=== PATIENT | female | born 1965 | race Caucasian/White ===

== ENCOUNTER 2017-10-04 07:02 | Inpatient (IN) | payer OTHER ==
[~2017-10-04] VITALS: Ht 167.6 cm; Wt 93.9 kg
[2017-10-04] VITALS (63 sets, daily range): BP systolic 36–177; BP diastolic 25–108
[~2017-10-04 07:02] MED LIST: AMBIEN CR12.5 MG PO; ASPIRIN325 MG PO; BYSTOLIC10 MG PO; CLONAZEPAM0.5 MG PO; CLONIDINE HCL0.1 MG PO; LISINOPRIL10 MG PO; LYRICA75 MG PO; NORCO 10-325 T1 EACH PO; NORVASC10 MG PO; PLAVIX75 MG PO; SOMA350 MG PO
[2017-10-04] MEDS ORDERED: ALBUTEROL SULF 0.083% NEB SOLN 3 ML NEB NEB STA (07:11)
[2017-10-04] MEDS ORDERED: METHYLPREDNISOLONE SOD SUCC 125 MG/2ML VIAL IV ONE (07:15)
[2017-10-04] MEDS ORDERED: IPRATROPIUM BROMIDE 0.02% 2.5 ML NEB NEB ONE (07:15)
[2017-10-04] MEDS ORDERED: SODIUM BICARBONATE 8.4% INJ 50 ML SYR IV STA (07:28)
[2017-10-04 07:30] LABS: BASOPHILS # (AUTO) 0.1 (0.0-0.1); BASOPHILS % 0.6 % (0.0-1.0); EOSINOPHILS # (AUTO) 0.2 (0.0-0.4); EOSINOPHILS % 1.2 % (0.0-6.0); HEMATOCRIT 41.7 % (34.2-44.1); LYMPHOCYTES # (AUTO) 1.7 (1.0-3.2); LYMPHOCYTES % 13.6 % (18.0-39.1); MEAN CORPUSCULAR HGB CONC 33.6 g/dL (31-35); MEAN CORPUSCULAR VOLUME 107.2 fL (81-99); MONOCYTES # (AUTO) 0.8 (0.2-0.8); MONOCYTES % 6.4 % (4.4-11.3); NEUTROPHILS # (AUTO) 9.8 (2.1-6.9); NEUTROPHILS % 77.5 % (38.7-80.0); PLATELET COUNT 184 x10e3/uL (140-360); RED BLOOD COUNT 3.89 x10e6/uL (3.6-5.1); RED CELL DISTRIBUTION WIDTH 15.9 % (11.7-14.4)
[2017-10-04] MEDS ORDERED: SODIUM BICARBONATE 8.4% SYRING 50 ML ONE (07:30)
[2017-10-04] MEDS ORDERED: SODIUM CHLORIDE 0.9% 1000ML 1,000 ML ONE ×3 (07:33→13:10)
[2017-10-04] MEDS ORDERED: HYDROCORTISONE SOD SUCCINATE 100 MG VIAL ONE (07:34)
[2017-10-04 07:37] LABS: ABG HCO3 21 mmol/L (23-28); ABG PCO2 43 mmHg (41-51); ABG PO2 94 mmHg (80-105)
[2017-10-04 07:37] LABS: INR 0.89; PROTHROMBIN TIME 12.5 seconds (11.9-14.5)
[2017-10-04 07:46] LABS: ALBUMIN 3.6 g/dL (3.5-5.0); ANION GAP 17.7 mmol/L (8-16); CREATININE, SERUM 1.18 mg/dL (0.57-1.11); POTASSIUM 3.7 mmol/L (3.5-5.1)
[2017-10-04 07:52] LABS: CREATINE KINASE MB 11.8 ng/mL (0.00-5.00)
[2017-10-04 07:53] LABS: B-TYPE NATRIURETIC PEPTIDE2 588.1 pg/mL (0-100)
[2017-10-04 07:56] LABS: TROPONIN I 7.638 ng/mL (0-0.300)
[2017-10-04] MEDS ORDERED: HYDROMORPHONE 1MG/1ML INJ ONE (08:03)
[2017-10-04] MEDS ORDERED: ASPIRIN 81 MG ENTERIC COATED PO ONE (08:25)
[2017-10-04] MEDS ORDERED: METOPROLOL TARTRATE INJ 1 MG/ML VIAL ONE (08:30)
[2017-10-04] MEDS ORDERED: ASPIRIN 325 MG TAB ONE (08:31)
[2017-10-04] MEDS ORDERED: EPTIFIBATIDE 30 ML ONE (08:31)
--- NOTE | 2017-10-04 08:31 | Diagnostic Imaging Report ---
PROCEDURE:CHEST SINGLE (PORTABLE) TECHNIQUE:Portable AP chest INDICATION:Respiratory distress COMPARISON:Patients [facility], DX, CHEST SINGLE (PORTABLE), 04/29/2017, 21:53. FINDINGS: Bilateral alveolar opacity. Questionable pleural effusions. Enlarged cardiac silhouette with central vascular enlargement. Postoperative sequela sternotomy. Intact skeleton. CONCLUSION: Congestive heart failure, with cardiomegaly and pulmonary edema. Dictated by: Raf Kim M.D. on 10/04/2017 at 8:38 Electronically approved by: Raf Kim M.D. on 10/04/2017 at 8:38
[2017-10-04] MEDS ORDERED: NITROGLYCERIN/D5W 200 MCG/ML 250 ML ONE ×2 (08:32→08:37)
[2017-10-04] MEDS ORDERED: LIDOCAINE HCL 2% LOCAL 20 ML VIAL ONE (08:32)
[2017-10-04] MEDS ORDERED: HEPARIN SOD/SOD CHLORIDE 2,000 ML ONE (08:34)
[2017-10-04] MEDS ORDERED: IOPAMIDOL 370 MG/ML 200 ML INFUS..BTL INJ ONE (08:40)
[2017-10-04] MEDS ORDERED: SODIUM CHLORIDE 0.9% 1000ML 1,000 ML IV SCH ×2 (08:45→09:24)
[2017-10-04] MEDS ORDERED: HYDROMORPHONE 2MG/ML INJ IV ONE (08:45)
[2017-10-04] MEDS ORDERED: CLOPIDOGREL BISULFATE 75 MG TAB PO ONE (08:45)
[2017-10-04] MEDS ORDERED: ASPIRIN 81 MG CHEW TAB PO ONE ×2 (08:45→09:30)
[2017-10-04] MEDS ORDERED: HYDROCORTISONE SOD SUCCINATE 100 MG VIAL IV ONE (08:45)
[2017-10-04] MEDS ORDERED: MIDAZOLAM HCL 2 MG/2 ML VIAL ONE (08:57)
[2017-10-04] MEDS ORDERED: FENTANYL CITRATE/PF 100MCG/2 ML INJ ONE (08:57)
[2017-10-04] MEDS ORDERED: VANCOMYCIN 1GM/NS 250 ML 250 ML ONE (09:00)
[2017-10-04] MEDS ORDERED: SODIUM CHLORIDE 0.9% 50ML 50 ML ONE (09:13)
[2017-10-04] MEDS ORDERED: BIVALIRUDIN 250 MG/VIAL IV ONE (09:13)
[2017-10-04] MEDS ORDERED: EPTIFIBATIDE 10 ML ONE ×2 (09:27→09:48)
[2017-10-04] MEDS ORDERED: EPTIFIBATIDE 100 ML ONE ×2 (09:27→17:28)
[2017-10-04] MEDS ORDERED: MORPHINE SULFATE 4 MG/ML SYR IV PRN (09:30)
[2017-10-04] MEDS ORDERED: CLONIDINE HCL 0.1 MG TAB PO PRN (09:30)
[2017-10-04] MEDS ORDERED: HYDROCODONE/APAP 5MG-325MG TAB PO PRN (09:30)
[2017-10-04] MEDS ORDERED: ZOLPIDEM TARTRATE 5 MG TAB PO PRN (09:30)
[2017-10-04] MEDS ORDERED: EPTIFIBATIDE IV SCH (09:30)
[2017-10-04] MEDS ORDERED: SODIUM CHLORIDE 0.9% IV SCH (09:30)
[2017-10-04] MEDS ORDERED: CLONAZEPAM 0.5 MG TAB PO PRN (09:30)
[2017-10-04] MEDS ORDERED: EPTIFIBATIDE 100 ML IV SCH (09:45)
[2017-10-04] MEDS ORDERED: MORPHINE SULFATE 2 MG/ML SYR IV PRN (10:15)
[2017-10-04] MEDS ORDERED: DEXTROSE 50% SYRINGE 50 ML IV PRN (10:15)
[2017-10-04] MEDS ORDERED: SODIUM CHLORIDE FLUSH 10 ML SYR INJ PRN (10:15)
[2017-10-04] MEDS ORDERED: NITROGLYCERIN 0.4 MG SUBL SL PRN (10:15)
[2017-10-04] MEDS ORDERED: HYDROMORPHONE 2MG/ML INJ ONE (10:38)
[2017-10-04] MEDS: FAMOTIDINE 20 MG TAB PO SCH ×2 (11:00→21:00)
[2017-10-04] MEDS ORDERED: HYDROCODONE/APAP 10MG-325MG TAB PO SCH (12:00)
[2017-10-04] MEDS ORDERED: MEPERIDINE HCL INJ 50 MG/ML INJ ONE (12:11)
[2017-10-04] MEDS ORDERED: PROPOFOL IV EMULSION 10MG/ML 100 ML ONE ×2 (12:55→17:27)
[2017-10-04] MEDS ORDERED: FUROSEMIDE INJ 10 MG/ML 4 ML VIAL ONE (12:55)
[2017-10-04] MEDS ORDERED: FUROSEMIDE INJ 10 MG/ML 4 ML VIAL IV ONE ×2 (13:00→17:45)
--- NOTE | 2017-10-04 13:11 | Diagnostic Imaging Report ---
PROCEDURE:CHEST SINGLE (PORTABLE) TECHNIQUE:Portable AP chest INDICATION:Tube placement COMPARISON:Patients [facility], DX, CHEST SINGLE (PORTABLE), 10/04/2017, 8:04. FINDINGS: See conclusion. CONCLUSION: 1. Endotracheal tube tip about 4 cm from the kisha. 2. Progressive pulmonary edema relative to 8:00 AM. 3. Stable cardiomegaly and postoperative sequela of sternotomy. 4. Grossly intact skeleton. Dictated by: Raf Kim M.D. on 10/04/2017 at 13:19 Electronically approved by: Raf Kim M.D. on 10/04/2017 at 13:19
[2017-10-04] MEDS: PROPOFOL IV EMULSION 10MG/ML 100 ML IV PRN ×2 (13:20→18:00)
[2017-10-04] MEDS: MORPHINE SULFATE 5 MG/ML VIAL IV PRN ×2 (13:30→20:30)
[2017-10-04 14:45] LABS: ABG PCO2 43 mmHg (41-51)
[2017-10-04] MEDS ORDERED: INSULIN REGULAR, HUMAN 3ML VL 100 UNIT in SODIUM CHLORIDE 0.45% 100 ML 100 ML IV PRN ×2 (14:45)
[2017-10-04 14:46] LABS: ABG HCO3 21 mmol/L (23-28); ABG PO2 52 mmHg (80-105)
[2017-10-04] MEDS ORDERED: CARISOPRODOL 350 MG TAB PO SCH (15:00)
[2017-10-04] MEDS ORDERED: FUROSEMIDE INJ 10 MG/ML 4 ML VIAL IV SCH ×2 (15:00→22:00)
[2017-10-04] MEDS: FENTANYL CITRATE INJ 2,000 MCG in SODIUM CHLORIDE 0.9% 250ML 210 ML IV PRN (15:10)
[2017-10-04 15:13] LABS: MAGNESIUM 1.8 MG/DL (1.3-2.1); PHOSPHORUS 6.2 MG/DL (2.3-4.7)
[2017-10-04 16:04] LABS: BASOPHILS % 0.2 % (0.0-1.0); EOSINOPHILS % 0.1 % (0.0-6.0); HEMATOCRIT 38.2 % (34.2-44.1); HEMOGLOBIN 12.5 g/dL (12.0-16.0); LYMPHOCYTES # (AUTO) 0.6 (1.0-3.2); LYMPHOCYTES % 4.7 % (18.0-39.1); MEAN CORPUSCULAR HEMOGLOBIN 35.6 pg (28-32); MEAN CORPUSCULAR HGB CONC 32.7 g/dL (31-35); MEAN CORPUSCULAR VOLUME 108.8 fL (81-99); MONOCYTES # (AUTO) 0.7 (0.2-0.8); MONOCYTES % 5.5 % (4.4-11.3); NEUTROPHILS # (AUTO) 11.4 (2.1-6.9); PLATELET COUNT 165 x10e3/uL (140-360); RED BLOOD COUNT 3.51 x10e6/uL (3.6-5.1); RED CELL DISTRIBUTION WIDTH 16.3 % (11.7-14.4)
[2017-10-04 16:29] LABS: CREATINE KINASE MB 108.7 ng/mL (0.00-5.00)
[2017-10-04 16:33] LABS: ANION GAP 17.3 mmol/L (8-16); CALCIUM 7.9 mg/dL (8.4-10.2); CREATININE, SERUM 1.36 mg/dL (0.57-1.11); MAGNESIUM 1.6 MG/DL (1.3-2.1); PHOSPHORUS 5.2 MG/DL (2.3-4.7); POTASSIUM 5.3 mmol/L (3.5-5.1)
[2017-10-04 17:28] LABS: ABG PCO2 36 mmHg (41-51); ABG PH 7.33 (7.31-7.41)
[2017-10-04 17:29] LABS: ABG BASE EXCESS 18.5 mmol/L (-2 - 3); ABG HCO3 19 mmol/L (23-28); ABG PO2 117 mmHg (80-105)
--- NOTE | 2017-10-04 20:38 | Diagnostic Imaging Report ---
RADIOGRAPH(S) OF THE ABDOMEN AND PELVIS, 1 view(s) HISTORY: OG-tube placement COMPARISON: None available. FINDINGS: Partial view of the upper abdomen. No specific evidence of obstruction or ileus. Metallic clips in the right upper quadrant of the abdomen are compatible with prior cholecystectomy. IMPRESSION: An enteric tube extends below the level of the diaphragm, the side port projects near the expected level of the gastroesophageal junction. Signed by: Dr. Tanner Tovar D.O., M.M.M. on 10/04/2017 8:34 PM
[2017-10-04 22:47] LABS: BASOPHILS % 0.2 % (0.0-1.0); EOSINOPHILS % 0.1 % (0.0-6.0); HEMATOCRIT 34.6 % (34.2-44.1); HEMOGLOBIN 11.8 g/dL (12.0-16.0); LYMPHOCYTES # (AUTO) 1.7 (1.0-3.2); LYMPHOCYTES % 13.9 % (18.0-39.1); MEAN CORPUSCULAR HEMOGLOBIN 35.6 pg (28-32); MEAN CORPUSCULAR HGB CONC 34.1 g/dL (31-35); MEAN CORPUSCULAR VOLUME 104.5 fL (81-99); MONOCYTES % 7.8 % (4.4-11.3); NEUTROPHILS # (AUTO) 9.6 (2.1-6.9); NEUTROPHILS % 77.6 % (38.7-80.0); PLATELET COUNT 147 x10e3/uL (140-360); RED BLOOD COUNT 3.31 x10e6/uL (3.6-5.1); RED CELL DISTRIBUTION WIDTH 16.2 % (11.7-14.4)
[2017-10-04 23:01] LABS: ANION GAP 13.7 mmol/L (8-16); CREATININE, SERUM 1.12 mg/dL (0.57-1.11); POTASSIUM 3.7 mmol/L (3.5-5.1)
[2017-10-04] MEDS ORDERED: DOBUtamine HCL 500MG/D5W 250ML 250 ML IV SCH (23:15)
[2017-10-04] MEDS ORDERED: FUROSEMIDE INJ 100 MG in SODIUM CHLORIDE 0.9% 100 ML 90 ML IV SCH (23:15)
[2017-10-04] MEDS ORDERED: POTASSIUM CHLORIDE 20MEQ/100ML 200 ML IV ONE (23:15)
[2017-10-04 23:38] LABS: CREATINE KINASE MB 69.2 ng/mL (0.00-5.00)
[2017-10-04 23:40] LABS: TROPONIN I 199.306 ng/mL (0-0.300)
[2017-10-04] MEDS ORDERED: FUROSEMIDE INJ 10 MG/ML 10 ML VIAL ONE (23:43)
[2017-10-04 23:44] LABS: TROPONIN I 123.106 ng/mL (0-0.300)
[2017-10-05] VITALS (92 sets, daily range): BP systolic 59–150; BP diastolic 34–115
[2017-10-05] MEDS ORDERED: SODIUM CHLORIDE 0.45% 100 ML 100 ML IV ONE (00:02)
[2017-10-05] MEDS ORDERED: EPTIFIBATIDE 100 ML ONE (00:25)
[2017-10-05] MEDS ORDERED: EPTIFIBATIDE 100 ML IV ONE (00:30)
[2017-10-05] MEDS: PROPOFOL IV EMULSION 10MG/ML 100 ML IV PRN ×10 (00:30→22:10)
--- NOTE | 2017-10-05 02:57 | Consultation ---
DATE OF CONSULTATION: October 04, 2017 PULMONARY CRITICAL CARE MEDICINE CONSULTATION REFERRING PHYSICIAN: Dr. To and Dr. Wilder. REASON FOR REFERRAL: Acute respiratory failure. HISTORY: Ms. Mckeon is a pleasant 52-year-old female with acute respiratory failure. Patient with long known history of both cardiovascular and peripheral vascular disease. Patient came to the ER where it was seen that she was having shortness of breath. Patient had the feeling of instability when she came in. Her equipment monitor phototypesetting was notified after initial evaluation. Chest x-ray showed mild pulmonary edema. Her equipment monitor phototypesetting emergently came in and took the patient to the catheterization lab where cardiac catheterization was performed with right coronary vessel intervention. Patient subsequently continued to worsen and become more short of breath. Patient eventually went for intubation. Chest x-ray showed florid pulmonary edema with "whiteout". She was on 100% FIO2 and 5 of PEEP in the morning when I was called. I was asked to assess the patient. Oxygen saturation was 88% to 92% range. First troponin was 7.3. BNP 588. Lactic acid 48. PAST MEDICAL HISTORY: Coronary artery disease, status post CABG, CHF, thyroid abnormality, dyslipidemia, coronary artery bypass grafting in 2003. MEDICATIONS: Per the records. ALLERGIES: PER THE RECORDS. NOTE, ALLERGY TO PENTAZOCINE. SOCIAL HISTORY: Includes smoking by history. PHYSICAL EXAMINATION GENERAL: Patient is off pressors at this time. Unstable appearance with a lot of froth from the endotracheal tube. Patient on the ventilator and awake. Moving all 4 extremities after the procedure. LABS: BUN 20, creatinine 1.2, potassium 3.7, bicarbonate 19. White count 13, hematocrit 42. IMPRESSION AND PLAN 1. Acute respiratory failure, refractory hypoxemia. 2. Pulmonary edema. 3. Acute coronary syndrome, myocardial infarction. 4. Postoperative state: Status post percutaneous transluminal coronary angioplasty and intervention. 5. Atrial fibrillation. 6. Chronic pain. 7. History of coronary artery disease and coronary artery bypass graft. 8. Thyroid abnormality. 9. Dyslipidemia. 10. Lactic acidosis. Aggressive ventilator support. Multiple changes have been made due to ventilator management, lung protected mechanisms. Diuretics have already been started. Will hold the IV fluids after talking to cardiology. Will modify medicines as there is a lot of pain and psychiatric medications. Will follow up the kidneys to ensure there is no kidney injury. Will follow along very closely. Greater than 30 minutes in direct care on this date. Multiple interventions and review, and coordination of care. Job#: [id number] JOSEPH
[2017-10-05 05:11] LABS: BASOPHILS % 0.3 % (0.0-1.0); EOSINOPHILS % 0.3 % (0.0-6.0); HEMATOCRIT 38.7 % (34.2-44.1); HEMOGLOBIN 13.4 g/dL (12.0-16.0); LYMPHOCYTES # (AUTO) 1.8 (1.0-3.2); LYMPHOCYTES % 15.7 % (18.0-39.1); MEAN CORPUSCULAR HEMOGLOBIN 36.1 pg (28-32); MEAN CORPUSCULAR HGB CONC 34.6 g/dL (31-35); MEAN CORPUSCULAR VOLUME 104.3 fL (81-99); MONOCYTES # (AUTO) 1.2 (0.2-0.8); MONOCYTES % 10.2 % (4.4-11.3); NEUTROPHILS # (AUTO) 8.6 (2.1-6.9); PLATELET COUNT 169 x10e3/uL (140-360); RED BLOOD COUNT 3.71 x10e6/uL (3.6-5.1); RED CELL DISTRIBUTION WIDTH 15.9 % (11.7-14.4)
[2017-10-05 05:32] LABS: ALBUMIN 3.3 g/dL (3.5-5.0); ANION GAP 18.5 mmol/L (8-16); BILIRUBIN,DIRECT 0.3 mg/dL (0.0-5.0); CALCIUM 8.2 mg/dL (8.4-10.2); CHOL/HDL RATIO 8.6 (3.0-3.6); CREATININE, SERUM 1.07 mg/dL (0.57-1.11); POTASSIUM 3.5 mmol/L (3.5-5.1)
[2017-10-05 05:56] LABS: CREATINE KINASE MB 53.9 ng/mL (0.00-5.00)
[2017-10-05 06:00] LABS: TROPONIN I 185.484 ng/mL (0-0.300)
--- NOTE | 2017-10-05 06:55 | Diagnostic Imaging Report ---
EXAM: CHEST SINGLE (PORTABLE), AP 1 view DATE: 10/05/2017 5:00 AM Time stamp on exam: 0528 hours INDICATION: Intubated COMPARISON: AP view of the chest October 04, 2017 FINDINGS: LINES/TUBES: Stable position of endotracheal tube. The distal aspect of the nasal/orogastric tube is not visualized. LUNGS: Vascular congestion/pulmonary edema and bibasilar atelectasis. PLEURA: Indeterminate for layering pleural effusions bilaterally. HEART AND MEDIASTINUM: Stable appearance. BONES AND SOFT TISSUES: Median sternotomy wires. IMPRESSION: Increasing edema. Signed by: Dr. Cecelia Collins M.D. on 10/05/2017 6:51 AM
[2017-10-05] MEDS: FAMOTIDINE 20 MG TAB PO SCH ×2 (08:53→20:23)
[2017-10-05] MEDS: ASPIRIN 325 MG TAB PO SCH (08:53)
[2017-10-05] MEDS: PREGABALIN 75 MG CAP PO SCH (08:53)
[2017-10-05] MEDS: PRASUGREL 10 MG TAB PO SCH (08:53)
[2017-10-05] MEDS ORDERED: NEBIVOLOL 10 MG TAB PO SCH (09:00)
[2017-10-05] MEDS ORDERED: ASPIRIN 81 MG ENTERIC COATED PO SCH (09:00)
[2017-10-05] MEDS ORDERED: LISINOPRIL 10 MG TAB PO SCH (09:00)
[2017-10-05] MEDS ORDERED: CLOPIDOGREL BISULFATE 75 MG TAB PO SCH ×2 (09:00)
[2017-10-05] MEDS ORDERED: AMLODIPINE BESYLATE 10 MG TAB PO SCH (09:00)
--- NOTE | 2017-10-05 10:24 | Progress Note ---
DATE: October 05, 2017 Ms. Mckeon is a 52-year-old female with a history of coronary artery disease, status post CABG, CHF, hyperlipidemia, coronary bypass, positive smoker, came to the emergency room complaining of chest pain. She was ruled in for an AL. She was taken to the cardiac cath. She had a stent placed of the RCA. She went into respiratory distress. She first was on BiPAP, and then she required intubation. At the present time, she is on the ventilator. PHYSICAL EXAMINATION VITALS: Temperature is 98.7, blood pressure 120/70, heart rate 94 per minute. LUNGS: Poor inspiratory effort. HEART: Regular rate. ABDOMEN: Distended and soft. EXTREMITIES: Lower extremities with no edema or erythema. BLOOD WORK: Potassium 3.5, creatinine 1.07, glucose 278. White count is 11.7, hemoglobin 13.4, hematocrit 38.7. The chest x-ray done today shows increasing edema. Abdominal x-ray done yesterday shows below the level of the diaphragm. ASSESSMENT AND PLAN 1. Acute respiratory failure: On ventilator. 2. Acute myocardial infarction. 3. Coronary artery disease: Status post right coronary artery stent. 4. Diabetes, type 2: On insulin sliding scale. 5. Hypertension. 6. Hyperlipidemia. PLAN: At the present time, we have cardiology on the case and critical care, Dr. Hayden on the case. We are going to continue to monitor respiratory status. Wean off ventilator as tolerated. Continue Lasix drip. Continue sliding scale with insulin. Continue aspirin. The overall prognosis of the patient is guarded. All of this was discussed with heating mechanic. Job#: [id number] JOSEPH
[2017-10-05] MEDS: FUROSEMIDE INJ 100 MG in SODIUM CHLORIDE 0.9% 100 ML 90 ML IV SCH ×2 (10:41→20:22)
--- NOTE | 2017-10-05 12:04 | Consultation ---
DATE OF CONSULTATION: October 04, 2017 INTERNAL MEDICINE CONSULTATION HISTORY OF PRESENT ILLNESS: Ms. Mckeon is a 52-year-old female. I was called from the emergency room because she ruled in for an acute [place] and she was in the laboratory veterinarian. Dr. Wilder was doing the catheters. I do not have any information from him yet, but this lady has history of diabetes, hypertension, hyperlipidemia, coronary artery disease status post CABG and status post a stent. As per her son, she had 5 times a heart attack. It started this morning with chest pain and shortness of breath. She came to the emergency room and the EKG showed ST elevation on several leads. Cardiology consult was requested immediately and, like I say, patient went to laboratory veterinarian. PAST MEDICAL HISTORY: She has history of diabetes, hypertension, hyperlipidemia, history of coronary artery disease status post CABG and status post a stent. Patient was admitted previously here in April. SOCIAL HISTORY: Apparently she lives at home. She smokes, but as per her son she does not drink. SURGICAL HISTORY: She has a history of a CABG in the past. ALLERGIES: SHE IS ALLERGIC TO PENTAZOCINE. MEDICATIONS: At home she takes several medications. She takes amlodipine, aspirin, clonazepam, Plavix, lisinopril, Bystolic, Lyrica. PHYSICAL EXAMINATION GENERAL: Today, patient just came from the laboratory veterinarian. She is very distressed, anxious. She is on BiPAP. VITAL SIGNS: Blood pressure is 128/83. Temperature 96.3. HEART: Regular rate. LUNGS: Poor inspiratory effort. ABDOMEN: Distended and soft. BLOOD WORK: White count 12.69, hemoglobin is 14. Potassium 3.7, creatinine 1.18. Glucose was very elevated at 505 on admission. BNP 588. Chest x-ray shows congestive heart failure with cardiomegaly and pulmonary edema. ADMITTING DIAGNOSIS 1. Coronary artery disease status post coronary artery bypass graft, status post a stent. 2. Acute myocardial infarction. 3. Congestive heart failure. 4. Pulmonary edema. 5. Acute respiratory failure. 6. Diabetes type 2. 7. Hypertension. 8. Hyperlipidemia. 9. Anxiety. The plan at the present time is patient went to the laboratory veterinarian today. Apparently she had a stent placed. I do not have the information from the analytical tech yet. She is right now in recovery. We are planning to transfer her to ICU. She is on BiPAP. Continue to monitor vital signs. Patient is on beta blockers, CARRIE inhibitors. She is on also diuretics. The overall prognosis is guarded, and all this was discussed with her son at bedside. All questions were answered to satisfaction. Job#: [id number] EV
[2017-10-05] MEDS ORDERED: POTASSIUM CHLORIDE 20MEQ/100ML 200 ML IV ONE ×2 (12:45→14:30)
[2017-10-05] MEDS ORDERED: POTASSIUM CHL 40 MEQ in SODIUM CHLORIDE 0.9% 250ML 250 ML IV SCH (13:00)
[2017-10-05] MEDS ORDERED: ALBUMIN HUMAN 25 GM/ 100 ML IV ONE ×2 (13:15)
[2017-10-05 13:43] LABS: ANION GAP 21.5 mmol/L (8-16); CREATININE, SERUM 0.97 mg/dL (0.57-1.11); POTASSIUM 3.5 mmol/L (3.5-5.1)
--- NOTE | 2017-10-05 13:45 | Pre Op History & Physical ---
CHIEF COMPLAINT: Chest pain. HISTORY OF PRESENT ILLNESS: Ms. Mckeon is a 52-year-old female with a history of coronary artery disease, coronary artery bypass surgery, left fem-pop surgery, poorly controlled diabetes mellitus, morbid obesity, with prior interventions on her saphenous vein bypass graft. Comes in complaining of 2 weeks of shortness of breath and cough. She has been treated with 2 rounds of antibiotics by her primary care physician. However, this morning she had sudden continuous chest pain. EKG in the emergency room shows ST elevation in the inferior leads. She was taken emergently to the cardiac maintenance shop laborer. She was in volume overload from acute systolic heart failure. Additionally, she had complete occlusion of her right coronary artery stent. Percutaneous intervention emergently was performed with successful recanalization. Echocardiogram shows an ejection fraction of 35%. PAST MEDICAL HISTORY: Listed above. SOCIAL HISTORY: Patient does not smoke or drink. DRUG ALLERGIES: INCLUDE PENTAZOCINE. REVIEW OF SYSTEMS: Unobtainable as the patient is intubated. PHYSICAL EXAMINATION: VITAL SIGNS: Afebrile, heart rate 94, blood pressure 110/77, O2 sats 97% on mechanical ventilation. CARDIOVASCULAR: Regular rhythm, systolic murmur, S3 gallop. CHEST: Crackles and rhonchi bilaterally. ABDOMEN: Is mildly distended. Bowel sounds are hypoactive. EXTREMITIES: 1+ edema. Electrocardiogram shows sinus rhythm with inferior ST elevation. Chest x-ray shows pulmonary edema. Cardiac troponin is 7.6. CK-MB is 11.8. BNP 588. Remaining labs were reviewed. ASSESSMENT: 1. Acute systolic heart failure with cardiogenic shock. 2. ST elevation myocardial infarction. 3. Diabetic ketoacidosis. PLAN: Emergency coronary angiography and stent placement was performed. Her ejection fraction has reduced. She is in pulmonary edema. Diuresis. Mechanical ventilation and optimization of cardiac medication will be performed in the next 24 to 48 hours. Overall prognosis is guarded. Endocrinology consult for diabetic ketoacidosis along with pulmonary consultation for ventilator and critical care management. Job#: [id number] SHARIF
[2017-10-05] MEDS: DOPAMINE/DEXTROSE 250 ML IV SCH (13:58)
[2017-10-05] MEDS ORDERED: ALBUMIN HUMAN 25 GM/ 100 ML IV PRN (14:00)
--- NOTE | 2017-10-05 14:07 | Progress Note ---
DATE: October 05, 2017 PULMONARY MEDICINE PROGRESS NOTE SUBJECTIVE: Mrs. Mckeon was seen and examined at bedside. She continues to have critical illness. She is intubated, on ventilator for support, 16/450/80/8. Minute ventilation 7 liters a minute. Peak pressures are at 25. NG tube 150 noted[address] is in place. Insulin drip at 3 units per hour. Chest x-ray shows some improvement in the massive pulmonary edema. Patient remains on the Lasix drip at 10 mg per hour. Fentanyl 100, propofol 80, dopamine 10 mcg/kg per minute. REVIEW OF SYSTEMS: Cannot get as she is intubated. OBJECTIVE VITAL SIGNS: Afebrile. Vital signs noted per electronic record. GENERALLY: No acute distress, but she is well sedated on ventilator. HEENT: Normocephalic, atraumatic. NECK: Supple. Throat midline. LUNGS: Bilateral air entry, a few rhonchi. CARDIOVASCULAR: S1 and S2. No murmurs, rubs or gallops. ABDOMINAL: Soft, nontender. EXTREMITIES: No clubbing, no cyanosis. There is still 1+ edema to the legs. INTEGUMENT: No rash. No purpura. LABS: Include BUN 22, creatinine 1.1. Potassium 3.5. White count 12, hematocrit 39, platelets 169. IMPRESSION AND PLAN 1. Acute respiratory failure, intubated. 2. Refractory hypoxemia. 3. Massive pulmonary edema. 4. Acute coronary syndrome. 5. Postoperative state, status post percutaneous transluminal coronary angioplasty to the right coronary system. 6. Acute kidney injury likely but improving. Continue to diurese her. Maintain the pressors as needed but will consider decreasing the diuretic drip if needed. Patient slowly improving, and we will wean down the ventilator as tolerated. Continue medicines for comfort and safety. Greater than 30 minutes of direct care today. Multiple evaluations and coordination. Will follow along closely. Job#: [id number] EV
[2017-10-05] MEDS ORDERED: DEXTROSE 50% SYRINGE 50 ML IV PRN (14:15)
[2017-10-05] MEDS ORDERED: INSULIN REGULAR, HUMAN 3ML VL 100 UNIT in SODIUM CHLORIDE 0.45% 100 ML 100 ML IV SCH ×2 (15:00)
[2017-10-05 15:04] LABS: FREE T4 (FREE THYROXINE) 0.71 ng/dL (0.8-1.8); THYROID STIMULATING HORMONE 9.073 uIU/mL (0.350-4.940)
--- NOTE | 2017-10-05 15:47 | Progress Note ---
DATE: October 05, 2017 CARDIOLOGY PROGRESS NOTE SUBJECTIVE: The patient remains intubated and sedated. Dopamine was increased to 10 mcg/kg per minute overnight, and patient was placed on Lasix drip at 10 mg an hour. She remains on the insulin drip. OBJECTIVE VITAL SIGNS: Temperature 98.7 degrees, pulse 97, respiratory rate 16, blood pressure 132/82, oxygen saturation 100% on mechanical ventilation. Net negative 2 liters. GENERAL: Obese woman in no acute distress. Intubated and sedated. CARDIOVASCULAR: Normal rate, regular rhythm. Systolic murmur. S3 gallop. LUNGS: Clear to auscultation bilaterally. No wheezes or crackles. ABDOMEN: Soft, nontender. EXTREMITIES: 1+ pitting edema. CARDIAC MEDICATIONS 1. Dopamine 10 mcg/kg per minute. 2. Lasix 10 mg an hour. 3. Prasugrel 10 mg p.o. daily. 4. Nebivolol 10 mg p.o. daily. 5. Aspirin 325 mg p.o. daily. LABS: WBC 11.7, hemoglobin 13.4, hematocrit 38.7, platelets 169. Sodium 143, potassium 3.5, chloride 106, CO2 19, BUN 19, creatinine 0.97. TELEMETRY: Normal sinus rhythm. IMPRESSION 1. Acute systolic heart failure with cardiogenic shock requiring inotropic support. 2. Acute inferior ST-elevation myocardial infarction status post right coronary artery stent. 3. Diabetic ketoacidosis. 4. Acute respiratory failure requiring ventilatory support. 5. Hyperlipidemia. 6. Hypertension, currently hypotensive. 7. Anxiety. RECOMMENDATIONS: Continue dopamine for inotropic support. Continue Lasix drip. Patient has had good diuresis. We will continue to optimize her volume status and, therefore, her cardiac function. Planned for extubation once volume status improved and pulmonary edema resolves. Continue dual antiplatelet therapy. Renal function is improving. Insulin drip per Endocrinology. Job#: [id number] EV
--- NOTE | 2017-10-05 16:01 | Consultation ---
DATE OF CONSULTATION: October 05, 2017 ENDOCRINE CONSULTATION Thank you very much for referring this patient. This is a 52-year-old white female who is referred to me for evaluation of uncontrolled diabetes mellitus. Most of the history is available from the family. Patient is presently on the vent. Patient has a known case of coronary artery disease, status post CABG with multiple stents in the past. She was in the hospital only a few weeks back. She came back with a history of nausea, vomiting and chest pain. She had a cardiac cath and was found to have coronary artery disease, and she is status post RCA stent. Patient also is a chronic smoker. She has diabetes mellitus type 2, uncontrolled, with complications, for which she is on basal bolus insulin therapy at home. Patient is a chronic smoker and is on multiple other medications including medicines for hyperlipidemia and hypertension. PHYSICAL EXAMINATION GENERAL: Today, the patient is sedated at this time. She is on the vent. VITALS: Her heart rate is around 100. Blood pressure is 89/53 mmHg. HEENT: Essentially unremarkable. Thyroid is palpable. Clinically, she is near euthyroid. CHEST: Bilateral vesicular breathing. She has bilateral bronchospasm. CARDIAC: First and second heart sounds. There is no 3rd or 4th heart sound. Ejection systolic murmur, grade 2/6. LABS: Her blood sugars have been between 177 and 278. Her potassium is 3.5. Her enzymes and troponins are significantly elevated. Her LFTs are also high. CLINICAL IMPRESSION 1. Coronary artery disease, status post myocardial infarction, status post multiple stents in the past, status post coronary artery bypass graft. 2. Chronic smoker. 3. Chronic obstructive pulmonary disease. 4. Hypertension. 5. Hyperlipidemia. The plan at this time is to continue the insulin drip. Do a glycohemoglobin and thyroid function test. Monitor her blood sugars closely. I had a long discussion with the patient's family about the future diabetic control. Thanks for referring this patient. I will be following this patient with you. Job#: [id number] JORGE
[2017-10-05] MEDS: INSULIN LISPRO 100 UNIT/1 ML 3ML VIAL SQ SCH ×2 (16:45→20:23)
[2017-10-05 19:19] LABS: CREATINE KINASE MB 12.9 ng/mL (0.00-5.00)
[2017-10-05 19:56] LABS: TROPONIN I 88.01 ng/mL (0-0.300)
[2017-10-05] MEDS ORDERED: POTASSIUM CHLORIDE 20 MEQ TAB CR PO STA (22:43)
[2017-10-06] VITALS (79 sets, daily range): BP systolic 91–140; BP diastolic 50–92
[2017-10-06] MEDS: SODIUM CHLORIDE 0.45% 1,000 ML IV SCH
[2017-10-06] MEDS: PROPOFOL IV EMULSION 10MG/ML 100 ML IV PRN ×5 (00:15→23:20)
[2017-10-06] MEDS: FUROSEMIDE INJ 100 MG in SODIUM CHLORIDE 0.9% 100 ML 90 ML IV SCH ×3 (05:11→20:50)
[2017-10-06] MEDS: DOPAMINE/DEXTROSE 250 ML IV SCH (05:14)
[2017-10-06 05:59] LABS: BASOPHILS % 0.3 % (0.0-1.0); EOSINOPHILS # (AUTO) 0.2 (0.0-0.4); EOSINOPHILS % 1.7 % (0.0-6.0); HEMATOCRIT 37.6 % (34.2-44.1); HEMOGLOBIN 12.8 g/dL (12.0-16.0); LYMPHOCYTES # (AUTO) 1.9 (1.0-3.2); LYMPHOCYTES % 14.8 % (18.0-39.1); MEAN CORPUSCULAR HEMOGLOBIN 35.8 pg (28-32); MONOCYTES # (AUTO) 1.5 (0.2-0.8); MONOCYTES % 11.9 % (4.4-11.3); NEUTROPHILS # (AUTO) 8.9 (2.1-6.9); NEUTROPHILS % 70.7 % (38.7-80.0); PLATELET COUNT 186 x10e3/uL (140-360); RED BLOOD COUNT 3.58 x10e6/uL (3.6-5.1); RED CELL DISTRIBUTION WIDTH 16.1 % (11.7-14.4)
--- NOTE | 2017-10-06 06:10 | Diagnostic Imaging Report ---
EXAM: CHEST SINGLE (PORTABLE), AP 1 view DATE: 10/06/2017 5:00 AM Time stamp on exam: 0455 hours INDICATION: Altered mental status, fluid overload COMPARISON: AP view of the chest October 05, 2017 FINDINGS: LINES/TUBES: Endotracheal tube terminates 2 cm above the kisha. Nasal/orogastric tube terminates in the expected location of the proximal stomach. LUNGS: Pulmonary edema and bibasilar atelectasis. PLEURA: Suspected layering pleural effusions. HEART AND MEDIASTINUM: Stable enlargement of the cardiomediastinal silhouette. BONES AND SOFT TISSUES: Stable median sternotomy wires. IMPRESSION: No interval change. Signed by: Dr. Cecelia Collins M.D. on 10/06/2017 6:07 AM
[2017-10-06] MEDS ORDERED: HEPARIN 25,000U/0.45% NS 250ML 1,500 UNIT in SODIUM CHLORIDE 0.9% 250ML 0 ML IV SCH (06:15)
[2017-10-06] MEDS ORDERED: HEPARIN 25,000 UNIT/D5W 250ML 250 ML IV SCH (06:15)
[2017-10-06] MEDS ORDERED: HEPARIN SOD (PORCINE) 5,000 UNIT/ML VIAL IV SCH (06:30)
[2017-10-06 06:34] LABS: ALBUMIN 3.4 g/dL (3.5-5.0); ALBUMIN/GLOBULIN RATIO 0.9 (0.8-2.0); ANION GAP 20.2 mmol/L (8-16); CALCIUM 8.3 mg/dL (8.4-10.2); CREATININE, SERUM 0.97 mg/dL (0.57-1.11); MAGNESIUM 1.7 MG/DL (1.3-2.1); POTASSIUM 3.2 mmol/L (3.5-5.1)
[2017-10-06 06:37] LABS: MAGNESIUM 1.6 MG/DL (1.3-2.1)
[2017-10-06 06:50] LABS: CREATINE KINASE MB 6.3 ng/mL (0.00-5.00)
[2017-10-06 07:03] LABS: TROPONIN I 70.121 ng/mL (0-0.300)
[2017-10-06 07:28] LABS: PARTIAL THROMBOPLASTIN TIME 26.2 seconds (23.8-35.5); PROTHROMBIN TIME 13.7 seconds (11.9-14.5)
[2017-10-06] MEDS: INSULIN LISPRO 100 UNIT/1 ML 3ML VIAL SQ SCH ×4 (07:30→21:00)
[2017-10-06] MEDS ORDERED: HEPARIN 25,000U/0.45% NS 250ML 250 ML ONE (07:46)
[2017-10-06] MEDS: PREGABALIN 75 MG CAP PO SCH (07:52)
[2017-10-06] MEDS: ASPIRIN 325 MG TAB PO SCH (07:52)
[2017-10-06] MEDS: FAMOTIDINE 20 MG TAB PO SCH ×2 (07:52→21:00)
[2017-10-06] MEDS: PRASUGREL 10 MG TAB PO SCH (07:52)
[2017-10-06] MEDS: HEPARIN 25,000U/0.45% NS 250ML 250 ML IV SCH (07:54)
--- NOTE | 2017-10-06 09:29 | Progress Note ---
DATE: October 06, 2017 Ms. Mckeon is a 52-year-old female with a history of coronary artery disease, status post CABG, status post stent, history of CHF, hyperlipidemia, tobacco use came to the emergency room complaining of chest pain. She ruled in for an [place]. She was taken to the dental laboratory assistant and had a stent placed of the RCA. Developed respiratory failure and she was orally intubated. At the present time, the patient remains intubated. They could not find a pulse on the leg, so she is having an arterial Doppler done today. PHYSICAL EXAMINATION GENERAL: She remains intubated. VITALS: Temperature is 98, blood pressure 112/76, heart is regular rate at 99 per minute. LUNGS: Decreased breath sounds bilaterally. ABDOMEN: Distended and soft. On the blood work, potassium 3.2, creatinine 0.97, glucose 166. White count 12.6, hemoglobin 12.8, hematocrit 37.6. ASSESSMENT AND PLAN 1. Acute respiratory failure: On ventilator. 2. Acute myocardial infarction. 3. Coronary artery disease: Status post stent. 4. Uncontrolled diabetes: On insulin. 5. Hypertension. 6. Hyperlipidemia. 7. Decreased pulse on the lower extremity: Arterial Doppler is being done at the present time. PLAN: At the present time, wean the patient as tolerated. Continue IV Lasix. Continue other medications. Monitor respiratory status and ventilator status, even though now at the present time she is still sedated. She is on heparin for anticoagulation and famotidine for ulcer prophylaxis. The overall prognosis of the patient is still guarded. Job#: [id number] JOSEPH
[2017-10-06] MEDS ORDERED: POTASSIUM CHLORIDE 20MEQ/15ML UDC NG STA (09:31)
[2017-10-06] MEDS ORDERED: IOPAMIDOL 300MG/ML 100 ML INFUS..BTL IV ONE ×2 (10:49→12:57)
[2017-10-06] MEDS ORDERED: HEPARIN SOD/SOD CHLORIDE 2,000 ML ONE (10:49)
[2017-10-06] MEDS ORDERED: LIDOCAINE HCL 2% LOCAL 20 ML VIAL ONE (10:49)
[2017-10-06] MEDS ORDERED: HEPARIN SOD (PORCINE) 1000 UNIT/ML 30ML ONE (10:49)
[2017-10-06] MEDS ORDERED: SODIUM CHLORIDE 0.9% 1000ML 1,000 ML ONE (10:50)
[2017-10-06] MEDS ORDERED: ALTEPLASE 50 MG/VIAL (29 MILLION IU) IV ONE (12:43)
[2017-10-06] MEDS ORDERED: ALTEPLASE RECOMBINANT IV ONE (13:45)
[2017-10-06] MEDS ORDERED: SODIUM CHLORIDE 0.9% IV ONE (13:45)
[2017-10-06] MEDS ORDERED: HEPARIN SOD (PORCINE) 1000 UNIT/ML SDV ONE (13:48)
[2017-10-06] MEDS ORDERED: HEPARIN SOD (PORCINE) 1000 UNIT/ML SDV IV ONE (14:50)
--- NOTE | 2017-10-06 15:40 | Progress Note ---
DATE: October 06, 2017 CARDIOLOGY PROGRESS NOTE SUBJECTIVE: The patient remains intubated and sedated; however, she is able to follow simple commands. Overnight, she lost pulses in her left foot. Bilateral lower extremity arterial Doppler revealed occlusion of her left femoral-anterior tibial bypass graft with very diminished and monophasic flows in the anterior tibial artery and dorsalis pedis arteries. OBJECTIVE VITAL SIGNS: Temperature 98 degrees, pulse 98, respiratory rate 16, blood pressure 97/82, oxygen saturation 96% on mechanical ventilation. GENERAL: Obese woman in no acute distress. Intubated and sedated. CARDIOVASCULAR: Normal rate, regular rhythm. Systolic murmur. S3 gallop. LUNGS: Clear to auscultation bilaterally. No wheezes or crackles. ABDOMEN: Soft, nontender. EXTREMITIES: Trace edema. Left foot cool to palpation with discoloration. CARDIAC MEDICATIONS 1. Prasugrel 10 mg p.o. daily. 2. Aspirin 325 mg p.o. daily. 3. Furosemide 10 mg per hour. 4. Dopamine 7 mcg/kg per minute. 5. Heparin drip. LABS: WBC 12.6, hemoglobin 12.8, hematocrit 37.6, platelets 186. Sodium 145, potassium 3.2, chloride 104, CO2 24, BUN 17, creatinine 0.97. Troponin 70.121. TELEMETRY: Normal sinus rhythm, sinus tachycardia. IMPRESSION 1. Acute systolic heart failure with cardiogenic shock requiring inotropic support. 2. Acute inferior ST-elevation myocardial infarction status post right coronary artery stent. 3. Acute limb ischemia of the left lower extremity suggested by noninvasive Doppler evaluation. 4. Acute respiratory failure requiring ventilatory support. 5. Hyperlipidemia. 6. Hypertension, currently hypotensive. 7. Anxiety. RECOMMENDATIONS: Continue dopamine for inotropic support, wean as tolerated. Continue Lasix drip to optimize volume status. Keep intubated, given plan to take the patient back to the cardiac catheterization lab for a peripheral angiogram given her acute limb ischemia. Continue dual antiplatelet therapy and heparin drip. Insulin drip per endocrinology. The family has been updated as to the plan of care. Job#: [id number]
--- NOTE | 2017-10-06 16:38 | Operative Report ---
DATE OF PROCEDURE: October 06, 2017 INDICATION: Peripheral arterial disease with acute limb ischemia of the left lower extremity. PROCEDURE PERFORMED 1. Third-order catheter placement from the right femoral artery to the left superficial femoral artery with unilateral extremity angiogram. 2. Primary thrombectomy of the left femoral/tibial bypass graft in two adjacent anatomical locations. 3. Initiation of transcatheter lysis. COMPLICATIONS: None. BLOOD LOSS: 10 mL. RECOMMENDATIONS: Reassessment for clinical reperfusion followed by definitive therapy for acute fem-tibial bypass occlusion. Access obtained in the right femoral artery. A 6-Chinese sheath was placed, was advanced to the left iliac artery, and 50% left external iliac artery stenosis was noted. Femoral artery as well as the fem-tibial bypass were completely occluded. A wire was advanced down the fem-tibial bypass, and 10 mg of tPA was initiated for primary thrombectomy of the femoral and tibial vessels. Additionally, aspiration thrombectomy was performed. The perfusion catheter was secured in place with intra-arterial tPA infusion initiated along with intra-arterial heparin infusion. The patient was transferred to ICU, intubated, in critically ill condition. Job#: [id number] EV
[2017-10-06] MEDS ORDERED: IPRATROPIUM BROMIDE 0.02% 2.5 ML NEB ONE (17:41)
[2017-10-06] MEDS ORDERED: ALBUTEROL SULF 0.5% NEB SOLN 20 ML BTL ONE (17:41)
[2017-10-06 17:54] LABS: HEMATOCRIT 33.4 % (34.2-44.1); HEMOGLOBIN 11.2 g/dL (12.0-16.0)
[2017-10-06] MEDS ORDERED: SODIUM CHLORIDE 0.9% 1000ML 1,000 ML IV ONE (22:00)
[2017-10-06] MEDS ORDERED: PANTOPRAZOLE 40 MG 10ML VIAL IV ONE (22:30)
[2017-10-06 23:01] LABS: BILIRUBIN,URINE NEGATIVE (NEGATIVE); CLARITY,URINE CLEAR (CLEAR); COLOR,URINE YELLOW (YELLOW); KETONES,URINE NEGATIVE (NEGATIVE); LEUKOCYTE ESTERASE ,URINE NEGATIVE (NEGATIVE); NITRITE,URINE NEGATIVE (NEGATIVE); PROTEIN,URINE DIPSTICK NEGATIVE (NEGATIVE); URINE UROBILINOGEN 0.2 mg/dL (0.2 - 1)
[2017-10-06 23:16] LABS: BACTERIA,URINE FEW /HPF; EPITHELIAL CELLS,URINE FEW /LPF; MUCUS,URINE FEW (RARE); RBC,URINE 0-5 /HPF (0-5); WBC,URINE (MAN) 0-5 /HPF (0-5)
[2017-10-07] VITALS (95 sets, daily range): BP systolic 80–123; BP diastolic 40–85
[2017-10-07] MEDS: FENTANYL CITRATE INJ 2,000 MCG in SODIUM CHLORIDE 0.9% 250ML 210 ML IV PRN ×2 (00:40→23:55)
[2017-10-07 02:36] LABS: BLOOD UREA NITROGEN 19 mg/dL (7-26); CARBON DIOXIDE 24 mmol/L (22-29); GLUCOSE 153 mg/dL (74-118)
[2017-10-07 02:50] LABS: BUN/CREATININE RATIO 22 (6-25); CALCIUM 7.7 mg/dL (8.4-10.2); CHLORIDE 107 mmol/L (98-107); CREATININE, SERUM 0.86 mg/dL (0.57-1.11); EST GLOMERULAR FILTRATION RATE > 60 ML/MIN (60-); SODIUM 142 mmol/L (136-145)
[2017-10-07] MEDS: DOPAMINE/DEXTROSE 250 ML IV SCH ×2 (03:35→23:55)
[2017-10-07] MEDS: PROPOFOL IV EMULSION 10MG/ML 100 ML IV PRN ×3 (03:48→20:55)
--- NOTE | 2017-10-07 04:39 | Progress Note ---
DATE: October 06, 2017 PULMONARY MEDICINE PROGRESS NOTE SUBJECTIVE: Ms. Mckeon was seen and examined at bedside. She continues to have steady progress. Her diuresis was 3.8 L out yesterday, 2.1 L in. She still on ventilator. Fentanyl 100 per hour. Pulse of 45 per minute. Patient's left foot turned cold yesterday. Patient remains on dopamine, but now at 7 mcg. Heparin subcutaneous was ordered and being given without any evidence of bleeding and this was converted to heparin drip when her leg went cold. Lasix at 10 mg per hour. REVIEW OF SYSTEMS: Unable to get as patient is intubated. OBJECTIVE VITAL SIGNS: Afebrile. Vital signs noted per electronic record. GENERALLY: No acute distress. Alert and well sedated. HEENT: Normocephalic, atraumatic. NECK: Supple. Throat midline. LUNGS: Bilateral air entry, a few rhonchi. CARDIOVASCULAR: S1/S2. No murmurs, rubs or gallops. ABDOMINAL: Soft, nontender. EXTREMITIES: No clubbing, no cyanosis. There is 1+ edema in the legs. INTEGUMENT: No rash, no purpura. LABS: 3.6 potassium, 22 BUN, 0.9 creatinine, 15 white count, 38 hematocrit, 186,000 platelets. IMPRESSIONS AND PLAN 1. Acute respiratory failure, intubated. 2. Pulmonary edema, resolving. 3. Acute myocardial infarction. 4. Postoperative state, status post percutaneous transluminal coronary angioplasty, right side. 5. History of coronary artery bypass graft. 6. Hyperkalemia. 7. Shock, mild cardiogenic mostly. 8. [id number] peripheral vascular disease, suspect active thrombosis and active acute ischemic limb. Keep patient intubated for now. Diuretics per cardiology. Will follow up urine output and lytes. Replete potassium. Wean down dopamine as needed. Patient will go for emergency cardiovascular intervention to reassess the leg. Will follow along closely. Dopplers were done showing no definitive perfusion of the distal limb. Will follow along closely. Job#: [id number] CQ
[2017-10-07] MEDS: HEPARIN 25,000U/0.45% NS 250ML 250 ML IV SCH ×3 (04:50→23:55)
[2017-10-07] MEDS: SODIUM CHLORIDE 0.45% 1,000 ML IV SCH (06:00)
[2017-10-07 06:05] LABS: BASOPHILS # (AUTO) 0.1 (0.0-0.1); BASOPHILS % 0.5 % (0.0-1.0); EOSINOPHILS # (AUTO) 0.3 (0.0-0.4); EOSINOPHILS % 2.8 % (0.0-6.0); HEMATOCRIT 34.5 % (34.2-44.1); HEMOGLOBIN 11.3 g/dL (12.0-16.0); LYMPHOCYTES # (AUTO) 1.4 (1.0-3.2); LYMPHOCYTES % 14.9 % (18.0-39.1); MEAN CORPUSCULAR HEMOGLOBIN 34.9 pg (28-32); MEAN CORPUSCULAR HGB CONC 32.8 g/dL (31-35); MEAN CORPUSCULAR VOLUME 106.5 fL (81-99); MONOCYTES # (AUTO) 0.9 (0.2-0.8); MONOCYTES % 9.4 % (4.4-11.3); NEUTROPHILS # (AUTO) 6.9 (2.1-6.9); NEUTROPHILS % 71.8 % (38.7-80.0); PLATELET COUNT 161 x10e3/uL (140-360); RED BLOOD COUNT 3.24 x10e6/uL (3.6-5.1); RED CELL DISTRIBUTION WIDTH 16.2 % (11.7-14.4)
[2017-10-07 06:33] LABS: ALANINE AMINOTRANSFERASE 31 IU/L (0-55); ALBUMIN 2.9 g/dL (3.5-5.0); ALBUMIN/GLOBULIN RATIO 0.8 (0.8-2.0); ALKALINE PHOSPHATASE 71 IU/L (40-150); ANION GAP 17.4 mmol/L (8-16); BLOOD UREA NITROGEN 20 mg/dL (7-26); BUN/CREATININE RATIO 23 (6-25); CALCIUM 7.7 mg/dL (8.4-10.2); CARBON DIOXIDE 22 mmol/L (22-29); CHLORIDE 109 mmol/L (98-107); CREATININE, SERUM 0.88 mg/dL (0.57-1.11); EST GLOMERULAR FILTRATION RATE > 60 ML/MIN (60-); GLUCOSE 173 mg/dL (74-118); MAGNESIUM 1.3 MG/DL (1.3-2.1); PHOSPHORUS 3.5 MG/DL (2.3-4.7); POTASSIUM 3.4 mmol/L (3.5-5.1); SODIUM 145 mmol/L (136-145)
--- NOTE | 2017-10-07 06:46 | Diagnostic Imaging Report ---
EXAM: CHEST SINGLE (PORTABLE), AP 1 view DATE: 10/07/2017 5:00 AM Time stamp on exam: 0506 hours INDICATION: Respiratory failure COMPARISON: AP view of the chest October 06, 2017 FINDINGS: LINES/TUBES: Endotracheal tube and nasal/orogastric tube in stable position. LUNGS: Improved aeration of the lungs with persistent vascular congestion/interstitial edema and left retrocardiac atelectasis. PLEURA: Indeterminate for small layering pleural effusions. HEART AND MEDIASTINUM: Stable enlargement of the cardiomediastinal silhouette. BONES AND SOFT TISSUES: Median sternotomy wires. IMPRESSION: Continued improved aeration of the lungs. Signed by: Dr. Cecelia Collins M.D. on 10/07/2017 6:42 AM
[2017-10-07] MEDS: INSULIN LISPRO 100 UNIT/1 ML 3ML VIAL SQ SCH ×4 (07:30→21:00)
[2017-10-07] MEDS: PRASUGREL 10 MG TAB PO SCH (09:00)
[2017-10-07] MEDS: PREGABALIN 75 MG CAP PO SCH (09:00)
[2017-10-07] MEDS: ASPIRIN 325 MG TAB PO SCH (09:00)
[2017-10-07] MEDS: PANTOPRAZOLE 40 MG 10ML VIAL IV SCH ×2 (10:56→18:06)
[2017-10-07] MEDS: FAMOTIDINE 20 MG/2 ML VIAL IV SCH ×2 (10:56→18:06)
[2017-10-07 12:40] LABS: HEMATOCRIT 30.1 % (34.2-44.1); HEMOGLOBIN 10.1 g/dL (12.0-16.0)
[2017-10-07 12:55] LABS: ANION GAP 13.9 mmol/L (8-16); BLOOD UREA NITROGEN 19 mg/dL (7-26); BUN/CREATININE RATIO 23 (6-25); CALCIUM 7.7 mg/dL (8.4-10.2); CARBON DIOXIDE 26 mmol/L (22-29); CHLORIDE 108 mmol/L (98-107); CREATININE, SERUM 0.81 mg/dL (0.57-1.11); EST GLOMERULAR FILTRATION RATE > 60 ML/MIN (60-); GLUCOSE 123 mg/dL (74-118); SODIUM 145 mmol/L (136-145)
[2017-10-07 12:56] LABS: POTASSIUM 2.9 mmol/L (3.5-5.1)
[2017-10-07] MEDS ORDERED: POTASSIUM CHLORIDE 20MEQ/100ML 200 ML IV ONE ×3 (13:30→18:00)
--- NOTE | 2017-10-07 13:50 | Progress Note ---
DATE: October 07, 2017 PULMONARY/CRITICAL CARE PROGRESS NOTE I am covering for Dr. Hayden today. SUBJECTIVE: Patient remains on assist-control ventilation. She is sedated with propofol and fentanyl. She is on dopamine at 8 mcg. She also has a TPN infusion in the catheter going to the extremity. OBJECTIVE VITAL SIGNS: The blood pressure is 114/77 and the heart rate is 92. She is on dopamine at 8 mcg. HEENT: Examination shows no facial swelling or erythema. She has an oral endotracheal tube in place. CARDIAC: Exam reveals a regular rate and rhythm with a normal S1 and S2. There are no murmurs or rubs. LUNGS: Auscultation reveals decreased breath sounds at the bases. ABDOMEN: Soft and nontender. There is no rebound or guarding. EXTREMITIES: Examination shows a catheter in the leg on the left side. LABORATORY DATA: The CBC is normal. The VUE-dh-pwojsxzket ratio is normal. The other electrolytes are within normal limits. The chest x-ray shows improved aeration. IMPRESSION 1. Respiratory failure. 2. Acute myocardial infarction with pulmonary edema. 3. Status post percutaneous angioplasty peripherally. PLAN 1. Patient will remain intubated until the cardiovascular procedures are completed. 2. Repeat ABG. 3. Continue management of peripheral vascular disease as per cardiology 4. Repeat x-ray again in the morning. Job#: [id number] EV MTDD
[2017-10-07] MEDS ORDERED: POTASSIUM CHLORIDE 20MEQ/100ML 100 ML IV ONE (15:30)
[2017-10-07] MEDS ORDERED: ALBUMIN HUMAN 100 ML IV ONE (15:44)
[2017-10-07] MEDS: FUROSEMIDE INJ 10 MG/ML 4 ML VIAL IV SCH ×2 (16:21→22:43)
[2017-10-07] MEDS ORDERED: ALBUMIN HUMAN 12.5GM / 50ML IV ONE (16:30)
[2017-10-07] MEDS: LORAZEPAM INJ 2 MG/ML VIAL IV PRN (16:56)
[2017-10-07 18:51] LABS: BASOPHILS % 0.3 % (0.0-1.0); EOSINOPHILS # (AUTO) 0.5 (0.0-0.4); HEMATOCRIT 28.3 % (34.2-44.1); HEMOGLOBIN 9.3 g/dL (12.0-16.0); LYMPHOCYTES # (AUTO) 1.5 (1.0-3.2); LYMPHOCYTES % 16.3 % (18.0-39.1); MEAN CORPUSCULAR HEMOGLOBIN 35.2 pg (28-32); MEAN CORPUSCULAR HGB CONC 32.9 g/dL (31-35); MEAN CORPUSCULAR VOLUME 107.2 fL (81-99); MONOCYTES # (AUTO) 0.9 (0.2-0.8); MONOCYTES % 9.9 % (4.4-11.3); NEUTROPHILS # (AUTO) 6.1 (2.1-6.9); NEUTROPHILS % 68.1 % (38.7-80.0); PLATELET COUNT 167 x10e3/uL (140-360); RED BLOOD COUNT 2.64 x10e6/uL (3.6-5.1); RED CELL DISTRIBUTION WIDTH 16.3 % (11.7-14.4)
[2017-10-08] VITALS (81 sets, daily range): BP systolic 83–128; BP diastolic 54–92
[2017-10-08 01:16] LABS: BASOPHILS % 0.4 % (0.0-1.0); EOSINOPHILS # (AUTO) 0.4 (0.0-0.4); EOSINOPHILS % 3.7 % (0.0-6.0); HEMATOCRIT 29.1 % (34.2-44.1); HEMOGLOBIN 9.6 g/dL (12.0-16.0); LYMPHOCYTES # (AUTO) 0.9 (1.0-3.2); LYMPHOCYTES % 8.1 % (18.0-39.1); MEAN CORPUSCULAR HEMOGLOBIN 35.3 pg (28-32); MONOCYTES # (AUTO) 0.9 (0.2-0.8); MONOCYTES % 8.3 % (4.4-11.3); NEUTROPHILS # (AUTO) 8.7 (2.1-6.9); NEUTROPHILS % 78.9 % (38.7-80.0); PLATELET COUNT 158 x10e3/uL (140-360); RED BLOOD COUNT 2.72 x10e6/uL (3.6-5.1); RED CELL DISTRIBUTION WIDTH 16.2 % (11.7-14.4)
[2017-10-08] MEDS: PROPOFOL IV EMULSION 10MG/ML 100 ML IV PRN ×4 (05:55→22:25)
--- NOTE | 2017-10-08 06:32 | Diagnostic Imaging Report ---
EXAM: CHEST SINGLE (PORTABLE), AP 1 view DATE: 10/08/2017 6:30 AM Time stamp on exam: 0601 hours INDICATION: Respiratory failure COMPARISON: AP view of the chest October 07, 2017 FINDINGS: LINES/TUBES: Stable endotracheal tube and partially visualized nasal/orogastric tube LUNGS: Stable vascular congestion/interstitial edema and left retrocardiac atelectasis PLEURA: Indeterminate for small layering pleural effusion on the left. HEART AND MEDIASTINUM: Stable enlargement BONES AND SOFT TISSUES: Median sternotomy wires IMPRESSION: No interval change Signed by: Dr. Cecelia Collins M.D. on 10/08/2017 6:28 AM
[2017-10-08] MEDS: INSULIN LISPRO 100 UNIT/1 ML 3ML VIAL SQ SCH ×4 (07:30→21:00)
[2017-10-08 07:31] LABS: BASOPHILS % 0.4 % (0.0-1.0); EOSINOPHILS # (AUTO) 0.2 (0.0-0.4); EOSINOPHILS % 2.2 % (0.0-6.0); HEMATOCRIT 28.5 % (34.2-44.1); HEMOGLOBIN 9.1 g/dL (12.0-16.0); LYMPHOCYTES % 9.3 % (18.0-39.1); MEAN CORPUSCULAR HGB CONC 31.9 g/dL (31-35); MEAN CORPUSCULAR VOLUME 109.6 fL (81-99); MONOCYTES # (AUTO) 0.9 (0.2-0.8); MONOCYTES % 8.6 % (4.4-11.3); NEUTROPHILS # (AUTO) 8.4 (2.1-6.9); NEUTROPHILS % 78.8 % (38.7-80.0); PLATELET COUNT 165 x10e3/uL (140-360); RED CELL DISTRIBUTION WIDTH 16.1 % (11.7-14.4)
[2017-10-08 08:07] LABS: ALANINE AMINOTRANSFERASE 24 IU/L (0-55); ALBUMIN 2.8 g/dL (3.5-5.0); ALBUMIN/GLOBULIN RATIO 0.8 (0.8-2.0); ALKALINE PHOSPHATASE 59 IU/L (40-150); ANION GAP 17.8 mmol/L (8-16); BLOOD UREA NITROGEN 17 mg/dL (7-26); BUN/CREATININE RATIO 20 (6-25); CALCIUM 7.8 mg/dL (8.4-10.2); CARBON DIOXIDE 20 mmol/L (22-29); CHLORIDE 110 mmol/L (98-107); CREATININE, SERUM 0.84 mg/dL (0.57-1.11); EST GLOMERULAR FILTRATION RATE > 60 ML/MIN (60-); GLUCOSE 153 mg/dL (74-118); POTASSIUM 3.8 mmol/L (3.5-5.1); SODIUM 144 mmol/L (136-145)
[2017-10-08] MEDS: ACETAMINOPHEN 325 MG TAB PO PRN (08:40)
[2017-10-08] MEDS: ASPIRIN 325 MG TAB PO SCH (08:40)
[2017-10-08] MEDS: PRASUGREL 10 MG TAB PO SCH (08:40)
[2017-10-08] MEDS: PREGABALIN 75 MG CAP PO SCH (08:41)
[2017-10-08] MEDS ORDERED: PIPER-TAZ 3.375 GM 50 ML IV ONE (09:00)
[2017-10-08] MEDS ORDERED: HEPARIN SOD/SOD CHLORIDE 2,000 ML ONE (09:13)
[2017-10-08] MEDS ORDERED: LIDOCAINE HCL 2% LOCAL 20 ML VIAL ONE (09:13)
[2017-10-08] MEDS ORDERED: IOPAMIDOL 370 MG/ML 200 ML INFUS..BTL INJ ONE (09:13)
[2017-10-08] MEDS: FAMOTIDINE 20 MG/2 ML VIAL IV SCH ×2 (09:34→18:35)
[2017-10-08] MEDS: PANTOPRAZOLE 40 MG 10ML VIAL IV SCH ×2 (09:34→18:35)
[2017-10-08] MEDS ORDERED: VANCOMYCIN 1GM/NS 250 ML 250 ML IV ONE (10:00)
[2017-10-08] MEDS: FUROSEMIDE INJ 10 MG/ML 4 ML VIAL IV SCH ×3 (11:09→21:50)
[2017-10-08 12:41] LABS: BASOPHILS % 0.3 % (0.0-1.0); EOSINOPHILS # (AUTO) 0.3 (0.0-0.4); HEMATOCRIT 27.4 % (34.2-44.1); HEMOGLOBIN 8.8 g/dL (12.0-16.0); LYMPHOCYTES # (AUTO) 1.4 (1.0-3.2); LYMPHOCYTES % 12.9 % (18.0-39.1); MEAN CORPUSCULAR HEMOGLOBIN 34.5 pg (28-32); MEAN CORPUSCULAR HGB CONC 32.1 g/dL (31-35); MEAN CORPUSCULAR VOLUME 107.5 fL (81-99); MONOCYTES # (AUTO) 0.8 (0.2-0.8); MONOCYTES % 7.8 % (4.4-11.3); NEUTROPHILS # (AUTO) 7.9 (2.1-6.9); NEUTROPHILS % 75.4 % (38.7-80.0); PLATELET COUNT 159 x10e3/uL (140-360); RED BLOOD COUNT 2.55 x10e6/uL (3.6-5.1); RED CELL DISTRIBUTION WIDTH 16.3 % (11.7-14.4)
[2017-10-08 14:47] LABS: ABG HCO3 24 mmol/L (23-28); ABG PCO2 35 mmHg (41-51); ABG PH 7.44 (7.31-7.41); ABG PO2 108 mmHg (80-105)
[2017-10-08] MEDS: PIPER-TAZ 3.375 GM 50 ML IV SCH ×2 (15:00→21:50)
--- NOTE | 2017-10-08 16:07 | Progress Note ---
DATE: October 08, 2017 CARDIOLOGY PROGRESS NOTE: INDICATION: Critical limb ischemia. SUBJECTIVE: Ms. Mckeon remains intubated and sedated. OBJECTIVE VITAL SIGNS: Afebrile. Heart rate 102. Blood pressure is 108/75 on dopamine 5 mcg/kg per minute. O2 sat is 98%. CARDIOVASCULAR: Regular rhythm. S3 gallop. LUNGS: Crackles bilaterally. EXTREMITIES: Left foot is warm with Doppler pulse in the left dorsalis pedis. Angiography demonstrated widely patent left fem-tib bypass today. Fever was noted. ASSESSMENT: 1. Critical limb ischemia with occlusion of the left fem-tib bypass, status post thrombectomy and thrombolysis. 1. Acute inferior ST-elevation myocardial infarction, status post right coronary artery stent placement. 2. Acute systolic heart failure. PLAN: The patient's fem-tib bypass has been recanalized. No further intervention is indicated. Heparin and tPA will be discontinued. She did develop a fever. Blood and urine cultures have been drawn. Empiric antibiotics. Infectious disease consultation. Following a 6-hour wait after sheath discontinuation, the patient is stable for extubation from the cardiac standpoint. We will continue to follow her. She remains critically ill. This was discussed with the family. Job#: [id number] EV
--- NOTE | 2017-10-08 16:42 | Progress Note ---
DATE: October 08, 2017 CARDIOLOGY PROGRESS NOTE SUBJECTIVE: Patient remains intubated and sedated. She was taken back to the cardiac catheterization laboratory this morning for removal of her thrombolysis catheter. She was noted to spike a fever overnight to 101.3, this morning as well. OBJECTIVE VITAL SIGNS: Temperature 99, respiratory rate 16, blood pressure 100/67, oxygen saturation 100% on mechanical ventilation. GENERAL: Obese woman in no acute distress. Remains intubated and sedated. CARDIOVASCULAR: Tachycardic but regular. Systolic murmur, S3 gallop. LUNGS: Clear to auscultation bilaterally. No wheezes or crackles. ABDOMEN: Soft, nontender. EXTREMITIES: Trace edema. Bilateral lower extremities are now warm to palpation to the feet. CARDIAC MEDICATIONS 1. Furosemide 40 mg IV t.i.d. 2. Prasugrel 10 mg p.o. daily. 3. Aspirin 325 mg p.o. daily. LABS: WBC 10.6, hemoglobin 9.1, hematocrit 28.5, platelets 165. Sodium 144, potassium 3.8, chloride 110, CO2 20, BUN 17, creatinine 0.84. TELEMETRY: Sinus tachycardia. IMPRESSION 1. Acute systolic heart failure with cardiogenic shock requiring inotropic support. 2. Acute inferior ST-elevation myocardial infarction, status post right coronary artery stent. 3. Acute limb ischemia of the left lower extremity with occlusion of the left femoral-tibial bypass graft, status post transcatheter lysis with taoism of flow. 4. Acute respiratory failure requiring ventilatory support. 5. Hyperlipidemia. 6. Hypertension, currently hypotensive. 7. Anxiety. RECOMMENDATIONS: Continue dopamine for inotropic support. Her hemodynamics are improving. Continue Lasix, goal to keep patient net even. Given note of fever, broaden antibiotics, repeat blood cultures, consult infectious disease Dr. Cantrell. Keep patient intubated for today. Once her sheaths are removed, can be extubated if ready per Pulmonary tomorrow morning. Continue with dual antiplatelet therapy. Insulin drip per Endocrinology. Job#: [id number] EV
--- NOTE | 2017-10-08 18:06 | Diagnostic Imaging Report ---
EXAM: XR CHEST 1 VIEW DATE: 10/08/2017 2:49 PM INDICATION: COMPARISON: None FINDINGS: Lines and Tubes: ET tube tip above kisha, NG tube passing post inferior field of view. Right PICC with tip overlying SVC. Heart and Mediastinum: Cardiomegaly. Lungs and Pleura: Lungs poorly evaluated given underpenetration, body habitus, and low lung volumes. Scattered opacities. Bones and Soft Tissues: No acute findings. IMPRESSION: 1. Lines and tubes as above. 2. Probable edema. Signed by: Dr. Claus Kauffman MD on 10/08/2017 6:02 PM
[2017-10-08] MEDS: FENTANYL CITRATE INJ 2,000 MCG in SODIUM CHLORIDE 0.9% 250ML 210 ML IV PRN (22:38)
[2017-10-08] MEDS: VANCOMYCIN 1GM/NS 250 ML 250 ML IV SCH (22:45)
[2017-10-09] VITALS (93 sets, daily range): BP systolic 67–126; BP diastolic 47–93
[2017-10-09] MEDS: PROPOFOL IV EMULSION 10MG/ML 100 ML IV PRN ×2 (02:00→08:22)
[2017-10-09] MEDS: HEPARIN 25,000U/0.45% NS 250ML 250 ML IV SCH (02:25)
[2017-10-09] MEDS: PIPER-TAZ 3.375 GM 50 ML IV SCH ×4 (03:55→20:42)
[2017-10-09] MEDS: ACETAMINOPHEN 325 MG TAB PO PRN (04:30)
--- NOTE | 2017-10-09 06:23 | Diagnostic Imaging Report ---
EXAM: CHEST SINGLE (PORTABLE), AP 1 view DATE: 10/09/2017 6:30 AM Time stamp on exam: 0457 hours INDICATION: Respiratory failure COMPARISON: AP view of the chest October 08, 2017 FINDINGS: LINES/TUBES: Endotracheal tube terminates 4 cm above the kisha. Nasogastric tube courses below the diaphragm. Stable right approach PICC LUNGS: Pulmonary edema and bibasilar atelectasis PLEURA: Possible layering pleural effusions HEART AND MEDIASTINUM: Stable enlargement of the cardiac silhouette BONES AND SOFT TISSUES: No interval change IMPRESSION: No interval change Signed by: Dr. Cecelia Collins M.D. on 10/09/2017 6:20 AM
[2017-10-09 07:15] LABS: BASOPHILS # (AUTO) 0.1 (0.0-0.1); BASOPHILS % 0.5 % (0.0-1.0); EOSINOPHILS # (AUTO) 0.7 (0.0-0.4); EOSINOPHILS % 6.2 % (0.0-6.0); HEMATOCRIT 27.2 % (34.2-44.1); HEMOGLOBIN 8.9 g/dL (12.0-16.0); LYMPHOCYTES # (AUTO) 0.8 (1.0-3.2); LYMPHOCYTES % 7.6 % (18.0-39.1); MEAN CORPUSCULAR HGB CONC 32.7 g/dL (31-35); MEAN CORPUSCULAR VOLUME 107.1 fL (81-99); MONOCYTES # (AUTO) 0.8 (0.2-0.8); MONOCYTES % 7.4 % (4.4-11.3); NEUTROPHILS # (AUTO) 8.2 (2.1-6.9); NEUTROPHILS % 77.4 % (38.7-80.0); PLATELET COUNT 174 x10e3/uL (140-360); RED BLOOD COUNT 2.54 x10e6/uL (3.6-5.1); RED CELL DISTRIBUTION WIDTH 15.9 % (11.7-14.4)
[2017-10-09] MEDS: INSULIN LISPRO 100 UNIT/1 ML 3ML VIAL SQ SCH ×4 (07:30→20:22)
[2017-10-09] MEDS: SODIUM CHLORIDE 0.45% 1,000 ML IV SCH ×2 (07:36→23:30)
[2017-10-09] MEDS: FAMOTIDINE 20 MG/2 ML VIAL IV SCH ×2 (08:54→16:41)
[2017-10-09] MEDS: PRASUGREL 10 MG TAB PO SCH (08:54)
[2017-10-09] MEDS: FUROSEMIDE INJ 10 MG/ML 4 ML VIAL IV SCH ×3 (08:54→20:42)
[2017-10-09] MEDS: PANTOPRAZOLE 40 MG 10ML VIAL IV SCH ×2 (08:54→16:41)
[2017-10-09] MEDS: RIVAROXABAN 15 MG TABLET PO SCH (08:54)
[2017-10-09] MEDS: ASPIRIN 325 MG TAB PO SCH (08:54)
[2017-10-09] MEDS: PREGABALIN 75 MG CAP PO SCH (08:54)
[2017-10-09 09:07] LABS: ALANINE AMINOTRANSFERASE 21 IU/L (0-55); ALBUMIN 2.6 g/dL (3.5-5.0); ALBUMIN/GLOBULIN RATIO 0.8 (0.8-2.0); ALKALINE PHOSPHATASE 66 IU/L (40-150); ANION GAP 18.1 mmol/L (8-16); BLOOD UREA NITROGEN 16 mg/dL (7-26); BUN/CREATININE RATIO 20 (6-25); CALCIUM 8.4 mg/dL (8.4-10.2); CARBON DIOXIDE 21 mmol/L (22-29); CHLORIDE 109 mmol/L (98-107); EST GLOMERULAR FILTRATION RATE > 60 ML/MIN (60-); GLUCOSE 167 mg/dL (74-118); POTASSIUM 3.1 mmol/L (3.5-5.1); SODIUM 145 mmol/L (136-145)
[2017-10-09] MEDS: VANCOMYCIN 1GM/NS 250 ML 250 ML IV SCH ×2 (09:19→21:05)
[2017-10-09] MEDS ORDERED: POTASSIUM CHLORIDE 20MEQ/15ML UDC NG ONE (10:15)
[2017-10-09] MEDS ORDERED: POTASSIUM CHLORIDE 20 MEQ TAB CR PO ONE (13:00)
[2017-10-09] MEDS: DOPAMINE/DEXTROSE 250 ML IV SCH (13:00)
--- NOTE | 2017-10-09 13:10 | Progress Note ---
DATE: October 09, 2017 PULMONARY/CRITICAL CARE PROGRESS NOTE SUBJECTIVE: The patient underwent the peripheral angioplasty yesterday. Her TPN and heparin were subsequently stopped last night. She remained on sedation overnight along with assist control of ventilation. This morning her propofol was held and she was placed on spontaneous breathing trial. She tolerated this well with respiratory rate of 19 and spontaneous tidal volumes of 400. She was extubated to a nasal cannula and is doing well. She remains on low-dose dopamine at 5 mikes. OBJECTIVE VITAL SIGNS: The blood pressure is 107/71 on 5 mikes of dopamine. Heart rate is 99. The T max was 99.5. HEENT: Shows no facial swelling or erythema. The nasal mucosa is normal. The oropharynx is normal. LYMPHATIC EXAMINATION: Shows no submandibular, cervical or supraclavicular adenopathy. CARDIAC: Regular rate and rhythm with normal S1 and S2. LUNGS: Auscultation reveals decreased breath sounds at the bases. ABDOMEN: Soft and nontender. The sheath has been removed. EXTREMITIES: There is warm foot. LABORATORY DATA: The white blood cell count is 10.5, hemoglobin 9, platelet count 174,000. BUN to creatinine ratio is normal. The potassium is 3.1. Blood gas is 7.44, 35, 108 and 24. RADIOGRAPHIC DATA: Shows some changes consistent with pulmonary edema. IMPRESSION 1. Respiratory failure. 2. 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 3. Acute myocardial infarction. 4. Peripheral vascular disease requiring peripheral angioplasty. 5. Anemia, unspecified. PLAN: 1. We proceeded with extubation. The patient will continue on a nasal cannula. 2. The propofol and fentanyl are stopped. 3. Wean dopamine as tolerated. 4. Continue diuretics and cardiac management as per cardiology. 5. I discussed the case with the , respiratory and the nursing staff. 6. Greater than 35 minutes in direct critical care time. Job#: [id number]
[2017-10-09] MEDS ORDERED: POTASSIUM CHL 40 MEQ in WATER STERILE 10ML VIAL 80 ML IV ONE (13:30)
--- NOTE | 2017-10-09 15:18 | Diagnostic Imaging Report ---
Examination: Single AP view of the chest. COMPARISON: Portable chest 10/08/2017 INDICATION: TN, acute pulmonary edema IMPRESSION: 1. Lines and Tubes: Endotracheal, enteric tubes are unchanged. Endotracheal tube has distal tip approximately 4.3 cm above the kisha. Stable right-sided PICC line, with distal tip projecting in the cavoatrial junction 2. Bilateral perihilar interstitial opacities, likely reflecting mild edema/fluid overload. Increased attenuation of the retrocardiac space and attenuation of the left hemidiaphragm, likely reflecting small pleural effusion and associated atelectasis. 3. Enlarged cardiac silhouette. Central pulmonary venous congestion. 4. No acute bony abnormalities. Signed by: Dr. Jim Gannon M.D. on 10/09/2017 3:15 PM
[2017-10-09] MEDS: LEVALBUTEROL HCL SOLN NEBU 0.63 MG/3 ML NEB INH PRN ×2 (15:55→19:26)
[2017-10-09 17:29] LABS: ABG PCO2 35 mmHg (41-51); ABG PH 7.43 (7.31-7.41)
[2017-10-09 17:30] LABS: ABG HCO3 23 mmol/L (23-28); ABG PO2 121 mmHg (80-105)
[2017-10-09] MEDS: ONDANSETRON HCL INJ 2 MG/ML VIAL IV PRN (20:14)
--- NOTE | 2017-10-09 22:06 | Operative Report ---
DATE OF PROCEDURE: October 08, 2017 INDICATIONS: Peripheral arterial disease, critical limb ischemia. PROCEDURES PERFORMED: 1. Removal of transcatheter lysis catheter. 2. Bilateral lower extremity angiogram with third order catheter placement in the right femoral artery and left superficial femoral artery. 3. Primary thrombectomy of the left femoral artery bypass. COMPLICATIONS: None. RECOMMENDATIONS: Dual antiplatelet therapy with consideration of addition of anticoagulant. Right femoral sheath was aspirated. Primary thrombectomy of the left fem-tib bypass graft was performed. Lysis catheter was removed. Angiography demonstrated widely patent bypass graft without any recurrent re-stenosis. No further intervention was indicated. Right groin sheath secured in place. Right femoral artery diffuse 50% stenosis with no focal critical stenoses were noted. The sheath was secured in place. Patient transferred to the floor in stable condition. Job#: [id number]
[2017-10-10] VITALS (63 sets, daily range): BP systolic 72–114; BP diastolic 38–90
[2017-10-10] MEDS: LEVALBUTEROL HCL SOLN NEBU 0.63 MG/3 ML NEB INH PRN ×2 (00:15→08:10)
--- NOTE | 2017-10-10 01:04 | Consultation ---
DATE OF CONSULTATION: October 08, 2017 REASON FOR CONSULTATION: Fever, dysphagia, who is kept in intensive care unit. HISTORY OF PRESENT ILLNESS: She is a 52-year-old white female, history of atherosclerosis, peripheral vascular disease, coronary artery disease, status post bypass, history of left fem-pop surgery, poorly controlled diabetes mellitus, morbidly obese patient. She comes in with 2 weeks' shortness of breath and cough. The patient apparently has been on antibiotic. She also noted that there was coldness in her left leg and left foot. The patient comes in on October 04. Apparently, she had chest pain, EKG showed ST elevation. She was taken to [facility]. She was diagnosed with acute systolic heart failure, cardiogenic shock, ST elevation myocardial infarction, diabetic ketoacidosis. The patient has been seen by critical care, has been seen by cardiology, by renal. The patient is currently in the intensive care unit. She spiked fever today after she received t-PA. Her at the bedside, who seemed very knowledgeable about her condition. PAST MEDICAL HISTORY: As above. PAST SURGICAL HISTORY: As above. ALLERGIES: NKA. SOCIAL HISTORY: No smoking, drug abuse, alcohol abuse. FAMILY HISTORY: Hypertension, this patient had coronary artery disease, CABG, CHF, thyroid disease, dyslipidemia, coronary artery disease, bypass in 2003, peripheral vascular disease. LABORATORY DATA: Blood cultures negative for 3 days. Her white count is 10.4, hemoglobin 8.8, her platelet 159,000. Her sodium 144, potassium 3.8, creatinine 0.84. MEDICATIONS: Patient is currently on Lasix, Pepcid, Protonix, aspirin, Tylenol, lorazepam, dopamine, Lyrica, Xarelto, vancomycin, and Zosyn. PHYSICAL EXAMINATION GENERAL: She is intubated and sedated. VITALS: Stable. Heart rate is 99. Temperature 102.1. HEENT: Normocephalic. NECK: Supple. CHEST: Few crackles at the bases, coarseness. ABDOMEN: Soft. Bowel sounds present. No tenderness. EXTREMITIES: Seemed to be warm. IMPRESSIONS 1. Fever in a patient status post tissue plasminogen activator, probably secondary to thrombolysis. Infection is less likely, but possibility. Agree with blood cultures, urine cultures, vancomycin, and Zosyn. Will follow with you clinically. She seems stable. Will see how she does in next couple of days. 2. Acute systolic congestive heart failure, cardiogenic shock requiring inotropic support. 3. Acute inferior ST elevation myocardial infarction, status post right coronary stent. 4. Acute limb ischemia of the left lower extremity with occlusion of the left femoral-tibial bypass graft, status post transcatheter lysis with gnosticist of flow. 5. Acute respiratory failure. 6. Hyperlipidemia. 7. Obesity. 8. Hypertension. Agree with above plan for time being. Discussed with the . Will follow with you. If she continued to be hemodynamically stable, blood cultures negative in 48 hours, may discontinue antibiotic and reassess. Job#: [id number] CQ
[2017-10-10] MEDS: MORPHINE SULFATE 5 MG/ML VIAL IV PRN (03:09)
[2017-10-10] MEDS: PIPER-TAZ 3.375 GM 50 ML IV SCH ×3 (03:09→15:00)
[2017-10-10 06:17] LABS: BASOPHILS % 0.4 % (0.0-1.0); EOSINOPHILS # (AUTO) 0.2 (0.0-0.4); EOSINOPHILS % 1.6 % (0.0-6.0); HEMATOCRIT 24.3 % (34.2-44.1); LYMPHOCYTES # (AUTO) 1.1 (1.0-3.2); LYMPHOCYTES % 10.3 % (18.0-39.1); MEAN CORPUSCULAR HEMOGLOBIN 34.5 pg (28-32); MEAN CORPUSCULAR HGB CONC 32.5 g/dL (31-35); MEAN CORPUSCULAR VOLUME 106.1 fL (81-99); MONOCYTES # (AUTO) 0.8 (0.2-0.8); MONOCYTES % 7.6 % (4.4-11.3); NEUTROPHILS # (AUTO) 8.3 (2.1-6.9); NEUTROPHILS % 79.1 % (38.7-80.0); PLATELET COUNT 217 x10e3/uL (140-360); RED BLOOD COUNT 2.29 x10e6/uL (3.6-5.1); RED CELL DISTRIBUTION WIDTH 15.2 % (11.7-14.4)
[2017-10-10 06:26] LABS: HEMOGLOBIN 7.9 g/dL (12.0-16.0)
[2017-10-10 06:38] LABS: ALANINE AMINOTRANSFERASE 25 IU/L (0-55); ALBUMIN 2.7 g/dL (3.5-5.0); ALBUMIN/GLOBULIN RATIO 0.8 (0.8-2.0); ALKALINE PHOSPHATASE 69 IU/L (40-150); ANION GAP 16.9 mmol/L (8-16); BLOOD UREA NITROGEN 21 mg/dL (7-26); BUN/CREATININE RATIO 23 (6-25); CALCIUM 8.8 mg/dL (8.4-10.2); CARBON DIOXIDE 23 mmol/L (22-29); CHLORIDE 111 mmol/L (98-107); CREATININE, SERUM 0.91 mg/dL (0.57-1.11); EST GLOMERULAR FILTRATION RATE > 60 ML/MIN (60-); GLUCOSE 153 mg/dL (74-118); SODIUM 148 mmol/L (136-145)
[2017-10-10 06:59] LABS: POTASSIUM 2.9 mmol/L (3.5-5.1)
[2017-10-10] MEDS ORDERED: POTASSIUM CHLORIDE 20MEQ/100ML 200 ML IV ONE (07:30)
[2017-10-10] MEDS: INSULIN LISPRO 100 UNIT/1 ML 3ML VIAL SQ SCH ×4 (07:30→21:00)
--- NOTE | 2017-10-10 08:08 | Progress Note ---
DATE: October 09, 2017 CARDIOLOGY PROGRESS NOTE SUBJECTIVE: The patient was successfully extubated this morning. She denies chest pain or shortness of breath. OBJECTIVE VITALS: Temperature 100 degrees with max temperature of 101.6 degrees this morning, heart rate 103, respiratory rate 19, blood pressure 109/66, and oxygen saturation 100%. GENERAL: Obese woman in no acute distress. CARDIOVASCULAR: Tachycardic but regular. Systolic murmur and S3 gallop. LUNGS: Coarse breath sounds bilaterally. No wheezes or crackles. CARDIOVASCULAR: Soft and nontender. EXTREMITIES: Trace edema. There is discoloration of the digits of the right foot, which is not significantly changed. CARDIAC MEDICATIONS 1. 15 mg p.o. daily. 2. 10 mg p.o. daily. 3. Aspirin 325 mg p.o. daily. 4. Furosemide 40 mg IV t.i.d. 5. Dopamine 4 mcg per kg per minute. LABS: WBC 10.5, hemoglobin 8.9, hematocrit 27.2, and platelets 174,000. Sodium 145, potassium 3.1, chloride 109, CO2 21, BUN 16, creatinine 0.8. Telemetry is sinus tachycardia. IMPRESSION 1. Acute systolic heart failure with cardiogenic shock requiring inotropic support. 2. Acute inferior ST-elevation myocardial infarction, status post right coronary artery stent. 3. Acute limb ischemia of the left lower extremity with occlusion of the left femoral tibial bypass graft, status post transcatheter lysis with latter-day of flow. 4. Fever. 5. Acute respiratory failure requiring ventilatory support and now extubated. 6. Hyperlipidemia. 7. Hypertension, currently hypotensive. 8. Anxiety. RECOMMENDATIONS: Continue dopamine for inotropic support. Hemodynamics are improving. Increase Lasix for diuresis now that the patient is no longer on sedation and blood pressure has improved. Antibiotics had been broadened. Await infectious disease consultation. Blood cultures without growth thus far. Change aspirin to 81 mg daily. Otherwise, continue dual antiplatelet therapy, as well as Xarelto. Management of insulin regimen per endocrinology. Job#: [id number] [place]
[2017-10-10] MEDS: POTASSIUM CHLORIDE IV SCH ×2 (08:22→12:34)
[2017-10-10] MEDS: WATER STERILE IV SCH ×2 (08:22→12:34)
[2017-10-10] MEDS: ASPIRIN 81 MG ENTERIC COATED PO SCH ×2 (09:00→13:16)
[2017-10-10] MEDS: PRASUGREL 10 MG TAB PO SCH ×2 (09:00→13:19)
[2017-10-10] MEDS: RIVAROXABAN 15 MG TABLET PO SCH ×2 (09:00→13:20)
[2017-10-10] MEDS: PREGABALIN 75 MG CAP PO SCH ×2 (09:00→13:19)
[2017-10-10] MEDS: VANCOMYCIN 1GM/NS 250 ML 250 ML IV SCH ×2 (09:30→21:58)
[2017-10-10] MEDS: FUROSEMIDE INJ 10 MG/ML 4 ML VIAL IV SCH ×3 (09:30→21:58)
[2017-10-10] MEDS: PANTOPRAZOLE 40 MG 10ML VIAL IV SCH ×2 (09:30→16:46)
[2017-10-10] MEDS: FAMOTIDINE 20 MG/2 ML VIAL IV SCH ×2 (09:30→16:46)
[2017-10-10] MEDS: HYDROCODONE/APAP 10MG-325MG TAB PO SCH ×2 (13:15→17:37)
--- NOTE | 2017-10-10 13:20 | Progress Note ---
DATE: October 10, 2017 CARDIOLOGY PROGRESS NOTE SUBJECTIVE: Patient denies chest pain; however, she is complaining of shortness of breath and being hungry. OBJECTIVE: VITALS: Temperature 97.9 degrees, pulse 81, respiratory rate 18, blood pressure 92/43, oxygen saturation 92% on 4 liters nasal cannula. GENERAL: Obese woman, in no acute distress. CARDIOVASCULAR: Normal rate, regular rhythm. Systolic murmur and S3 gallop. LUNGS: Coarse breath sounds bilaterally. No wheezes or crackles. ABDOMEN: Soft, nontender. EXTREMITIES: Trace edema. Bilateral lower extremities are warm to palpation and the discoloration in the digits of the right foot is improved. CARDIAC MEDICATIONS 1. Furosemide 80 mg IV t.i.d. 2. Rivaroxaban 15 mg p.o. daily. 3. Prasugrel 10 mg p.o. daily. 4. Aspirin 81 mg p.o. daily. LABS: WBC 10.5, hemoglobin 7.9, hematocrit 24.3, platelets 217,000. Sodium 148, potassium 2.9, chloride 111, CO2 of 23, BUN 21, creatinine 0.91. Blood cultures, no growth to date. TELEMETRY: Sinus rhythm. IMPRESSION 1. Acute systolic heart failure with cardiogenic shock, now off inotropic support. 2. Acute inferior ST-elevation myocardial infarction, status post right coronary artery stent. 3. Acute limb ischemia of the left lower extremity with occlusion of the left femoral tibial bypass graft, status post transcatheter lysis with presybeterian of flow. 4. Fever. 5. Acute respiratory failure, requiring ventilatory support, now extubated. 6. Hyperlipidemia. 7. Hypertension, currently hypotensive. 8. Anemia. 9. Anxiety. RECOMMENDATIONS: Continue diuresis. Awaiting antibiotics per infectious disease. Continue dual-antiplatelet therapy as well as Xarelto. We will check a stool occult blood and consult GI given dropping H and H and gastric contents suggestive of blood via the OG tube while patient was intubated and on transcatheter lysis. Management of insulin per endocrinology. PT, OT, and speech therapy as tolerated. Job#: [id number] [facility]
--- NOTE | 2017-10-10 14:02 | Progress Note ---
DATE: October 09, 2017 Patient was seen on October 09, 2017. She continues to do well. She is having a little fever, but she has no complaints. PHYSICAL EXAMINATION GENERAL: She is currently alert and oriented. Does not seem to be in acute distress. VITAL SIGNS: Stable and afebrile. HEENT: She is not icteric. NECK: Supple. CHEST: Clear. ABDOMEN: Soft. IMPRESSION: Low fever. I think it is from tPA and thrombolytic therapy. I do not think it is infection. We are still waiting on the blood cultures. Will follow. Job#: [id number] [place]
[2017-10-10] MEDS: ONDANSETRON HCL INJ 2 MG/ML VIAL IV PRN ×2 (14:30→19:24)
--- NOTE | 2017-10-10 15:26 | Progress Note ---
DATE: October 10, 2017 Ms. Mckeon is doing well today on . She is hungry, but other than that she has no other complaints. PHYSICAL EXAMINATION GENERAL: She is currently alert, oriented. Does not seem to be in acute distress. VITAL SIGNS: Stable currently. HEENT: She is not icteric. Normocephalic. CHEST: Clear bilateral. COR: No murmurs. ABDOMEN: Soft. IMPRESSION: Fever secondary to tPA, reactive, secondary also to her myocardial infarction and acute limb ischemia, seems to be recovering. From infectious disease point of view, can discontinue her antibiotic. Will follow. Job#: [id number] VAS
[2017-10-10 15:50] LABS: INR 1.97; PROTHROMBIN TIME 23.5 seconds (11.9-14.5)
[2017-10-10 15:51] LABS: PARTIAL THROMBOPLASTIN TIME 37.8 seconds (23.8-35.5)
[2017-10-10] MEDS: PIPERACILLIN/TAZOBAC 3.375 GM in SODIUM CHLORIDE 0.9% 100 ML 100 ML IV SCH ×2 (16:00→22:45)
[2017-10-10] MEDS: INSULIN DETEMIR 100 UNIT/ML PEN SQ SCH (21:58)
[2017-10-10] MEDS ORDERED: PIPER-TAZ 3.375 GM 50 ML ONE (21:59)
[2017-10-10] MEDS ORDERED: PANTOPRAZOLE 40 MG 10ML VIAL IV STA (23:03)
--- NOTE | 2017-10-10 23:04 | Progress Note ---
DATE: October 10, 2017 PULMONARY MEDICINE PROGRESS NOTE SUBJECTIVE: Ms. Mckeon was seen and examined at bedside. She continues to have extubated state. She is spontaneously breathing with nasal cannula oxygen. Saturating well. Still with some coughing intermittently. She is tolerating liquids orally as far as diet and awaiting speech therapy evaluation. Patient sat up for 1-1/2 hours, but was very tired after. She claims that she has very low energy compared to her baseline. 1.9 L in, 3.0 L out. REVIEW OF SYSTEMS: No headaches, no diarrhea. OBJECTIVE: VITAL SIGNS: Afebrile, vital signs noted per electronic record. GENERAL: In no acute distress, calm and slightly sleepy. HEENT: Normocephalic, atraumatic. NECK: Supple. Throat midline. LUNGS: Bilateral air entry, few rhonchi. CARDIOVASCULAR: S1, S2. No murmurs, rubs, or gallops. ABDOMEN: Soft, nontender. EXTREMITIES: No clubbing, no cyanosis, there is 1+ edema. Extremities are warm. INTEGUMENT: No rash, no purpura. LABS: 2.9 potassium, 21 BUN, 0.9 creatinine. 11 white count, 24 hematocrit. IMPRESSION AND PLAN: 1. Acute respiratory failure, extubated. 2. Pulmonary edema, much better. 3. Acute kidney injury, resolving. 4. Dysphagia, probably mild. 5. Anemia, worsening. 6. Ischemic left foot. 7. Admitted with right-sided heart attack, status post percutaneous transluminal coronary angioplasty. Repeat a.m. chest x-ray to reassess the pulmonary edema and ensure further improvements. Replete potassium aggressively. Continue current blood thinners and other cardiac medications for protection. She remains on the Lasix 80 mg 3 times a day, so will follow closely as cardiology continues to titrate these medicines down. Hopefully, will go down on Lasix if she improves. Incentive spirometry will be continued. Gastroenterology consult for the anemia. Job#: [id number]
[2017-10-11] VITALS (38 sets, daily range): BP systolic 75–122; BP diastolic 43–102
[2017-10-11] MEDS: HYDROCODONE/APAP 10MG-325MG TAB PO SCH ×5 (00:01→23:03)
[2017-10-11] MEDS: SODIUM CHLORIDE 0.45% 1,000 ML IV SCH (00:15)
[2017-10-11] MEDS: PANTOPRAZOL 40MG/SOD CHL 0.9% 50 ML IV SCH ×2 (00:15→05:08)
[2017-10-11] MEDS: PIPERACILLIN/TAZOBAC 3.375 GM in SODIUM CHLORIDE 0.9% 100 ML 100 ML IV SCH ×2 (04:50→10:40)
[2017-10-11 06:01] LABS: BASOPHILS # (AUTO) 0.1 (0.0-0.1); BASOPHILS % 0.6 % (0.0-1.0); EOSINOPHILS # (AUTO) 0.6 (0.0-0.4); EOSINOPHILS % 6.7 % (0.0-6.0); LYMPHOCYTES # (AUTO) 1.7 (1.0-3.2); LYMPHOCYTES % 19.1 % (18.0-39.1); MEAN CORPUSCULAR HEMOGLOBIN 34.6 pg (28-32); MEAN CORPUSCULAR HGB CONC 32.3 g/dL (31-35); MONOCYTES # (AUTO) 0.9 (0.2-0.8); MONOCYTES % 9.8 % (4.4-11.3); NEUTROPHILS # (AUTO) 5.6 (2.1-6.9); NEUTROPHILS % 62.8 % (38.7-80.0); PLATELET COUNT 233 x10e3/uL (140-360); RED BLOOD COUNT 2.14 x10e6/uL (3.6-5.1); RED CELL DISTRIBUTION WIDTH 15.7 % (11.7-14.4); RETICULOCYTE % 1.2 % (0.8-2.2)
[2017-10-11 06:23] LABS: % IRON SATURATION 25 % (15-50); ANION GAP 17.1 mmol/L (8-16); BLOOD UREA NITROGEN 22 mg/dL (7-26); BUN/CREATININE RATIO 26 (6-25); CALCIUM 7.6 mg/dL (8.4-10.2); CARBON DIOXIDE 22 mmol/L (22-29); CHLORIDE 109 mmol/L (98-107); CREATININE, SERUM 0.86 mg/dL (0.57-1.11); EST GLOMERULAR FILTRATION RATE > 60 ML/MIN (60-); GLUCOSE 117 mg/dL (74-118); IRON 54 ug/dL (50-170); POTASSIUM 3.1 mmol/L (3.5-5.1); SODIUM 145 mmol/L (136-145); TOTAL IRON BINDING CAPACITY 218 ug/dL (261-478); TRANSFERRIN 156 mg/dL (180-382)
[2017-10-11 06:40] LABS: HEMATOCRIT 22.9 % (34.2-44.1); HEMOGLOBIN 7.4 g/dL (12.0-16.0)
[2017-10-11 07:06] LABS: INR 1.24; PROTHROMBIN TIME 16.2 seconds (11.9-14.5)
[2017-10-11] MEDS: INSULIN LISPRO 100 UNIT/1 ML 3ML VIAL SQ SCH ×5 (07:30→21:00)
[2017-10-11 07:39] LABS: FOLATE 11.5 ng/mL (7.0-15.4)
[2017-10-11] MEDS: SUCRALFATE 1 GM TAB PO SCH ×4 (08:13→21:23)
[2017-10-11] MEDS: RIVAROXABAN 15 MG TABLET PO SCH (09:00)
[2017-10-11] MEDS: VANCOMYCIN 1GM/NS 250 ML 250 ML IV SCH (09:00)
[2017-10-11] MEDS ORDERED: HEPARIN 25,000 UNIT/D5W 250ML 250 ML IV PRN (09:30)
[2017-10-11] MEDS: FUROSEMIDE INJ 10 MG/ML 4 ML VIAL IV SCH ×2 (10:39→21:23)
[2017-10-11] MEDS: ASPIRIN 81 MG ENTERIC COATED PO SCH (10:39)
[2017-10-11] MEDS: PRASUGREL 10 MG TAB PO SCH (10:39)
[2017-10-11] MEDS: PREGABALIN 75 MG CAP PO SCH (10:39)
[2017-10-11] MEDS: FAMOTIDINE 20 MG/2 ML VIAL IV SCH ×2 (10:39→17:37)
--- NOTE | 2017-10-11 11:26 | Progress Note ---
DATE: October 11, 2017 CARDIOLOGY PROGRESS NOTE SUBJECTIVE: Patient denies chest pain or shortness of breath. She is seen sitting up in a chair. OBJECTIVE VITALS: Temperature 98.8 degrees, pulse 76, respiratory rate 16, blood pressure 109/70, oxygen saturation 100% on 4 L nasal cannula. Net negative 1 L. GENERAL: Obese woman, in no acute distress. CARDIOVASCULAR: Normal rate, regular rhythm. Systolic murmur and S3 gallop. LUNGS: Coarse breath sounds bilaterally. No wheezes or crackles. ABDOMEN: Soft, nontender. EXTREMITIES: Trace edema. CARDIAC MEDICATIONS 1. Aspirin 81 mg p.o. daily. 2. Lasix 80 mg IV t.i.d. 3. Prasugrel 10 mg p.o. daily. 4. Xarelto 15 mg p.o. daily. LABS: WBC 8.8, hemoglobin 7.4, hematocrit 22.9, platelets 233,000. Sodium 145, potassium 3.1, chloride 109, CO2 of 22, BUN 22, creatinine 0.86. TELEMETRY: Normal sinus rhythm. IMPRESSION 1. Acute systolic heart failure with cardiogenic shock, now off inotropic support. 2. Acute inferior ST-elevation myocardial infarction, status post right coronary artery stent. 3. Acute limb ischemia of the left lower extremity with occlusion of the left femoral-tibial bypass graft, status post transcatheter lysis with [facility] of flow. 4. Acute respiratory failure requiring ventilatory support, now extubated. 5. Anemia. 6. Fever, resolved. 7. Hyperlipidemia. 8. Hypertension, currently normotensive. 9. Anxiety. RECOMMENDATIONS 1. Continue diuresis. 2. Continue dual antiplatelet therapy given recent myocardial infarction and stent placement to the RCA. 3. Given anemia, we will stop the Xarelto and place the patient on heparin drip in an attempt to maintain patency of the left femoral-tibial bypass graft. Awaiting stool occult blood, GI has been consulted regarding the anemia given gastric contents were suggestive of blood via the OG tube while the patient was receiving tPA. Further evaluation per GI noted iron studies as well as folate and B12 have been ordered. 4. Management of insulin per endocrinology. 5. Management of antibiotics per infectious disease. 6. PT, OT, and speech therapy as tolerated. Job#: [id number]
[2017-10-11] MEDS ORDERED: POTASSIUM CHLORIDE 20 MEQ TAB CR PO NR (13:00)
[2017-10-11] MEDS: INSULIN DETEMIR 100 UNIT/ML PEN SQ SCH (21:00)
[2017-10-12] VITALS: BP 91/54
[2017-10-12] MEDS ORDERED: SODIUM CHLORIDE 0.9% 250ML 250 ML ONE (01:10)
--- NOTE | 2017-10-12 01:29 | Progress Note ---
DATE: October 11, 2017 PULMONARY MEDICINE PROGRESS NOTE SUBJECTIVE: Mrs. Mckeon was seen and examined at bedside. She continues to have steady progress. Vancomycin level, however, was quite high in the toxic range. Patient with 1.5 L in and 2.7 L out, and 100% oxygen saturation on 4 L per minute oxygen. Leg continues to feel warm and satisfactory after intervention. Chest x-ray still shows some overload versus pneumonia. REVIEW OF SYSTEMS: No headaches. No bleeding. OBJECTIVE VITALS: Afebrile. Vital signs noted per electronic record. GENERAL: In no acute distress. Alert and calm. HEENT: Normocephalic and atraumatic. NECK: Supple. Throat midline. LUNGS: Bilateral air entry. Few rhonchi. Few crackles. CARDIOVASCULAR: S1 and S2. No murmurs, rubs or gallops. ABDOMEN: Soft and nontender. EXTREMITIES: No clubbing. No cyanosis. There is only trace to no edema. INTEGUMENT: No rash. No purpura. LABS: Potassium 3.1, bicarbonate 22, creatinine 1.24. White count 8. IMPRESSION AND PLAN 1. Acute respiratory failure, resolving. 2. Fluid overload. 3. Secondary lung injury, pneumonitis. 4. Admit with acute right-sided myocardial infarction, status post percutaneous intervention. 5. Worsening anemia. 6. Ischemic left leg, status post percutaneous reopening and intervention. Continue current treatment. Repeat potassium. Give transfusions. Repeat blood counts serially. Follow up for bleeding. Repeat chest x-ray intermittently to ensure further improvement. Antibiotics are still being given at this time, which will consider stopping soon. Will follow up closely. Patient is in guarded condition, but her risk is decreasing every day. She is still at risk of arteriovenous thrombotic disease still. Follow up closely. Job#: [id number] JOSEPH
[2017-10-12 04:00] VITALS: BP 116/74
[2017-10-12] MEDS: HYDROCODONE/APAP 10MG-325MG TAB PO SCH ×3 (06:25→17:10)
[2017-10-12 07:07] LABS: BASOPHILS # (AUTO) 0.1 (0.0-0.1); BASOPHILS % 0.7 % (0.0-1.0); EOSINOPHILS # (AUTO) 0.5 (0.0-0.4); EOSINOPHILS % 6.3 % (0.0-6.0); HEMATOCRIT 26.7 % (34.2-44.1); LYMPHOCYTES # (AUTO) 1.3 (1.0-3.2); LYMPHOCYTES % 18.1 % (18.0-39.1); MEAN CORPUSCULAR HEMOGLOBIN 32.8 pg (28-32); MEAN CORPUSCULAR HGB CONC 33.7 g/dL (31-35); MEAN CORPUSCULAR VOLUME 97.4 fL (81-99); MONOCYTES # (AUTO) 0.7 (0.2-0.8); MONOCYTES % 9.8 % (4.4-11.3); NEUTROPHILS # (AUTO) 4.7 (2.1-6.9); NEUTROPHILS % 63.2 % (38.7-80.0); PLATELET COUNT 241 x10e3/uL (140-360); RED BLOOD COUNT 2.74 x10e6/uL (3.6-5.1); RED CELL DISTRIBUTION WIDTH 18.9 % (11.7-14.4)
[2017-10-12] MEDS: INSULIN LISPRO 100 UNIT/1 ML 3ML VIAL SQ SCH ×7 (08:00→21:00)
--- NOTE | 2017-10-12 08:06 | Progress Note ---
DATE: October 07, 2017 CARDIOLOGY PROGRESS NOTE SUBJECTIVE: Patient was taken to the cardiac catheterization lab yesterday evening for peripheral angiogram, primary thrombectomy of the femoral tibial bypass graft, and initiation of transcatheter lysis. She remains intubated and sedated at this time but now has dopplerable dorsalis pedis and posterior tibial arteries bilaterally. OBJECTIVE VITAL SIGNS: Temperature 99 degrees, pulse 96, respiratory rate 16, blood pressure 101/69, oxygen saturation 99% on mechanical ventilation. GENERAL: Obese woman in no acute distress, intubated and sedated. CARDIOVASCULAR: Normal rate, regular rhythm. Systolic murmur. S3 gallop. LUNGS: Clear to auscultation bilaterally. No wheezes or crackles. ABDOMEN: Soft, nontender. EXTREMITIES: Trace edema. Dopplerable dorsalis and posterior tibial pulses bilaterally. Bilateral lower extremities are now warm to palpation to the feet although she continues to have some coolness to palpation on the right foot and discoloration of the right toes. CARDIAC MEDICATIONS 1. Heparin drip. 2. tPA. 3. Dopamine 7 mcg/kg per minute. 4. Prasugrel 10 mg p.o. daily. 5. Aspirin 325 mg p.o. daily. LABS: WBC 9.59, hemoglobin 10.1, hematocrit 30.1, platelets 161. Sodium 145, potassium 2.9, chloride 108, CO2 26, BUN 19, creatinine 0.81. Chest x-ray: Continued improved aeration of the lungs. IMPRESSION 1. Acute systolic heart failure with cardiogenic shock requiring vasopressor support. 2. Acute inferior ST-elevation myocardial infarction status post right coronary artery stent. 3. Acute limb ischemia of the left lower extremity due to thrombosis of the left femoral tibial bypass graft status post thrombectomy and transcatheter lysis. 4. Acute respiratory failure requiring ventilatory support. 5. Hyperlipidemia. 6. Hypertension, currently hypotensive. 7. Anxiety. RECOMMENDATIONS: Continue dopamine for inotropic support, wean as tolerated. Keep the patient intubated while she is undergoing transcatheter lysis. We will continue tPA and heparin. Plan to take the patient back to the cardiac catheterization laboratory for repeat peripheral angiogram and intervention likely tomorrow. In the meantime, continue current cardiac medications including dual antiplatelet therapy. As patient's volume status appears to have improved, stop Lasix, keep patient net even. Management of insulin per Endocrinology. The family has been updated as to the plan of care. Job#: [id number] EV
[2017-10-12 08:12] VITALS: BP 99/60
[2017-10-12 08:30] LABS: ALANINE AMINOTRANSFERASE 28 IU/L (0-55); ALBUMIN 2.7 g/dL (3.5-5.0); ALBUMIN/GLOBULIN RATIO 0.8 (0.8-2.0); ALKALINE PHOSPHATASE 83 IU/L (40-150); ANION GAP 16.4 mmol/L (8-16); BLOOD UREA NITROGEN 27 mg/dL (7-26); BUN/CREATININE RATIO 33 (6-25); CALCIUM 8.1 mg/dL (8.4-10.2); CARBON DIOXIDE 22 mmol/L (22-29); CHLORIDE 108 mmol/L (98-107); CREATININE, SERUM 0.81 mg/dL (0.57-1.11); EST GLOMERULAR FILTRATION RATE > 60 ML/MIN (60-); GLUCOSE 222 mg/dL (74-118); MAGNESIUM 1.9 MG/DL (1.3-2.1); POTASSIUM 3.4 mmol/L (3.5-5.1); SODIUM 143 mmol/L (136-145); VANCOMYCIN,RANDOM 9.1 ug/mL
[2017-10-12] MEDS: SUCRALFATE 1 GM TAB PO SCH ×4 (08:37→20:23)
[2017-10-12] MEDS: ASPIRIN 81 MG ENTERIC COATED PO SCH (08:37)
[2017-10-12] MEDS: FUROSEMIDE INJ 10 MG/ML 4 ML VIAL IV SCH ×2 (08:37→20:23)
[2017-10-12] MEDS: PRASUGREL 10 MG TAB PO SCH (08:37)
[2017-10-12] MEDS: FAMOTIDINE 20 MG/2 ML VIAL IV SCH ×2 (08:37→16:08)
--- NOTE | 2017-10-12 09:36 | Diagnostic Imaging Report ---
EXAM: CHEST SINGLE (PORTABLE), AP 1 view DATE: 10/11/2017 5:00 AM INDICATION: Congestive heart failure COMPARISON: 10/09/2017 FINDINGS: LINES/TUBES: Removal of ET tube, NG tube. Stable right PICC at the cavoatrial junction. LUNGS: Mild interval improvement in pulmonary edema and bibasilar atelectasis PLEURA: No significant effusion HEART AND MEDIASTINUM: Stable enlargement of the cardiac silhouette post sternotomy. BONES AND SOFT TISSUES: No interval change IMPRESSION: Mild interval improvement in edema. Signed by: Dr Chantelle Zuniga MD on 10/11/2017 6:11 AM
[2017-10-12] MEDS: PANTOPRAZOL 200MG/SOD CHL 0.9% 250 ML IV SCH (10:00)
[2017-10-12] MEDS: PREGABALIN 75 MG CAP PO SCH (12:00)
--- NOTE | 2017-10-12 12:02 | Progress Note ---
DATE: October 12, 2017 PULMONARY MEDICINE PROGRESS NOTE SUBJECTIVE: Ms. Mckeon was seen and examined at bedside. She continues to have slow progress. She is still considerably weak in her opinion. She denies having any outward clinical bleeding. The patient continues to urinate well. No respiratory distress episodes. She is on nasal cannula oxygen at this point. REVIEW OF SYSTEMS: No headaches. No rash. OBJECTIVE VITALS: Afebrile. Vital signs noted per electronic record. GENERAL: In no acute distress. Calm but slightly pale. HEENT: Normocephalic and atraumatic. NECK: Supple. Throat midline. LUNGS: Bilateral air entry. A few rhonchi. A few crackles at the base. CARDIOVASCULAR: S1 and S2. No murmurs, rubs or gallops. ABDOMEN: Soft and nontender. EXTREMITIES: No clubbing. No cyanosis. There is only trace to no edema. INTEGUMENT: No rash. No purpura. Legs are still warm. IMPRESSION AND PLAN 1. Acute respiratory failure, resolved. 2. Residual mild fluid overload. 3. Residual pneumonitis secondary to lung injury due to flash pulmonary edema. 4. Admit with acute right-sided myocardial infarction, status post percutaneous transluminal coronary angioplasty. 5. Complications of left arterial thrombosis, status post percutaneous transluminal coronary angioplasty. 6. Weakness. Aggressive PT and OT. Will follow the hematocrit, which is not back yet, but will decide if it is appropriate. Continue cardiac medications. Follow up on the diuretic dose, which was decreased yesterday. Will consider going up if we get an accurate plan of her ins and outs. Follow along closely. Job#: [id number]
[2017-10-12 12:39] VITALS: BP 113/79
--- NOTE | 2017-10-12 15:52 | Progress Note ---
DATE: October 12, 2017 SUBJECTIVE: The patient denies chest pain or shortness of breath. She is asking to go home. OBJECTIVE VITAL SIGNS: Temperature 97.8 degrees, pulse 70, respiratory rate 20, blood pressure 113/79, oxygen saturation is 96% on 4 liters nasal cannula. GENERAL: Awake, alert and in no acute distress. Obese. CARDIOVASCULAR: Normal rate, regular rhythm. Systolic murmur and S3 gallop. LUNGS: Coarse breath sounds bilaterally. No wheezes or crackles. ABDOMEN: Soft, nontender. EXTREMITIES: Trace edema. CARDIAC MEDICATIONS 1. Furosemide 40 mg IV q.12 h. 2. Aspirin 81 mg p.o. daily. 3. Prasugrel 10 mg p.o. daily. 4. Heparin drip. LABS: WBC 7.3, hemoglobin 9, hematocrit 26.7, platelets 241,000, sodium 143, potassium 3.4, chloride 108, CO2 of 22, BUN 27, creatinine 0.8. TELEMETRY: Normal sinus rhythm. IMPRESSION 1. Acute systolic heart failure with cardiogenic shock, now off inotropic support. 2. Acute inferior ST-elevation myocardial infarction, status post right coronary artery stent. 3. Acute limb ischemia of the left lower extremity with occlusion of the left femoral-tibial bypass graft, status post transcatheter lysis with [facility] of flow. 4. Acute respiratory failure requiring ventilatory support, now extubated. 5. Anemia. 6. Hyperlipidemia. 7. Hypertension, currently normotensive. 8. Fever, resolved. 9. Anxiety. RECOMMENDATIONS: Continue diuretics with goal of keeping the patient net even to net negative. Continue dual antiplatelet therapy given recent myocardial infarction and stent placement to the RCA. Continue with heparin drip while undergoing GI evaluation for anemia. Once GI evaluation is complete, will need to resume Xarelto in an attempt to maintain the patency of the left femoral tibial bypass graft. Diabetes management per endocrinology. Antibiotics per infectious disease. PT, OT and speech therapy. Job#: [id number]
[2017-10-12 17:11] VITALS: BP 111/65
[2017-10-12 20:00] VITALS: BP 130/77
[2017-10-12] MEDS: LORAZEPAM INJ 2 MG/ML VIAL IV PRN (20:23)
[2017-10-12] MEDS ORDERED: INSULIN DETEMIR 100 UNIT/ML PEN SQ SCH (21:00)
[2017-10-12] MEDS ORDERED: POTASSIUM CHLORIDE 20 MEQ TAB CR PO STA (23:59)
[2017-10-13] VITALS: BP 133/74
[2017-10-13] MEDS: HYDROCODONE/APAP 10MG-325MG TAB PO SCH ×3 (02:45→12:14)
[2017-10-13 04:00] VITALS: BP 99/64
--- NOTE | 2017-10-13 06:49 | Diagnostic Imaging Report ---
CHEST SINGLE (PORTABLE), 10/13/2017 5:00 AM Technique: CHEST SINGLE (PORTABLE) Comparison: 10/11/2017 Clinical history: Congestive heart failure Findings: See Impression Impression: 1. Lines/Tubes: Stable right PICC. 2. Stable enlarged cardiac silhouette post sternotomy; broken second sternotomy wire. 3. Mild interstitial edema. No significant effusion. Signed by: Dr Chantelle Zuniga MD on 10/13/2017 6:45 AM
[2017-10-13 06:53] LABS: BASOPHILS # (AUTO) 0.1 (0.0-0.1); BASOPHILS % 0.6 % (0.0-1.0); EOSINOPHILS # (AUTO) 0.4 (0.0-0.4); HEMATOCRIT 28.5 % (34.2-44.1); HEMOGLOBIN 9.5 g/dL (12.0-16.0); LYMPHOCYTES # (AUTO) 1.7 (1.0-3.2); MEAN CORPUSCULAR HEMOGLOBIN 32.2 pg (28-32); MEAN CORPUSCULAR HGB CONC 33.3 g/dL (31-35); MEAN CORPUSCULAR VOLUME 96.6 fL (81-99); MONOCYTES # (AUTO) 0.8 (0.2-0.8); MONOCYTES % 9.5 % (4.4-11.3); NEUTROPHILS # (AUTO) 5.7 (2.1-6.9); NEUTROPHILS % 64.1 % (38.7-80.0); PLATELET COUNT 281 x10e3/uL (140-360); RED BLOOD COUNT 2.95 x10e6/uL (3.6-5.1); RED CELL DISTRIBUTION WIDTH 19.1 % (11.7-14.4)
[2017-10-13 07:14] LABS: ANION GAP 11.4 mmol/L (8-16); BLOOD UREA NITROGEN 23 mg/dL (7-26); BUN/CREATININE RATIO 30 (6-25); CALCIUM 8.3 mg/dL (8.4-10.2); CARBON DIOXIDE 26 mmol/L (22-29); CHLORIDE 107 mmol/L (98-107); CREATININE, SERUM 0.77 mg/dL (0.57-1.11); EST GLOMERULAR FILTRATION RATE > 60 ML/MIN (60-); GLUCOSE 198 mg/dL (74-118); POTASSIUM 3.4 mmol/L (3.5-5.1); SODIUM 141 mmol/L (136-145)
[2017-10-13] MEDS: SUCRALFATE 1 GM TAB PO SCH ×3 (08:25→16:32)
[2017-10-13] MEDS: FUROSEMIDE INJ 10 MG/ML 4 ML VIAL IV SCH (08:25)
[2017-10-13] MEDS: ASPIRIN 81 MG ENTERIC COATED PO SCH (08:25)
[2017-10-13] MEDS: FAMOTIDINE 20 MG/2 ML VIAL IV SCH ×2 (08:25→16:35)
[2017-10-13] MEDS: PRASUGREL 10 MG TAB PO SCH (08:26)
[2017-10-13] MEDS: INSULIN LISPRO 100 UNIT/1 ML 3ML VIAL SQ SCH ×4 (08:26→12:15)
[2017-10-13] MEDS: PANTOPRAZOL 200MG/SOD CHL 0.9% 250 ML IV SCH (08:30)
[2017-10-13 08:39] VITALS: BP 131/81
[2017-10-13 08:59] VITALS: BP 130/86
[2017-10-13] MEDS: PREGABALIN 75 MG CAP PO SCH (09:09)
[2017-10-13 12:56] VITALS: BP 130/80
[2017-10-13] MEDS ORDERED: XARELTO20 MG PO (15:13)
--- NOTE | 2017-10-13 15:13 | Progress Note ---
DATE: October 13, 2017 CARDIOLOGY PROGRESS NOTE SUBJECTIVE: Patient denies chest pain or shortness of breath. She is extremely upset that she has not been discharged home. Earlier this morning, patient was noted to fall to the ground. Patient reports she simply slid down to the ground because she was weak. Denied any chest pain, palpitations or lightheadedness at that time. OBJECTIVE VITAL SIGNS: Temperature 95.9 degrees, pulse 85, respiratory rate 20, blood pressure 130/80, oxygen saturation 97% on 4 liters nasal cannula. GENERAL: Obese woman, no acute distress. CARDIOVASCULAR: Normal rate, regular rhythm. Systolic murmur. Normal S1 and S2. LUNGS: Clear to auscultation bilaterally. No wheezes or crackles. ABDOMEN: Soft, nontender. EXTREMITIES: Trace edema. CARDIAC MEDICATIONS 1. Prasugrel 10 mg p.o. daily. 2. Aspirin 81 mg p.o. daily. 3. Rivaroxaban 15 mg p.o. nightly. 4. Heparin drip. LABS: WBC 8.8, hemoglobin 9.5, hematocrit 28.5, platelets 281. Sodium 141, potassium 3.4, chloride 107, CO2 26, BUN 23, creatinine 0.77. TELEMETRY: Normal sinus rhythm. IMPRESSION 1. Acute systolic heart failure with cardiogenic shock, now off inotropic support. 2. Acute inferior ST-elevation myocardial infarction status post right coronary artery stent. 3. Acute limb ischemia to the left lower extremity with occlusion of the left femoral-tibial bypass graft status post transcatheter lysis with shinto of flow. 4. Acute respiratory failure requiring ventilatory support, now extubated. 5. Anemia. 6. Hyperlipidemia. 7. Hypertension, currently normotensive. 8. Fever, resolved. 9. Anxiety. RECOMMENDATIONS: Increased diuretics. Goal is to keep patient net negative. Continue dual antiplatelet therapy given recent myocardial infarction and stent placement to the RCA. Hemoglobin has improved. As patient wishes to discharge home, start Xarelto 15 mg this evening. Turn off heparin drip once Xarelto has been given. Will discuss with GI if she needs GI evaluation prior to discharge. Obtain diabetes management per Endocrinology. PT, OT and speech therapy disposition per their recommendations. Will obtain clearance for discharge from consultants. Job#: [id number] EV
[2017-10-13] MEDS ORDERED: INSULIN LISPRO 100 UNIT/1 ML 3ML VIAL SQ SCH (16:30)
[2017-10-13] MEDS ORDERED: TORSEMIDE10 MG PO (16:36)
[2017-10-13 16:37] VITALS: BP 137/79
[2017-10-13] MEDS ORDERED: RIVAROXABAN 15 MG TABLET PO SCH (17:00)
[2017-10-13] MEDS ORDERED: FUROSEMIDE INJ 10 MG/ML 4 ML VIAL IV SCH (21:00)
[2017-10-13] MEDS ORDERED: INSULIN DETEMIR 100 UNIT/ML PEN SQ SCH (21:00)
[2017-10-14] MEDS ORDERED: HUMULIN R100 UNIT/2 SC (00:14)
[2017-10-14] MEDS ORDERED: LEVEMIR100 UNIT/1 SC (00:15)
--- NOTE | 2017-10-15 20:07 | Progress Note ---
DATE: October 13, 2017 PULMONARY MEDICINE PROGRESS NOTE SUBJECTIVE: Mrs. Mckeon was seen and examined at the bedside. Chest x-ray still shows some mild persistent overload. She is 95% oxygen saturation on 4 L per minute oxygen. Patient was given an oxygen assessment and did qualify for home oxygen. Patient is eating well. She did have a fall without injury. REVIEW OF SYSTEMS: No headaches. No GI bleed. OBJECTIVE VITALS: Afebrile. Vital signs noted per electronic record. GENERAL: In no acute distress. Alert and calm. HEENT: Normocephalic and atraumatic. NECK: Supple. Throat midline. LUNGS: Bilateral air entry. Few rhonchi bilaterally. CARDIOVASCULAR: S1 and S2. No murmurs, rubs or gallops. ABDOMEN: Soft and nontender. EXTREMITIES: No clubbing. No cyanosis. There is no edema. INTEGUMENT: No rash. No purpura. LABS: Potassium 3.4, bicarbonate 29. IMPRESSION AND PLAN 1. Hypoxemia. 2. Acute lung injury/edema. 3. Residual fluid overload. 4. Admit with right-sided myocardial infarction. 5. Complication of left-sided leg ischemia due to thrombosis. Patient is steadily improving. Patient needs fall precautions. She wants to go home, and will order home oxygen. If she goes home and if she is stable based on her good, strong gait then she may progress as per others on blood thinners for cardiac indications. Patient needs outpatient PFTs and pulmonary rehab. Will follow along closely. Job#: [id number] JOSEPH
== END 2017-10-13 17:05 | disposition home or self-care (01) | DRG 246 ==
LOC: ER 07:02 → CATH LAB 08:35 → ICU 10:13 → MED/SURG 10-11 16:27
PROVIDERS: ADMIT Internal Medicine Interventional Cardiology; ATTEND Internal Medicine Interventional Cardiology
PROC: 027034Z Dilation of Coronary Artery, One Artery with Drug-eluting Intraluminal Device, Percutaneous Approach (ICD-10-PCS; principal; 2017-10-04)
PROC: 5A1955Z Respiratory Ventilation, Greater than 96 Consecutive Hours (ICD-10-PCS; 2017-10-04)
PROC: 3E043XZ Introduction of Vasopressor into Central Vein, Percutaneous Approach (ICD-10-PCS; 2017-10-04)
PROC: 0BH17EZ Insertion of Endotracheal Airway into Trachea, Via Natural or Artificial Opening (ICD-10-PCS; 2017-10-04)
PROC: 06HM33Z Insertion of Infusion Device into Right Femoral Vein, Percutaneous Approach (ICD-10-PCS; 2017-10-04)
PROC: 02C03ZZ Extirpation of Matter from Coronary Artery, One Artery, Percutaneous Approach (ICD-10-PCS; 2017-10-04)
PROC: 4A023N7 Measurement of Cardiac Sampling and Pressure, Left Heart, Percutaneous Approach (ICD-10-PCS; 2017-10-04)
PROC: B2121ZZ Fluoroscopy of Single Coronary Artery Bypass Graft using Low Osmolar Contrast (ICD-10-PCS; 2017-10-04)
PROC: B2181ZZ Fluoroscopy of Left Internal Mammary Bypass Graft using Low Osmolar Contrast (ICD-10-PCS; 2017-10-04)
PROC: B2111ZZ Fluoroscopy of Multiple Coronary Arteries using Low Osmolar Contrast (ICD-10-PCS; 2017-10-04)
PROC: 06CN3ZZ Extirpation of Matter from Left Femoral Vein, Percutaneous Approach (ICD-10-PCS; 2017-10-06)
PROC: B41G1ZZ Fluoroscopy of Left Lower Extremity Arteries using Low Osmolar Contrast (ICD-10-PCS; 2017-10-06)
PROC: 3E05317 Introduction of Other Thrombolytic into Peripheral Artery, Percutaneous Approach (ICD-10-PCS; 2017-10-06)
PROC: 04CL3ZZ Extirpation of Matter from Left Femoral Artery, Percutaneous Approach (ICD-10-PCS; 2017-10-08)
PROC: 02HV33Z Insertion of Infusion Device into Superior Vena Cava, Percutaneous Approach (ICD-10-PCS; 2017-10-08)
PROC: B41G1ZZ Fluoroscopy of Left Lower Extremity Arteries using Low Osmolar Contrast (ICD-10-PCS; 2017-10-08)
PROC: B41F1ZZ Fluoroscopy of Right Lower Extremity Arteries using Low Osmolar Contrast (ICD-10-PCS; 2017-10-08)
PROC: 30233N1 Transfusion of Nonautologous Red Blood Cells into Peripheral Vein, Percutaneous Approach (ICD-10-PCS; 2017-10-11)
DX: I21.19 ST elevation (STEMI) myocardial infarction involving other coronary artery of inferior wall (principal); J96.01 Acute respiratory failure with hypoxia; R57.0 Cardiogenic shock; I50.23 Acute on chronic systolic (congestive) heart failure; J18.9 Pneumonia, unspecified organism; E13.10 Other specified diabetes mellitus with ketoacidosis without coma; J44.0 Chronic obstructive pulmonary disease with (acute) lower respiratory infection; N17.9 Acute kidney failure, unspecified; I74.3 Embolism and thrombosis of arteries of the lower extremities; I11.0 Hypertensive heart disease with heart failure; E86.0 Dehydration; I48.91 Unspecified atrial fibrillation; I25.10 Atherosclerotic heart disease of native coronary artery without angina pectoris; Z95.1 Presence of aortocoronary bypass graft; Z95.5 Presence of coronary angioplasty implant and graft; Z79.4 Long term (current) use of insulin; E03.9 Hypothyroidism, unspecified; E78.5 Hyperlipidemia, unspecified; D64.9 Anemia, unspecified; F17.200 Nicotine dependence, unspecified, uncomplicated; F41.9 Anxiety disorder, unspecified; J44.9 Chronic obstructive pulmonary disease, unspecified; R53.81 Other malaise; I70.201 Unspecified atherosclerosis of native arteries of extremities, right leg; Z99.81 Dependence on supplemental oxygen; E66.01 Morbid (severe) obesity due to excess calories; Z68.33 Body mass index [BMI] 33.0-33.9, adult
CPT/HCPCS: 36140; 36415; 36430; 36555; 36556; 36569; 36600; 71010; 74000; 75625; 75630; 75710; 75716; 77002; 80048; 80053; 80061; 80076; 80202; 81001; 82550; 82553; 82607; 82746; 82805; 82947; 82948; 83036; 83540; 83605; 83721; 83735; 83880; 84100; 84439; 84443; 84466; 84484; 85002; 85014; 85018; 85025; 85045; 85379; 85610; 85730; 86850; 86900; 86920; 87040; 87086; 93005; 93306; 93925; 94002; 94003; 94660; 96361; 96366; 99285; C1769; J0583; J1170; J1250; J1265; J1327; J1644; J1720; J1940; J2001; J2060; J2175; J2250; J2270; J2405; J2543; J2930; J2997; J3370; J3480; J7030; J7050; P9016; P9047; Q9967

== ENCOUNTER 2017-10-13 23:26 | Inpatient (IN) | payer OTHER ==
[~2017-10-13] VITALS: Ht 167.6 cm; Wt 89.6 kg
[~2017-10-13 23:26] MED LIST changes: +TORSEMIDE10 MG PO; +XARELTO20 MG PO
[2017-10-13] MEDS ORDERED: NITROGLYCERIN/D5W 200 MCG/ML 250 ML IV STA (23:38)
[2017-10-13 23:45] LABS: BASOPHILS # (AUTO) 0.1 (0.0-0.1); BASOPHILS % 0.8 % (0.0-1.0); EOSINOPHILS # (AUTO) 0.6 (0.0-0.4); EOSINOPHILS % 3.4 % (0.0-6.0); HEMATOCRIT 34.6 % (34.2-44.1); HEMOGLOBIN 11.5 g/dL (12.0-16.0); LYMPHOCYTES % 16.9 % (18.0-39.1); MEAN CORPUSCULAR HEMOGLOBIN 32.9 pg (28-32); MEAN CORPUSCULAR HGB CONC 33.2 g/dL (31-35); MEAN CORPUSCULAR VOLUME 98.9 fL (81-99); MONOCYTES # (AUTO) 1.4 (0.2-0.8); NEUTROPHILS # (AUTO) 11.8 (2.1-6.9); NEUTROPHILS % 67.3 % (38.7-80.0); PLATELET COUNT 491 x10e3/uL (140-360); RED CELL DISTRIBUTION WIDTH 19.4 % (11.7-14.4)
[2017-10-13] MEDS ORDERED: FUROSEMIDE INJ 10 MG/ML 4 ML VIAL IV ONE ×2 (23:45)
[2017-10-13 23:47] LABS: BILIRUBIN,URINE 1+ (NEGATIVE); KETONES,URINE NEGATIVE (NEGATIVE); LEUKOCYTE ESTERASE ,URINE TRACE (NEGATIVE); NITRITE,URINE NEGATIVE (NEGATIVE); URINE UROBILINOGEN 0.2 mg/dL (0.2 - 1)
[2017-10-13 23:49] LABS: CLARITY,URINE SL CLOUDY (CLEAR); COLOR,URINE YELLOW (YELLOW); PROTEIN,URINE DIPSTICK 2+ (NEGATIVE)
[2017-10-13 23:50] LABS: INR 1.47; PROTHROMBIN TIME 18.6 seconds (11.9-14.5)
[2017-10-13 23:51] LABS: PARTIAL THROMBOPLASTIN TIME 36.7 seconds (23.8-35.5)
[2017-10-13 23:53] LABS: BACTERIA,URINE MODERATE /HPF; EPITHELIAL CELLS,URINE FEW /LPF; MUCUS,URINE FEW (RARE); RBC,URINE 0-5 /HPF (0-5)
[2017-10-14] VITALS (27 sets, daily range): BP systolic 90–125; BP diastolic 53–90
[2017-10-14] LABS: ALBUMIN/GLOBULIN RATIO 0.7 (0.8-2.0); ANION GAP 19.5 mmol/L (8-16); CALCIUM 8.4 mg/dL (8.4-10.2); CREATININE, SERUM 1.29 mg/dL (0.57-1.11); MAGNESIUM 1.6 MG/DL (1.3-2.1); POTASSIUM 3.5 mmol/L (3.5-5.1)
[2017-10-14 00:05] LABS: B-TYPE NATRIURETIC PEPTIDE2 1663.7 pg/mL (0-100)
[2017-10-14 00:06] LABS: CREATINE KINASE MB 4.9 ng/mL (0.00-5.00)
[2017-10-14 00:09] LABS: TROPONIN I 6.653 ng/mL (0-0.300)
[2017-10-14] MEDS ORDERED: INSULIN REGULAR, HUMAN 100 UNIT/1 ML 3ML VIAL IV STA (00:12)
[2017-10-14] MEDS ORDERED: HUMULIN R100 UNIT/2 SC (00:14)
[2017-10-14] MEDS ORDERED: VANCOMYCIN 1GM/NS 250 ML 250 ML IV STA (00:14)
[2017-10-14] MEDS ORDERED: LEVEMIR100 UNIT/1 SC (00:15)
--- NOTE | 2017-10-14 00:16 | Diagnostic Imaging Report ---
CHEST SINGLE (PORTABLE), 10/13/2017 11:38 PM Technique: CHEST SINGLE (PORTABLE) Comparison: 10/13/2017 Clinical history: Congestive heart failure Findings: See Impression Impression: 1. Lines/Tubes: Right PICC is no longer seen 2. Stable enlarged cardiac silhouette post sternotomy. 3. Increasing edema. No significant effusion appreciated. Signed by: Dr Chantelle Zuniga MD on 10/14/2017 12:12 AM
[2017-10-14 00:24] LABS: ABG PH 7.34 (7.31-7.41)
[2017-10-14] MEDS: CEFEPIME HCL 2 GM VIAL IV SCH ×3 (00:33→23:34)
[2017-10-14] MEDS ORDERED: DEXTROSE 50% SYRINGE 50 ML IV PRN (01:30)
[2017-10-14 06:51] LABS: BASOPHILS # (AUTO) 0.1 (0.0-0.1); BASOPHILS % 0.4 % (0.0-1.0); EOSINOPHILS # (AUTO) 0.1 (0.0-0.4); EOSINOPHILS % 0.8 % (0.0-6.0); HEMATOCRIT 28.4 % (34.2-44.1); HEMOGLOBIN 9.6 g/dL (12.0-16.0); LYMPHOCYTES # (AUTO) 1.2 (1.0-3.2); LYMPHOCYTES % 7.7 % (18.0-39.1); MEAN CORPUSCULAR HGB CONC 33.8 g/dL (31-35); MEAN CORPUSCULAR VOLUME 97.6 fL (81-99); MONOCYTES % 6.5 % (4.4-11.3); NEUTROPHILS # (AUTO) 12.9 (2.1-6.9); NEUTROPHILS % 82.9 % (38.7-80.0); PLATELET COUNT 309 x10e3/uL (140-360); RED BLOOD COUNT 2.91 x10e6/uL (3.6-5.1)
[2017-10-14 07:14] LABS: ALANINE AMINOTRANSFERASE 25 IU/L (0-55); ALBUMIN 2.6 g/dL (3.5-5.0); ALBUMIN/GLOBULIN RATIO 0.7 (0.8-2.0); ALKALINE PHOSPHATASE 89 IU/L (40-150); ANION GAP 13.6 mmol/L (8-16); BLOOD UREA NITROGEN 22 mg/dL (7-26); BUN/CREATININE RATIO 23 (6-25); CALCIUM 8.3 mg/dL (8.4-10.2); CARBON DIOXIDE 23 mmol/L (22-29); CHLORIDE 106 mmol/L (98-107); CREATININE, SERUM 0.95 mg/dL (0.57-1.11); EST GLOMERULAR FILTRATION RATE > 60 ML/MIN (60-); POTASSIUM 3.6 mmol/L (3.5-5.1); SODIUM 139 mmol/L (136-145)
[2017-10-14 07:29] LABS: GLUCOSE 435 mg/dL (74-118)
[2017-10-14] MEDS: INSULIN REGULAR, HUMAN 100 UNIT/1 ML 3ML VIAL SQ SCH ×4 (08:12→20:42)
[2017-10-14 09:16] LABS: CREATINE KINASE MB 5.8 ng/mL (0.00-5.00)
[2017-10-14 09:18] LABS: TROPONIN I 5.881 ng/mL (0-0.300)
[2017-10-14] MEDS ORDERED: FUROSEMIDE INJ 10 MG/ML 4 ML VIAL ONE (11:59)
[2017-10-14] MEDS ORDERED: SODIUM CHLORIDE 0.9% 50ML 50 ML ONE (12:01)
[2017-10-14] MEDS: HYDROCODONE/APAP 10MG-325MG TAB PO SCH ×3 (12:12→21:45)
[2017-10-14] MEDS: SPIRONOLACTONE 25 MG TAB PO SCH ×2 (12:14→16:43)
[2017-10-14] MEDS: CARISOPRODOL 350 MG TAB PO SCH ×2 (12:14→21:44)
[2017-10-14] MEDS: PREGABALIN 75 MG CAP PO SCH (12:16)
[2017-10-14] MEDS: CLONAZEPAM 0.5 MG TAB PO PRN (12:18)
[2017-10-14] MEDS ORDERED: FUROSEMIDE INJ 10 MG/ML 4 ML VIAL IV SCH (13:00)
[2017-10-14] MEDS ORDERED: ETOMIDATE 2 MG/ML 10 ML INJ IV ONE (15:00)
[2017-10-14] MEDS ORDERED: SUCCINYLCHOLINE 200 MG/10 ML SYR ONE (15:00)
[2017-10-14 15:42] LABS: TROPONIN I 6.182 ng/mL (0-0.300)
[2017-10-14] MEDS: RIVAROXABAN 15 MG TABLET PO SCH (16:43)
--- NOTE | 2017-10-14 17:35 | Diagnostic Imaging Report ---
EXAMINATION: CHEST XRAY LINE PLACEMENT 10/14/2017 5:06 PM COMPARISON: Chest x-ray 10/13/2017 INDICATION: Line placement DISCUSSION: LINES: Left PICC line terminates in the SVC. No pneumothorax LUNGS: Pulmonary edema is diminishing. Baseline pulmonary hyperinflation is similar. No confluent infiltrates. PLEURA: No pleural effusions. HEART AND MEDIASTINUM: Stable cardiomegaly. Median sternotomy wires are stable with fractures of the first, second, and third sternal wires counting down. BONES AND SOFT TISSUES: Multiple screws in the proximal left humerus are incompletely imaged but are intact. The soft tissues are normal. IMPRESSION: Left PICC line as described above. Improved pulmonary edema. Signed by: Dr. Ana Montejo MD on 10/14/2017 5:31 PM
[2017-10-14] MEDS: INSULIN LISPRO 100 UNIT/1 ML 3ML VIAL SQ SCH (21:00)
[2017-10-14] MEDS ORDERED: INSULIN DETEMIR 100 UNIT/ML PEN SQ SCH ×2 (21:00)
[2017-10-14] MEDS: FUROSEMIDE INJ 10 MG/ML 4 ML VIAL IV SCH (21:44)
[2017-10-15] VITALS (32 sets, daily range): BP systolic 78–130; BP diastolic 44–85
--- NOTE | 2017-10-15 05:28 | Consultation ---
DATE OF CONSULTATION: REASON FOR CONSULTATION: Patient has leukocytosis. Thank you so much for letting me see this patient. This patient is known to me from before. She is a very pleasant 52-year-old female who was here recently with a myocardial infarction. Had to have lytic therapy. She also had ischemic foot. The patient also ran fever. I felt her fever was probably reactive to the tPA and ischemic event. Patient was discharged home yesterday. She came back with shortness of breath. Apparently, she has been drinking. She also was here for 16 days as mentioned above for a myocardial infarction. The patient had a Oates all this time, and Oates was taken out yesterday. She is also complaining of burning and urgency. PAST MEDICAL HISTORY: Diabetes mellitus, hypertension, coronary artery disease, obesity, atherosclerotic disease, fem-pop surgery, CABG before. ALLERGIES: NKA. SOCIAL HISTORY: Currently, there is no smoking, drug abuse or alcohol abuse. FAMILY HISTORY: Hypertension and obesity. REVIEW OF SYSTEMS HEENT: There is no headache, visual changes or hearing changes. GI: There is no nausea. No vomiting. No diarrhea. CARDIAC: There is no arrhythmia at the present time. NEURO: No seizure activity. SKIN: There is no other rash. PHYSICAL EXAMINATION GENERAL: She is currently alert and oriented. Does not seem to be in acute distress. VITALS: Stable. Afebrile currently. HEENT She is not icteric. NECK: Neck supple. No JVD. No thyromegaly. CHEST: Clear bilateral and coarse. ABDOMEN: Soft and obese. She states she is feeling much better since she came here. Her breathing is much better. MEDICATION LIST: Reviewed. She is currently on albuterol. She is on no antibiotics at the present time. LABORATORY DATA: Reviewed. Chart reviewed. Her white count is 15.6, hemoglobin 9.6. Creatinine 9.95. IMPRESSION 1. Leukocytosis: Could be reactive. There is a possibility she may have a urinary tract infection. Will get urine cultures and blood cultures. Put her on cefepime 1 g q.12 h. 2. Anemia. 3. Shortness of breath: Pulmonary fluid overload. 4. Coronary artery disease. 5. Obesity. 6. Congestive heart failure. 7. Anemia of chronic disease. Will follow with you. Job#: [id number] JOSEPH
[2017-10-15] MEDS: FUROSEMIDE INJ 10 MG/ML 4 ML VIAL IV SCH ×3 (06:02→21:45)
[2017-10-15] MEDS: HYDROCODONE/APAP 10MG-325MG TAB PO SCH ×5 (06:02→21:55)
--- NOTE | 2017-10-15 06:31 | Diagnostic Imaging Report ---
CHEST SINGLE (PORTABLE), 10/15/2017 5:00 AM Technique: CHEST SINGLE (PORTABLE) Comparison: 10/14/2017 Clinical history: Congestive heart failure Findings: See Impression. Stable visualized left humeral ORIF. Impression: 1. Lines/Tubes: Stable left PICC terminating over the SVC. 2. Stable enlarged cardiac silhouette post sternotomy with several fractured sternotomy wires. 3. Persistent edema. No significant effusion appreciated. Signed by: Dr Chantelle Zuniga MD on 10/15/2017 6:28 AM
[2017-10-15 06:39] LABS: HEMATOCRIT 27.1 % (34.2-44.1); HEMOGLOBIN 9.1 g/dL (12.0-16.0); MEAN CORPUSCULAR HEMOGLOBIN 33.5 pg (28-32); MEAN CORPUSCULAR HGB CONC 33.6 g/dL (31-35); MEAN CORPUSCULAR VOLUME 99.6 fL (81-99); PLATELET COUNT 278 x10e3/uL (140-360); RED BLOOD COUNT 2.72 x10e6/uL (3.6-5.1)
[2017-10-15 07:07] LABS: ANION GAP 11.8 mmol/L (8-16); BLOOD UREA NITROGEN 20 mg/dL (7-26); BUN/CREATININE RATIO 26 (6-25); CALCIUM 8.5 mg/dL (8.4-10.2); CARBON DIOXIDE 27 mmol/L (22-29); CHLORIDE 105 mmol/L (98-107); CREATININE, SERUM 0.78 mg/dL (0.57-1.11); EST GLOMERULAR FILTRATION RATE > 60 ML/MIN (60-); GLUCOSE 151 mg/dL (74-118); MAGNESIUM 1.3 MG/DL (1.3-2.1); SODIUM 141 mmol/L (136-145)
[2017-10-15 07:11] LABS: POTASSIUM 2.8 mmol/L (3.5-5.1)
[2017-10-15] MEDS: INSULIN REGULAR, HUMAN 100 UNIT/1 ML 3ML VIAL SQ SCH ×3 (07:30→16:19)
--- NOTE | 2017-10-15 07:44 | Consultation ---
DATE OF CONSULTATION: CARDIOLOGY CONSULT CONSULTING PHYSICIAN: Dr. Lobato REASON FOR CONSULTATION: Shortness of breath and heart failure. HISTORY OF PRESENT ILLNESS: Ms. Mckeon is a patient of Dr. Wilder that is well known to us. She is 52-year-old with a pertinent past medical history of coronary artery disease status post bypass, acute systolic heart failure with cardiogenic shock, acute limb ischemia to the left lower extremity with occlusion of the left femorotibial bypass graft, status post transcatheter lysis with [facility] of flow, recent acute respiratory failure requiring ventilator support, recently extubated, and hypertension, who was recently admitted and actually discharged yesterday, however, she returned to the ER after being home for few hours stating that she had an overwhelming feeling of shortness of breath in her chest and was unable to take a deep breath, and also some rattling and wheezing was reported. At this moment, patient states that her shortness of breath has improved, however, still there, she required BiPAP, but is now on a nasal cannula. Denies chest pain, palpitation or lightheadedness, fever or chills, or dizziness. PAST MEDICAL HISTORY: As stated above, includes systolic heart failure, acute inferior ST elevation myocardial infarction, status post right coronary artery stent a few weeks ago, PAD, respiratory failure, anemia, hyperlipidemia, hypertension. REVIEW OF SYSTEMS: Negative except as mentioned above. SOCIAL HISTORY: with children. Smoker, no illicit drug use. FAMILY HISTORY: Significant for hypertension and cardiomyopathy. Mother, status post pacemaker. PHYSICAL EXAMINATION: VITAL SIGNS: Temperature 98.3, pulse 74, respiratory rate 22, blood pressure 101/65, oxygen saturation 98% on 4 liters nasal cannula. GENERAL: Alert and oriented x3, resting comfortably in bed, increased effort of breathing noted with exertion and talking. NECK: Supple. No JVD noted. LUNGS: Diminished breath sounds throughout, scattered crackles throughout. No wheezing or rhonchi noted. CARDIOVASCULAR: Regular rate and rhythm. Systolic murmur present, 2/6. Normal S1, S2. No S3 or S4. ABDOMEN: Soft, nontender, rounded. Hypoactive bowel sounds. LOWER EXTREMITIES: Trace edema bilaterally, decreased pedal pulses. 2+ posterior tibial pulse on the right lower extremity. CARDIOVASCULAR MEDICATIONS: 1. Plavix 75 mg p.o. daily. 2. Aspirin 325 p.o. daily. 3. Spironolactone 50 mg p.o. b.i.d. 4. Lasix 40 mg IV q.12. 5. Nitroglycerin IV drip. 6. Xarelto 15 mg p.o. daily. 7. Bystolic 10 mg p.o. daily. 8. Lisinopril 20 p.o. daily. LABS: WBC 15.61, hemoglobin 9.6, hematocrit 28.4, platelets 309,000. Sodium 139, potassium 3.6, glucose 435, BUN 22, creatinine 0.95, calcium 8.3. AST 21, ALT 25. Creatine kinase 110, CK-MB 5.80, troponin 5.881, BNP 1663.7. Chest x-ray with increasing edema. IMPRESSION: 1. Acute systolic heart failure exacerbation. 2. Recent acute inferior ST elevation myocardial infarction, now status post right coronary artery stent last week. 3. Acute limb ischemia to the left lower extremity with occlusion of the left femorotibial bypass graft, status post transcatheter lysis with [facility] of flow. 4. Acute respiratory failure. 5. Anemia. 6. Hyperlipidemia. 7. Smoker. RECOMMENDATIONS: Up titrate diuretics. Continue the above list of cardiac medications. Maintain patient on telemetry. Maintain in ICU status. Consider evaluation of anemia. Consult respiratory and infectious disease. Likely pneumonia secondary to recent ventilatory support. Monitor closely and replace electrolytes as needed. Maintain potassium greater than 4 and magnesium greater than 2. Will continue to follow closely. Thank you very much for this consultation and allowing us to participate in this patient's care. Dictated by Romana Chow NP Job#: [id number]
[2017-10-15] MEDS: INSULIN LISPRO 100 UNIT/1 ML 3ML VIAL SQ SCH ×7 (07:47→21:38)
--- NOTE | 2017-10-15 07:58 | Consultation ---
DATE OF CONSULTATION: October 14, 2017 PULMONARY MEDICINE CONSULTATION REASON FOR REFERRAL: Shortness of breath and respiratory failure. HISTORY: Mrs. Mckeon is a pleasant 52-year-old female with respiratory failure and shortness of breath. Patient with recently hospitalization with right-sided myocardial infarction, status post PTCA. She went into flash pulmonary edema with new refractory hypoxemia and high airway pressures. She had an excellent response when she had intervention by her flight surveyor. She did have complications of left leg ischemia due to arteriovascular thrombosis that occurred when she was ill. This was opened up once again by an intervention by her flight surveyor. As her pulmonary edema really improved, the patient really requested to go home. She went home and she drank amounts of fluid without restarting her diuretic yet as it was scheduled for the next day. Thereafter, she got more short of breath. She came back to the emergency room. Chest x-ray showed significant worsening of pulmonary edema over the course of the same day. She required BiPAP transiently for assistance. She has now been weaned off the BiPAP, but she is in the ICU. I am consulted to continue helping out. PAST MEDICAL HISTORY: Reviewed the past medical history, past surgical history, family history, medications, allergies from date of consultation on October 04, 2017. I agree with this. She remains a smoker. No alcohol. No drugs. FAMILY HISTORY: Remains noncontributory. MEDICAL HISTORY: Includes coronary artery disease, CABG, CHF, thyroid abnormality, dyslipidemia, CABG 2004. REVIEW OF SYSTEMS: Cannot get as she was on respiratory support devices. PHYSICAL EXAMINATION VITALS: Afebrile. Vital signs noted per electronic record. GENERAL: No distress when on support device, although reportedly she was near intubation state in the emergency room, and actually refused intubation. HEENT: Normocephalic and atraumatic. NECK: Supple. Throat midline. LUNGS: Bilateral air entry. Few rhonchi. CARDIOVASCULAR: S1 and S2. No murmurs, rubs or gallops. ABDOMEN: Soft and nontender. EXTREMITIES: No clubbing. No cyanosis. There is no edema. INTEGUMENT: No rash. No purpura. LABS: White count 18, hematocrit 34, platelets 491,000. ABG showed 7.34/35/203. Chest x-ray as above. IMPRESSION AND PLAN 1. Acute respiratory failure. 2. Pulmonary edema. 3. Recent lung injury, severe due to flash pulmonary edema. 4. Recent right-sided myocardial infarction, status post percutaneous transluminal coronary angioplasty. 5. Peripheral vascular disease. 6. History of coronary artery bypass graft in 2003. 7. Thyroid abnormality. 8. Dyslipidemia. 9. Obstructive sleep apnea by history. 10. Recent acute kidney failure, but now resolved. Will continue to follow up closely. The BiPAP is actually being weaned off. Continue oxygen. Resume diuretics. Patient was counseled on importance of diuretics. Patient really needs to get her sleep apnea addressed. This will also help in the future. Will request sleep study from a sleep lab. Follow along closely. Thank you very much, Dr. Wilder, for this consult. Feel free to contact me if I can help in any way. Job#: [id number] JOSEPH
[2017-10-15] MEDS: LISINOPRIL 20 MG TAB PO SCH (08:00)
[2017-10-15] MEDS: SPIRONOLACTONE 25 MG TAB PO SCH ×2 (08:00→16:01)
[2017-10-15] MEDS: CARISOPRODOL 350 MG TAB PO SCH ×3 (08:00→21:35)
--- NOTE | 2017-10-15 08:02 | Consultation ---
DATE OF CONSULTATION: October 14, 2017 ENDOCRINE CONSULTATION This is a patient of Dr. Dong Wilder. Thank you very much for referring this patient. HISTORY OF PRESENT ILLNESS: This is a 52-year-old white female who is known to me from her previous hospital admission. In fact, the patient was discharged from the hospital only about less than 24 hours back. She came to the hospital with history of shortness of breath. She was found to have acute pulmonary edema and was readmitted in the hospital. Patient has history of coronary artery disease, congestive cardiac failure. She is a known case of type 2 diabetes mellitus with multiple complications including severe diabetic sensorimotor neuropathy. In the last hospital admission, patient had also pneumonia. She was discharged home on the combination of the Levemir and the Humalog insulin. When she came back to the hospital, her blood sugar was significantly elevated at 697 and the anion gap was 19.5. Her troponins are also significantly elevated. Patient is a nonsmoker. She also had pneumonia in the last hospital admission. PHYSICAL EXAMINATION: GENERAL: Today the patient is alert, awake, a little bit apprehensive. VITAL SIGNS: Her O2 sats are on the lower side. Her heart rate is around 78. Blood pressure 140/80 mmHg. HEENT: Examination essentially unremarkable. Thyroid is palpable. Clinically she is near euthyroid. CHEST: Bilateral vesicular breathing. She has bilateral bronchospasm and basal rales. CARDIAC: Both 1st and 2nd heart sounds. There is no 3rd or 4th heart sound. Ejection sound grade 2/6. EXTREMITIES: Patient has evidence of diabetic sensory neuropathy in both lower extremities and mild pedal edema. CLINICAL IMPRESSION: 1. Diabetes mellitus type 2, uncontrolled with complications. 2. Mild diabetic ketoacidosis. 3. Acute respiratory failure. 4. Congestive cardiac failure. 5. Status post myocardial infarction. 6. Status post pneumonia. The plan at this time is, since the patient's blood sugars are doing better, will just continue the subcutaneous insulin and put her on the Levemir insulin combination along with the Humalog. Will also review the old records. Thanks for referring this patient. I will be following this patient with you. Job#: [id number] EV [id number]
[2017-10-15] MEDS: ASPIRIN 325 MG TAB PO SCH (08:10)
[2017-10-15] MEDS: CLOPIDOGREL BISULFATE 75 MG TAB PO SCH (08:11)
[2017-10-15] MEDS ORDERED: CLOPIDOGREL BISULFATE 75 MG TAB PO SCH (09:00)
[2017-10-15] MEDS ORDERED: NEBIVOLOL 10 MG TAB PO SCH (09:00)
[2017-10-15] MEDS ORDERED: POTASSIUM CHLORIDE 20 MEQ TAB CR PO ONE ×2 (09:00→14:30)
[2017-10-15] MEDS ORDERED: ASPIRIN 325 MG TAB PO SCH (09:00)
[2017-10-15] MEDS: CEFEPIME HCL 2 GM VIAL IV SCH (13:37)
--- NOTE | 2017-10-15 14:59 | Progress Note ---
DATE: CARDIOLOGY PROGRESS NOTE SUBJECTIVE: Patient reports significant improvement in her shortness of breath. She denies any chest pain. Reports being fatigued and lack of sleep during the hospital stay. OBJECTIVE VITAL SIGNS: Temperature 97.4, pulse 64, respiratory rate 18, blood pressure 108/71, oxygen saturation 100% on room air. CARDIOVASCULAR MEDICATIONS 1. Aspirin 325 p.o. daily. 2. Spironolactone 50 p.o. b.i.d. 3. Bystolic 10 p.o. daily. 4. Lisinopril 20 p.o. daily. 5. Lasix 40 q.8 h. IV. 6. Xarelto 15 p.o. daily. LABS: WBC 9.40, hemoglobin 9.1, hematocrit 27.1, platelets 278. Sodium 141, potassium 2.8, BUN 20, creatinine 0.78, glucose 151, calcium 8.5, magnesium 1.3. X-ray from today with stable enlarged cardiac silhouette, persistent edema and no significant effusion. PHYSICAL EXAMINATION GENERAL: Alert and oriented x3. Resting comfortably in bed. Does not appear to be in any acute distress. LUNGS: Diminished breath sounds posterior lower lobe. Otherwise clear to auscultation. No wheezing or rhonchi noted. Crackles posterior lower lobes. CARDIOVASCULAR: Regular rate and rhythm. Normal S1/S2. Systolic murmur present 2/6. No S3 or S4. ABDOMEN: Rounded, soft, nontender. Normoactive bowel sounds. LOWER EXTREMITIES: Trace edema bilaterally. Decreased pedal pulses, 2+ posterior tibial pulse on the right lower extremity. TELEMETRY: Normal sinus rhythm. IMPRESSION 1. Acute systolic heart failure exacerbation. 2. Recent acute inferior ST-elevation myocardial infarction, now status post right coronary artery stent. 3. Acute limb ischemia to the left lower extremity with occlusion of the left femoral-tibial graft bypass status post transcatheter lysis with cheondoism of flow. 4. Acute respiratory failure status post recent extubation. 5. Pneumonia. 6. Anemia. 7. Hyperlipidemia. 8. Former smoker. RECOMMENDATION: Continue with the above list of cardiac medication. Replace electrolytes, especially potassium. Potassium daily. Maintain in ICU status and monitor closely. Will continue to follow closely and maintain on telemetry at all times. Dictated by: Romana Chow NP Job#: [id number] EV
[2017-10-15] MEDS: RIVAROXABAN 15 MG TABLET PO SCH (16:01)
[2017-10-15] MEDS ORDERED: INSULIN DETEMIR 100 UNIT/ML PEN SQ SCH (21:00)
[2017-10-15] MEDS: CLONAZEPAM 0.5 MG TAB PO PRN (22:00)
[2017-10-16] VITALS (22 sets, daily range): BP systolic 85–130; BP diastolic 50–81
[2017-10-16] MEDS: CEFEPIME HCL 2 GM VIAL IV SCH ×2 (01:09→13:30)
[2017-10-16] MEDS: FUROSEMIDE INJ 10 MG/ML 4 ML VIAL IV SCH ×3 (05:51→21:29)
[2017-10-16] MEDS: HYDROCODONE/APAP 10MG-325MG TAB PO SCH ×4 (05:52→21:30)
--- NOTE | 2017-10-16 06:15 | Diagnostic Imaging Report ---
CHEST SINGLE (PORTABLE), 10/16/2017 6:30 AM Technique: CHEST SINGLE (PORTABLE) Comparison: 12.31.17 Clinical history: Pulmonary edema Findings: See Impression. Stable visualized left humeral ORIF. Impression: 1. Lines/Tubes: Stable left PICC terminating over the SVC. 2. Stable enlarged cardiac silhouette post sternotomy with several fractured wires. 3. Mildly improved edema. A small left effusion is noted. Signed by: Dr Chantelle Zuniga MD on 10/16/2017 6:12 AM
[2017-10-16 06:28] LABS: BASOPHILS # (AUTO) 0.1 (0.0-0.1); BASOPHILS % 0.7 % (0.0-1.0); EOSINOPHILS # (AUTO) 0.4 (0.0-0.4); EOSINOPHILS % 4.2 % (0.0-6.0); HEMATOCRIT 28.6 % (34.2-44.1); HEMOGLOBIN 9.3 g/dL (12.0-16.0); LYMPHOCYTES # (AUTO) 1.9 (1.0-3.2); LYMPHOCYTES % 19.3 % (18.0-39.1); MEAN CORPUSCULAR HEMOGLOBIN 32.7 pg (28-32); MEAN CORPUSCULAR HGB CONC 32.5 g/dL (31-35); MEAN CORPUSCULAR VOLUME 100.7 fL (81-99); MONOCYTES # (AUTO) 0.8 (0.2-0.8); MONOCYTES % 7.9 % (4.4-11.3); NEUTROPHILS # (AUTO) 6.4 (2.1-6.9); NEUTROPHILS % 64.5 % (38.7-80.0); PLATELET COUNT 302 x10e3/uL (140-360); RED BLOOD COUNT 2.84 x10e6/uL (3.6-5.1); RED CELL DISTRIBUTION WIDTH 18.7 % (11.7-14.4)
[2017-10-16] MEDS: INSULIN LISPRO 100 UNIT/1 ML 3ML VIAL SQ SCH ×7 (07:01→21:29)
[2017-10-16 07:07] LABS: ALANINE AMINOTRANSFERASE 23 IU/L (0-55); ALBUMIN 2.5 g/dL (3.5-5.0); ALBUMIN/GLOBULIN RATIO 0.7 (0.8-2.0); ALKALINE PHOSPHATASE 79 IU/L (40-150); ANION GAP 10.3 mmol/L (8-16); BLOOD UREA NITROGEN 22 mg/dL (7-26); BUN/CREATININE RATIO 28 (6-25); CALCIUM 8.7 mg/dL (8.4-10.2); CARBON DIOXIDE 26 mmol/L (22-29); CHLORIDE 105 mmol/L (98-107); CREATININE, SERUM 0.79 mg/dL (0.57-1.11); EST GLOMERULAR FILTRATION RATE > 60 ML/MIN (60-); GLUCOSE 234 mg/dL (74-118); POTASSIUM 3.3 mmol/L (3.5-5.1); SODIUM 138 mmol/L (136-145)
[2017-10-16] MEDS: CARISOPRODOL 350 MG TAB PO SCH ×3 (09:00→21:28)
[2017-10-16] MEDS: CLOPIDOGREL BISULFATE 75 MG TAB PO SCH (09:00)
[2017-10-16] MEDS: PREGABALIN 75 MG CAP PO SCH (09:00)
[2017-10-16] MEDS ORDERED: POTASSIUM CHLORIDE 20 MEQ TAB CR PO SCH (09:00)
[2017-10-16] MEDS: ASPIRIN 325 MG TAB PO SCH (09:00)
[2017-10-16] MEDS: LISINOPRIL 20 MG TAB PO SCH (09:00)
[2017-10-16] MEDS: SPIRONOLACTONE 25 MG TAB PO SCH ×2 (09:00→16:51)
[2017-10-16] MEDS: NEBIVOLOL 10 MG TAB PO SCH (09:00)
[2017-10-16] MEDS: CLONAZEPAM 0.5 MG TAB PO PRN ×2 (12:25→21:30)
[2017-10-16] MEDS ORDERED: MAGNESIUM SULFATE 2GM/50ML 50 ML IV ONE (13:15)
[2017-10-16] MEDS ORDERED: POTASSIUM CHLORIDE 20 MEQ TAB CR PO ONE (13:30)
--- NOTE | 2017-10-16 13:57 | Progress Note ---
DATE: October 16, 2017 CARDIOLOGY PROGRESS NOTE: SUBJECTIVE: Ms. Mckeon denies any chest pain or shortness of breath. She is able to ambulate in the room. OBJECTIVE VITAL SIGNS: Afebrile. Heart rate 54. Blood pressure 108/50. CARDIOVASCULAR: Regular rhythm. S3 gallop. Systolic murmur. LUNGS: Clear to auscultation bilaterally. Decreased breath sounds at the bases, however. ABDOMEN: Is mildly distended. EXTREMITIES: 1+ edema on the left leg. Hemoglobin 9.3. WBC count is normal. Creatinine 0.8. Potassium 3.3. CARDIOVASCULAR MEDICATIONS: Were reviewed. ASSESSMENT: 1. Acute on chronic systolic heart failure. 2. Coronary artery disease status post recent ST elevation myocardial infarction. 3. Peripheral arterial disease with recent acute limb ischemia of the left lower extremity. Potassium and magnesium will be repleted. Continue current anticoagulation. Diuretics for today. Consider discharge tomorrow morning. Job#: [id number] SHARIF
[2017-10-16] MEDS: RIVAROXABAN 15 MG TABLET PO SCH (16:52)
[2017-10-16] MEDS ORDERED: INSULIN DETEMIR 100 UNIT/ML PEN SQ SCH (21:00)
--- NOTE | 2017-10-16 22:30 | Progress Note ---
DATE: October 16, 2017 PULMONARY MEDICINE PROGRESS NOTE SUBJECTIVE: Ms. Mckeon was seen and examined at bedside. Patient continues with steady progress. Feeling of less dyspnea. She is on 2 L per minute of nasal cannula oxygen. Oxygen saturations holding in the high 90s range. In 0.7 L, out 1.4 L recorded. Three voids. Bowel movements 2 days ago. Mild electrolyte abnormalities that have been addressed. REVIEW OF SYSTEMS: No headaches, no rash. OBJECTIVE VITALS: Afebrile. Vital signs noted per the chart record. GENERAL: No acute distress. Alert, calm, talkative. HEENT: Normocephalic and atraumatic. NECK: Supple. Throat midline. LUNGS: Bilateral air entry. A few rhonchi. A few crackles bilaterally. CARDIOVASCULAR: S1 and S2. No murmurs, rubs, or gallops. ABDOMEN: Soft and nontender. EXTREMITIES: No clubbing. No cyanosis. There is only trace edema. INTEGUMENT: No rash. No purpura. LABS: White count 9, hematocrit 29, platelets 202,000. Potassium 3.3, magnesium 1.4, albumin 2.5. Blood cultures times 2 with gram-positive cocci in pairs and clusters, under evaluation, but so far coagulase negative on 2/2 blood cultures. Chest x-ray with mildly improved . IMPRESSIONS 1. Acute respiratory failure, resolving. 2. Flash pulmonary edema. 3. Less likely pneumonia but cannot be ruled out. 4. Hypokalemia, hypermagnesemia. 5. Recent myocardial infarction. 6. Recent complicating left leg thrombosis with ischemia. PLAN 1. Continue current treatment. 2. Continue diuresis. 3. Electrolyte repletion done. I will discuss the blood cultures with other physicians. Continue slow optimization of blood sugars. We will continue to follow along closely. Job#: [id number]
[2017-10-17] VITALS (10 sets, daily range): BP systolic 110–132; BP diastolic 60–89
[2017-10-17] MEDS: CEFEPIME HCL 2 GM VIAL IV SCH ×2 (00:20→12:30)
[2017-10-17] MEDS: HYDROCODONE/APAP 10MG-325MG TAB PO SCH ×2 (06:07→12:30)
[2017-10-17 06:12] LABS: HEMATOCRIT 29.6 % (34.2-44.1); HEMOGLOBIN 9.7 g/dL (12.0-16.0); MEAN CORPUSCULAR HEMOGLOBIN 32.9 pg (28-32); MEAN CORPUSCULAR HGB CONC 32.8 g/dL (31-35); MEAN CORPUSCULAR VOLUME 100.3 fL (81-99); PLATELET COUNT 289 x10e3/uL (140-360); RED BLOOD COUNT 2.95 x10e6/uL (3.6-5.1); RED CELL DISTRIBUTION WIDTH 18.6 % (11.7-14.4)
[2017-10-17] MEDS: FUROSEMIDE INJ 10 MG/ML 4 ML VIAL IV SCH ×2 (06:12→15:32)
--- NOTE | 2017-10-17 06:17 | Diagnostic Imaging Report ---
EXAMINATION: CHEST SINGLE (PORTABLE) INDICATION: Congestive heart failure COMPARISON: 10/16/2017 FINDINGS: TUBES and LINES: Left upper extremity PICC line in good position. LUNGS: Lungs are not well inflated. There are bibasilar atelectasis. There is perihilar interstitial opacities, consistent with interstitial edema. PLEURA: No pleural effusion or pneumothorax. HEART AND MEDIASTINUM: Cardiac size is moderately enlarged. There are atherosclerotic calcifications within the aorta. Midline sternotomy wires are intact. BONES AND SOFT TISSUES: No acute osseous lesion. Soft tissues are unremarkable. UPPER ABDOMEN: No free air under the diaphragm. IMPRESSION: Progression of cardiogenic pulmonary edema Signed by: Dr. Gonzalez Mills M.D. on 10/17/2017 6:13 AM
[2017-10-17] MEDS: INSULIN LISPRO 100 UNIT/1 ML 3ML VIAL SQ SCH ×4 (06:26→12:00)
[2017-10-17 07:11] LABS: BLOOD UREA NITROGEN 22 mg/dL (7-26); BUN/CREATININE RATIO 27 (6-25); CALCIUM 8.9 mg/dL (8.4-10.2); CARBON DIOXIDE 27 mmol/L (22-29); CHLORIDE 104 mmol/L (98-107); CREATININE, SERUM 0.82 mg/dL (0.57-1.11); EST GLOMERULAR FILTRATION RATE > 60 ML/MIN (60-); GLUCOSE 217 mg/dL (74-118); MAGNESIUM 1.9 MG/DL (1.3-2.1); SODIUM 139 mmol/L (136-145)
[2017-10-17 08:10] LABS: BAND NEUTROPHILS % (MANUAL) 2 %; EOSINOPHILS % (MANUAL) 7 % (0-7); LYMPHOCYTES % (MANUAL) 19 % (19-48); METAMYELOCYTES % (MANUAL) 1 % (0-0); MONOCYTES % (MANUAL) 3 % (3.4-9.0); NEUTROPHILS % (MANUAL) 67 % (40-74)
[2017-10-17 08:11] LABS: HYPOCHROMASIA SLIGHT; PLATELET ESTIMATE ADEQUATE; PLATELET MORPHOLOGY COMMENT NORMAL; RBC MORPHOLOGY COMMENT NORMAL
[2017-10-17] MEDS: ASPIRIN 325 MG TAB PO SCH (08:53)
[2017-10-17] MEDS: SPIRONOLACTONE 25 MG TAB PO SCH (08:54)
[2017-10-17] MEDS: PREGABALIN 75 MG CAP PO SCH (08:55)
[2017-10-17] MEDS: CARISOPRODOL 350 MG TAB PO SCH (08:56)
[2017-10-17] MEDS: CLOPIDOGREL BISULFATE 75 MG TAB PO SCH (08:59)
[2017-10-17] MEDS ORDERED: MAGNESIUM OXIDE 400 MG TAB PO SCH (09:00)
[2017-10-17] MEDS ORDERED: POTASSIUM CHLORIDE 20 MEQ TAB CR PO SCH (09:00)
[2017-10-17] MEDS: LISINOPRIL 20 MG TAB PO SCH (09:20)
[2017-10-17] MEDS: NEBIVOLOL 10 MG TAB PO SCH (09:20)
[2017-10-17] MEDS ORDERED: CARVEDILOL 3.125 MG TAB PO SCH (10:45)
[2017-10-17] MEDS ORDERED: ALDACTONE25 MG PO (11:44)
[2017-10-17] MEDS ORDERED: COREG3.125 MG PO (11:45)
[2017-10-17] MEDS ORDERED: LASIX40 MG PO (11:46)
[2017-10-17] MEDS ORDERED: KEFLEX500 MG (11:47)
[2017-10-17] MEDS ORDERED: ASPIRIN81 MG PO (11:52)
--- NOTE | 2017-10-17 12:59 | Progress Note ---
DATE: October 17, 2017 CARDIOLOGY PROGRESS NOTE SUBJECTIVE: The patient denies chest pain or shortness of breath. She reports that she wants to go home. OBJECTIVE VITAL SIGNS: Temperature 97.8 degrees, pulse 66, respiratory rate 18, blood pressure 130/86, oxygen saturation 96% on 2 liters nasal cannula. GENERAL: Obese woman, no acute distress. Awake and alert. LUNGS: Clear to auscultation bilaterally. No wheezes or crackles. CARDIOVASCULAR: Normal rate, regular rhythm. Systolic murmur. S3 gallop. ABDOMEN: Soft. EXTREMITIES: Trace edema. CARDIAC MEDICATIONS 1. Lisinopril 20 mg p.o. daily. 2. Plavix 75 mg p.o. daily. 3. Aspirin 325 mg p.o. daily. 4. Spironolactone 50 mg p.o. b.i.d. 5. Furosemide 40 mg IV q.8 h. 6. Xarelto 15 mg p.o. daily. 7. Carvedilol 3.125 mg p.o. daily. LABS: WBC 10.3, hemoglobin 9.7, hematocrit 29.6, platelets 289. Sodium 139, potassium 4, chloride 104, CO2 27, BUN 22, creatinine 0.82. TELEMETRY: Normal sinus rhythm. IMPRESSION 1. [id number] systolic heart failure. 2. Coronary artery disease status post recent ST-elevation myocardial infarction status post stent to the right coronary artery. 3. Peripheral arterial disease with acute limb ischemia of the left lower extremity with occlusion of the left femoral-tibial bypass graft status post transcatheter lysis with taoism of flow. 4. Diabetes mellitus, poorly controlled. 5. Hyperlipidemia. 6. Tobacco use. RECOMMENDATIONS: Cardiac medications have been adjusted. Nebivolol was stopped, and patient was started on carvedilol. Aspirin was decreased to 81 mg p.o. daily. Continue current cardiac medications otherwise. Patient is eager to go home. Will ambulate the patient. If she feels well, she may discharge later today, this afternoon. Job#: [id number] EV
--- NOTE | 2017-10-17 13:56 | Progress Note ---
DATE: October 17, 2017 PULMONARY MEDICINE PROGRESS NOTE SUBJECTIVE: Ms. Mckeon was seen and examined at bedside. She continues to have steady progress. However, chest x-ray shows mildly increased edema today. She is on Lasix 3 times a day and urinating. She is mobilizing with independence. She is also eating as well. REVIEW OF SYSTEMS: No chest pain. No headache. OBJECTIVE VITALS: Afebrile. Vital signs noted per electronic record. GENERAL: No acute distress. Alert, calm. HEENT: Normocephalic and atraumatic. NECK: Supple. Throat midline. LUNGS: Bilateral air entry. A few rare rhonchi at the base. CARDIOVASCULAR: S1 and S2. No murmurs, rubs, or gallops. ABDOMEN: Soft and nontender. EXTREMITIES: No clubbing. No cyanosis. There is only trace edema. INTEGUMENT: No rash. No purpura. LABS: 22 BUN, 0.8 creatinine, 4 potassium, 10 white count, 39 hematocrit. IMPRESSION 1. Acute respiratory failure, resolved. 2. Pulmonary edema. 3. Acute lung injury, resolving slowly. 4. Blood cultures positive noted, coagulase-negative staph. 5. Weakness. PLAN: Continue to mobilize the patient slowly. The patient if she stays will get another chest x-ray tomorrow. The patient is to have medicines up-titrated by cardiology today, and they are worried about blood pressure drops. Continue the diuretics at the current dosing at this time for that reason. Consideration for discharge is being made, although I did notify the patient that there is some risk of rehospitalization. Salt and water restrictions are recommended. The lungs will get better with time, but it takes time. Job#: [id number]
--- NOTE | 2017-10-17 15:01 | Diagnostic Imaging Report ---
PROCEDURE: Frontal and lateral views of the chest. COMPARISON: Chest radiograph 10/17/2017 at 5:29 AM INDICATIONS: CHF/HYPERGLYCEMIA FINDINGS: TUBES and LINES: Left upper extremity PICC tip overlies the cavoatrial junction, unchanged. LUNGS: Perihilar interstitial opacities consistent with interstitial edema, grossly stable allowing for differences in inspiration and technique. PLEURA: Trace right pleural effusion. No left pleural effusion. No pneumothorax. HEART AND MEDIASTINUM: Stable moderate enlargement of the cardiac silhouette. There are atherosclerotic calcifications within the aorta. Midline sternotomy wires. BONES AND SOFT TISSUES: No acute osseous lesion. Left humeral hardware. Soft tissues are unremarkable. UPPER ABDOMEN: No free air under the diaphragm. IMPRESSION: Stable cardiomegaly with interstitial edema and trace right pleural effusion. Dictated by: Hipolito Delgado M.D. on 10/17/2017 at 15:09 Electronically approved by: Hipolito Delgado M.D. on 10/17/2017 at 15:09
[2017-10-17] MEDS ORDERED: INSULIN LISPRO 100 UNIT/1 ML 3ML VIAL SQ SCH (16:30)
[2017-10-17] MEDS ORDERED: INSULIN DETEMIR 100 UNIT/ML PEN SQ SCH (21:00)
[2017-10-18] MEDS ORDERED: ASPIRIN 81 MG ENTERIC COATED PO SCH (09:00)
== END 2017-10-17 16:07 | disposition home or self-care (01) | DRG 280 ==
LOC: ER 23:26 → ICU 10-14 01:48 → IMCU 10-17 12:51
PROVIDERS: ADMIT Internal Medicine Interventional Cardiology; ATTEND Internal Medicine Interventional Cardiology
PROC: 5A09357 Assistance with Respiratory Ventilation, Less than 24 Consecutive Hours, Continuous Positive Airway Pressure (ICD-10-PCS; principal; 2017-10-14)
PROC: 02HV33Z Insertion of Infusion Device into Superior Vena Cava, Percutaneous Approach (ICD-10-PCS; 2017-10-14)
DX: I11.0 Hypertensive heart disease with heart failure (principal); J96.01 Acute respiratory failure with hypoxia; I21.4 Non-ST elevation (NSTEMI) myocardial infarction; J18.9 Pneumonia, unspecified organism; E13.10 Other specified diabetes mellitus with ketoacidosis without coma; E11.42 Type 2 diabetes mellitus with diabetic polyneuropathy; I48.91 Unspecified atrial fibrillation; N39.0 Urinary tract infection, site not specified; I50.23 Acute on chronic systolic (congestive) heart failure; G47.33 Obstructive sleep apnea (adult) (pediatric); Z79.4 Long term (current) use of insulin; E78.5 Hyperlipidemia, unspecified; Z23 Encounter for immunization; D63.8 Anemia in other chronic diseases classified elsewhere; Z95.5 Presence of coronary angioplasty implant and graft; F17.200 Nicotine dependence, unspecified, uncomplicated; E87.6 Hypokalemia; E83.42 Hypomagnesemia; E66.9 Obesity, unspecified; Z68.31 Body mass index [BMI] 31.0-31.9, adult; I25.10 Atherosclerotic heart disease of native coronary artery without angina pectoris; Z95.1 Presence of aortocoronary bypass graft; Z79.02 Long term (current) use of antithrombotics/antiplatelets
CPT/HCPCS: 36415; 36569; 36600; 71010; 71020; 80048; 80053; 81001; 82550; 82553; 82805; 82948; 83605; 83735; 83880; 84484; 85007; 85025; 85027; 85379; 85610; 85730; 87040; 87071; 87086; 87186; 87205; 93005; 94660; 96365; 96372; 96374; 99284; J0692; J1940; J3370

== ENCOUNTER 2017-10-27 23:36 | Inpatient (IN) | payer OTHER ==
[~2017-10-27] VITALS: Ht 167.6 cm; Wt 84.6 kg
[~2017-10-27 23:36] MED LIST changes: +ALDACTONE25 MG PO; +ASPIRIN81 MG PO; +COREG3.125 MG PO; +HUMULIN R100 UNIT/2 SC; +KEFLEX500 MG; +LASIX40 MG PO; +LEVEMIR100 UNIT/1 SC
[2017-10-28] VITALS (61 sets, daily range): BP systolic 91–129; BP diastolic 58–87
[2017-10-28] MEDS ORDERED: VECURONIUM BROMIDE FOR INJ 20 MG VIAL IV STA (00:01)
[2017-10-28] MEDS ORDERED: SUCCINYLCHOLINE 200 MG/10 ML SYR IV STA (00:01)
[2017-10-28] MEDS ORDERED: ETOMIDATE 2 MG/ML 10 ML INJ IV STA (00:01)
[2017-10-28 00:15] LABS: BASOPHILS # (AUTO) 0.2 (0.0-0.1); EOSINOPHILS # (AUTO) 1.8 (0.0-0.4); EOSINOPHILS % 10.9 % (0.0-6.0); HEMATOCRIT 31.1 % (34.2-44.1); HEMOGLOBIN 9.7 g/dL (12.0-16.0); LYMPHOCYTES # (AUTO) 3.9 (1.0-3.2); LYMPHOCYTES % 23.6 % (18.0-39.1); MEAN CORPUSCULAR HEMOGLOBIN 32.9 pg (28-32); MEAN CORPUSCULAR HGB CONC 31.2 g/dL (31-35); MEAN CORPUSCULAR VOLUME 105.4 fL (81-99); MONOCYTES # (AUTO) 1.1 (0.2-0.8); MONOCYTES % 6.3 % (4.4-11.3); NEUTROPHILS # (AUTO) 9.5 (2.1-6.9); NEUTROPHILS % 57.5 % (38.7-80.0); PLATELET COUNT 313 x10e3/uL (140-360); RED BLOOD COUNT 2.95 x10e6/uL (3.6-5.1); RED CELL DISTRIBUTION WIDTH 18.1 % (11.7-14.4)
[2017-10-28 00:18] LABS: INR 1.68; PROTHROMBIN TIME 20.7 seconds (11.9-14.5)
[2017-10-28 00:19] LABS: PARTIAL THROMBOPLASTIN TIME 35.8 seconds (23.8-35.5)
[2017-10-28 00:25] LABS: ALBUMIN 3.3 g/dL (3.5-5.0); ALBUMIN/GLOBULIN RATIO 0.7 (0.8-2.0); ANION GAP 20.8 mmol/L (8-16); CALCIUM 9.2 mg/dL (8.4-10.2); CREATININE, SERUM 1.45 mg/dL (0.57-1.11); POTASSIUM 4.8 mmol/L (3.5-5.1)
[2017-10-28 00:33] LABS: CREATINE KINASE MB 5.6 ng/mL (0.00-5.00)
[2017-10-28 01:10] LABS: BILIRUBIN,URINE NEGATIVE (NEGATIVE); KETONES,URINE NEGATIVE (NEGATIVE); LEUKOCYTE ESTERASE ,URINE NEGATIVE (NEGATIVE); NITRITE,URINE NEGATIVE (NEGATIVE); URINE UROBILINOGEN 0.2 mg/dL (0.2 - 1)
[2017-10-28] MEDS: PROPOFOL IV EMULSION 10MG/ML 100 ML IV SCH ×4 (01:11→19:35)
[2017-10-28] MEDS ORDERED: INSULIN REGULAR, HUMAN 3ML VL 100 UNIT in SODIUM CHLORIDE 0.9% 100 ML IV SCH ×4 (01:15)
[2017-10-28] MEDS ORDERED: MAGNESIUM SULF 1GRAM/DEXTROSE 100 ML IV PRN (01:15)
[2017-10-28] MEDS ORDERED: POTASSIUM CHLORIDE 20MEQ/100ML 200 ML IV PRN (01:15)
[2017-10-28] MEDS ORDERED: INSULIN REGULAR, HUMAN 3ML VL 1 UNIT in SODIUM CHLORIDE 0.9% 100 ML IV SCH ×2 (01:15)
[2017-10-28 01:20] LABS: CLARITY,URINE CLEAR (CLEAR); COLOR,URINE YELLOW (YELLOW); PROTEIN,URINE DIPSTICK 1+ (NEGATIVE)
--- NOTE | 2017-10-28 01:20 | Diagnostic Imaging Report ---
EXAM: CHEST SINGLE (PORTABLE), AP 1 view DATE: 10/28/2017 12:06 AM Time stamp on exam: 0052 hours INDICATION: Status post intubation COMPARISON: PA and lateral view of the chest and resected in 2018 FINDINGS: LINES/TUBES: Endotracheal tube terminates 3 cm above the kisha. Nasal/orogastric tube courses below the diaphragm. LUNGS: Interval development of pulmonary edema. PLEURA: Indeterminate for layering pleural effusions bilaterally. HEART AND MEDIASTINUM: Cardiomegaly. Median sternotomy wires. BONES AND SOFT TISSUES: No acute findings. IMPRESSION: Interval development of diffuse bilateral pulmonary edema. Signed by: Dr. Cecelia Collins M.D. on 10/28/2017 1:16 AM
[2017-10-28 01:23] LABS: BACTERIA,URINE FEW /HPF; RBC,URINE 0-5 /HPF (0-5)
[2017-10-28 01:24] LABS: EPITHELIAL CELLS,URINE RARE /LPF
[2017-10-28] MEDS ORDERED: INSULIN REGULAR, HUMAN 100 UNIT/1 ML 3ML VIAL ONE (01:42)
[2017-10-28] MEDS ORDERED: SODIUM CHLORIDE 0.9% 250ML 250 ML ONE (01:43)
[2017-10-28] MEDS ORDERED: SODIUM CHLORIDE 0.9% 100 ML 0 ML ONE (01:47)
[2017-10-28] MEDS ORDERED: SODIUM CHLORIDE 0.9% 50ML 50 ML ONE (01:59)
[2017-10-28] MEDS ORDERED: FUROSEMIDE INJ 10 MG/ML 4 ML VIAL IV ONE (02:00)
[2017-10-28] MEDS ORDERED: FENTANYL CITRATE/PF 100MCG/2 ML INJ IV PRN (04:00)
[2017-10-28 04:19] LABS: ANION GAP 14.7 mmol/L (8-16); CALCIUM 9.2 mg/dL (8.4-10.2); CREATININE, SERUM 1.39 mg/dL (0.57-1.11); MAGNESIUM 2.2 MG/DL (1.3-2.1); POTASSIUM 4.7 mmol/L (3.5-5.1)
[2017-10-28] MEDS: NOREPINEPHRINE BITARTRATE/ NS 250 ML IV SCH (04:55)
[2017-10-28 05:11] LABS: BASOPHILS # (AUTO) 0.1 (0.0-0.1); BASOPHILS % 0.3 % (0.0-1.0); EOSINOPHILS # (AUTO) 0.1 (0.0-0.4); EOSINOPHILS % 0.6 % (0.0-6.0); HEMATOCRIT 29.5 % (34.2-44.1); HEMOGLOBIN 9.5 g/dL (12.0-16.0); LYMPHOCYTES # (AUTO) 1.4 (1.0-3.2); LYMPHOCYTES % 8.8 % (18.0-39.1); MEAN CORPUSCULAR HGB CONC 32.2 g/dL (31-35); MEAN CORPUSCULAR VOLUME 102.4 fL (81-99); MONOCYTES % 6.2 % (4.4-11.3); NEUTROPHILS # (AUTO) 13.1 (2.1-6.9); NEUTROPHILS % 83.6 % (38.7-80.0); PLATELET COUNT 255 x10e3/uL (140-360); RED BLOOD COUNT 2.88 x10e6/uL (3.6-5.1); RED CELL DISTRIBUTION WIDTH 18.1 % (11.7-14.4)
--- NOTE | 2017-10-28 05:38 | Diagnostic Imaging Report ---
EXAM: CHEST SINGLE (PORTABLE), AP 1 view DATE: 10/28/2017 8:00 AM Time stamp on exam: 0511 hours INDICATION: Congestive heart failure COMPARISON: AP view of the chest October 28 2017 at 0052 hours FINDINGS: LINES/TUBES: Endotracheal tube terminates 5 cm above the kisha. Nasal/orogastric tube courses below the diaphragm. LUNGS: Pulmonary edema, slightly decreased from prior exam. PLEURA: Suspected small layering pleural effusions bilaterally. HEART AND MEDIASTINUM: Stable enlargement of the cardiomediastinal silhouette. BONES AND SOFT TISSUES: No acute findings. IMPRESSION: Pulmonary edema, slightly decreased from prior exam. Signed by: Dr. Cecelia Collins M.D. on 10/28/2017 5:35 AM
[2017-10-28 05:44] LABS: ABG HCO3 28 mmol/L (23-28); ABG PCO2 45 mmHg (41-51); ABG PH 7.41 (7.31-7.41); ABG PO2 391 mmHg (80-105)
[2017-10-28 05:45] LABS: ABG BASE EXCESS 28.3 mmol/L (-2 - 3)
--- NOTE | 2017-10-28 07:22 | Consultation ---
DATE OF CONSULTATION: October 28, 2017 PULMONARY CRITICAL CARE MEDICINE CONSULTATION HISTORY: Mrs. Mckeon is a pleasant 52-year-old female with acute respiratory failure. Patient had September 2017 hospitalization with a large right-sided myocardial infarction. Patient went for emergency PTCA. Patient, however, had complications of pulmonary edema and acute kidney failure. Patient also had complication of left leg ischemia due to thrombosis. That required intervention to open up. Patient then got better. However, she chose to go home in a rapid manner, and afterwards, she came back within 1 day to the hospital. Patient had pulmonary edema and had to be intubated again during that stay, although it was much quicker as she was not as severe. Patient subsequently went home for 13 days this time. She was able to maintain out of the hospital. Patient had increasing shortness of breath. As expected, her x-rays were getting worse when she left the hospital last time. She also insisted very strongly that she wishes to go home. Patient came in and had to be intubated. She was given 100% FIO2 and 15 of PEEP. I am consulted. PAST MEDICAL HISTORY: Coronary artery disease, history of CABG, CHF, thyroid abnormality, dyslipidemia, recent [place], atrial fibrillation as well. MEDICATIONS: Per the record. ALLERGIES: PENTAZOCINE. SOCIAL HISTORY: Smoking included. PHYSICAL EXAMINATION GENERAL: Patient on the ventilator. Looks pale and slightly chronic. She is on sedation. VITAL SIGNS: Noted per electronic record. She is not pressors at this time. LUNGS: Bilateral air entry. Limited evaluation. ABDOMEN: Soft and nontender. EXTREMITIES: One to 2+ edema. LABS: BUN 38, creatinine 1.5, glucose 601, potassium 4.8. White count 16, hematocrit 31, and platelets 213,000. Chest x-ray shows pulmonary edema pattern. IMPRESSION AND PLAN 1. Respiratory failure. 2. Pulmonary edema. 3. Likely component of diffuse alveolar hemorrhage with significant amount of red froth in the endotracheal tube system. 4. Chronic kidney disease. 5. Coronary artery disease. 6. Likely nonadherence of treatment. 7. Thyroid abnormality. 8. Congestive heart failure. 9. Atrial fibrillation. At this time, continue current treatment. She is in critical condition. Maintain intubated state and ventilator support. I discussed with the staff and her daughter at length. Patient will need investigations as to what happened this time when she is intubated. Glucose is high. Insulin drip was ordered. BNP was 1271. Continue lung protective ventilator settings. Will follow along closely. Greater than 30 minutes in direct care today. I would like to thank Dr. Wilder for allowing me the chance to participate in the care of Mrs. Mckeon. Please do not hesitate to contact me if I can help in any way. Job#: [id number] JOSEPH
[2017-10-28] MEDS: LEVOTHYROXINE SODIUM 125 MCG TAB PO SCH (07:30)
[2017-10-28] MEDS: FUROSEMIDE INJ 10 MG/ML 4 ML VIAL IV SCH ×2 (08:12→20:46)
[2017-10-28] MEDS: PANTOPRAZOLE 40 MG 10ML VIAL IV SCH ×2 (08:12→18:15)
[2017-10-28 08:13] LABS: FREE THYROXINE INDEX 2.7634 (1.4-3.8); THYROID STIMULATING HORMONE 9.313 uIU/mL (0.350-4.940)
[2017-10-28 08:59] LABS: ANION GAP 14.3 mmol/L (8-16); CALCIUM 9.2 mg/dL (8.4-10.2); CREATININE, SERUM 1.35 mg/dL (0.57-1.11); MAGNESIUM 2.2 MG/DL (1.3-2.1); POTASSIUM 5.3 mmol/L (3.5-5.1)
[2017-10-28] MEDS ORDERED: ASPIRIN 81 MG CHEW TAB PO SCH (09:00)
[2017-10-28] MEDS ORDERED: CLOPIDOGREL BISULFATE 75 MG TAB PO SCH (09:00)
[2017-10-28 09:19] LABS: CREATINE KINASE MB 3.5 ng/mL (0.00-5.00)
[2017-10-28] MEDS ORDERED: HEPARIN SOD (PORCINE) 5,000 UNIT/ML VIAL INJ ONE (10:30)
[2017-10-28] MEDS ORDERED: LEVOTHYROXINE SODIUM 100 MCG/VIAL IV ONE (10:30)
[2017-10-28 11:02] LABS: INR 1.31
--- NOTE | 2017-10-28 11:13 | History and Physical ---
Ms. Mckeon was readmitted to the emergency room with severe shortness of breath, diabetic ketoacidosis, hypotension similar to her prior admissions. Please see prior dictated notes for further details. At present, she is mildly hypotensive. Required intubation in the emergency room due to hypoxic respiratory failure. Chest x-ray has diffuse pulmonary edema with possible pulmonary hemorrhage as well as her underlying pleural effusion. She has a distended abdomen. Bowel sounds are absent, and she has a brown aspirate on her nasogastric tube. Past medical, family and social history unchanged from prior visit. REVIEW OF SYSTEMS: Unobtainable as the patient is intubated and sedated. PHYSICAL EXAMINATION VITALS: Afebrile. Heart rate is 98. Blood pressure is 104/70. O2 sat is 100%. CARDIOVASCULAR: Regular rhythm. S3 gallop. Systolic murmur. RESPIRATORY: Crackles bilaterally. Decreased breath sounds. ABDOMEN: Distended. Bowel sounds are absent. EXTREMITIES: 2+ edema bilaterally. Chest x-ray was reviewed. Electrocardiogram shows marked ST depression. WBC count 15,600. Hemoglobin 9.5. Serum creatinine 1.35. Troponin 0.8. TSH 9.3. ASSESSMENT 1. Ehlra-mm-alfzlty systolic heart failure with cardiogenic shock. 2. Severe coronary artery disease with ycu-RC-prtlfzm elevation myocardial infarction and recent ST-elevation myocardial infarction. 3. Peripheral arterial disease, status post femoral-tibial bypass with recent thrombosis. 4. Acute abdomen. PLAN: Ms. Mckeon is being managed by Dr. Hayden for her critical care needs as well as ventilator issues. At this point, CT scans of her chest, abdomen and pelvis will be obtained. I discussed her care with Dr. Antunez of general surgery, GI consultation, endocrinology consultation as well as initiation of anticoagulation with IV heparin. She has a recent coronary stent as well as recent intervention on her occluded left fem-tibial bypass graft, and anticoagulation is paramount as at this point she is n.p.o., and antiplatelets will be held. We will continue IV heparin and reinitiate beta blockers as tolerated by her blood pressure. Overall condition is critically ill. This was discussed with the who was present at bedside. Job#: [id number]
[2017-10-28] MEDS: HEPARIN 25,000U/0.45% NS 250ML 900 UNIT in SODIUM CHLORIDE 0.9% 250ML 0 ML IV SCH (11:46)
[2017-10-28] MEDS ORDERED: INSULIN REGULAR, HUMAN 3ML VL 300 UNIT in SODIUM CHLORIDE 0.45% 100 ML 300 ML IV SCH ×2 (12:05)
[2017-10-28] MEDS ORDERED: DEXTROSE 50% SYRINGE 50 ML IV PRN ×3 (12:15→14:45)
[2017-10-28] MEDS: DEXTROSE 5%/0.45% SOD CHL 1,000 ML IV SCH (13:17)
[2017-10-28] MEDS ORDERED: INSULIN REGULAR, HUMAN 3ML VL 100 UNIT in SODIUM CHLORIDE 0.45% 100 ML 100 ML IV SCH ×2 (14:30)
--- NOTE | 2017-10-28 15:29 | Diagnostic Imaging Report ---
EXAM: CT Chest WITHOUT contrast 10/28/2017 9:46 AM INDICATION: Non-STEMI, ARDS \S\ILEUS \[id number] \S\1435 COMPARISON: Ultrasound chest from 10/28/2017, chest radiograph from 10/28/2017 TECHNIQUE: Chest was scanned utilizing a multidetector helical scanner from the lung apex through the level of the adrenal glands without administration of IV contrast. Absence of intravenous contrast decreases sensitivity for detection of lymphadenopathy and vascular pathology. Coronal and sagittal reformations were obtained. Routine protocol was performed. IV CONTRAST: None COMPLICATIONS: None RADIATION DOSE: Total DLP: 1008 mGy*cm Estimated effective dose: (DLP x 0.015 x size factor) mSv CTDIvol has been reviewed. It is below the limits set by the Radiation Protocol Committee (RPC). FINDINGS: LINES/ TUBES: Stable endotracheal and NG/O G-tubes. LUNGS AND AIRWAYS: Diffuse bilateral pulmonary edema. Mild subpleural scarring/atelectasis in the posterior right upper and lower lobes. Few scattered pulmonary nodules throughout the right lung, measuring up to 3 mm, for example on series 4, image 31, likely inflammatory. No consolidations. Airways are normal. PLEURA: The pleural spaces are clear. HEART AND MEDIASTINUM: The thyroid gland is normal. No mediastinal, hilar or axillary lymphadenopathy. Cardiomegaly. There is no pericardial effusion. The main pulmonary artery is normal in caliber measuring 2.8 cm in diameter. The thoracic aorta is normal in caliber and associated with mild to moderate atherosclerotic calcifications. Extensive coronary artery calcifications, status post CABG. UPPER ABDOMEN: Cholecystectomy. BONES: Intact median sternotomy wires. SOFT TISSUES: Unremarkable. IMPRESSION: Bilateral pulmonary edema without pleural effusions. No pulmonary consolidations. Status post CABG. Signed by: Dr. Brooke Villa M.D. on 10/28/2017 3:25 PM
--- NOTE | 2017-10-28 15:38 | Diagnostic Imaging Report ---
EXAM: CT Abdomen and Pelvis WITHOUT contrast INDICATION: Ileus, respiratory distress, non-STEMI COMPARISON: CT chest and radiograph from 10/28/2017 TECHNIQUE: Abdomen and pelvis were scanned utilizing a multidetector helical scanner from the lung base to the pubic symphysis without administration of IV contrast. Absence of intravenous contrast decreases sensitivity for detection of focal lesions and vascular pathology. Coronal and sagittal reformations were obtained. Routine protocol was performed. IV CONTRAST: None. ORAL CONTRAST: None RADIATION DOSE: Total DLP: 1008 mGy*cm Estimated effective dose: (DLP x 0.015 x size factor) mSv COMPLICATIONS: None FINDINGS: LINES and TUBES: Right femoral approach central line with tip within the mid right external iliac vein. Stable NG/O G-tube. Oates catheter within the urinary bladder. LOWER THORAX: Refer to CT chest report obtained the same day. HEPATOBILIARY: No focal hepatic lesions. No biliary ductal dilation. GALLBLADDER: Cholecystectomy. SPLEEN: No splenomegaly. PANCREAS: No focal masses or ductal dilatation. ADRENALS: No adrenal nodules KIDNEYS/URETERS: Cortical scarring with 3 mm calcifications within the lateral aspect of the inferior pole of the right kidney may reflect prior infection. Nonobstructing 2 mm calcified stone in the upper pole of the right kidney on coronal image 86. Faint 2 mm calcification in the interpolar region of the left kidney may represent stone. No hydronephrosis or masses noted on limited evaluation. GI TRACT: Mild nonspecific wall thickening of the sigmoid colon may be overestimated by poor distention. No surrounding fat stranding. The remaining small and large bowel are unremarkable. Scattered diverticulosis throughout the colon without diverticulitis. Appendix is small and appears to be in the right lower quadrant on series 2, image 91. PELVIC ORGANS/BLADDER: Unremarkable. LYMPH NODES: No lymphadenopathy. VESSELS: Atherosclerotic calcifications of the abdominal aorta and pelvic arteries without aneurysm. PERITONEUM / RETROPERITONEUM: No free air or fluid. BONES: Unremarkable. SOFT TISSUES: Unremarkable. IMPRESSION: 1. No CT findings to suggest ileus or bowel obstruction. 2. Scattered diverticulosis throughout the colon without diverticulitis. Mild wall thickening of the sigmoid colon may be overestimated by poor distention. No surrounding inflammatory changes. Signed by: Dr. Brooke Villa M.D. on 10/28/2017 3:34 PM
--- NOTE | 2017-10-28 16:09 | Consultation ---
DATE OF CONSULTATION: October 28, 2017 ENDOCRINE CONSULTATION This is a patient of Dr. Wilder. Thank you very much for referring this patient. This is a 52-year-old white female who is very well known to me from her previous hospital admissions. In fact, the patient was discharged from the hospital only a few days back. Patient has a known case of diabetes mellitus, type 2, uncontrolled with complications on a combination of Levemir and Humalog at home. Patient was discharged from the hospital. She was seen by Dr. Wilder, and her creatinine was elevated. She had Lasix dose decreased. The next day, the patient started having shortness of breath. She was brought to the emergency room. She had hypoxemia and had to be put on the vent again. This is the 3rd admission in the last probably a month or so. Patient also has history of coronary artery disease and congestive cardiac failure. She has an ischemic right leg. Hypertension. Ex-smoker. PHYSICAL EXAMINATION GENERAL: The patient is alert, but patient is on the vent. Her heart rate is around 78. Blood pressure 140/80 mmHg. HEENT: Examination is essentially unremarkable. Thyroid is palpable. Clinically, she is near euthyroid. CHEST: Bilateral vesicular breathing. She has bilateral bronchospasm. CARDIAC: First and second heart sounds. There is no 3rd or 4th heart sound. Ejection systolic murmur, grade 2/6. EXTREMITIES: Patient has mild pedal edema. LABS: Blood sugars at the time of admission have been 254 to 229 range. She is on the vent at this time. Her anion gap was within the range. Her potassium was elevated at 5.3, and BUN and creatinine are 44 and 1.35. Hemoglobin is 9.5 with hematocrit of 29.5. CLINICAL IMPRESSION 1. Diabetes mellitus, type 2, uncontrolled with complications. 2. Coronary artery disease. 3. Congestive cardiac failure. 4. Acute respiratory failure on the vent at this time. The plan at this time is to continue the insulin drip for now. Monitor her blood sugars closely. Patient is being evaluated cardiology-burris as well. Thanks again for referring this physician. I will be following this patient with you. Job#: [id number]
[2017-10-28] MEDS ORDERED: ENOXAPARIN SOD INJ 40 MG/0.4 ML SYR SC SCH (17:00)
[2017-10-28] MEDS ORDERED: RIVAROXABAN 15 MG TABLET PO SCH (17:00)
[2017-10-28] MEDS: INSULIN REGULAR, HUMAN 3ML VL 100 UNIT in SODIUM CHLORIDE 0.45% 100 ML 100 ML IV SCH ×2 (18:00)
--- NOTE | 2017-10-28 19:21 | Diagnostic Imaging Report ---
EXAM: US CHEST (INCL MEDIASTINUM) DATE: 10/28/2017 12:00 AM Time stamp on exam: 1125 hours INDICATION: Evaluate for thoracentesis COMPARISON: CT of the chest October 28, 2017 FINDINGS: Ultrasound of the posterior chest bilaterally showed no evidence of an effusion. IMPRESSION: No pleural effusions. Signed by: Dr. Cecelia Collins M.D. on 10/28/2017 7:17 PM
[2017-10-28 23:17] LABS: ALBUMIN 2.9 g/dL (3.5-5.0); ALBUMIN/GLOBULIN RATIO 0.7 (0.8-2.0); ANION GAP 14.2 mmol/L (8-16); CALCIUM 8.8 mg/dL (8.4-10.2); CREATININE, SERUM 1.46 mg/dL (0.57-1.11); POTASSIUM 4.2 mmol/L (3.5-5.1)
[2017-10-28 23:20] LABS: AMYLASE 60 U/L (25-125); LIPASE 44 U/L (8-78)
[2017-10-29] VITALS (79 sets, daily range): BP systolic 88–136; BP diastolic 60–89
[2017-10-29] MEDS: PROPOFOL IV EMULSION 10MG/ML 100 ML IV SCH ×5 (00:05→22:26)
[2017-10-29 00:15] LABS: CREATINE KINASE MB 8.7 ng/mL (0.00-5.00)
[2017-10-29] MEDS ORDERED: VANCOMYCIN 1GM/NS 250 ML 250 ML IV ONE (00:30)
[2017-10-29] MEDS ORDERED: CEFEPIME HCL 1 GM VIAL IV SCH (00:30)
[2017-10-29] MEDS: ACETAMINOPHEN 325 MG/10 ML UDC NG PRN ×3 (00:52→19:39)
[2017-10-29] MEDS: DEXTROSE 5%/0.45% SOD CHL 1,000 ML IV SCH (00:54)
[2017-10-29] MEDS: NOREPINEPHRINE BITARTRATE/ NS 250 ML IV SCH (03:30)
[2017-10-29 05:32] LABS: BASOPHILS % 0.3 % (0.0-1.0); EOSINOPHILS # (AUTO) 0.1 (0.0-0.4); EOSINOPHILS % 0.8 % (0.0-6.0); HEMATOCRIT 23.1 % (34.2-44.1); LYMPHOCYTES # (AUTO) 1.6 (1.0-3.2); LYMPHOCYTES % 15.4 % (18.0-39.1); MEAN CORPUSCULAR HEMOGLOBIN 32.9 pg (28-32); MEAN CORPUSCULAR HGB CONC 31.6 g/dL (31-35); MEAN CORPUSCULAR VOLUME 104.1 fL (81-99); MONOCYTES # (AUTO) 0.8 (0.2-0.8); MONOCYTES % 8.2 % (4.4-11.3); NEUTROPHILS # (AUTO) 7.5 (2.1-6.9); NEUTROPHILS % 74.7 % (38.7-80.0); PLATELET COUNT 184 x10e3/uL (140-360); RED BLOOD COUNT 2.22 x10e6/uL (3.6-5.1); RED CELL DISTRIBUTION WIDTH 18.5 % (11.7-14.4)
[2017-10-29 05:41] LABS: HEMOGLOBIN 7.3 g/dL (12.0-16.0)
[2017-10-29] MEDS: LEVOTHYROXINE SODIUM 125 MCG TAB PO SCH (05:59)
[2017-10-29 06:05] LABS: ALBUMIN 2.9 g/dL (3.5-5.0); ALBUMIN/GLOBULIN RATIO 0.7 (0.8-2.0); ANION GAP 12.8 mmol/L (8-16); CALCIUM 8.6 mg/dL (8.4-10.2); CREATININE, SERUM 1.43 mg/dL (0.57-1.11); POTASSIUM 3.8 mmol/L (3.5-5.1)
--- NOTE | 2017-10-29 06:33 | Diagnostic Imaging Report ---
EXAM: CHEST SINGLE (PORTABLE), AP 1 view DATE: 10/29/2017 7:00 AM Time stamp on exam: 0528 hours INDICATION: Pulmonary edema COMPARISON: October 28, 2017 FINDINGS: LINES/TUBES: Endotracheal tube terminates 6 cm above the kisha. Nasal/orogastric tube courses below the diaphragm. LUNGS: Slight interval improvement in pulmonary edema PLEURA: Suspected small bilateral pleural effusions HEART AND MEDIASTINUM: Stable cardiac enlargement. BONES AND SOFT TISSUES: No acute findings. IMPRESSION: The endotracheal tube is 6 cm above the kisha. Slight interval improvement in pulmonary edema. Signed by: Dr. Cecelia Collins M.D. on 10/29/2017 6:29 AM
[2017-10-29] MEDS ORDERED: FUROSEMIDE INJ 10 MG/ML 2 ML VIAL IV PRN (07:00)
[2017-10-29] MEDS ORDERED: SODIUM CHLORIDE 0.9% 250ML 250 ML IV ONE (07:00)
[2017-10-29] MEDS: HEPARIN 25,000U/0.45% NS 250ML 900 UNIT in SODIUM CHLORIDE 0.9% 250ML 0 ML IV SCH (07:49)
[2017-10-29] MEDS: PANTOPRAZOLE 40 MG 10ML VIAL IV SCH ×2 (08:00→18:34)
[2017-10-29] MEDS ORDERED: LEVOTHYROXINE SODIUM 100 MCG/VIAL IV SCH (09:00)
[2017-10-29] MEDS: FUROSEMIDE INJ 10 MG/ML 4 ML VIAL IV SCH (09:05)
[2017-10-29] MEDS: FUROSEMIDE INJ 100 MG in SODIUM CHLORIDE 0.9% 100 ML 90 ML IV SCH ×2 (10:41→21:30)
[2017-10-29] MEDS ORDERED: ASPIRIN 81 MG CHEW TAB PO SCH (11:30)
--- NOTE | 2017-10-29 11:58 | Progress Note ---
DATE: October 29, 2017 CARDIOLOGY PROGRESS NOTE SUBJECTIVE: Ms. Mckeon remains intubated and sedated. OBJECTIVE VITAL SIGNS: Temperature 100.6. Heart rate 74. Blood pressure 106/65. CARDIOVASCULAR: Regular rhythm. Systolic murmur. S3 gallop. LUNGS: Crackles bilaterally. Decreased breath sounds. ABDOMEN: Distended, but improved from yesterday. EXTREMITIES: 1+ edema. Chest x-ray shows improved aeration of both lungs. CT scan was reviewed. Care discussed with the general surgery. Hemoglobin is 7.3. Creatinine 1.4. Transaminases are normal. ASSESSMENT: Wbrxb-ff-vrrcuan systolic heart failure. RECOMMENDATIONS: Cautious initiation of low-dose beta attila. Aggressive diuresis with continuous infusion of intravenous Lasix. Echocardiogram reveals an ejection fraction of 20% with severe mitral regurgitation. She does not have significant pleural effusion. She will require aggressive diuresis and continued anticoagulation with intravenous heparin for recent coronary stent as well as left fem-tibial bypass intervention. Transfuse blood for hemoglobin of 7. Overall prognosis remains poor. Job#: [id number]
[2017-10-29 13:01] LABS: CREATINE KINASE MB 8.1 ng/mL (0.00-5.00)
--- NOTE | 2017-10-29 15:28 | Consultation ---
DATE OF CONSULTATION: REASON FOR CONSULTATION: Fever. Thank you so much for letting me see this patient. HISTORY OF PRESENT ILLNESS: This patient, who is known to me from before, is a 52-year-old. She was in the hospital recently with myocardial infarction. The patient also came back with shortness of breath, and she was discharged. She came back again, now with shortness of breath. According to the family, she started to have shortness of breath suddenly. There was no fever, no chills, no cough, no sore throat. The patient came to the emergency room. She was intubated. After that, she started to have fever. The patient when she first came was hypotensive and mildly hypoxemic. Chest x-ray showed diffuse pulmonary edema with possible pulmonary hemorrhage as well as underlying pleural effusion. The patient is currently intubated. Family is at the bedside. Patient has jhdxu-vh-phgeunn congestive heart failure with cardiogenic shock and severe coronary artery disease with hqq-CA-btiflhn elevation. Infectious disease was consulted for fever. The patient is currently intubated and sedated. Review of systems could not be obtained. Laboratory data reviewed. Her medication list was reviewed. Notes were also reviewed. Her blood cultures are negative at 24 hours. White count on admission was 16.5, today is 10.8. Hemoglobin 7.3, hematocrit 23, platelets 184. Sodium 136, potassium 3.8, creatinine 1.43. Chest x-ray showed pulmonary edema. CT of the abdomen and pelvis was done, showed no diverticulitis, no ileus. The patient is on Lasix, propofol, Tylenol, cefepime, Coreg. PHYSICAL EXAMINATION GENERAL: She is intubated and sedated. VITALS: Stable currently. Temperature 100.6. HEENT: She is not icteric. Normocephalic. CHEST: Few crackles at the bases. COR: S1 and S2, no murmur. ABDOMEN: Soft. Bowel sounds present. EXTREMITIES: Edema. IMPRESSION 1. Acute respiratory failure. Pulmonary edema from her congestive heart failure. Ejection fraction 25%. Concern about cardiac event. Cardiology is following. The fever could be from her cardiac event. May be pneumonia. Would suggest to check for influenza since this is the season. Put her on ceftriaxone. Will wait for the blood cultures. 2. Anemia. It seems there was a sudden drop in her hemoglobin. Recheck CBC. Recheck chem panel. 3. Prognosis is guarded. Will follow with you. Job#: [id number] JONATHAN
[2017-10-29] MEDS ORDERED: VECURONIUM BROMIDE FOR INJ 20 MG VIAL ONE (18:01)
[2017-10-29] MEDS ORDERED: SUCCINYLCHOLINE 200 MG/10 ML SYR ONE (18:01)
[2017-10-29] MEDS ORDERED: WATER STERILE 10 ML VIAL ONE (18:01)
[2017-10-29] MEDS ORDERED: ETOMIDATE 2 MG/ML 10 ML INJ IV ONE (18:01)
[2017-10-29] MEDS: CEFTRIAXONE SOD 1 GM VIAL IV SCH (18:34)
[2017-10-29] MEDS: CARVEDILOL 3.125 MG TAB PO SCH (18:34)
[2017-10-30] VITALS (53 sets, daily range): BP systolic 73–136; BP diastolic 51–87
[2017-10-30 01:01] LABS: ANION GAP 14.6 mmol/L (8-16); CALCIUM 8.6 mg/dL (8.4-10.2); CREATININE, SERUM 1.09 mg/dL (0.57-1.11); POTASSIUM 3.6 mmol/L (3.5-5.1)
[2017-10-30] MEDS: PROPOFOL IV EMULSION 10MG/ML 100 ML IV SCH ×4 (01:05→11:19)
[2017-10-30] MEDS: INSULIN REGULAR, HUMAN 3ML VL 100 UNIT in SODIUM CHLORIDE 0.45% 100 ML 100 ML IV SCH ×2 (04:00)
[2017-10-30] MEDS: FUROSEMIDE INJ 100 MG in SODIUM CHLORIDE 0.9% 100 ML 90 ML IV SCH ×2 (05:35→15:43)
[2017-10-30] MEDS: HEPARIN 25,000U/0.45% NS 250ML 900 UNIT in SODIUM CHLORIDE 0.9% 250ML 0 ML IV SCH ×2 (05:51→22:05)
--- NOTE | 2017-10-30 06:24 | Diagnostic Imaging Report ---
EXAM: CHEST SINGLE (PORTABLE), AP 1 view DATE: 10/30/2017 5:00 AM Time stamp on exam: 0517 hours INDICATION: CHF COMPARISON: AP view of the chest October 29, 2017 FINDINGS: LINES/TUBES: Stable position endotracheal tube and nasal/orogastric tube LUNGS: Mild edema PLEURA: No effusions or pneumothorax. HEART AND MEDIASTINUM: Stable appearance BONES AND SOFT TISSUES: No acute findings. IMPRESSION: No significant interval change Signed by: Dr. Cecelia Collins M.D. on 10/30/2017 6:21 AM
[2017-10-30] MEDS: LEVOTHYROXINE SODIUM 125 MCG TAB PO SCH (06:25)
[2017-10-30] MEDS: ACETAMINOPHEN 325 MG/10 ML UDC NG PRN ×2 (06:25→15:59)
[2017-10-30 06:46] LABS: ANION GAP 16.6 mmol/L (8-16); CALCIUM 8.7 mg/dL (8.4-10.2); CREATININE, SERUM 0.98 mg/dL (0.57-1.11); MAGNESIUM 2.2 MG/DL (1.3-2.1); POTASSIUM 3.6 mmol/L (3.5-5.1)
[2017-10-30 06:47] LABS: BASOPHILS % 0.3 % (0.0-1.0); EOSINOPHILS # (AUTO) 0.3 (0.0-0.4); EOSINOPHILS % 3.1 % (0.0-6.0); HEMATOCRIT 29.4 % (34.2-44.1); HEMOGLOBIN 9.7 g/dL (12.0-16.0); MEAN CORPUSCULAR HEMOGLOBIN 32.1 pg (28-32); MEAN CORPUSCULAR VOLUME 97.4 fL (81-99); MONOCYTES # (AUTO) 0.7 (0.2-0.8); MONOCYTES % 7.7 % (4.4-11.3); NEUTROPHILS # (AUTO) 7.5 (2.1-6.9); NEUTROPHILS % 78.6 % (38.7-80.0); PLATELET COUNT 174 x10e3/uL (140-360); RED BLOOD COUNT 3.02 x10e6/uL (3.6-5.1)
[2017-10-30 07:50] LABS: FERRITIN 247.58 ng/mL (4.63-204.00)
[2017-10-30 07:59] LABS: FOLATE 7.5 ng/mL (7.0-15.4)
[2017-10-30] MEDS: CARVEDILOL 3.125 MG TAB PO SCH ×3 (08:00→17:50)
[2017-10-30 08:34] LABS: PLATELET ESTIMATE ADEQUATE; RBC MORPHOLOGY COMMENT NORMAL
[2017-10-30 08:35] LABS: ANISOCYTOSIS SLIGHT; HYPOCHROMASIA SLIGHT; PLATELET MORPHOLOGY COMMENT NORMAL
[2017-10-30] MEDS: PANTOPRAZOLE 40 MG 10ML VIAL IV SCH ×2 (09:43→17:50)
[2017-10-30] MEDS: CLOPIDOGREL BISULFATE 75 MG TAB PO SCH (10:54)
--- NOTE | 2017-10-30 14:09 | Progress Note ---
DATE: NO DICTATION, LENGTH 14 SECONDS. Job#: [id number] MH
[2017-10-30] MEDS: CEFTRIAXONE SOD 1 GM VIAL IV SCH (15:59)
[2017-10-30] MEDS ORDERED: ACETAMINOPHEN 325 MG TAB PO PRN ×2 (16:30→16:45)
[2017-10-30] MEDS ORDERED: ONDANSETRON HCL INJ 2 MG/ML VIAL IV PRN (17:00)
[2017-10-30] MEDS ORDERED: ACETAMINOPHEN 325 MG SUPP PR PRN (17:00)
[2017-10-30 17:18] LABS: ABG HCO3 25 mmol/L (23-28); ABG PCO2 32 mmHg (41-51); ABG PO2 91 mmHg (80-105)
[2017-10-30] MEDS: BALSAM PERU/CASTOR OIL 60 GM OINT...G. TP SCH (17:39)
--- NOTE | 2017-10-30 18:47 | Progress Note ---
DATE: October 30, 2017 CARDIOLOGY PROGRESS NOTE SUBJECTIVE: The patient remains intubated and sedated. She has had good diuresis on Lasix 10 mg an hour. OBJECTIVE VITAL SIGNS: Temperature 98.7 degrees, pulse 79, respiratory rate 18, blood pressure 121/76, oxygen saturation 100% on mechanical ventilation. GENERAL: Intubated and sedated and in no acute distress. LUNGS: Crackles bilaterally with decreased breath sounds. CARDIOVASCULAR: Normal rate, regular rhythm. A systolic murmur with S3 gallop. ABDOMEN: Soft. EXTREMITIES: There is 1+ pitting edema. CARDIAC MEDICATIONS: 1. Lasix 10 mg an hour. 2. Carvedilol 3.125 mg p.o. b.i.d. 3. Plavix 75 mg p.o. daily. 4. Levothyroxine 125 mg p.o. daily. 5. Aspirin 81 mg p.o. daily. LABORATORY DATA: WBC 9.56, hemoglobin 9.7, hematocrit 29.4, platelets 174, sodium 143, potassium 3.6, chloride 106, CO2 of 24, BUN 42, creatinine 0.98. BNP 509. IMAGING: Chest x-ray with no significant interval change. TELEMETRY: Normal sinus rhythm. IMPRESSION 1. Wzpwr-pr-amcghpb systolic heart failure with left ventricular ejection fraction of 20%. 2. Severe mitral regurgitation. 3. Coronary artery disease, status post recent ST elevation myocardial infarction with stent to the right coronary artery. 4. Peripheral arterial disease with acute lymphedema of the left lower extremity with occlusion of the left femoral tibial bypass graft status post transcatheter lysis with jehovah's witness of flow. 5. Diabetes mellitus, poorly controlled. 6. Hyperlipidemia. 7. Tobacco use. 8. Fever. RECOMMENDATIONS: 1. Continue aggressive diuresis with intravenous furosemide drip. 2. Anticoagulation with heparin drip given left femoral tibial bypass. 3. Continue dual antiplatelet therapy given recent RCA stent. 4. Appreciate infectious disease, endocrinology and pulmonary assistance. 5. Monitor hemoglobin and hematocrit closely with transfusion for hemoglobin less than 7. 6. Her prognosis is guarded. Job#: [id number]
[2017-10-30] MEDS: HYDROCODONE/APAP 5MG-325MG TAB PO PRN (22:02)
[2017-10-31] VITALS (43 sets, daily range): BP systolic 85–129; BP diastolic 47–86
[2017-10-31] MEDS ORDERED: IPRATROPIUM BROMIDE 0.02% 2.5 ML NEB NEB PRN (00:15)
[2017-10-31] MEDS: LORAZEPAM INJ 2 MG/ML VIAL IV PRN ×4 (01:30→18:21)
[2017-10-31] MEDS: LEVOTHYROXINE SODIUM 125 MCG TAB PO SCH (05:31)
[2017-10-31 06:00] LABS: BASOPHILS % 0.3 % (0.0-1.0); EOSINOPHILS # (AUTO) 0.2 (0.0-0.4); EOSINOPHILS % 2.4 % (0.0-6.0); HEMATOCRIT 25.1 % (34.2-44.1); HEMOGLOBIN 8.3 g/dL (12.0-16.0); LYMPHOCYTES # (AUTO) 1.8 (1.0-3.2); MEAN CORPUSCULAR HEMOGLOBIN 32.2 pg (28-32); MEAN CORPUSCULAR HGB CONC 33.1 g/dL (31-35); MEAN CORPUSCULAR VOLUME 97.3 fL (81-99); MONOCYTES # (AUTO) 0.5 (0.2-0.8); MONOCYTES % 5.9 % (4.4-11.3); NEUTROPHILS # (AUTO) 6.3 (2.1-6.9); NEUTROPHILS % 70.8 % (38.7-80.0); PLATELET COUNT 175 x10e3/uL (140-360); RED BLOOD COUNT 2.58 x10e6/uL (3.6-5.1); RED CELL DISTRIBUTION WIDTH 18.9 % (11.7-14.4)
[2017-10-31 06:23] LABS: ANION GAP 14.9 mmol/L (8-16); BLOOD UREA NITROGEN 37 mg/dL (7-26); BUN/CREATININE RATIO 40 (6-25); CALCIUM 8.9 mg/dL (8.4-10.2); CARBON DIOXIDE 27 mmol/L (22-29); CHLORIDE 107 mmol/L (98-107); CREATININE, SERUM 0.92 mg/dL (0.57-1.11); EST GLOMERULAR FILTRATION RATE > 60 ML/MIN (60-); GLUCOSE 103 mg/dL (74-118); MAGNESIUM 1.7 MG/DL (1.3-2.1); SODIUM 146 mmol/L (136-145)
[2017-10-31 07:00] LABS: POTASSIUM 2.9 mmol/L (3.5-5.1)
--- NOTE | 2017-10-31 07:09 | Diagnostic Imaging Report ---
EXAMINATION: CHEST SINGLE (PORTABLE) INDICATION: CHF/edema COMPARISON: 10/30/2017 FINDINGS: TUBES and LINES: Endotracheal tube and NG tube has been removed. LUNGS: Lungs are not well inflated. There are bibasilar atelectasis. There is perihilar interstitial opacities, consistent with interstitial edema. PLEURA: No pleural effusion or pneumothorax. HEART AND MEDIASTINUM: Cardiac size is moderately enlarged. There are atherosclerotic calcifications within the aorta. Midline sternotomy wires are present BONES AND SOFT TISSUES: No acute osseous lesion. Old ORIF of proximal left humeral fracture. Soft tissues are unremarkable. UPPER ABDOMEN: No free air under the diaphragm. IMPRESSION: Stable cardiomegaly with mild increased in interstitial edema Signed by: Dr. Gonzalez Mills M.D. on 10/31/2017 7:06 AM
[2017-10-31] MEDS ORDERED: POTASSIUM CHLORIDE 20 MEQ TAB CR PO ONE (07:45)
[2017-10-31] MEDS ORDERED: POTASSIUM CHLORIDE 20MEQ/100ML 200 ML IV ONE (08:00)
[2017-10-31] MEDS ORDERED: SODIUM CHLORIDE 0.9% 250ML 250 ML ONE (08:31)
[2017-10-31] MEDS: POTASSIUM CHLORIDE 20 MEQ TAB CR PO SCH ×2 (09:00→13:34)
[2017-10-31] MEDS: BALSAM PERU/CASTOR OIL 60 GM OINT...G. TP SCH (09:25)
[2017-10-31] MEDS: PANTOPRAZOLE 40 MG 10ML VIAL IV SCH ×2 (09:25→18:42)
[2017-10-31] MEDS: CLOPIDOGREL BISULFATE 75 MG TAB PO SCH (09:25)
[2017-10-31] MEDS: CARVEDILOL 3.125 MG TAB PO SCH ×2 (09:25→18:44)
[2017-10-31] MEDS: HEPARIN 25,000U/0.45% NS 250ML 900 UNIT in SODIUM CHLORIDE 0.9% 250ML 0 ML IV SCH (10:00)
[2017-10-31] MEDS ORDERED: POTASSIUM CHLORIDE 20MEQ/15ML UDC ONE (13:05)
--- NOTE | 2017-10-31 14:03 | Progress Note ---
DATE: SUBJECTIVE: Ms. Mckeon seems to be better today. She is more alert, comfortable, off ventilator, lying in bed. Feels better in general, but there are no specific complaints. PHYSICAL EXAMINATION GENERAL: She is alert, does not seem to be in acute distress. VITAL SIGNS: Stable. Afebrile, T-max had been 100, although earlier she has 101.9. HEENT: She is not icteric. Normocephalic. NECK: Supple. CHEST: A few crackles bilaterally. COR: S1, S2. No murmurs. ABDOMEN: Soft. Bowel sounds are present. EXTREMITIES: No edema. Her blood cultures remain negative. Her chest x-ray showed cardiomegaly with interstitial edema. IMPRESSION AND PLAN 1. Fever probably due to her myocardial infarction. Clinically seems to be stable. 2. Acute over chronic congestive heart failure with pulmonary edema with ejection fraction of 25%. Seems clinically little better. Her prognosis remains guarded. 3. Severe mitral regurgitation. 4. Coronary artery disease, status post recent ST elevation myocardial infarction. 5. Diabetes mellitus. 6. Hypertension. 7. Tobacco abuse. 8. Fever secondary to a cardiac event. 9. I believe anemia which is also now chronic disease. Would suggest to recheck her liver enzymes. 10. Hypokalemia, being corrected. We will follow with you. She is currently on Rocephin, which we can discontinue soon. Job#: [id number] SAK
[2017-10-31] MEDS: CEFTRIAXONE SOD 1 GM VIAL IV SCH (15:00)
[2017-10-31 16:38] LABS: ANION GAP 14.5 mmol/L (8-16); BLOOD UREA NITROGEN 35 mg/dL (7-26); BUN/CREATININE RATIO 43 (6-25); CALCIUM 8.9 mg/dL (8.4-10.2); CARBON DIOXIDE 26 mmol/L (22-29); CHLORIDE 107 mmol/L (98-107); CREATININE, SERUM 0.82 mg/dL (0.57-1.11); EST GLOMERULAR FILTRATION RATE > 60 ML/MIN (60-); GLUCOSE 97 mg/dL (74-118); POTASSIUM 3.5 mmol/L (3.5-5.1); SODIUM 144 mmol/L (136-145)
[2017-10-31] MEDS ORDERED: POTASSIUM CHLORIDE 10 MEQ TABCR PO ONE (17:00)
--- NOTE | 2017-10-31 17:12 | Progress Note ---
DATE: October 31, 2017 CARDIOLOGY PROGRESS NOTE SUBJECTIVE: The patient was extubated yesterday. She denies chest pain. However, she does endorse episodes of shortness of breath. In addition, she was anxious overnight, requiring Ativan. OBJECTIVE VITAL SIGNS: Temperature 100 degrees, pulse 80, respiratory rate 20, blood pressure 121/72, oxygen saturation 100% on 3 liters nasal cannula. GENERAL: Awake, in no acute distress. LUNGS: Clear to auscultation bilaterally. No wheezes or crackles. CARDIOVASCULAR: Normal rate, regular rhythm. Systolic murmur. S3 gallop. ABDOMEN: Soft. EXTREMITIES: 1+ pitting edema. CARDIAC MEDICATIONS 1. Plavix 75 mg p.o. daily. 2. Carvedilol 3.125 mg p.o. b.i.d. 3. Levothyroxine 125 mcg p.o. daily. 4. Heparin drip. 5. Lasix 10 mg an hour. 6. Aspirin 81 mg p.o. daily. LABS: WBC 8.93, hemoglobin 8.3, hematocrit 25.1, platelets 175. Sodium 144, potassium 3.5, chloride 107, CO2 26, BUN 35, creatinine 0.82. TELEMETRY: Normal sinus rhythm. CHEST X-RAY: Stable cardiomegaly with mild increase in interstitial edema. IMPRESSION 1. Aplqa-xp-yfvapjc systolic heart failure with left ventricular ejection fraction of 20%. 2. Severe mitral regurgitation. 3. Coronary artery disease status post recent ST-elevation myocardial infarction with stent in the right coronary artery. 4. Peripheral arterial disease with acute limb ischemia of the left lower extremity with occlusion of the left femoral-tibial bypass graft status post transcatheter lysis with druze of flow. 5. Diabetes mellitus, poorly controlled. 6. Hyperlipidemia. 7. Tobacco use. 8. Fever. RECOMMENDATIONS: Continue diuresis with intravenous furosemide drip. Replete electrolytes. Anticoagulation with heparin drip given recent thrombosis of the left femoral-tibial bypass. Continue dual antiplatelet therapy due to her recent RCA stent. Appreciate infectious disease, endocrinology and pulmonary assistance. Monitor hemoglobin and hematocrit closely with goal transfusion if hemoglobin is less than 7. Her prognosis is guarded. Job#: [id number] EV
[2017-10-31] MEDS: ASPIRIN 81 MG ENTERIC COATED PO SCH (18:42)
[2017-10-31] MEDS: HYDROCODONE/APAP 5MG-325MG TAB PO PRN (19:03)
[2017-11-01] VITALS (34 sets, daily range): BP systolic 34–135; BP diastolic 28–96
[2017-11-01] MEDS: LORAZEPAM INJ 2 MG/ML VIAL IV PRN ×4 (00:25→22:35)
[2017-11-01] MEDS: HYDROCODONE/APAP 5MG-325MG TAB PO PRN ×3 (04:37→20:50)
[2017-11-01] MEDS: LEVOTHYROXINE SODIUM 125 MCG TAB PO SCH (05:50)
[2017-11-01 06:23] LABS: BASOPHILS # (AUTO) 0.1 (0.0-0.1); BASOPHILS % 0.7 % (0.0-1.0); EOSINOPHILS # (AUTO) 0.7 (0.0-0.4); EOSINOPHILS % 9.3 % (0.0-6.0); HEMOGLOBIN 8.6 g/dL (12.0-16.0); LYMPHOCYTES # (AUTO) 1.4 (1.0-3.2); LYMPHOCYTES % 18.8 % (18.0-39.1); MEAN CORPUSCULAR HEMOGLOBIN 31.6 pg (28-32); MEAN CORPUSCULAR HGB CONC 31.9 g/dL (31-35); MEAN CORPUSCULAR VOLUME 99.3 fL (81-99); MONOCYTES # (AUTO) 0.5 (0.2-0.8); MONOCYTES % 6.9 % (4.4-11.3); NEUTROPHILS # (AUTO) 4.8 (2.1-6.9); PLATELET COUNT 189 x10e3/uL (140-360); RED BLOOD COUNT 2.72 x10e6/uL (3.6-5.1); RED CELL DISTRIBUTION WIDTH 18.5 % (11.7-14.4)
[2017-11-01 06:48] LABS: ANION GAP 15.3 mmol/L (8-16); BLOOD UREA NITROGEN 37 mg/dL (7-26); BUN/CREATININE RATIO 40 (6-25); CALCIUM 9.3 mg/dL (8.4-10.2); CARBON DIOXIDE 26 mmol/L (22-29); CHLORIDE 99 mmol/L (98-107); CREATININE, SERUM 0.93 mg/dL (0.57-1.11); EST GLOMERULAR FILTRATION RATE > 60 ML/MIN (60-); GLUCOSE 137 mg/dL (74-118); MAGNESIUM 1.4 MG/DL (1.3-2.1); POTASSIUM 3.3 mmol/L (3.5-5.1); SODIUM 137 mmol/L (136-145)
--- NOTE | 2017-11-01 07:16 | Diagnostic Imaging Report ---
EXAMINATION: CHEST SINGLE (PORTABLE) INDICATION: CHF COMPARISON: 10/31/2017 FINDINGS: TUBES and LINES: Endotracheal tube and NG tube has been removed. LUNGS: Lungs are not well inflated. There is improvement in perihilar interstitial opacities, consistent with interstitial edema. PLEURA: No pleural effusion or pneumothorax. HEART AND MEDIASTINUM: Cardiac size is moderately enlarged. There are atherosclerotic calcifications within the aorta. Midline sternotomy wires are present BONES AND SOFT TISSUES: No acute osseous lesion. Old ORIF of proximal left humeral fracture. Soft tissues are unremarkable. UPPER ABDOMEN: No free air under the diaphragm. IMPRESSION: Stable cardiomegaly with near resolution of pulmonary edema Signed by: Dr. Gonzalez Mills M.D. on 11/01/2017 7:13 AM
[2017-11-01 08:32] LABS: ANISOCYTOSIS SLIG; HYPOCHROMASIA SLIGHT; PLATELET ESTIMATE ADEQUATE; PLATELET MORPHOLOGY COMMENT NORMAL; POIKILOCYTOSIS SLIGHT; RBC MORPHOLOGY COMMENT NORMAL
[2017-11-01] MEDS: PANTOPRAZOLE 40 MG 10ML VIAL IV SCH ×2 (09:00→17:20)
[2017-11-01] MEDS: CARVEDILOL 3.125 MG TAB PO SCH ×2 (09:00→17:00)
[2017-11-01] MEDS: ASPIRIN 81 MG ENTERIC COATED PO SCH (09:00)
[2017-11-01] MEDS: CLOPIDOGREL BISULFATE 75 MG TAB PO SCH (09:00)
[2017-11-01] MEDS: POTASSIUM CHLORIDE 20 MEQ TAB CR PO SCH (09:00)
[2017-11-01] MEDS: HEPARIN 25,000U/0.45% NS 250ML 900 UNIT in SODIUM CHLORIDE 0.9% 250ML 0 ML IV SCH (10:24)
[2017-11-01] MEDS: BALSAM PERU/CASTOR OIL 60 GM OINT...G. TP SCH (10:59)
[2017-11-01] MEDS: FUROSEMIDE INJ 100 MG in SODIUM CHLORIDE 0.9% 100 ML 90 ML IV SCH ×2 (11:08→21:00)
[2017-11-01] MEDS ORDERED: POTASSIUM CHLORIDE 10 MEQ TABCR PO ONE (12:00)
[2017-11-01] MEDS: INSULIN REGULAR, HUMAN 3ML VL 100 UNIT in SODIUM CHLORIDE 0.45% 100 ML 100 ML IV SCH ×2 (12:14)
[2017-11-01] MEDS: ACYCLOVIR 200 MG CAP PO SCH ×3 (13:00→20:48)
--- NOTE | 2017-11-01 14:43 | Diagnostic Imaging Report ---
EXAMINATION: CHEST XRAY LINE PLACEMENT INDICATION: \S\RIGHT PICC PLACEMENT VERIFICATION \S\[id number] \S\1410 COMPARISON: Chest radiograph 11/01/2017 at 6:42 AM FINDINGS: AP view TUBES and LINES: Interval placement of right PICC with tip overlying the lower SVC. LUNGS: Lungs are well inflated. Decreased in the previously noted perihilar interstitial markings. PLEURA: No pleural effusion or pneumothorax. HEART AND MEDIASTINUM: Moderate enlargement of the cardiac silhouette. Median sternotomy wires. The three superior most wires remain broken. BONES AND SOFT TISSUES: No acute osseous lesion. ORIF hardware of the proximal left humerus is again noted. Soft tissues are unremarkable. UPPER ABDOMEN: No free air under the diaphragm. IMPRESSION: Right PICC tip overlies the lower SVC. Signed by: DR. Hipolito Delgado MD on 11/01/2017 2:39 PM
--- NOTE | 2017-11-01 14:50 | Progress Note ---
DATE: November 01, 2017 CARDIOLOGY PROGRESS NOTE SUBJECTIVE: The patient did not complain of chest pain or shortness of breath. Her main complaint was of poorly controlled pain and muscle cramps. OBJECTIVE VITAL SIGNS: Temperature 99.7 degrees, pulse 81, respiratory rate 20, blood pressure 85/64, oxygen saturation 100% on 2 liters nasal cannula. GENERAL: Obese woman in no acute distress, awake, alert. LUNGS: Clear to auscultation bilaterally. No wheezes or crackles. CARDIOVASCULAR: Normal rate, regular rhythm. Systolic murmur. S3 gallop. ABDOMEN: Soft. EXTREMITIES: 1+ pitting edema. CARDIAC MEDICATIONS 1. Lasix 10 mg an hour. 2. Aspirin 81 mg p.o. daily. 3. Plavix 75 mg p.o. daily. 4. Carvedilol 3.125 mg p.o. b.i.d. 5. Levothyroxine 125 mcg p.o. daily. LABS: WBC 7.4, hemoglobin 8.6, hematocrit 27, platelets 189. Sodium 137, potassium 3.3, chloride 99, CO2 26, BUN 37, creatinine 0.93. TELEMETRY: Normal sinus rhythm. IMPRESSION 1. Oobzt-em-snhfkdw systolic heart failure with left ventricular ejection fraction of 20%. 2. Severe mitral regurgitation. 3. Coronary artery disease status post recent ST-elevation myocardial infarction with stent in the right coronary artery. 4. Peripheral arterial disease with acute limb ischemia of the left lower extremity with occlusion of the left femoral-tibial bypass graft, status post transcatheter lysis with yazdanism of flow. 5. Diabetes mellitus, poorly controlled. 6. Hyperlipidemia. 7. Tobacco use. 8. Fever. RECOMMENDATIONS: Continue diuresis with intravenous furosemide. Replete electrolytes. Monitor creatinine closely. Anticoagulation with heparin drip given recent thrombosis of the left femoral-tibial bypass. Continue dual antiplatelet therapy due to a recent RCA stent. Monitor hemoglobin and hematocrit closely with transfusion if hemoglobin is less than 7. Appreciate infectious disease, endocrinology and pulmonary assistance. Prognosis is guarded. We will place PICC and discontinue her femoral line today. Have requested PT for evaluation. If she is able to safely use a bedside commode, we will discontinue the Oates. Job#: [id number] EV
--- NOTE | 2017-11-01 15:29 | Progress Note ---
DATE: SUBJECTIVE: Today, the patient is complaining of pain in the buttock area, which she had for 1 day. She remains to have low fever. She remains in the ICU not feeling well in general. REVIEW OF SYSTEMS: Otherwise unremarkable. PHYSICAL EXAMINATION GENERAL: She is alert and oriented times 3, in no acute distress. VITAL SIGNS: Stable. Currently afebrile now. She had a temperature of 100. The heart rate is 80. Respirations are 20. Blood pressure 130/72. The O2 sat is 100%. HEENT: Normocephalic. Not icteric. CHEST: Clear. A few crackles at the bases. COR: S1 and S2. No S3, S4 or murmur. ABDOMEN: Soft. Obese. No tenderness. No hepatosplenomegaly. EXTREMITIES: There is +1 edema. SKIN: On the sacral area, there is a stage-II ulcer about 2 cm. There are also small vesicular lesions noted. LABORATORY DATA: Reviewed. Her white count is 7.4, hemoglobin 8.6, hematocrit 27. Her sodium is 137, potassium 3.3, creatinine 0.93. IMPRESSION 1. Fever, could be related to her cardiac event. 2. Now she has a decubitus stage-II ulcer. I am concerned about herpes zoster. Will start her on acyclovir. Maybe that is also why she is having fever. 3. Ppwqf-rg-nxgbkkv congestive heart failure with left ventricular ejection fraction of 20%. 4. Severe mitral regurgitation. 5. Coronary artery disease, status post recent ST-elevation myocardial infarction with right coronary artery disease with stent placement. 6. Peripheral vascular disease with ischemic left foot, which is better now. 7. Occlusion of the left femoral-tibial bypass graft, status post transcatheter lysis with temple of flow. 8. Diabetes mellitus. 9. Obesity. 10. Hyperlipidemia. 11. Tobacco use. The plan is to put her on acyclovir orally 800 mg p.o. 5 times a day for 7 days and reassess. Will discontinue ceftriaxone at the present time. Will follow with you. Job#: [id number]
[2017-11-01] MEDS: CARISOPRODOL 350 MG TAB PO SCH ×2 (15:36→20:48)
[2017-11-01] MEDS ORDERED: INSULIN DETEMIR 100 UNIT/ML PEN SQ SCH (21:00)
[2017-11-02] VITALS (7 sets, daily range): BP systolic 106–120; BP diastolic 60–76
[2017-11-02] MEDS: HEPARIN 25,000U/0.45% NS 250ML 900 UNIT in SODIUM CHLORIDE 0.9% 250ML 0 ML IV SCH ×2 (02:40→20:03)
[2017-11-02] MEDS: HYDROCODONE/APAP 5MG-325MG TAB PO PRN ×4 (02:50→22:20)
[2017-11-02] MEDS: LEVOTHYROXINE SODIUM 125 MCG TAB PO SCH (05:39)
[2017-11-02] MEDS: ACYCLOVIR 200 MG CAP PO SCH ×5 (05:39→20:40)
[2017-11-02] MEDS: LORAZEPAM INJ 2 MG/ML VIAL IV PRN ×4 (05:40→23:59)
[2017-11-02 07:17] LABS: BASOPHILS # (AUTO) 0.1 (0.0-0.1); BASOPHILS % 0.8 % (0.0-1.0); EOSINOPHILS % 14.9 % (0.0-6.0); HEMATOCRIT 28.9 % (34.2-44.1); HEMOGLOBIN 9.2 g/dL (12.0-16.0); LYMPHOCYTES # (AUTO) 1.5 (1.0-3.2); LYMPHOCYTES % 22.9 % (18.0-39.1); MEAN CORPUSCULAR HEMOGLOBIN 31.5 pg (28-32); MEAN CORPUSCULAR HGB CONC 31.8 g/dL (31-35); MONOCYTES # (AUTO) 0.5 (0.2-0.8); MONOCYTES % 7.4 % (4.4-11.3); NEUTROPHILS # (AUTO) 3.5 (2.1-6.9); NEUTROPHILS % 53.4 % (38.7-80.0); PLATELET COUNT 195 x10e3/uL (140-360); RED BLOOD COUNT 2.92 x10e6/uL (3.6-5.1); RED CELL DISTRIBUTION WIDTH 17.2 % (11.7-14.4)
[2017-11-02 07:32] LABS: ANION GAP 15.6 mmol/L (8-16); BLOOD UREA NITROGEN 36 mg/dL (7-26); BUN/CREATININE RATIO 44 (6-25); CALCIUM 9.8 mg/dL (8.4-10.2); CARBON DIOXIDE 29 mmol/L (22-29); CHLORIDE 101 mmol/L (98-107); CREATININE, SERUM 0.82 mg/dL (0.57-1.11); EST GLOMERULAR FILTRATION RATE > 60 ML/MIN (60-); GLUCOSE 148 mg/dL (74-118); MAGNESIUM 1.7 MG/DL (1.3-2.1); POTASSIUM 3.6 mmol/L (3.5-5.1); SODIUM 142 mmol/L (136-145)
[2017-11-02] MEDS: CARVEDILOL 3.125 MG TAB PO SCH ×2 (08:00→17:22)
[2017-11-02] MEDS: FUROSEMIDE INJ 100 MG in SODIUM CHLORIDE 0.9% 100 ML 90 ML IV SCH ×2 (08:30→17:42)
[2017-11-02] MEDS: POTASSIUM CHLORIDE 20 MEQ TAB CR PO SCH (09:00)
[2017-11-02] MEDS: ASPIRIN 81 MG ENTERIC COATED PO SCH (09:00)
[2017-11-02] MEDS: PANTOPRAZOLE 40 MG 10ML VIAL IV SCH ×2 (09:00→17:22)
[2017-11-02] MEDS: CLOPIDOGREL BISULFATE 75 MG TAB PO SCH (09:00)
[2017-11-02] MEDS: CARISOPRODOL 350 MG TAB PO SCH ×4 (09:00→21:00)
[2017-11-02] MEDS: BALSAM PERU/CASTOR OIL 60 GM OINT...G. TP SCH (09:00)
--- NOTE | 2017-11-02 13:02 | Progress Note ---
DATE: November 02, 2017 PULMONARY MEDICINE PROGRESS NOTE SUBJECTIVE: Mrs. Mckeon was seen and examined at bedside. Oxygen saturation 95%, 1 liter per minute via nasal cannula. In 0.8 liters and 2.1 liters out. Spontaneously breathing without any distress at this time. REVIEW OF SYSTEMS: No diarrhea. No GI bleeding. OBJECTIVE VITAL SIGNS: Afebrile. Vital signs noted per electronic record. GENERAL: No acute distress, alert and calm. HEENT: Normocephalic, atraumatic. NECK: Supple. Throat midline. LUNGS: Bilateral air entry, few rhonchi. CARDIOVASCULAR: S1 and S2. No murmurs, rubs, or gallops. ABDOMEN: Soft and nontender. EXTREMITIES: No clubbing. No cyanosis. There is basically no persistent edema. It is resolved. INTEGUMENT: No rash. No purpura. LABS: White count 7, hematocrit 29, and platelets 195. Potassium 3.6, creatinine 0.8, and magnesium 1.7. IMPRESSION AND PLAN 1. Pulmonary edema, resolved. 2. Acute respiratory failure, resolving. 3. Hypoxemia, improving. 4. Chronic obstructive pulmonary disease, likely underlying. 5. Worsening cardiomyopathy, recent myocardial infarction right side. Continue current treatment. We will discuss need for continued Lasix. We will consider stopping it soon. Continue electrolytes repletion including potassium today. Continue Oates in place, but as the Lasix is stopped, we will get the Oates out and try to mobilize the patient more. Continue oral diet. Job#: [id number] JAZMIN
[2017-11-02] MEDS ORDERED: DEXTROSE 50% SYRINGE 50 ML IV PRN ×2 (14:15→19:00)
[2017-11-02 15:18] LABS: INR 0.96; PROTHROMBIN TIME 13.3 seconds (11.9-14.5)
[2017-11-02] MEDS ORDERED: POTASSIUM CHLORIDE 20 MEQ TAB CR PO ONE (16:15)
[2017-11-02] MEDS: INSULIN LISPRO 100 UNIT/1 ML 3ML VIAL SQ SCH ×2 (16:30→20:38)
--- NOTE | 2017-11-02 16:36 | Progress Note ---
DATE: November 02, 2017 CARDIOLOGY PROGRESS NOTE SUBJECTIVE: Patient denied chest pain or shortness of breath. However, she reports she continues to have episodes of anxiety and what she describes as breaking into a sweat in the middle of the night. In addition, she reports despite resuming her Soma she continues to have cramps in her legs because she takes the Soma with hydrocodone every time at home. OBJECTIVE VITAL SIGNS: Temperature 98.9 degrees, pulse 76, respiratory rate 18, blood pressure 121/78, oxygen saturation 95% on 1 liter nasal cannula. GENERAL: Obese woman in no acute distress. Awake. LUNGS: Clear to auscultation bilaterally. No wheezes or crackles. CARDIOVASCULAR: Normal rate, regular rhythm. Systolic murmur. S3 gallops. ABDOMEN: Soft. EXTREMITIES: 1+ pitting edema. CARDIAC MEDICATIONS 1. Aspirin 81 mg p.o. daily. 2. Plavix 75 mg p.o. daily. 3. Carvedilol 3.125 mg p.o. b.i.d. 4. Lasix 10 mg an hour. 5. Levothyroxine 125 mcg p.o. daily. 6. Heparin drip. LABS: WBC 6.5, hemoglobin 9.2, hematocrit 28.9, platelets 195. Sodium 142, potassium 3.6, chloride 101, CO2 29, BUN 36, creatinine 0.82. TELEMETRY: Normal sinus rhythm. IMPRESSION 1. Jyesj-es-spdvvil systolic heart failure with left ventricular ejection fraction of 20%. 2. Severe mitral regurgitation. 3. Coronary artery disease status post recent mbx-AN-ubtrdwyhy myocardial infarction with stent in the right coronary artery. 4. Peripheral arterial disease with acute limb ischemia of the left lower extremity with occlusion of the left femoral-tibial bypass graft, status post transcatheter lysis with shinto of flow. 5. Diabetes mellitus, poorly controlled. 6. Hyperlipidemia. 7. Tobacco use. 8. Fever. RECOMMENDATIONS: Continue diuresis with intravenous furosemide. Replete electrolytes and monitor creatinine closely. Anticoagulation with heparin drip given recent thrombosis of the left femoral-tibial bypass. Continue dual antiplatelet therapy due to recent RCA stent. Monitor hemoglobin and hematocrit closely with transfusion if hemoglobin drops below 7. Appreciate infectious disease, endocrinology and pulmonary assistance. Prognosis is guarded. Continue physical therapy. Depending on her needs, she may need LTAC prior to discharge home. Job#: [id number] EV
[2017-11-02 16:52] LABS: ANION GAP 15.5 mmol/L (8-16); BLOOD UREA NITROGEN 39 mg/dL (7-26); BUN/CREATININE RATIO 44 (6-25); CALCIUM 9.3 mg/dL (8.4-10.2); CARBON DIOXIDE 27 mmol/L (22-29); CHLORIDE 98 mmol/L (98-107); CREATININE, SERUM 0.89 mg/dL (0.57-1.11); EST GLOMERULAR FILTRATION RATE > 60 ML/MIN (60-); GLUCOSE 162 mg/dL (74-118); POTASSIUM 3.5 mmol/L (3.5-5.1); SODIUM 137 mmol/L (136-145)
[2017-11-02] MEDS ORDERED: INSULIN DETEMIR 100 UNIT/ML PEN SQ SCH (21:00)
[2017-11-03] MEDS: CARISOPRODOL 350 MG TAB PO SCH ×5 (02:36→21:41)
[2017-11-03] MEDS: FUROSEMIDE INJ 100 MG in SODIUM CHLORIDE 0.9% 100 ML 90 ML IV SCH (03:00)
[2017-11-03] MEDS: HYDROCODONE/APAP 5MG-325MG TAB PO PRN ×4 (04:25→21:58)
[2017-11-03] MEDS: ACYCLOVIR 200 MG CAP PO SCH ×5 (04:30→21:41)
[2017-11-03 04:34] VITALS: BP 123/66
[2017-11-03] MEDS: LEVOTHYROXINE SODIUM 125 MCG TAB PO SCH (05:48)
[2017-11-03 06:44] LABS: BASOPHILS # (AUTO) 0.1 (0.0-0.1); BASOPHILS % 0.7 % (0.0-1.0); EOSINOPHILS # (AUTO) 0.9 (0.0-0.4); EOSINOPHILS % 12.9 % (0.0-6.0); HEMATOCRIT 29.2 % (34.2-44.1); HEMOGLOBIN 9.7 g/dL (12.0-16.0); LYMPHOCYTES # (AUTO) 1.8 (1.0-3.2); LYMPHOCYTES % 25.8 % (18.0-39.1); MEAN CORPUSCULAR HEMOGLOBIN 32.6 pg (28-32); MEAN CORPUSCULAR HGB CONC 33.2 g/dL (31-35); MONOCYTES # (AUTO) 0.7 (0.2-0.8); MONOCYTES % 9.6 % (4.4-11.3); NEUTROPHILS # (AUTO) 3.5 (2.1-6.9); PLATELET COUNT 238 x10e3/uL (140-360); RED BLOOD COUNT 2.98 x10e6/uL (3.6-5.1); RED CELL DISTRIBUTION WIDTH 17.2 % (11.7-14.4)
[2017-11-03] MEDS: INSULIN LISPRO 100 UNIT/1 ML 3ML VIAL SQ SCH ×7 (07:30→20:04)
[2017-11-03] MEDS: CARVEDILOL 3.125 MG TAB PO SCH ×2 (08:00→17:43)
[2017-11-03] MEDS: BALSAM PERU/CASTOR OIL 60 GM OINT...G. TP SCH (08:11)
[2017-11-03] MEDS: CLOPIDOGREL BISULFATE 75 MG TAB PO SCH (08:11)
[2017-11-03] MEDS: ASPIRIN 81 MG ENTERIC COATED PO SCH (08:11)
[2017-11-03] MEDS: PANTOPRAZOLE 40 MG 10ML VIAL IV SCH ×2 (08:11→17:43)
[2017-11-03 09:15] VITALS: BP 97/61
[2017-11-03] MEDS: LORAZEPAM INJ 2 MG/ML VIAL IV PRN (09:20)
[2017-11-03] MEDS: POTASSIUM CHLORIDE 20 MEQ TAB CR PO SCH (09:20)
[2017-11-03 09:56] VITALS: BP 97/61
[2017-11-03] MEDS: HEPARIN 25,000U/0.45% NS 250ML 900 UNIT in SODIUM CHLORIDE 0.9% 250ML 0 ML IV SCH (10:00)
--- NOTE | 2017-11-03 12:22 | Progress Note ---
DATE: November 03, 2017 PULMONARY MEDICINE PROGRESS NOTE SUBJECTIVE: Mrs. Mckeon was seen and examined at bedside. She continues to have a lot of weakness. Her blood sugars are starting to increase. The patient denies any respiratory distress episodes. The Lasix drip just stopped. REVIEW OF SYSTEMS: No headache. No nosebleed. OBJECTIVE VITAL SIGNS: Afebrile. Vital signs noted per electronic record. GENERAL: No acute distress, alert, weak and calm in bed. HEENT: Normocephalic, atraumatic. NECK: Supple. Throat midline. LUNGS: Bilateral air entry, a few rare rhonchi, mostly clear. Mildly decreased air entry. CARDIOVASCULAR: S1 and S2. No murmurs, rubs, or gallops. ABDOMEN: Soft and nontender. EXTREMITIES: No clubbing. No cyanosis. There is trace leg edema. INTEGUMENT: No rash. No purpura. LABS: 29 hematocrit, 7 white count. IMPRESSION AND PLAN 1. Acute respiratory failure, resolving. 2. Hypoxemia, improving. 3. Pulmonary edema. 4. Valvulopathy, systolic cardiomyopathy. 5. Probable chronic obstructive pulmonary disease. 6. Presumptive obstructive sleep apnea. Continue current treatment. Lasix drip was stopped. Will check a chest x-ray now. Will check another one in the morning to make sure she can hold her current fluid status. Continue electrolyte repletion. Check labs in the morning. Job#: [id number]
[2017-11-03 13:19] VITALS: BP 107/67
--- NOTE | 2017-11-03 14:14 | Progress Note ---
DATE: November 03, 2017 CARDIOLOGY PROGRESS NOTE SUBJECTIVE: Patient denies chest pain or shortness of breath. She wants to go home to go to her granddaughter's cheerleading event tomorrow. OBJECTIVE VITAL SIGNS: Temperature 98 degrees, pulse 78, respiratory rate 20, blood pressure 97/61. Oxygen saturation 99% on room air. GENERAL: Obese woman in no acute distress. LUNGS: Clear to auscultation bilaterally. No wheezes or crackles. CARDIOVASCULAR: Normal rate, regular rhythm. Systolic murmur. S3 gallop. ABDOMEN: Soft. EXTREMITIES: Trace edema. CARDIAC MEDICATIONS 1. Aspirin 81 mg p.o. daily. 2. Plavix 75 mg p.o. daily. 3. Heparin drip. 4. Levothyroxine 125 mcg p.o. daily. 5. Carvedilol 3.125 mg p.o. b.i.d. LABS: WBC 7.06, hemoglobin 9.7, hematocrit 29.2, platelets 238. Sodium 137, potassium 3.5, chloride 98, CO2 27, BUN 39, creatinine 0.89. TELEMETRY: Normal sinus rhythm. IMPRESSION 1. Qkbgz-vz-foginrj systolic heart failure with left ventricular ejection fraction of 20%. 2. Severe mitral regurgitation. 3. Coronary artery disease status post recent vex-RU-ntwvrzxnq myocardial infarction with stent in the right coronary artery. 4. Peripheral arterial disease with acute limb ischemia of the left lower extremity with occlusion of the left femoral-tibial bypass graft, status post transcatheter lysis with cheondoism of flow. 5. Diabetes mellitus, poorly controlled. 6. Hyperlipidemia. 7. Tobacco use. 8. Fever. RECOMMENDATIONS: Change Lasix to t.i.d. dosing. Stop Lasix drip. Start Xarelto this evening. Stop heparin drip once the 1st dose of Xarelto is given. Monitor creatinine closely and replete electrolytes. Continue dual antiplatelet therapy. Monitor hemoglobin and hematocrit closely with transfusion if hemoglobin drops below 7. Clarify with physical therapy her needs, if she may be rubio to go home with home health instead of to a facility. Start Entresto if blood pressure permits. Appreciate infectious disease, endocrinology and pulmonary assistance. Prognosis is guarded. Thank you for this consult. We will continue to follow. Job#: [id number]
[2017-11-03] MEDS: FUROSEMIDE INJ 10 MG/ML 4 ML VIAL IV SCH ×2 (15:52→20:35)
--- NOTE | 2017-11-03 15:53 | Diagnostic Imaging Report ---
PROCEDURE: A single AP view of the chest. COMPARISON: Patients [facility], DX, CHEST XRAY LINE PLACEMENT, 11/01/2017, 14:17. INDICATIONS: CONGESTIVE HEART FAILURE FINDINGS: See impression. IMPRESSION: 1. stable right-sided PICC line. 2. No consolidation or effusion. 3. Stable enlargement of the cardiac silhouette. Central pulmonary vasculature is normal. 4. No acute bony abnormalities. Jim Gannon M.D. Dictated by: Jim Gannon M.D. on 11/03/2017 at 16:02 Electronically approved by: Jim Gannon M.D. on 11/03/2017 at 16:02
[2017-11-03] MEDS: RIVAROXABAN 15 MG TABLET PO SCH (17:43)
[2017-11-03 18:15] VITALS: BP 102/68
--- NOTE | 2017-11-03 19:17 | Operative Report ---
DATE OF PROCEDURE: NO DICTATION. 10 seconds. Job#: [id number] GH
[2017-11-03] MEDS: CLONAZEPAM 0.5 MG TAB PO PRN (19:43)
[2017-11-03 19:53] VITALS: BP 110/77
[2017-11-03] MEDS ORDERED: INSULIN DETEMIR 100 UNIT/ML PEN SQ SCH (21:00)
[2017-11-04] MEDS: HYDROCODONE/APAP 5MG-325MG TAB PO PRN ×4 (03:23→21:08)
[2017-11-04] MEDS: CARISOPRODOL 350 MG TAB PO SCH ×4 (03:23→21:08)
[2017-11-04 03:28] VITALS: BP 111/80
[2017-11-04 03:29] VITALS: BP 111/80
[2017-11-04] MEDS: LEVOTHYROXINE SODIUM 125 MCG TAB PO SCH (05:48)
[2017-11-04] MEDS: ACYCLOVIR 200 MG CAP PO SCH ×3 (05:48→13:07)
[2017-11-04 05:59] LABS: BASOPHILS # (AUTO) 0.1 (0.0-0.1); BASOPHILS % 0.8 % (0.0-1.0); EOSINOPHILS # (AUTO) 0.8 (0.0-0.4); EOSINOPHILS % 10.7 % (0.0-6.0); HEMATOCRIT 30.4 % (34.2-44.1); HEMOGLOBIN 9.7 g/dL (12.0-16.0); LYMPHOCYTES # (AUTO) 1.3 (1.0-3.2); LYMPHOCYTES % 17.8 % (18.0-39.1); MEAN CORPUSCULAR HEMOGLOBIN 31.9 pg (28-32); MEAN CORPUSCULAR HGB CONC 31.9 g/dL (31-35); MONOCYTES # (AUTO) 0.8 (0.2-0.8); MONOCYTES % 10.8 % (4.4-11.3); NEUTROPHILS # (AUTO) 4.3 (2.1-6.9); NEUTROPHILS % 58.7 % (38.7-80.0); PLATELET COUNT 262 x10e3/uL (140-360); RED BLOOD COUNT 3.04 x10e6/uL (3.6-5.1); RED CELL DISTRIBUTION WIDTH 17.5 % (11.7-14.4)
[2017-11-04 06:16] LABS: ALBUMIN 3.1 g/dL (3.5-5.0); ALBUMIN/GLOBULIN RATIO 0.7 (0.8-2.0); ANION GAP 14.7 mmol/L (8-16); CALCIUM 9.6 mg/dL (8.4-10.2); CREATININE, SERUM 1.06 mg/dL (0.57-1.11); MAGNESIUM 1.8 MG/DL (1.3-2.1); POTASSIUM 3.7 mmol/L (3.5-5.1)
--- NOTE | 2017-11-04 06:52 | Diagnostic Imaging Report ---
EXAMINATION: CHEST SINGLE (PORTABLE) INDICATION: CHF COMPARISON: 11/01/2017 FINDINGS: TUBES and LINES: Endotracheal tube and NG tube has been removed. LUNGS: Lungs are not well inflated. Lungs are clear. There is improvement in perihilar interstitial opacities, consistent with interstitial edema. PLEURA: No pleural effusion or pneumothorax. HEART AND MEDIASTINUM: Cardiac size is moderately enlarged. There are atherosclerotic calcifications within the aorta. Midline sternotomy wires are present BONES AND SOFT TISSUES: No acute osseous lesion. Old ORIF of proximal left humeral fracture. Soft tissues are unremarkable. UPPER ABDOMEN: No free air under the diaphragm. IMPRESSION: Stable cardiomegaly with near resolution of pulmonary edema Signed by: Dr. Gonzalez Mills M.D. on 11/04/2017 6:49 AM
[2017-11-04] MEDS: INSULIN LISPRO 100 UNIT/1 ML 3ML VIAL SQ SCH ×8 (07:30→20:23)
[2017-11-04 07:40] VITALS: BP 148/92
[2017-11-04] MEDS ORDERED: FUROSEMIDE INJ 10 MG/ML 4 ML VIAL IV SCH (08:00)
[2017-11-04] MEDS: CARVEDILOL 3.125 MG TAB PO SCH (08:30)
[2017-11-04] MEDS: ASPIRIN 81 MG ENTERIC COATED PO SCH (09:34)
[2017-11-04] MEDS: BALSAM PERU/CASTOR OIL 60 GM OINT...G. TP SCH (09:34)
[2017-11-04] MEDS: PANTOPRAZOLE 40 MG 10ML VIAL IV SCH (09:34)
[2017-11-04] MEDS: POTASSIUM CHLORIDE 20 MEQ TAB CR PO SCH (09:34)
[2017-11-04] MEDS: CLOPIDOGREL BISULFATE 75 MG TAB PO SCH (09:34)
[2017-11-04 09:53] VITALS: BP 148/92
[2017-11-04] MEDS ORDERED: SPIRONOLACTONE 25 MG TAB PO ONE (10:15)
[2017-11-04] MEDS: ENTRESTO PO SCH ×2 (12:00→17:07)
[2017-11-04] MEDS: CLONAZEPAM 0.5 MG TAB PO PRN ×2 (12:41→19:45)
[2017-11-04 16:23] VITALS: BP 123/66
--- NOTE | 2017-11-04 16:43 | Progress Note ---
DATE: November 04, 2017 CARDIOLOGY PROGRESS NOTE: SUBJECTIVE: Ms. Mckeon is tearful because her mother has been readmitted to the hospital. She denies any chest pain. She is ambulating in the hallway without oxygen. OBJECTIVE VITAL SIGNS: Afebrile. Heart rate 97. Blood pressure is 148/92. O2 sat is 98% on room air. CARDIOVASCULAR: Regular rhythm. Systolic murmur. S3 gallop. JVP is 15. LUNGS: Fine crackles bilaterally both lung bases. ABDOMEN: Is distended. EXTREMITIES: No edema. Pedal pulses are trace positive. Hemoglobin is 9.7. Creatinine 1.06. Transaminases have normalized. Chest x-ray shows minimal pulmonary edema with cardiomegaly. Telemetry shows sinus rhythm/sinus tachycardia. ASSESSMENT: 1. Acute on chronic systolic heart failure. 2. Recent myocardial infarction. 3. Peripheral arterial disease with left femoral-tibial bypass. PLAN: Continue diuresis with intravenous Lasix. I will add Entresto to her medical regimen to help with diuresis as well as for her congestive heart failure. She will require a LifeVest prior to discharge. Beta attila will be titrated to 6.5 mg twice daily. Spironolactone 50 mg a day will also be added to her medical regimen. She is on aspirin, clopidogrel, as well as Xarelto for her severe coronary and vascular disease. Job#: [id number] EV
[2017-11-04] MEDS: RIVAROXABAN 15 MG TABLET PO SCH (17:07)
[2017-11-04] MEDS: CARVEDILOL 12.5 MG TAB PO SCH (17:07)
[2017-11-04 19:40] VITALS: BP 100/60
[2017-11-04] MEDS: ATORVASTATIN 40 MG TAB PO SCH (20:31)
[2017-11-04] MEDS: FENOFIBRATE 145 MG TAB PO SCH (20:31)
[2017-11-04] MEDS ORDERED: INSULIN DETEMIR 100 UNIT/ML PEN SQ SCH (21:00)
[2017-11-05 00:19] VITALS: BP 104/69
[2017-11-05] MEDS: CARISOPRODOL 350 MG TAB PO SCH ×4 (04:00→22:00)
[2017-11-05] MEDS: HYDROCODONE/APAP 5MG-325MG TAB PO PRN ×4 (04:12→21:40)
[2017-11-05 04:49] VITALS: BP 180/69
[2017-11-05 06:16] LABS: ANION GAP 14.4 mmol/L (8-16); BLOOD UREA NITROGEN 31 mg/dL (7-26); BUN/CREATININE RATIO 34 (6-25); CALCIUM 9.8 mg/dL (8.4-10.2); CARBON DIOXIDE 27 mmol/L (22-29); CHLORIDE 101 mmol/L (98-107); CREATININE, SERUM 0.91 mg/dL (0.57-1.11); EST GLOMERULAR FILTRATION RATE > 60 ML/MIN (60-); GLUCOSE 192 mg/dL (74-118); POTASSIUM 3.4 mmol/L (3.5-5.1); SODIUM 139 mmol/L (136-145)
[2017-11-05] MEDS: LEVOTHYROXINE SODIUM 125 MCG TAB PO SCH (06:59)
[2017-11-05] MEDS: INSULIN LISPRO 100 UNIT/1 ML 3ML VIAL SQ SCH ×7 (07:30→21:00)
--- NOTE | 2017-11-05 07:37 | Diagnostic Imaging Report ---
EXAMINATION: CHEST SINGLE (PORTABLE) INDICATION: \S\chf \[id number] \S\0600 COMPARISON: 11/04/2017 FINDINGS: AP view TUBES and LINES: Stable right PICC line. LUNGS: Lungs are well inflated. Mild central vascular congestion. PLEURA: No pleural effusion or pneumothorax. HEART AND MEDIASTINUM: Enlarged cardiac silhouette. Median sternotomy wires are again seen. BONES AND SOFT TISSUES: No acute osseous lesion. Soft tissues are unremarkable. UPPER ABDOMEN: No free air under the diaphragm. IMPRESSION: No significant interval change from prior exam. Enlarged cardiac silhouette and mild central vascular congestion. Signed by: Dr. Yahir Montilla MD on 11/05/2017 7:34 AM
[2017-11-05] MEDS: CARVEDILOL 12.5 MG TAB PO SCH ×2 (08:00→17:00)
[2017-11-05 08:28] VITALS: BP 122/75
[2017-11-05] MEDS: ASPIRIN 81 MG ENTERIC COATED PO SCH (09:17)
[2017-11-05] MEDS: ENTRESTO PO SCH ×2 (09:17→17:00)
[2017-11-05] MEDS: SPIRONOLACTONE 25 MG TAB PO SCH (09:17)
[2017-11-05] MEDS: BALSAM PERU/CASTOR OIL 60 GM OINT...G. TP SCH ×2 (09:18→16:06)
[2017-11-05] MEDS: POTASSIUM CHLORIDE 20 MEQ TAB CR PO SCH (09:18)
[2017-11-05] MEDS: CLOPIDOGREL BISULFATE 75 MG TAB PO SCH (09:18)
[2017-11-05 09:22] VITALS: BP 122/75
[2017-11-05] MEDS ORDERED: FUROSEMIDE 40 MG TAB PO ONE (12:00)
[2017-11-05] MEDS ORDERED: POTASSIUM CHLORIDE 20 MEQ TAB CR PO ONE (12:30)
--- NOTE | 2017-11-05 12:48 | Progress Note ---
DATE: November 05, 2017 CARDIOLOGY PROGRESS NOTE: SUBJECTIVE: Ms. Mckeon is feeling much better. Denies any chest pain or shortness of breath. She is ambulating in the room. OBJECTIVE VITAL SIGNS: Afebrile. Heart rate 81. Blood pressure 122/75. O2 sat is 99% on room air. CARDIOVASCULAR: Regular rhythm. Systolic murmur at the left ventricular apex. S3 gallop. LUNGS: Clear to auscultation bilaterally. ABDOMEN: Is distended. EXTREMITIES: No edema. Serum creatinine is 0.9. Potassium 3.4, which is being replaced. Telemetry shows sinus rhythm. CARDIOVASCULAR MEDICATIONS: Reviewed. The patient is on optimal medical therapy. ASSESSMENT: 1. Acute on chronic systolic heart failure with cardiogenic shock. 2. Coronary artery disease with recent myocardial infarction. PLAN: Intravenous furosemide will be held, and patient will be transitioned to oral furosemide. LifeVest consultation has been placed. Patient is stable for discharge in the morning. Job#: [id number] EV
--- NOTE | 2017-11-05 14:15 | Progress Note ---
DATE: November 05, 2017 PULMONARY MEDICINE PROGRESS NOTE SUBJECTIVE: Mrs. Mckeon was seen and examined at bedside. She was restarted on some Lasix today. Still overall breathing well. We decided that she is at a high risk of cardiac ; so, therapy and recommendations are being modified by social science instructor. Patient eating. Oxygen saturation 99% room air FIO2. REVIEW OF SYSTEMS: No headaches, no GI bleeding. OBJECTIVE VITAL SIGNS: Afebrile. Vital signs noted per electronic record. GENERALLY: No acute distress, alert and calm. HEENT: Normocephalic, atraumatic. NECK: Supple. Throat midline. LUNGS: Bilateral air entry, mostly clear. Rare rhonchi. CARDIOVASCULAR: S1 and S2. No murmurs, rubs or gallops. ABDOMINAL: Soft, nontender. EXTREMITIES: No clubbing, no cyanosis. There is no edema. INTEGUMENT: No rash. No purpura. LABS: Potassium 3.4, white count 7, hematocrit 30. IMPRESSION AND PLAN 1. Acute respiratory failure, resolved. 2. Pulmonary edema, resolving. 3. Advanced cardiomyopathy, systolic. 4. Weakness, recovering. Continue current treatment at this time. Diuretics are continuing including Aldactone and Lasix. Will recheck electrolytes in the morning. Recheck an x-ray in the morning given her fragile status. Cardiology is trying to arrange for LifeVest therapy, and patient may be possible for discharge as early as tomorrow. Will follow along closely. Job#: [id number] SHARIF
[2017-11-05 15:11] VITALS: BP 123/66
[2017-11-05] MEDS: RIVAROXABAN 15 MG TABLET PO SCH (17:00)
[2017-11-05] MEDS ORDERED: FLUCONAZOLE 100 MG TAB PO ONE (17:30)
[2017-11-05] MEDS: ATORVASTATIN 40 MG TAB PO SCH (21:00)
[2017-11-05] MEDS: FENOFIBRATE 145 MG TAB PO SCH (21:00)
[2017-11-05] MEDS ORDERED: INSULIN DETEMIR 100 UNIT/ML PEN SQ SCH (21:00)
[2017-11-06] MEDS: HYDROCODONE/APAP 5MG-325MG TAB PO PRN ×3 (00:20→11:00)
[2017-11-06] MEDS: CARISOPRODOL 350 MG TAB PO SCH ×2 (04:00→09:54)
[2017-11-06 05:17] VITALS: BP 133/89
[2017-11-06] MEDS: LEVOTHYROXINE SODIUM 125 MCG TAB PO SCH (06:00)
[2017-11-06] MEDS: CLONAZEPAM 0.5 MG TAB PO PRN (06:49)
--- NOTE | 2017-11-06 07:03 | Diagnostic Imaging Report ---
EXAMINATION: CHEST SINGLE (PORTABLE) INDICATION: Congestive heart failure COMPARISON: 11/05/2017 FINDINGS: TUBES and LINES: Endotracheal tube and NG tube has been removed. LUNGS: Lungs are not well inflated. Lungs are clear. There is no evidence of pneumonia or pulmonary edema. PLEURA: No pleural effusion or pneumothorax. HEART AND MEDIASTINUM: Cardiac size is moderately enlarged. There are atherosclerotic calcifications within the aorta. Midline sternotomy wires are present BONES AND SOFT TISSUES: No acute osseous lesion. Old ORIF of proximal left humeral fracture. Soft tissues are unremarkable. UPPER ABDOMEN: No free air under the diaphragm. IMPRESSION: Resolution of pulmonary edema. Stable cardiomegaly. Signed by: Dr. Gonzalez Mills M.D. on 11/06/2017 6:58 AM
[2017-11-06 07:10] LABS: ANION GAP 14.4 mmol/L (8-16); BLOOD UREA NITROGEN 33 mg/dL (7-26); BUN/CREATININE RATIO 36 (6-25); CALCIUM 9.2 mg/dL (8.4-10.2); CARBON DIOXIDE 25 mmol/L (22-29); CHLORIDE 105 mmol/L (98-107); CREATININE, SERUM 0.91 mg/dL (0.57-1.11); EST GLOMERULAR FILTRATION RATE > 60 ML/MIN (60-); GLUCOSE 157 mg/dL (74-118); MAGNESIUM 1.9 MG/DL (1.3-2.1); POTASSIUM 4.4 mmol/L (3.5-5.1); SODIUM 140 mmol/L (136-145)
[2017-11-06] MEDS ORDERED: FUROSEMIDE 40 MG TAB PO SCH (09:00)
[2017-11-06] MEDS: ASPIRIN 81 MG ENTERIC COATED PO SCH (09:14)
[2017-11-06] MEDS: POTASSIUM CHLORIDE 20 MEQ TAB CR PO SCH (09:14)
[2017-11-06] MEDS: CLOPIDOGREL BISULFATE 75 MG TAB PO SCH (09:14)
[2017-11-06] MEDS: CARVEDILOL 12.5 MG TAB PO SCH (09:14)
[2017-11-06] MEDS: BALSAM PERU/CASTOR OIL 60 GM OINT...G. TP SCH (09:14)
[2017-11-06] MEDS: SPIRONOLACTONE 25 MG TAB PO SCH (09:14)
[2017-11-06] MEDS: ENTRESTO PO SCH (09:14)
[2017-11-06 09:15] VITALS: BP 111/72
[2017-11-06] MEDS: INSULIN LISPRO 100 UNIT/1 ML 3ML VIAL SQ SCH ×4 (09:15→13:11)
[2017-11-06 09:16] VITALS: BP 111/72
--- NOTE | 2017-11-06 09:25 | Discharge Summary ---
DISCHARGE DIAGNOSES 1. Ngwfn-ky-zgdurwm systolic heart failure. 2. Recent ST-segment elevation myocardial infarction. 3. Uncontrolled diabetes with diabetic ketoacidosis. 4. Peripheral arterial disease with recent intervention of left femoral tibial bypass graft. DISCHARGE CONDITION: Stable. DISCHARGE INSTRUCTIONS: Follow up in the office with me in 2 days. DISCHARGE MEDICATIONS: Please see MAR. HOSPITAL COURSE: Ms. Mckeon was admitted with hypoxic respiratory failure requiring intubation. She was diuresed aggressively. Blood sugars were markedly elevated. Dr. Tolbert configuration management consultant for treatment of her diabetic ketoacidosis. Her chest x-ray cleared. She was placed on Entresto, as well as optimal medical therapy. She was maintained on anticoagulation of aspirin, clopidogrel and Xarelto. Instructions to follow up as listed above. ANGELA BARR MD Job#: [id number] [place]
[2017-11-06] MEDS ORDERED: FENOFIBRATE145 MG PO (12:07)
[2017-11-06] MEDS ORDERED: ATORVASTATIN CA20 MG PO (12:08)
[2017-11-06] MEDS ORDERED: IPRATROPIU0.2 MG/1 M NEB (12:36)
[2017-11-06] MEDS ORDERED: Anoro Ellipta IH (12:36)
[2017-11-06] MEDS ORDERED: XOPENEX HFA15 GM IH (12:36)
[2017-11-06] MEDS ORDERED: ALBUTEROL1.25 MG/3 IH (12:36)
[2017-11-06] MEDS ORDERED: REUSABLE NEBUL1 EACH IH (12:36)
[2017-11-06 12:43] VITALS: BP 93/63
--- NOTE | 2017-11-06 14:20 | Progress Note ---
DATE: November 06, 2017 PULMONARY MEDICINE PROGRESS NOTE SUBJECTIVE: Mrs. Mckeon was seen and examined at bedside. Currently on room air FiO2 once again. Had 0.2 L in, 0.9 L out recorded. The patient is moving around. LifeVest suppliers are present to fit her. REVIEW OF SYSTEMS: No nosebleeds. OBJECTIVE VITAL SIGNS: Afebrile. Vital signs noted per electronic record. GENERALLY: No acute distress. HEENT: Normocephalic. NECK: Supple. LUNGS: Bilateral air entry. CARDIOVASCULAR: S1 and S2. ABDOMINAL: Soft. EXTREMITIES: No edema today. INTEGUMENT: No rash. LABS: Creatinine 0.9, potassium 4.4. Chest x-ray: Totally clear lungs. IMPRESSION AND PLAN 1. Acute respiratory failure, resolved. 2. Pulmonary edema flash. 3. Chronic nonadherence to treatment. 4. Very mild chronic kidney disease. 5. Cardiomyopathy. 6. Presumptive chronic obstructive pulmonary disease. Continue current treatment at this time. I will give her additional inhalers for the presumption of COPD being there to help any stress that her heart may endure. Will follow along closely. Continue diuretics and cardiac medications. Job#: [id number]
[2017-11-06 14:26] VITALS: BP 97/68
== END 2017-11-06 14:30 | disposition home or self-care (01) | DRG 208 ==
LOC: ER 23:36 → ERHOLD 10-28 01:56 → ICU 10-28 14:33 → IMCU 11-01 17:57
PROVIDERS: ADMIT Internal Medicine Interventional Cardiology; ATTEND Internal Medicine Interventional Cardiology
PROC: 5A1945Z Respiratory Ventilation, 24-96 Consecutive Hours (ICD-10-PCS; principal; 2017-10-28)
PROC: 0BH17EZ Insertion of Endotracheal Airway into Trachea, Via Natural or Artificial Opening (ICD-10-PCS; 2017-10-28)
PROC: 02HV33Z Insertion of Infusion Device into Superior Vena Cava, Percutaneous Approach (ICD-10-PCS; 2017-10-28)
PROC: 30233N1 Transfusion of Nonautologous Red Blood Cells into Peripheral Vein, Percutaneous Approach (ICD-10-PCS; 2017-10-29)
PROC: 02HV33Z Insertion of Infusion Device into Superior Vena Cava, Percutaneous Approach (ICD-10-PCS; 2017-11-01)
DX: J96.01 Acute respiratory failure with hypoxia (principal); R57.0 Cardiogenic shock; I21.4 Non-ST elevation (NSTEMI) myocardial infarction; I50.23 Acute on chronic systolic (congestive) heart failure; L89.152 Pressure ulcer of sacral region, stage 2; I42.9 Cardiomyopathy, unspecified; I13.0 Hypertensive heart and chronic kidney disease with heart failure and stage 1 through stage 4 chronic kidney disease, or unspecified chronic kidney disease; K56.7 Ileus, unspecified; I50.1 Left ventricular failure, unspecified; R04.89 Hemorrhage from other sites in respiratory passages; I48.91 Unspecified atrial fibrillation; E11.22 Type 2 diabetes mellitus with diabetic chronic kidney disease; J80 Acute respiratory distress syndrome; E11.10 Type 2 diabetes mellitus with ketoacidosis without coma; B02.9 Zoster without complications; I73.9 Peripheral vascular disease, unspecified; I25.10 Atherosclerotic heart disease of native coronary artery without angina pectoris; N18.9 Chronic kidney disease, unspecified; I34.0 Nonrheumatic mitral (valve) insufficiency; E78.5 Hyperlipidemia, unspecified; E87.6 Hypokalemia; Z95.820 Peripheral vascular angioplasty status with implants and grafts; J44.9 Chronic obstructive pulmonary disease, unspecified; D50.0 Iron deficiency anemia secondary to blood loss (chronic); G47.33 Obstructive sleep apnea (adult) (pediatric); Z95.5 Presence of coronary angioplasty implant and graft; I25.2 Old myocardial infarction; Z87.891 Personal history of nicotine dependence; Z79.4 Long term (current) use of insulin; Z91.19 Patient's noncompliance with other medical treatment and regimen
CPT/HCPCS: 31500; 36415; 36430; 36569; 36600; 71045; 71250; 74176; 76604; 80048; 80053; 81001; 82150; 82550; 82553; 82607; 82728; 82746; 82805; 82948; 83540; 83605; 83690; 83735; 83880; 84436; 84443; 84466; 84478; 84479; 84484; 85025; 85045; 85610; 85730; 86850; 86900; 86920; 87040; 87071; 87086; 87205; 87400; 93005; 93306; 94002; 94003; 94640; 96365; 96366; 96372; J0692; J0696; J1644; J1940; J2060; J2405; J3370; J3480; J7050; P9016

== ENCOUNTER → 2019-08-08 | Outpatient (CLI) | payer OTHER ==
[~2019-08-08] MED LIST changes: +ALBUTEROL1.25 MG/3 IH; +ATORVASTATIN CA20 MG PO; +Anoro Ellipta IH; +FENOFIBRATE145 MG PO; +IPRATROPIU0.2 MG/1 M NEB; +REUSABLE NEBUL1 EACH IH; +XOPENEX HFA15 GM IH
--- NOTE | 2019-08-08 11:19 | Diagnostic Imaging Report ---
EXAM: CT Chest WITHOUT intravenous contrast 08/08/2019 10:27 AM INDICATION: Lung cancer screening, smoking history COMPARISON: Chest radiograph of 11/06/2017 TECHNIQUE: Chest was scanned utilizing a multidetector helical scanner from the lung apex through the level of the adrenal glands without administration of IV contrast. Coronal and sagittal reformations were obtained. Routine protocol was performed. IV CONTRAST: None RADIATION DOSE: Total DLP: 480.1 mGy*cm. Dose modulation, iterative reconstruction, and/or weight based adjustment of the mA/kV was utilized to reduce the radiation dose to as low as reasonably achievable. COMPLICATIONS: None FINDINGS: LINES/ TUBES: New left chest pacer device. LUNGS AND AIRWAYS: The central airways are patent. No focal consolidation. No pulmonary edema. 5.2 mm right lower lobe pulmonary nodule (series 601 image 74). PLEURA: The pleural spaces are clear. HEART AND MEDIASTINUM: Thyroid gland not visualized. No supraclavicular, mediastinal, or hilar lymphadenopathy. No axillary or internal mammary lymphadenopathy. The heart is mildly enlarged. No pericardial effusion. Diffuse atherosclerotic coronary artery calcifications and scattered aortic atherosclerotic calcifications. UPPER ABDOMEN: Limited noncontrast images of the upper abdomen demonstrate no focal abnormality of the partially visualized liver, spleen, adrenals. The pancreas and kidneys are only minimally visualized. BONES: No acute osseous injury. No suspicious lytic or blastic lesions. SOFT TISSUES: Unremarkable. IMPRESSION: 5.2 mm right lower lobe pulmonary nodule. In this high risk patient, follow-up chest CT is optional at 12 months per Fleischner Society 2017 recommendations. Diffuse atherosclerotic coronary artery calcifications. Signed by: Shubham Arguello MD on 08/08/2019 11:15 AM
== END ==
LOC: CT 10:15
PROVIDERS: ATTEND Internal Medicine Critical Care Medicine
DX: Z12.2 Encounter for screening for malignant neoplasm of respiratory organs (principal); Z72.0 Tobacco use
CPT/HCPCS: 71250

== ENCOUNTER → 2019-10-02 | Outpatient (CLI) | payer OTHER ==
--- NOTE | 2019-10-18 04:09 | Polysomnography ---
DATE OF STUDY: 10/02/2019 REFERRING PHYSICIAN: Gonzalez Hayden MD DIAGNOSTIC POLYSOMNOGRAM HISTORY: This is a 54-year-old female with excessive sleepiness. The patient has past medical history of coronary artery disease, CABG, CHF, hypertension, diabetes, obstructive sleep apnea, possible autoimmune condition, thyroid disorder, hyperlipidemia. CURRENT MEDICATIONS: Include: 1. ProAir. 2. Carvedilol. 3. Clonazepam. 4. Clopidogrel. 5. Entresto. 6. Fenofibrate. 7. Lasix. 8. Insulin. 9. Levothyroxine. 10. Lyrica. 11. Methotrexate. 12. Oxycodone/acetaminophen. 13. Soma. 14. Spironolactone. 15. Xarelto. The patient with [place] Sleepiness Scale score of 13. BMI is 40.5. The patient presents for a diagnostic polysomnogram. FINDINGS: Polysomnogram reveal total sleep time of 42.5 minutes with sleep efficiency of 39%. Sleep onset latency was achieved in 18.5 minutes. The patient with 45.9% stage N1, 54.1% N2, 0% N3, 0% stage R. The patient underwent diagnostic monitoring. The patient had a total of 31 obstructive apneas, one mixed apnea, 12 central apneas, 21 hypopneas for an apnea-hypopnea index of 91.8 events per hour. The patient slept nearLY entirety of this study in the right side position. Lowest oxygen saturation was 80%. The patient with multiple obstructive sleep apnea events, but there were also multiple transitional sleep central apnea that were noted. Due to difficulties consolidating sleep, she eventually decided to quit the study. A total of eight periodic limb movements of sleep were noted for periodic limb movement index of 11.3 events per hour. Single lead EKG analysis demonstrated few premature ventricular contractions, but otherwise in sinus rhythm and unremarkable. The EEG analysis was also unremarkable. INTERPRETATION: This is an abnormal polysomnogram due to presence of: 1. Severe obstructive sleep apnea. This is supported by oxygen desaturation, snoring, and increased apnea-hypopnea index. Multiple factors can be contributory such as obesity, thyroid disease, structural/obstructive abnormalities in the upper airway. Evaluation and management of these factors associated with sleep apnea would be beneficial. The patient should be considered for a 2nd night polysomnogram for CPAP titration. Consideration could be for BiPAP with or without S/T mode if complex sleep apnea emerges on treatment. MD MICHEAL Squires Certified in Sleep Medicine BRITTANYN/MODL /[id number] MTDKm
== END ==
LOC: SLEEP 19:51
PROVIDERS: ATTEND Internal Medicine Critical Care Medicine
DX: G47.33 Obstructive sleep apnea (adult) (pediatric) (principal)

== ENCOUNTER → 2020-03-27 | Outpatient (CLI) | payer OTHER ==
[~2020-03-27] MED LIST changes: +Albuterol/Ipratropium Nebulize NEB; +COLACE100 MG PO; +ENTRESTO 97 MG1 EACH PO; +EVOXAC30 MG PO; +FUROSEMIDE40 MG PO; +INSULIN; +K DUR10 MEQ PO; +LISPRO SQ; +METOLAZONE5 MG PO; +MOVANTIK25 MG PO; +MUCINEX DM ER1 EACH PO; +OZEMPIC0.25 MG/0. SC; +PERCOCET 10-321 EACH PO; +PHENERGAN PO; +PROTONIX20 MG PO; +SYNTHROID75 MCG PO; +TRESIBA100 UNIT/1 SQ; +XARELTO10 MG PO; +ZETIA10 MG PO
[2020-03-27 13:17] LABS: BASOPHILS # (AUTO) 0.1 (0.0-0.1); BASOPHILS % 0.7 % (0.0-1.0); EOSINOPHILS # (AUTO) 0.8 (0.0-0.4); EOSINOPHILS % 9.3 % (0.0-6.0); HEMATOCRIT 34.6 % (34.2-44.1); HEMOGLOBIN 10.7 g/dL (12.0-16.0); LYMPHOCYTES # (AUTO) 1.7 (1.0-3.2); MEAN CORPUSCULAR HGB CONC 30.9 g/dL (31-35); MEAN CORPUSCULAR VOLUME 90.6 fL (81-99); MONOCYTES # (AUTO) 0.4 (0.2-0.8); MONOCYTES % 5.4 % (4.4-11.3); NEUTROPHILS # (AUTO) 5.2 (2.1-6.9); PLATELET COUNT 232 x10e3/uL (140-360); RED BLOOD COUNT 3.82 x10e6/uL (3.6-5.1); RED CELL DISTRIBUTION WIDTH 17.7 % (11.7-14.4)
== END | disposition home or self-care (01) ==
LOC: DX 10:18 → EDSTATUS 04-24 14:30
PROVIDERS: ATTEND Internal Medicine Gastroenterology
DX: R10.10 Upper abdominal pain, unspecified (principal); K21.9 Gastro-esophageal reflux disease without esophagitis; K27.9 Peptic ulcer, site unspecified, unspecified as acute or chronic, without hemorrhage or perforation; Z01.810 Encounter for preprocedural cardiovascular examination; Z01.812 Encounter for preprocedural laboratory examination; Z11.59 Encounter for screening for other viral diseases; Z53.9 Procedure and treatment not carried out, unspecified reason
CPT/HCPCS: 36415; 85025; 93005; U0002

== ENCOUNTER 2020-04-23 03:47 | Inpatient (IN) | payer OTHER ==
[~2020-04-23] VITALS: Ht 167.6 cm; Wt 84.4 kg
[~2020-04-23 03:47] MED LIST changes: -Albuterol/Ipratropium Nebulize NEB; -K DUR10 MEQ PO; -METOLAZONE5 MG PO; -MUCINEX DM ER1 EACH PO; -SYNTHROID75 MCG PO
[2020-04-23] MEDS ORDERED: PROPOFOL IV EMULSION 10MG/ML 100 ML ONE (04:33)
[2020-04-23 04:36] LABS: BASOPHILS # (AUTO) 0.1 (0.0-0.1); BASOPHILS % 0.7 % (0.0-1.0); EOSINOPHILS # (AUTO) 0.7 (0.0-0.4); EOSINOPHILS % 4.5 % (0.0-6.0); HEMATOCRIT 39.3 % (34.2-44.1); HEMOGLOBIN 11.3 g/dL (12.0-16.0); LYMPHOCYTES # (AUTO) 4.3 (1.0-3.2); LYMPHOCYTES % 28.2 % (18.0-39.1); MEAN CORPUSCULAR HEMOGLOBIN 26.7 pg (28-32); MEAN CORPUSCULAR HGB CONC 28.8 g/dL (31-35); MEAN CORPUSCULAR VOLUME 92.7 fL (81-99); MONOCYTES # (AUTO) 0.6 (0.2-0.8); MONOCYTES % 3.9 % (4.4-11.3); NEUTROPHILS # (AUTO) 9.4 (2.1-6.9); PLATELET COUNT 328 x10e3/uL (140-360); RED BLOOD COUNT 4.24 x10e6/uL (3.6-5.1); RED CELL DISTRIBUTION WIDTH 17.9 % (11.7-14.4)
[2020-04-23 04:45] LABS: INR 0.92; PROTHROMBIN TIME 12.9 seconds (11.9-14.5)
[2020-04-23 04:46] LABS: PARTIAL THROMBOPLASTIN TIME 26.5 seconds (23.8-35.5)
[2020-04-23 04:55] LABS: ALBUMIN 3.6 g/dL (3.5-5.0); ALBUMIN/GLOBULIN RATIO 0.8 (0.8-2.0); ANION GAP 15.2 mmol/L (8-16); CALCIUM 8.5 mg/dL (8.4-10.2); CREATININE, SERUM 1.35 mg/dL (0.57-1.11); POTASSIUM 3.2 mmol/L (3.5-5.1)
--- NOTE | 2020-04-23 04:58 | Diagnostic Imaging Report ---
EXAMINATION: CHEST SINGLE (PORTABLE) INDICATION: Respiratory failure, history of CHF COMPARISON: Chest CT 08/08/2019, chest x-ray 11/06/2018 FINDINGS: TUBES and LINES: Left chest wall cardiac device with leads in the right atrium and right ventricle. ET tube tip terminates in the lower intrathoracic trachea. LUNGS: Normal lung volumes. Bilateral upper lung haziness. PLEURA: No pleural effusion or pneumothorax. HEART AND MEDIASTINUM: Moderate cardiomegaly. BONES AND SOFT TISSUES: Partially visualized fixation hardware in the proximal left humerus. Sternotomy wires. No acute osseous lesion. Soft tissues are unremarkable. UPPER ABDOMEN: No free air under the diaphragm. IMPRESSION: Lung evaluation is limited due to suboptimal AP portable technique, motion, and patient body habitus. Bilateral upper lung haziness suggestive of airspace disease, could be pneumonia and/or edema. Moderate cardiomegaly. Signed by: Fernandez Peralta DO on 04/23/2020 4:55 AM
[2020-04-23 04:59] LABS: ABG PCO2 71 mmHg (35-45); ABG PH 7.23 (7.35-7.45)
[2020-04-23 05:00] LABS: ABG HCO3 30 mmol/L (22-26); ABG PO2 104 mmHg (80-105)
[2020-04-23] MEDS ORDERED: CEFTRIAXONE SOD 1 GM/NS 50 ML 50 ML IV ONE (05:00)
[2020-04-23 05:14] LABS: CREATINE KINASE MB 2.6 ng/mL (0-5.0)
[2020-04-23] MEDS ORDERED: MIDAZOLAM HCL 2 MG/2 ML VIAL IV STA ×2 (05:52)
[2020-04-23] MEDS ORDERED: ETOMIDATE 2 MG/ML 10 ML INJ IV STA (05:52)
[2020-04-23] MEDS ORDERED: SUCCINYLCHOLINE CHLORIDE 20 MG/ML 10ML VIAL IV STA (05:52)
[2020-04-23 05:55] LABS: CLARITY,URINE SL CLOUDY (CLEAR); COLOR,URINE YELLOW (YELLOW); KETONES,URINE TRACE (NEGATIVE); LEUKOCYTE ESTERASE ,URINE NEGATIVE (NEGATIVE); NITRITE,URINE NEGATIVE (NEGATIVE); PROTEIN,URINE DIPSTICK >=300 (NEGATIVE); URINE UROBILINOGEN 0.2 mg/dL (0.2 - 1)
[2020-04-23 05:56] LABS: BILIRUBIN,URINE NEGATIVE (NEGATIVE)
--- NOTE | 2020-04-23 05:58 | Emergency Department Note ---
History of Present Illnes History of Present Illness Chief Complaint: Respiratory History of Present Illness This is a 55 year old female RESENTS TO THE ER VIA EMS FROM HOME C/O SOB X30 MINUTES REHAB TRAINER; PER EMS PT'S SPO2 78% RA AND PLACED ON CPAP; PT LETHARGIC AND RESPONDS TO PAINFUL STIMULI ; PT PLACED IN ER RM 9 ON ARRIVAL. PT REQUIRES INTUBATION . 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 Any updates have been documented here. (SNEHA FRAGOSO MD) Past Medical History Unable to obtain PMH: other (FROM OLD RECORDS) Recent Fever: No Clinical Suspicion of Infectio: Yes New/Unexplained Change in Ment: Yes Past Medical History: Diabetes, CHF Other Medical History: RHEUMATOID ARTHRITIS SJOREN'S SYNDROME GI BLEED Past Surgical History: Pacer/AICD (SNEHA FRAGOSO MD) Social History Unable to obtain PSH: Unable to obtain due to, critical patient (SNEHA FRAGOSO MD) Review of Systems ROS Narrative Unable to obtain ROS: Unable to obtain due to, critical patient (SNEHA FRAGOSO MD) Physical Exam Related Data Allergies: Coded Allergies: morphine (Verified Allergy, Unknown, 03/25/20) pentazocine (Verified Allergy, Unknown, 01/01/08) Triage Vital Signs Vital Signs Date Time Temp Pulse Resp B/P (MAP) Pulse Ox O2 Delivery O2 Flow Rate FiO2 04/23/20 03:47 98.9 101 24 166/90 99 Mechanical Ventilator 04/23/20 04:20 20.0 Vital signs reviewed: Yes (SNEHA FRAGOSO MD) Physical Exam CONSTITUTIONAL Constitutional: Present ill appearing, Present other (CYANOTIC) HENT HENT: Present normocephalic, Present atraumatic, Present oropharynx clear/moist, Present nose normal HENT L/R: Present left ext ear normal, Present right ext ear normal EYES Eyes: Reports PERRL, Reports conjunctivae normal NECK Neck: Present ROM normal PULMONARY Pulmonary: Present other (AGONAL RESPIRATIONS ON ARRIVAL) CARDIOVASCULAR Cardiovascular: Present regular rhythm, Present heart sounds normal, Present capillary refill normal, Present normal rate GASTROINTESTINAL Abdominal: Present soft, Present nontender, Present bowel sounds normal GENITOURINARY Genitourinary: Present exam deferred SKIN Skin: Present other (CYANOTIC) MUSCULOSKELETAL Musculoskeletal: Present ROM normal NEUROLOGICAL Neurological: Present other (LETHARGIC ONLY RESPONDS TO PAINFUL STIMULI) PSYCHOLOGICAL Psychological: Present other (PT LETHARGIC ONLY RESPONDS TO PAINFUL STIMULI) (SNEHA FRAGOSO MD) Results Laboratory Result Diagram: 04/23/20 0400 04/23/20 0400 Laboratory Laboratory Tests Test 04/23/20 05:30 04/23/20 04:57 04/23/20 04:32 04/23/20 04:00 Urine Color Yellow (YELLOW) Urine Clarity Sl cloudy (CLEAR) Urine pH 6 (5 - 7) Urine Specific [place] 1.025 (1.010-1.025) Urine Protein >=300 (NEGATIVE) Urine Glucose (UA) 2+ (NEGATIVE) Urine Ketones Trace (NEGATIVE) Urine Blood Negative (NEGATIVE) Urine Nitrite Negative (NEGATIVE) Urine Bilirubin Negative (NEGATIVE) Urine Urobilinogen 0.2 mg/dL (0.2 - 1) Urine Leukocyte Esterase Negative (NEGATIVE) Urine RBC 11-20 /HPF (0-5) Urine WBC 11-20 /HPF (0-5) Urine Epithelial Cells Few /LPF (NONE) Urine Transitional Epithelial Cells Moderate (NONE) Urine Bacteria Many /HPF (NONE) Urine Hyaline Casts 6-10 (0-1) Urine Mucus Few (RARE) Lactic Acid Level 4.3 mmol/L (0.5-2.0) Arterial Blood pH 7.23 (7.35-7.45) Arterial Blood Partial Pressure CO2 71 mmHg (35-45) Arterial Blood Partial Pressure O2 104 mmHg (80-105) Arterial Blood HCO3 30 mmol/L (22-26) Arterial Blood Oxygen Saturation 96.0 % (95-98) Arterial Blood Base Excess 2.0 mmol/L (-2 - 3) FiO2 60 % White Blood Count 15.16 x10e3/uL (4.8-10.8) Red Blood Count 4.24 x10e6/uL (3.6-5.1) Hemoglobin 11.3 g/dL (12.0-16.0) Hematocrit 39.3 % (34.2-44.1) Mean Corpuscular Volume 92.7 fL (81-99) Mean Corpuscular Hemoglobin 26.7 pg (28-32) Mean Corpuscular Hemoglobin Concent 28.8 g/dL (31-35) Red Cell Distribution Width 17.9 % (11.7-14.4) Platelet Count 328 x10e3/uL (140-360) Neutrophils (%) (Auto) 62.0 % (38.7-80.0) Lymphocytes (%) (Auto) 28.2 % (18.0-39.1) Monocytes (%) (Auto) 3.9 % (4.4-11.3) Eosinophils (%) (Auto) 4.5 % (0.0-6.0) Basophils (%) (Auto) 0.7 % (0.0-1.0) Neutrophils # (Auto) 9.4 (2.1-6.9) Lymphocytes # (Auto) 4.3 (1.0-3.2) Monocytes # (Auto) 0.6 (0.2-0.8) Eosinophils # (Auto) 0.7 (0.0-0.4) Basophils # (Auto) 0.1 (0.0-0.1) Absolute Immature Granulocyte (auto 0.11 x10e3/uL (0-0.1) Prothrombin Time 12.9 seconds (11.9-14.5) Prothromb Time International Ratio 0.92 Activated Partial Thromboplast Time 26.5 seconds (23.8-35.5) Sodium Level 137 mmol/L (136-145) Potassium Level 3.2 mmol/L (3.5-5.1) Chloride Level 99 mmol/L (98-107) Carbon Dioxide Level 26 mmol/L (22-29) Anion Gap 15.2 mmol/L (8-16) Blood Urea Nitrogen 15 mg/dL (7-26) Creatinine 1.35 mg/dL (0.57-1.11) Estimat Glomerular Filtration Rate 41 ML/MIN (60-) BUN/Creatinine Ratio 11 (6-25) Glucose Level 464 mg/dL (74-118) Calcium Level 8.5 mg/dL (8.4-10.2) Total Bilirubin 0.4 mg/dL (0.2-1.2) Aspartate Amino Transf (AST/SGOT) 59 IU/L (5-34) Alanine Aminotransferase (ALT/SGPT) 38 IU/L (0-55) Alkaline Phosphatase 172 IU/L (40-150) Creatine Kinase 81 IU/L (29-168) Creatine Kinase MB 2.60 ng/mL (0-5.0) Troponin I 0.011 ng/mL (0-0.300) B-Type Natriuretic Peptide 540.6 pg/mL (0-100) Total Protein 8.2 g/dL (6.5-8.1) Albumin 3.6 g/dL (3.5-5.0) Globulin 4.6 g/dL (2.3-3.5) Albumin/Globulin Ratio 0.8 (0.8-2.0) Laboratory Tests Test 04/23/20 05:30 04/23/20 04:57 04/23/20 04:32 04/23/20 04:00 Arterial Blood pH 7.23 (7.35-7.45) Arterial Blood Partial Pressure CO2 71 mmHg (35-45) Arterial Blood Partial Pressure O2 104 mmHg (80-105) Arterial Blood HCO3 30 mmol/L (22-26) Arterial Blood Oxygen Saturation 96.0 % (95-98) Arterial Blood Base Excess 2.0 mmol/L (-2 - 3) FiO2 60 % White Blood Count 15.16 x10e3/uL (4.8-10.8) Red Blood Count 4.24 x10e6/uL (3.6-5.1) Hemoglobin 11.3 g/dL (12.0-16.0) Hematocrit 39.3 % (34.2-44.1) Mean Corpuscular Volume 92.7 fL (81-99) Mean Corpuscular Hemoglobin 26.7 pg (28-32) Mean Corpuscular Hemoglobin Concent 28.8 g/dL (31-35) Red Cell Distribution Width 17.9 % (11.7-14.4) Platelet Count 328 x10e3/uL (140-360) Neutrophils (%) (Auto) 62.0 % (38.7-80.0) Lymphocytes (%) (Auto) 28.2 % (18.0-39.1) Monocytes (%) (Auto) 3.9 % (4.4-11.3) Eosinophils (%) (Auto) 4.5 % (0.0-6.0) Basophils (%) (Auto) 0.7 % (0.0-1.0) Neutrophils # (Auto) 9.4 (2.1-6.9) Lymphocytes # (Auto) 4.3 (1.0-3.2) Monocytes # (Auto) 0.6 (0.2-0.8) Eosinophils # (Auto) 0.7 (0.0-0.4) Basophils # (Auto) 0.1 (0.0-0.1) Absolute Immature Granulocyte (auto 0.11 x10e3/uL (0-0.1) Prothrombin Time 12.9 seconds (11.9-14.5) Prothromb Time International Ratio 0.92 Activated Partial Thromboplast Time 26.5 seconds (23.8-35.5) Sodium Level 137 mmol/L (136-145) Potassium Level 3.2 mmol/L (3.5-5.1) Chloride Level 99 mmol/L (98-107) Carbon Dioxide Level 26 mmol/L (22-29) Anion Gap 15.2 mmol/L (8-16) Blood Urea Nitrogen 15 mg/dL (7-26) Creatinine 1.35 mg/dL (0.57-1.11) Estimat Glomerular Filtration Rate 41 ML/MIN (60-) BUN/Creatinine Ratio 11 (6-25) Glucose Level 464 mg/dL (74-118) Calcium Level 8.5 mg/dL (8.4-10.2) Total Bilirubin 0.4 mg/dL (0.2-1.2) Aspartate Amino Transf (AST/SGOT) 59 IU/L (5-34) Alanine Aminotransferase (ALT/SGPT) 38 IU/L (0-55) Alkaline Phosphatase 172 IU/L (40-150) Creatine Kinase 81 IU/L (29-168) Creatine Kinase MB 2.60 ng/mL (0-5.0) Troponin I 0.011 ng/mL (0-0.300) B-Type Natriuretic Peptide 540.6 pg/mL (0-100) Total Protein 8.2 g/dL (6.5-8.1) Albumin 3.6 g/dL (3.5-5.0) Globulin 4.6 g/dL (2.3-3.5) Albumin/Globulin Ratio 0.8 (0.8-2.0) Lab results reviewed: Yes (SNEHA FRAGOSO MD) Imaging Imaging results reviewed: Yes Impressions Procedure: [id number] DX/CHEST SINGLE (PORTABLE) Exam Date: Exam Time: REPORT STATUS: Signed EXAMINATION: CHEST SINGLE (PORTABLE) INDICATION: Respiratory failure, history of CHF COMPARISON: Chest CT 08/08/2019, chest x-ray 11/06/2018 FINDINGS: TUBES and LINES: Left chest wall cardiac device with leads in the right atrium and right ventricle. ET tube tip terminates in the lower intrathoracic trachea. LUNGS: Normal lung volumes. Bilateral upper lung haziness. PLEURA: No pleural effusion or pneumothorax. HEART AND MEDIASTINUM: Moderate cardiomegaly. BONES AND SOFT TISSUES: Partially visualized fixation hardware in the proximal left humerus. Sternotomy wires. No acute osseous lesion. Soft tissues are unremarkable. UPPER ABDOMEN: No free air under the diaphragm. IMPRESSION: Lung evaluation is limited due to suboptimal AP portable technique, motion, and patient body habitus. Bilateral upper lung haziness suggestive of airspace disease, could be pneumonia and/or edema. Moderate cardiomegaly. 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: Interpreted by ED physician Date: Apr 23, 2020 Time: 04:06 Rhythm: paced Rate: normal BPM: 92 Clinical Impression: abnormal ECG Additional Comments ELECTRONIC VENTRICULAR PACED RHYTHM (SNEHA FRAGOSO MD) Central Line Placement Central Line Location: right femoral Time out performed: No Patient Placed on Monitor/Puls: Yes Prep: mask, gown, gloves Central Line Prep: Chlorhexidine scrub Local Anesthetic: lidocaine 1% Amount of anesthesia used (mL): 1 Ultrasound Used for Placement: No Central Line Lumen Inserted: triple Post Procedure: sutured in place, good blood return, all ports aspirated/flushed/capped, sterile dressing applied Patient tolerated procedure: no complications Complications: none (SNEHA FRAGOSO MD) Intubation Time out performed: No Sedative: Etomidate Mg given: 20 Paralytic: Succinylcholine Mg given: 100 Laryngoscope: fiber optic video scope Endotracheal tube size: 7.5 ET tube uncuffed: Yes Tube secured location: teeth Tube placement confirmation: visualize tube passing cords, equal breath sounds bilaterally Patient tolerated procedure: no complications Complications: none (SNEHA FRAGOSO MD) Assessment & Plan Medical Decision Making MDM PT WITH H/O CHF WITH SUDDEN ONSET OF SOB 30 MINUTES REHAB TRAINER PER EMS, PT ARRIVED ON CPAP AND WAS LETHARGIC AND ONLY RESPONSIVE TO PAINFUL STIMULI SEE PROCEDURE NOTES CBC, CMP, CARDIA ENZYMES, UA, EKG, CXR, BLOOD CULTURE, BNP, LACTIC ACID ORDERED TO EVAL FOR PNEUMONIA, CHF, MYOCARDIAL INFARCTION, UTI, ROCPEHIN 1 GRAM IV ORDERED INITIAL LACTIC ACID 4.3, 30CC/KG IV BOLUS ORDERED BASED ON PT'S IDEAL BIDY WEIGHT OF 59KG, A TOTAL OF 2 LITERS NS IV BOLUS ORDERED 0730 I DID A BEDSIDE FLUID RESUSCITATION EXAM [address] BUNCH PENDING TRANSFER TO ANOTHER FACILITY FOR ICU CARE, REPEAT LACTIC ACID PENDING, CT CHEST PENDING (SNEHA FRAGOSO MD) MDM Sign out obtained from Dr. Fragoso, repeat lactic acid noted to be 1.6. Patient CT chest more concerning for pulmonary edema/cardiomegaly. I do not have a suspicion for infectious etiology of patient's initial lactic acidosis. Patient's initial lactic acid maybe likely to have acute respiratory distress secondary to CHF versus COPD exacerbation and not true infection. Indication for antibiotics was initially written as pneumonia given patient's initial clinical presentation without complete clinical picture. After detailed review of chest x-ray and CT chest initial indication for antibiotics was impact treatment for suspected infection that was later ruled out. Patient has a urinary tract infection, however, that is not the cause of her sepsis. Regardless patient was empirically covered by Dr. Fragoso appropriately according to sep-1 criteria. Patient is pending transfer, signout given to Dr. Fragoso (YAMILET BUNCH, DO) Reassessment Reassessment time: 06:44 Reassessment PT NOW AWAKE, ALERT AND ORIENTED ON VENT. PT IS COMFORTABLE, NODS APPROPRIATELY YES AND NO TO SIMPLE QUESTIONS. (SNEHA FRAGOSO MD) Assessment & Plan Final Impression: (1) Respiratory failure (2) UTI (urinary tract infection) (3) Septic shock (SNEHA FRAGOSO MD) Last Vital Signs Date Time Temp Pulse Resp B/P (MAP) Pulse Ox O2 Delivery O2 Flow Rate FiO2 04/23/20 04:45 94 20 92 20.0 04/23/20 03:47 98.9 166/90 Mechanical Ventilator (SNEHA FRAGOSO MD) Home Meds Active Scripts Albuterol Sulfate (ALBUTEROL SULFATE) 1.25 Mg/3 Ml Vial.neb, 1.25 MG IH Q4HR PRN for SHORTNESS OF BREATH, #70 VIAL 1 Refill Prov:ABELINO JANG MD, ABIM 11/06/17 Ipratropium [place] (IPRATROPIUM BROMIDE) 0.2 Mg/1 Ml Solution, 2.5 ML NEB Q4HR PRN for SHORTNESS OF BREATH, #70 VIAL 1 Refill Prov:ABELINO JANG MD, ABIM 11/06/17 Clonazepam (CLONAZEPAM) 0.5 Mg Tablet, 0.5 MG PO DAILY PRN for ANXIETY, #14 TAB Prov:DANNY BACA MD 05/02/17 Reported Medications Rivaroxaban (XARELTO) 10 Mg Tablet, PO DAILY 04/20/20 Semaglutide (Ozempic) 0.25 Mg/0.2 Ml Pen.injctr, 0.5 MG SC WEEKLY, UNIT 03/25/20 Insulin Degludec (Tresiba) 100 Unit/1 Ml Vial, SQ DAILY 03/25/20 [Lispro] No Conflict Check, 10 UNITS SQ TID 03/25/20 [Insulin] No Conflict Check 03/25/20 Oxycodone Hcl/Acetaminophen (PERCOCET 10-325 MG TABLET) 1 Each Tablet, 1 TAB PO Q6H PRN for MODERATE PAIN (4-6), TAB 03/25/20 [Phenergan] No Conflict Check, PO PRN 03/25/20 Docusate Sodium (COLACE) 100 Mg Cap, 100 MG PO DAILY, #30 CAP 03/25/20 Naloxegol Oxalate (Movantik) 25 Mg Tablet, 25 MG PO DAILY 03/25/20 Pantoprazole Sodium (PROTONIX) 20 Mg Tablet.dr, 40 MG PO DAILY, #30 TAB 03/25/20 Cevimeline Hcl (EVOXAC) 30 Mg Capsule, 30 MG PO TID 03/25/20 Ezetimibe (ZETIA) 10 Mg Tablet, 10 MG PO DAILY, #30 TAB 03/25/20 Sacubitril/Valsartan (Entresto 97 mg-103 mg Tablet) 1 Each Tablet, 1 TAB PO DAILY 03/25/20 Furosemide (FUROSEMIDE) 40 Mg Tablet, 40 MG PO AFTERNOON, #30 TAB 03/25/20 Atorvastatin Calcium (ATORVASTATIN CALCIUM) 20 Mg Tablet, 40 MG PO DAILY, #30 TAB 11/06/17 Fenofibrate Nanocrystallized (FENOFIBRATE) 145 Mg Tablet, 145 MG PO HS 11/06/17 Aspirin (ASPIRIN) 81 Mg Tab.chew, 81 MG PO DAILY 10/17/17 Furosemide (LASIX) 40 Mg Tablet, 80 MG PO DAILY, #30 TAB 10/17/17 Carvedilol (COREG) 3.125 Mg Tab, 3.125 PO BID 10/17/17 Pregabalin (LYRICA) 75 Mg Cap, 150 MG PO DAILY, #30 CAP 04/29/17 Carisoprodol (SOMA) 350 Mg Tablet, 350 MG PO TID, TAB 04/29/17 Zolpidem Tartrate (AMBIEN CR) 12.5 Mg Tabcr, 12.5 MG PO HS 04/29/17 Clopidogrel Bisulfate* (PLAVIX) 75 Mg Tablet, 75 MG PO DAILY, #30 TAB 04/29/17 Medications in the ED Propofol 100 ml @ ud STK-MED ONCE .ROUTE ; Start 04/23/20 at 04:33; Stop 04/23/20 at 04:28; Status DC Ceftriaxone Sodium 50 ml @ 100 mls/hr ONCE ONCE IV ; Start 04/23/20 at 05:00; Stop 04/23/20 at 05:29; Status DC (SNEHA FRAGOSO MD) SNEHA FRAGOSO MD Apr 23, 2020 05:58 YAMILET BUNCH DO Apr 23, 2020 18:57
[2020-04-23 05:59] LABS: BACTERIA,URINE MANY /HPF
[2020-04-23 06:00] LABS: EPITHELIAL CELLS,URINE FEW /LPF; MUCUS,URINE FEW (RARE); TRANSITIONAL EPI CELLS,URINE MODERATE
[2020-04-23] MEDS ORDERED: PROPOFOL IV EMULSION 10MG/ML 100 ML IV PRN (06:15)
[2020-04-23] MEDS ORDERED: INSULIN REGULAR, HUMAN 100 UNIT/1 ML 3ML VIAL SQ ONE (06:45)
--- NOTE | 2020-04-23 07:00 | NUR ---
Report received from AGATHA Bruce. Pt lying in stretcher comfortably. RR even and unlabored. Pt remains on NIBP, pulse ox, cardiac monitoring. Pt denies any pain at the present time. Pt currently on vent 7.5ETT 23@ Lip, current settings: TV400, PEEP 5, Rate 20 FIO2 80%. Pt currently receiving Propofol titrated up to 35mcg/kg/min. Pt tolerating well. Vitals stable at this time. Call light in reach. Will continue to monitor.
[2020-04-23] MEDS ORDERED: SODIUM CHLORIDE 0.9% 1000ML 1,000 ML IV ONE ×2 (07:15)
[2020-04-23] MEDS ORDERED: SODIUM CHLORIDE 0.9% 1000ML 1,000 ML ONE (07:37)
--- NOTE | 2020-04-23 08:11 | Diagnostic Imaging Report ---
EXAM: CT Chest WITHOUT contrast INDICATION: Respiratory failure COMPARISON: Same-day chest x-ray TECHNIQUE: Chest was scanned utilizing a multidetector helical scanner from the lung apex through the level of the adrenal glands without administration of IV contrast. Absence of intravenous contrast decreases sensitivity for detection of lymphadenopathy and vascular pathology. Coronal and sagittal reformations were obtained. Routine protocol was performed. IV CONTRAST: None COMPLICATIONS: None RADIATION DOSE: Total DLP: 476 mGy*cm Estimated effective dose: (DLP x 0.014 x size factor) mSv CTDIvol has been reviewed. It is below the limits set by the Radiation Protocol Committee (RPC). Dose modulation, iterative reconstruction, and/or weight based adjustment of the mA/kV was utilized to reduce the radiation dose to as low as reasonably achievable. FINDINGS: LINES/ TUBES: Left chest wall cardiac device with leads in the right atrium and right ventricle and coronary sinus. ET tube in the lower intrathoracic trachea. LUNGS AND AIRWAYS: Interlobular septal thickening in the lower lungs. Partially collapsed left lower lobe. Consolidations in the lower lobes. Groundglass hazy opacities in the upper lobes with areas of interlobular septal thickening.. Airways are normal. PLEURA: Small bilateral pleural effusions. No pneumothorax. HEART AND MEDIASTINUM: The thyroid gland is normal. No mediastinal, hilar or axillary lymphadenopathy. Moderate cardiomegaly. There is no pericardial effusion. Prominent main pulmonary artery, 3.6 cm in diameter. Coronary artery calcifications. Surgical changes of coronary artery bypass grafts. Calcifications of the aorta UPPER ABDOMEN: Unremarkable. BONES: Sternotomy wires. Degenerative changes. Subtle right rib 2 fracture. Fixation screws in the left proximal humerus. SOFT TISSUES: Unremarkable. IMPRESSION: Moderate cardiomegaly. Consolidations in the lower lungs and airspace fluid/inflammation in the upper lungs can be due to pulmonary edema and/or pneumonia. Small bilateral pleural effusions favor pulmonary edema. Signed by: Fernandez Peralta DO on 04/23/2020 8:08 AM
--- NOTE | 2020-04-23 09:15 | NUR ---
CHG bath performed on pt. Oates care provided.
[2020-04-23] MEDS: PROPOFOL IV EMULSION 10 MG/ML 20 ML VIAL IV PRN ×5 (11:05→20:33)
--- NOTE | 2020-04-23 12:00 | NUR ---
Patients daughter Kerry came to product picker patients belongings. Pt currently vented but able to follow commands and answer yes/no questions by shaking head up and down or side to side. Pt daughter stated that patient had banuelos that she withdrew yesterday and she believes she had jewelry on arrival. Walked with daughter in room (fully dressed in PPE for safety) asked patient if she had any jewelry on when she arrived, pt nodded No. Asked pt if she brought her banuelos with her in her purse pt nodded no, asked pt if she left it at home pt nodded yes. Daughter present at the time to witness interaction. Pt opened eyes to see daughter and pt belongings were given to daughter signed valuables/belongings sheet, daughter left right after and sheet was scanned into pts chart by registration.
--- NOTE | 2020-04-23 13:22 | NUR ---
Pt resting comfortably. RR even and unlabored. NAD Noted. Will continue to monitor.
--- NOTE | 2020-04-23 14:33 | Diagnostic Imaging Report ---
Limited x-ray portable Indication: NG tube placement A limited view of the abdomen is submitted. The tip of the tube is situated over an air shadow that seems to be the proximal gastric body. The side hole is most likely in the distal esophagus. Impression: Of. Signed by: Rene Mazariegos MD on 04/23/2020 2:30 PM
--- NOTE | 2020-04-23 15:30 | NUR ---
Pt resting comfortably. RR even and unlabored. Vitals stable. Will continue to monitor.
--- NOTE | 2020-04-23 17:37 | NUR ---
RT contacted to start weaning patient.
--- NOTE | 2020-04-23 18:00 | NUR ---
Pt spouse Owen Mike called several times throughout ED stay, updated him on pts condition and POC.
--- NOTE | 2020-04-23 18:15 | NUR ---
2nd call for RT to start weaning pt.
[2020-04-23] MEDS ORDERED: FUROSEMIDE INJ 10 MG/ML 4 ML VIAL IV ONE (18:45)
[2020-04-23] MEDS ORDERED: FUROSEMIDE INJ 10 MG/ML 4 ML VIAL ONE (18:52)
[2020-04-23 18:59] LABS: ABG HCO3 28 mmol/L (22-26); ABG PCO2 46 mmHg (35-45); ABG PO2 81 mmHg (80-105)
--- NOTE | 2020-04-23 19:00 | NUR ---
Bedside shift report and care hand off given to AGATHA Bruce. Pt lying comfortably. RR even and unlabored. NAD noted at the present time.
--- NOTE | 2020-04-23 20:04 | NUR ---
1700CC AT [facility] BAG OF URINE OUTPUT AT THIS TIME.
[2020-04-23] MEDS: FENTANYL 2000MCG/NS 250 250 ML IV PRN ×2 (20:06→21:12)
[2020-04-23] MEDS ORDERED: FENTANYL CITRATE INJ 2,000 MCG in SODIUM CHLORIDE 0.9% 250ML 210 ML IV PRN (20:15)
--- NOTE | 2020-04-23 20:24 | NUR ---
PATIENT TURNED TO HER RIGHT SIDE, VSS, RESPIRATION REGULAR & UNLABORED THRU VENT. PHARMACY WAS CONTACTED TO MIX FENTANYL DRIP PROFOPOL WAS NOT AVAILABLE AT THIS TIME.
--- NOTE | 2020-04-23 21:10 | NUR ---
DR SCOTT AT BEDSIDE LOWER VENT 02 TO 70%, STATES HE WILL NOT D/C VENT TONIGHT PER PT CURRENT STATUS. PT VSS, EASILY AWAKEN ON STIMULUS BUT ABLE TO TOLERATE ETT. CURRENT TEMP. 100.8 PROVIDER MADE AWARE WITH ORDER OF TYLENOL SUPP GIVEN.
[2020-04-23] MEDS ORDERED: VANCOMYCIN 1GM/NS 250 ML 250 ML IV SCH (21:30)
--- NOTE | 2020-04-23 21:57 | Consultation ---
DATE OF CONSULTATION: Pulmonary Critical Care Consultation REASON FOR CONSULT: ICU management. HISTORY OF PRESENT ILLNESS: Ms. Mckeon is a 55-year-old female. She was intubated in the emergency room. She came in and was hypoxic with O2 saturation of 78%. She was placed on CPAP and she became lethargic. She is unable to give me any history. The patient is currently on FiO2 of 80% on mechanical ventilator, arousable, follows commands. She is on propofol and fentanyl. Her pCO2 was 71 on admission. Now, second blood gas was done at 1414 hours. Her pCO2 is 46 and PO2 is 81. She is still on 80% FiO2. She is known to me from previous admission. She has a history of coronary artery disease, CABG, CHF, and atrial fibrillation. FAMILY AND SOCIAL HISTORY: She smokes per the chart. I am unable to ask the patient. PHYSICAL EXAMINATION: VITAL SIGNS: Temperature 99.0, pulse of 61, and blood pressure 136/88. CHEST: Clear to auscultation bilaterally. She is obese, intubated. ABDOMEN: Soft and nontender. EXTREMITIES: No pedal edema. NEUROLOGICAL: She is sedated and intubated. LABORATORY DATA: White count of 15,000, hemoglobin is 11.3, and platelets 328. Chemistry; creatinine is 1.35, was 0.91 in 2018, glucose is 464, and sodium 137. BNP is 540. CT of the chest is showing evidence of bilateral diffuse infiltrate in this context, most likely fluid overload along with pneumonia. The patient's COVID-19 test is negative. She had a COVID-19 on 04/20 and 04/23. ASSESSMENT/PLAN: Ms. Mckeon is a 55-year-old female. She is in respiratory failure, likely a combination of pulmonary edema and pneumonia. PLAN: I will start the patient on IV Zosyn. The patient's blood pressure is stable so far and has received 40 mg of IV Lasix. We will repeat the Lasix in a.m. Currently, the patient is on FiO2 of 80% and cannot be weaned or extubated. FiO2 has to be down between 40% to 50% for weaning. We will consider weaning in the a.m. after re-evaluation. I will start the patient on DVT prophylaxis and Pepcid for GI prophylaxis. Vent setting reviewed and adjusted. Discussed with RT. Critical care time spent 50 minutes. Thank you for this consult MD JONATAN Rodriguez/SNEHAL /[id number]
[2020-04-23] MEDS: ACETAMINOPHEN 650 MG SUPP PR PRN (22:00)
[2020-04-23] MEDS: PIPER-TAZ 3.375 GM 50 ML IV SCH (22:00)
--- NOTE | 2020-04-23 22:00 | NUR ---
FENTANYL DRIP RATE CHANGE TO 200MCG/HR PT STILL AWAKE & ANXIOUS AT THIS TIME.
[2020-04-23] MEDS ORDERED: MIDAZOLAM HCL 50 MG in SODIUM CHLORIDE 0.9% 100 ML 90 ML IV PRN (22:15)
[2020-04-23] MEDS ORDERED: MIDAZOLAM HCL 5MG/ML 10ML VIAL 100 ML IV ONE (22:46)
--- NOTE | 2020-04-23 23:03 | NUR ---
VERSED DOSE INCREASE TO 10MLS/HR, PT TOLERATED IT WELL & START GOING BACK TO SLEEP THIS TIME.
--- NOTE | 2020-04-23 23:05 | NUR ---
FENTANYL DRIP INCREASE TO 250MCGS/HR. VSS
--- NOTE | 2020-04-23 23:34 | NUR ---
VERSED DECRESE TO 5MG, FENTANYL DECREASE TO 100MCGS/HR D/T BP WAS DROPPING
[2020-04-24] MEDS: ALBUTEROL/IPRATROPIUM 3 ML NEB NEB SCH ×4 (01:00→19:27)
--- NOTE | 2020-04-24 04:23 | NUR ---
PT CALLED TO FOLLOW UP WITH PT CURRENT STATUS & WAS GIVEN UPDATES AFTER A# WAS PROVIDED TO RN. PT ASLEEP, VSS.
--- NOTE | 2020-04-24 05:46 | NUR ---
FENTANYL DRIP INCREASE DOSE TO 200MCG/HR. WILL CONTINUE TO MONITOR, VSS.
[2020-04-24] MEDS: PIPER-TAZ 3.375 GM 50 ML IV SCH ×3 (07:00→21:03)
--- NOTE | 2020-04-24 07:00 | NUR ---
report received from Teo SNIDER.
--- NOTE | 2020-04-24 07:07 | NUR ---
HANDOFF REPORT GIVEN TO JAMEY SNIDER.
--- NOTE | 2020-04-24 07:14 | NUR ---
new bag of versed received from pharmacy, spiked and hung.
[2020-04-24] MEDS: ACETAMINOPHEN 650 MG SUPP PR PRN (07:34)
--- NOTE | 2020-04-24 08:30 | NUR ---
urinary output 300 mL.
--- NOTE | 2020-04-24 08:40 | NUR ---
Per MD initiate attempt to titrate patient down on sedative medications in attempt to extubate the patient. Patient's versed titrated down to 3 mg/hr and fentanyl titrated to 175 mcg/hr.
[2020-04-24] MEDS ORDERED: FUROSEMIDE INJ 10 MG/ML 4 ML VIAL IV SCH (09:00)
[2020-04-24] MEDS ORDERED: HEPARIN SOD (PORCINE) 5,000 UNIT/ML VIAL SC SCH (09:00)
[2020-04-24] MEDS ORDERED: FAMOTIDINE 20 MG/2 ML VIAL IV SCH (09:00)
--- NOTE | 2020-04-24 09:05 | NUR ---
Fentanly titrated down to 150 mcg/hr.
--- NOTE | 2020-04-24 09:16 | NUR ---
versed titrated to 2 mcg/hr.
--- NOTE | 2020-04-24 09:23 | NUR ---
fentanly titrated down to 125 mcg/hr and versed titrated down to 1 mg/hr.
--- NOTE | 2020-04-24 09:28 | NUR ---
Dr. Sheriff at bedside.
[2020-04-24] MEDS ORDERED: PANTOPRAZOLE 40 MG 10ML VIAL IV STA (09:34)
--- NOTE | 2020-04-24 09:38 | NUR ---
versed titrated down to 1 mg/hr and fentanly titrated down to 100 mcg/hr.
--- NOTE | 2020-04-24 09:41 | NUR ---
per Dr. Sheriff d/c all sedation, fentanly and versed now discontinued.
[2020-04-24] MEDS ORDERED: DEXTROSE 50% SYRINGE 50 ML IV PRN (09:45)
--- NOTE | 2020-04-24 09:47 | NUR ---
respiratory notified that patient is now off of her sedatives and can be placed on cipap per Dr. Sheriff.
--- NOTE | 2020-04-24 10:32 | NUR ---
urinary output 1100 mL.
--- NOTE | 2020-04-24 10:34 | NUR ---
Spoke with traction power engineer MD for Dr. Sheriff to notify him that patient has been removed from all sedatives per his request. Was told by traction power engineer MD that Dr. Sheriff was currently in a procedure.
--- NOTE | 2020-04-24 10:34 | Diagnostic Imaging Report ---
X-ray chest AP portable Comparison: 04/23/2020 History: Respiratory failure. Isolation. Findings: Life support lines and tubes including an endotracheal tube in the [place] nasogastric tube are unchanged. Considering different technique and buffered through prior x-ray, there is no significant change in the pulmonary or cardiac findings. No change in cardiac hardware, surgical metallic suture wire in left shoulder orthopedic hardware. No other acute changes. Impression: Overall no significant change. Signed by: Rene Mazariegos MD on 04/24/2020 10:31 AM
[2020-04-24] MEDS: INSULIN LISPRO 100 UNIT/1 ML 3ML VIAL SQ SCH ×3 (11:10→21:00)
--- NOTE | 2020-04-24 11:23 | NUR ---
Patient extubated with Dr. Sheriff and respiratory at bedside.
[2020-04-24] MEDS ORDERED: ACETAMINOPHEN 325 MG TAB PO PRN (11:30)
[2020-04-24] MEDS ORDERED: KETOROLAC TROMETHAMINE 30 MG/ML VIAL IV STA (11:44)
--- NOTE | 2020-04-24 12:07 | NUR ---
Spoke with Dr. Hayden to let him know that patient has a consult for him.
--- NOTE | 2020-04-24 12:11 | NUR ---
Spoke with answering service for Dr. Christie in order to make them aware of consult.
[2020-04-24 12:15] LABS: ABG PCO2 37 mmHg (35-45); ABG PH 7.52 (7.35-7.45)
[2020-04-24 12:16] LABS: ABG BASE EXCESS 30.2 mmol/L (-2 - 3); ABG HCO3 7 mmol/L (22-26); ABG PO2 34 mmHg (80-105)
--- NOTE | 2020-04-24 12:17 | NUR ---
Spoke with Dr. Maria he is aware of patient.
[2020-04-24 14:29] VITALS: BP 148/73
[2020-04-24] MEDS: (Cevimeline Hcl (Evoxac) 30 MG) PO SCH ×2 (15:00→21:00)
[2020-04-24] MEDS ORDERED: SODIUM CHLORIDE 0.9% 500ML 500 ML ONE (15:25)
[2020-04-24 15:52] VITALS: BP 148/73
[2020-04-24] MEDS ORDERED: SUCCINYLCHOLINE CHLORIDE 20 MG/ML 10ML VIAL ONE (16:14)
[2020-04-24] MEDS ORDERED: ETOMIDATE 40 MG/ 20ML VIAL IV ONE (16:14)
[2020-04-24] MEDS ORDERED: MIDAZOLAM HCL 2 MG/2 ML VIAL ONE (16:14)
[2020-04-24] MEDS ORDERED: FUROSEMIDE 40 MG TAB PO SCH (17:00)
[2020-04-24] MEDS: CARVEDILOL 3.125 MG TAB PO SCH (18:13)
[2020-04-24] MEDS: METOLAZONE 5 MG TAB PO SCH (18:56)
--- NOTE | 2020-04-24 19:11 | Consultation ---
DATE OF CONSULTATION: Cardiology Consultation HISTORY OF PRESENT ILLNESS: This is a 55-year-old woman, who has a history of chronic systolic congestive heart failure status post ICD implantation, coronary artery disease status post bypass surgery and percutaneous coronary intervention, paroxysmal atrial fibrillation, hypertension, medical noncompliance, and chronic pain with a history of GI bleed and gastric ulcers, who presented to the emergency department with severe shortness of breath. She was placed on CPAP therapy, which then became severely lethargic, requiring mechanical ventilation after intubation. The patient reports being compliant with her diuretics. She denies any chest pain that is typical for anginal pain. She reports left upper abdominal pain. REVIEW OF SYSTEMS: A 12-point review of systems was conducted, is negative except as stated above in the HPI. PAST MEDICAL HISTORY: As stated above in the HPI. PAST SURGICAL HISTORY: As stated above in the HPI. PAST FAMILY HISTORY: Noncontributory to the current illness. ALLERGIES: MORPHINE AND PENTAZOCINE. MEDICATIONS: See medication reconciliation form. SOCIAL HISTORY: No illicit drug, alcohol, or tobacco use. PHYSICAL EXAMINATION: VITAL SIGNS: Temperature 98.7, heart rate 75, respiration 19, blood pressure is 148/73, and oxygen saturation is 100% on 4 L nasal cannula. GENERAL: Well-appearing, well built, no apparent distress. Alert and oriented x3. HEAD: Normocephalic and atraumatic. EYES: Extraocular muscles are intact. Conjunctivae clear. NECK: No JVD. No bruits. CARDIOVASCULAR: Regular rate and rhythm. LUNGS: Clear to auscultation. ABDOMEN: Soft, nontender, and nondistended. EXTREMITIES: No clubbing, cyanosis, or edema. VASCULAR: 2+ pulses. SKIN: Warm, dry, and intact. NEUROLOGIC: No focal deficits noted. Cranial nerves grossly intact. PSYCHIATRIC: Normal mood and affect. LABORATORY DATA: Reviewed. Troponin is negative. BNP is 540. Creatinine is 1.35 and potassium is 3.2. Coronavirus is not detected. IMPRESSION: 1. Acute respiratory failure with hypoxemia. 2. History of medical noncompliance. 3. Coronary artery disease, status post bypass surgery. 4. Congestive heart failure, status post implantable cardioverter-defibrillator. 5. Chronic pain syndrome. RECOMMENDATIONS: Unclear etiology for her decompensation. The patient appears preoccupied in receiving her opioid pain medications. This may have played a role in her respiratory depression. Continue Lasix. We will add metolazone. No need for echocardiogram. We will continue to follow along with you. DO YUMIKO Arias/SNEHAL /[id number]
--- NOTE | 2020-04-24 19:30 | NUR ---
received report from day nurse. patient is resting comfortably in the bed. bed is in lowest position and call light is within reach. will continue to monitor patient.
[2020-04-24 20:00] VITALS: BP 103/57
--- NOTE | 2020-04-24 20:00 | NUR ---
spoke with pain management doctor regarding pain medications. received new orders for pain medication.
[2020-04-24] MEDS: FENOFIBRATE 145 MG TAB PO SCH (21:03)
[2020-04-24] MEDS: OXYCODONE/ACETAMINOPHEN 5-325 1 EACH TABLET PO PRN (21:05)
[2020-04-24 21:11] VITALS: BP 103/57
[2020-04-25] VITALS (7 sets, daily range): BP systolic 92–122; BP diastolic 50–62
[2020-04-25] MEDS: ALBUTEROL/IPRATROPIUM 3 ML NEB NEB SCH ×4 (01:10→20:10)
[2020-04-25] MEDS: OXYCODONE/ACETAMINOPHEN 5-325 1 EACH TABLET PO PRN ×5 (04:42→22:15)
[2020-04-25 05:25] LABS: BASOPHILS # (AUTO) 0.1 (0.0-0.1); EOSINOPHILS # (AUTO) 0.3 (0.0-0.4); EOSINOPHILS % 4.9 % (0.0-6.0); HEMATOCRIT 28.6 % (34.2-44.1); HEMOGLOBIN 8.5 g/dL (12.0-16.0); LYMPHOCYTES # (AUTO) 1.5 (1.0-3.2); LYMPHOCYTES % 25.2 % (18.0-39.1); MEAN CORPUSCULAR HEMOGLOBIN 27.4 pg (28-32); MEAN CORPUSCULAR HGB CONC 29.7 g/dL (31-35); MEAN CORPUSCULAR VOLUME 92.3 fL (81-99); MONOCYTES # (AUTO) 0.4 (0.2-0.8); MONOCYTES % 6.6 % (4.4-11.3); NEUTROPHILS # (AUTO) 3.6 (2.1-6.9); PLATELET COUNT 145 x10e3/uL (140-360)
[2020-04-25] MEDS: PIPER-TAZ 3.375 GM 50 ML IV SCH ×3 (05:31→21:30)
[2020-04-25 05:48] LABS: ALBUMIN/GLOBULIN RATIO 0.8 (0.8-2.0); ANION GAP 12.1 mmol/L (8-16); CALCIUM 8.7 mg/dL (8.4-10.2); CREATININE, SERUM 1.1 mg/dL (0.57-1.11); POTASSIUM 3.1 mmol/L (3.5-5.1)
[2020-04-25 06:21] LABS: CHOL/HDL RATIO 4.4 (3.0-3.6)
--- NOTE | 2020-04-25 06:52 | NUR ---
report given t to day nurse. patient is resting comfortably in bed, bed is low position and call light is within reach.
[2020-04-25 07:19] LABS: THYROID STIMULATING HORMONE 136.549 uIU/mL (0.350-4.940)
[2020-04-25] MEDS: INSULIN LISPRO 100 UNIT/1 ML 3ML VIAL SQ SCH ×4 (07:30→21:34)
[2020-04-25] MEDS: PANTOPRAZOLE 40 MG 10ML VIAL IV SCH (08:20)
[2020-04-25] MEDS: DOCUSATE SODIUM 100 MG CAP PO SCH (08:21)
[2020-04-25] MEDS: ASPIRIN 81 MG CHEW TAB PO SCH (08:21)
[2020-04-25] MEDS: CARVEDILOL 3.125 MG TAB PO SCH ×2 (08:21→16:39)
[2020-04-25] MEDS: (Cevimeline Hcl (Evoxac) 30 MG) PO SCH ×3 (08:23→19:55)
[2020-04-25] MEDS: FUROSEMIDE 40 MG TAB PO SCH ×2 (08:23→16:39)
[2020-04-25] MEDS: ATORVASTATIN 40 MG TAB PO SCH (08:23)
[2020-04-25] MEDS: METOLAZONE 5 MG TAB PO SCH (08:24)
[2020-04-25] MEDS: RIVAROXABAN 20 MG TABLET PO SCH (08:24)
[2020-04-25] MEDS: CLOPIDOGREL BISULFATE 75 MG TAB PO SCH (08:24)
--- NOTE | 2020-04-25 08:45 | NUR ---
Received patient lying in bed with eyes open. Patient is Room air, denies SOB, agitated and wants to go home. States " I am very uncomfortable and I'm in pain" Respiration even and unlabored without SOB. right femoral line in placed, intact, urinary catheter in placed, intact secured to leg. Call light in reach.
[2020-04-25] MEDS ORDERED: SACUBITRIL/VALSARTAN 1 EACH TABLET PO SCH (09:00)
[2020-04-25] MEDS ORDERED: FUROSEMIDE 40 MG TAB PO SCH (09:00)
[2020-04-25] MEDS ORDERED: PREGABALIN 75 MG CAP PO SCH (09:00)
[2020-04-25] MEDS ORDERED: RIVAROXABAN 10 MG TABLET PO SCH (09:00)
[2020-04-25] MEDS ORDERED: ATORVASTATIN 20 MG TAB PO SCH (09:00)
--- NOTE | 2020-04-25 09:01 | Diagnostic Imaging Report ---
EXAMINATION: CHEST SINGLE (PORTABLE) INDICATION: Shortness of breath COMPARISON: Chest CT 08/08/2019, chest x-ray 04/24/2020 FINDINGS: TUBES and LINES: Left chest wall cardiac device with leads in the right atrium and right ventricle. ET tube tip has been removed. LUNGS/PLEURA: Normal lung volumes. Persistent bilateral hazy opacities which could be due to edema or multifocal pneumonia. Persistent bibasilar opacities are likely due to combination of atelectasis and effusion. HEART AND MEDIASTINUM: Moderate cardiomegaly. BONES AND SOFT TISSUES: Partially visualized fixation hardware in the proximal left humerus. Sternotomy wires. No acute osseous lesion. Soft tissues are unremarkable. UPPER ABDOMEN: No free air under the diaphragm. IMPRESSION: Persistent bilateral hazy opacities which could be due to edema or multifocal pneumonia. Persistent bibasilar opacities are likely due to combination of atelectasis and effusion. Signed by: Miguel Hutchins MD on 04/25/2020 8:58 AM
[2020-04-25] MEDS: POTASSIUM CHLORIDE 20 MEQ TAB CR PO SCH ×2 (11:00→13:20)
[2020-04-25 11:11] LABS: MAGNESIUM 1.9 MG/DL (1.3-2.1); PHOSPHORUS 3.7 MG/DL (2.3-4.7)
[2020-04-25] MEDS ORDERED: LEVOTHYROXINE SODIUM 100 MCG/VIAL IV NR (11:15)
[2020-04-25] MEDS ORDERED: LEVOTHYROXINE SODIUM 100 MCG/VIAL IV ONE (14:30)
--- NOTE | 2020-04-25 15:11 | NUR ---
DATE OF CONSULTATION: 04/25/2020 Pain Management Consultation HISTORY OF PRESENT ILLNESS: Ms. Mckeon is a pleasant 55-year-old female with past medical history of chronic systolic congestive heart failure status post ICD implantation, coronary artery disease status post bypass surgery and percutaneous coronary intervention, paroxysmal atrial fibrillation, hypertension, medical noncompliance, history of GI bleed with gastric ulcers, and chronic pain secondary to rheumatoid arthritis and diabetic neuropathy who was initially admitted from the emergency department for dyspnea placed on CPAP and eventually requiring mechanical ventilation after intubation secdonary to fluid overload. Of note, patient was discharged from [facility] last week for similar issues. She follows regularly with her Document Preparer Microfilming (Dr. Larsen) who is currently in the process of adjusting her diuretic therapy. Patient was eventually extubated and doing well on room air. Regarding patient's pain, she states she receives Lyrica 150mg TID, Percocet 10/325mg q6h, and Soma 250 2-3 times a day as needed for pain. Her Rhumatologist prescribes her Lyrica and Soma and her Interlocking Pavement Installer prescribes her Percocet. Due to acute on chronic pain, Pain Medicine has been consulted to assist with management. Presently, patient is resting comfortably sitting up in the bedside chair. She states she is scheduled for EGD next week with Dr. Lobato for abdominal pain as she has hx of gastric ulcers. Patient states her pain is now better controlled on Percocet that was recently started. ALLERGIES: Morphine, Pentazocine PAST MEDICAL HISTORY: As stated in the HPI. PAST SURGICAL HISTORY: As stated above in the HPI. PAST FAMILY HISTORY: Noncontributory. SOCIAL HISTORY: Denies history of tobacco use, alcohol use, or illicit drug use. PHYSICAL EXAMINATION: VITAL SIGNS: Temperature 98.4, heart rate 76, respiration 18, blood pressure is 92/50, O2 sats 99% on RA GENERAL: No acute distress Skin: Warm, dry, intact HEENT: NC, AT; EOMI NECK: Supple CARDIOVASCULAR: RRR LUNGS: Decreased breath sounds bilaterally ABDOMEN: Soft, NTND, normal bowel sounds EXTREMITIES: Moves all NEUROLOGIC: Awake, alert PSYCHIATRIC: Cooperative LABORATORY DATA: WBC: 5.88 Hgb: 8.5 Hct: 28.6 Plt: 145 Creatinine: 1.10 BUN: 13 ASSESSMENT/PLAN: Ms. Mckeon is a pleasant 55-year-old female with past medical history of chronic systolic congestive heart failure status post ICD implantation, coronary artery disease status post bypass surgery and percutaneous coronary intervention, paroxysmal atrial fibrillation, hypertension, medical noncompliance, history of GI bleed with gastric ulcers, and chronic pain secondary to rheumatoid arthritis and diabetic neuropathy who was initially admitted from the emergency department for dyspnea placed on CPAP and eventually requiring mechanical ventilation after intubation secdonary to fluid overload. Of note, patient was discharged from [facility] last week for similar issues. She follows regularly with her Document Preparer Microfilming (Dr. Larsen) who is currently in the process of adjusting her diuretic therapy. Patient was eventually extubated and doing well on room air. Regarding patient's pain, she states she receives Lyrica 150mg TID, Percocet 10/325mg q6h, and Soma 250 2-3 times a day as needed for pain. Her Rhumatologist (Dr. Reynoso) prescribes her Lyrica and Soma and her Interlocking Pavement Installer (Dr. Ariza) prescribes her Percocet. Due to acute on chronic pain, Pain Medicine has been consulted to assist with management. 1. Respiratory failure: Uncertain etiology however may have been secondary to pulmonary edema. COVID19 negative. S/p intubation on vent now extubated and stab le on RA, O2 sats 99%. CXR reviewed with edema and possible PNA. S/p IV Lasix now on PO lasix. On DuoNebs and IV antibiotics as well. Pulmonary and Cardiology on board. 2. Chronic pain syndrome: Secondary to rheumatoid arthritis. Continue patient on Percocet 5/325 q4h as needed for moderate pain, patient states her pain is controlled on this regimen and she does not need to switch to home dose of Perco cet 10/325mg q6h. Will also start patient on home dose of Soma 350mg although reduce frequency to q8h as needed for now. Will monitor and adjust medication slowly given recent respiratory failure. Hold opioid medication for sedation or systolic BP < 90. 3. Diabetic neuropathy: Continue patient on home dose of Lyrica 150mg however will increase from daily to TID as she takes it at home. This medication can contribute to fluid retention however patient states she has been on this dose for many years so less likely contributed to acute illness. Will monitor closely for now. 4. Hypotension: Medication adjustment per Cardiology on board. Again, hold opioid medication for sedation or systolic BP < 90. 5. Anemia: Normocytic, hypochromic counts. H/H trending down. Will obtain baseline workup as patient will likely benefit from IV Iron infusions. Monitor for now. 6. DVT proph: On Xarelto 20mg daily, history of atrial fibrillation. [facility] AWARE: /Carisoprodol 350 Mg Tablet 120.0020Di [id number] e [phone] [employer] /Oxycodone-Acetaminophen 10-325 120.0030Jo [id number] [phone] [employer] 03/30/20200720/Carisoprodol 350 Mg Tablet 120.0020Di [id number] e [phone] [employer] 03/28/20200720/Zolpidem Tart Er 12.5 Mg Tab 30.0030Di [id number] e [phone] [employer] /Pregabalin 150 Mg Capsule 90.0030Di [id number] e [phone])23.01 [employer]
[2020-04-25 15:44] LABS: FREE T4 (FREE THYROXINE) < 0.40 ng/dL (0.8-1.8)
[2020-04-25 15:49] LABS: THYROID STIMULATING HORMONE > 100.000 uIU/mL (0.350-4.940)
[2020-04-25] MEDS: PREGABALIN 75 MG CAP PO SCH ×2 (16:09→21:30)
[2020-04-25] MEDS: CARISOPRODOL 350 MG TAB PO PRN ×2 (16:10→23:01)
--- NOTE | 2020-04-25 16:11 | NUR ---
Discussed and removed femoral central line and the hubbard catheter from patient with no issues.
[2020-04-25 16:53] LABS: BASOPHILS # (AUTO) 0.1 (0.0-0.1); BASOPHILS % 0.7 % (0.0-1.0); EOSINOPHILS # (AUTO) 0.2 (0.0-0.4); EOSINOPHILS % 2.8 % (0.0-6.0); HEMATOCRIT 31.2 % (34.2-44.1); HEMOGLOBIN 9.3 g/dL (12.0-16.0); LYMPHOCYTES # (AUTO) 0.9 (1.0-3.2); LYMPHOCYTES % 13.1 % (18.0-39.1); MEAN CORPUSCULAR HEMOGLOBIN 26.7 pg (28-32); MEAN CORPUSCULAR HGB CONC 29.8 g/dL (31-35); MEAN CORPUSCULAR VOLUME 89.7 fL (81-99); MONOCYTES # (AUTO) 0.4 (0.2-0.8); MONOCYTES % 5.5 % (4.4-11.3); NEUTROPHILS # (AUTO) 5.3 (2.1-6.9); NEUTROPHILS % 77.5 % (38.7-80.0); PLATELET COUNT 149 x10e3/uL (140-360); RED BLOOD COUNT 3.48 x10e6/uL (3.6-5.1); RED CELL DISTRIBUTION WIDTH 17.6 % (11.7-14.4)
--- NOTE | 2020-04-25 17:03 | NUR ---
Assisted patient to bedside commode with nonskid socks on.
[2020-04-25 17:11] LABS: ALBUMIN 3.2 g/dL (3.5-5.0); ALBUMIN/GLOBULIN RATIO 0.7 (0.8-2.0); ANION GAP 15.2 mmol/L (8-16); CALCIUM 9.7 mg/dL (8.4-10.2); CREATININE, SERUM 1.06 mg/dL (0.57-1.11); POTASSIUM 3.2 mmol/L (3.5-5.1)
[2020-04-25 17:41] LABS: FERRITIN 99.85 ng/mL (4.63-204.00)
[2020-04-25 17:55] LABS: LYMPHOCYTES % (MANUAL) 13 % (19-48); MONOCYTES % (MANUAL) 5 % (3.4-9.0)
--- NOTE | 2020-04-25 17:55 | Consultation ---
DATE OF CONSULTATION: 04/25/2020 Endocrine Consultation This is a patient of Dr. Nelson. Thank you very much for referring this patient. HISTORY OF PRESENT ILLNESS: This is a 55-year-old white female, who was referred to me for evaluation of hypothyroidism. The patient is status post thyroidectomy and has been on Synthroid 0.15 mg once daily. The patient had several hospital admissions with acute respiratory failure, hypoxemia, and was intubated. The patient is now on the medical floor. She has multiple medical problems including history of diabetes mellitus type 2, uncontrolled with complications, coronary artery disease, congestive cardiac failure, COPD, hypertension, and on several medications at home. During the hospital stay, the TSH was found to be 136.549. Her hemoglobin A1c is 7.9. She also has history of hyperlipidemia. PHYSICAL EXAMINATION: GENERAL: Today, the patient is alert, awake. She is moderately overweight. VITAL SIGNS: Her pulse rate is 59, her blood pressure is 90/60 mmHg. HEENT: Essentially unremarkable. NECK: She has neck scar. No lymphadenopathy in the neck. CHEST: Bilateral vesicular breathing. She has bilateral bronchospasm and basilar rales. CARDIOVASCULAR: First and second heart sounds. There is no third or fourth heart sound. Ejection systolic murmur sound grade 2/6. Clinically, patient looks hypothyroid. CLINICAL IMPRESSION: Hypothyroidism, status post total thyroidectomy, coronary artery disease, congestive cardiac failure, status post CABG, COPD, diabetes mellitus type 2, uncontrolled with complications. PLAN: At this time is to do a free T4, TSH. The patient received some IV Synthroid already. We will start her back on the p.o. synthroid 0.15 mg once daily. We will also do a hemoglobin A1c and also put her on the Lantus insulin once a day. Thanks again for referring this patient. I will be follow this patient with you. MD TIMBO Song/PALLAVIL /[id number]
[2020-04-25 17:56] LABS: EOSINOPHILS % (MANUAL) 1 % (0-7); NEUTROPHILS % (MANUAL) 80 % (40-74); PLATELET ESTIMATE ADEQUATE
[2020-04-25 17:57] LABS: PLATELET MORPHOLOGY COMMENT NORMAL; RBC MORPHOLOGY COMMENT NORMAL
--- NOTE | 2020-04-25 19:00 | NUR ---
PULMONARY INFORMED MY CLINIC PATIENT WAS ADMITTED DR LOMAS CAN SEE FOR ME TODAY ABELINO JANG
--- NOTE | 2020-04-25 19:21 | Progress Note ---
DATE: Pulmonary Progress Note. CHIEF COMPLAINT: Hypercapnic respiratory failure that required brief intubation. HISTORY OF PRESENT ILLNESS: The patient is a 55-year-old woman. She has a history of chronic systolic heart failure with an AICD placement. She also has a history of thyroid disease and chronic pain, requiring narcotics. She came in and had some hypercapnic respiratory failure. She was intubated briefly and received some diuresis and is now sedated. She also has an elevated TSH level. PHYSICAL EXAMINATION: VITAL SIGNS: Blood pressure is 122/62, saturation is 95% on 2 L and the pulse is 65, respiratory rate is 18. HEENT: Shows no facial swelling or erythema. CARDIAC: Reveals regular rate and rhythm with normal S1, S2. LUNGS: Auscultation of lungs shows decreased breath sounds at the bases. There is no wheezing. ABDOMEN: Soft and nontender. There is no rebound or guarding. EXTREMITIES: Shows no leg edema or calf tenderness. There is no cyanosis or clubbing. LABORATORY DATA: CBC is significant for hemoglobin 9.3 and platelet count of 149. TSH is greater than 100. Potassium is 3.1. The BUN to creatinine ratio is 13 to 1.0. IMPRESSION: 1. Acute on chronic hypercapnic respiratory failure. 2. Acute on chronic systolic congestive heart failure. 3. Hypothyroidism. PLAN: 1. The patient is feeling much better and very eager to go home tomorrow. 2. Continue current cardiac regimen and diuretics. 3. The patient should restart her Synthroid. 4. Consider decreasing chronic narcotic, which could be contributing to hypercapnic respiratory failure. Rc Garay MD [facility] /[id number]
[2020-04-25] MEDS ORDERED: INSULIN GLARGINE 100 UNITS/ML VIAL SQ SCH (21:00)
[2020-04-25] MEDS: FENOFIBRATE 145 MG TAB PO SCH (21:30)
[2020-04-26] VITALS: BP 90/50
[2020-04-26] MEDS: ALBUTEROL/IPRATROPIUM 3 ML NEB NEB SCH ×2 (02:10→07:00)
[2020-04-26] MEDS: OXYCODONE/ACETAMINOPHEN 5-325 1 EACH TABLET PO PRN (02:44)
[2020-04-26 04:00] VITALS: BP 92/43
[2020-04-26] MEDS: PIPER-TAZ 3.375 GM 50 ML IV SCH (05:59)
[2020-04-26] MEDS ORDERED: LEVOTHYROXINE SODIUM 112 MCG TAB PO SCH (06:00)
[2020-04-26] MEDS ORDERED: LEVOTHYROXINE SODIUM 75 MCG TAB PO SCH (06:00)
[2020-04-26] MEDS: CARISOPRODOL 350 MG TAB PO PRN (06:00)
[2020-04-26 07:47] VITALS: BP 105/94
[2020-04-26 08:09] VITALS: BP 105/94
[2020-04-26] MEDS: (Cevimeline Hcl (Evoxac) 30 MG) PO SCH (09:00)
[2020-04-26] MEDS ORDERED: ENTRESTO PO SCH (09:00)
[2020-04-26] MEDS: PANTOPRAZOLE 40 MG 10ML VIAL IV SCH (09:18)
[2020-04-26] MEDS: DOCUSATE SODIUM 100 MG CAP PO SCH (09:18)
[2020-04-26] MEDS: RIVAROXABAN 20 MG TABLET PO SCH (09:18)
[2020-04-26] MEDS: ASPIRIN 81 MG CHEW TAB PO SCH (09:18)
[2020-04-26] MEDS: FUROSEMIDE 40 MG TAB PO SCH (09:18)
[2020-04-26] MEDS: METOLAZONE 5 MG TAB PO SCH (09:18)
[2020-04-26] MEDS: PREGABALIN 75 MG CAP PO SCH (09:18)
[2020-04-26] MEDS: ATORVASTATIN 40 MG TAB PO SCH (09:18)
[2020-04-26] MEDS: CLOPIDOGREL BISULFATE 75 MG TAB PO SCH (09:18)
[2020-04-26] MEDS: CARVEDILOL 3.125 MG TAB PO SCH (09:19)
[2020-04-26] MEDS: INSULIN LISPRO 100 UNIT/1 ML 3ML VIAL SQ SCH ×2 (09:21→12:11)
[2020-04-26] MEDS ORDERED: POTASSIUM CHLORIDE 10MEQ EA PO SCH (10:00)
[2020-04-26 11:37] VITALS: BP 112/54
[2020-04-26] MEDS ORDERED: METOLAZONE5 MG PO (13:27)
[2020-04-26] MEDS ORDERED: FUROSEMIDE40 MG PO (13:27)
[2020-04-26] MEDS ORDERED: SYNTHROID75 MCG PO (13:27)
[2020-04-26] MEDS ORDERED: Albuterol/Ipratropium Nebulize NEB (13:27)
[2020-04-26] MEDS ORDERED: K DUR10 MEQ PO (13:27)
[2020-04-26] MEDS ORDERED: MUCINEX DM ER1 EACH PO (13:54)
--- NOTE | 2020-04-26 13:59 | History and Physical ---
CONSULTING PHYSICIANS: Dr. Gonzalez Hayden; Dr. Jose Amor; Dr. Garcia Bar; Dr. Dong Wilder; and Dr. Tolbert. CHIEF COMPLAINT: Shortness of breath. HISTORY OF PRESENT ILLNESS: The patient is a 55-year-old female, who was admitted to [facility] for acute respiratory failure last week. She was put on BiPAP at that time and states that she had 3 L of fluid removed and then sent home the next day. She has been attempting to get an EGD done by Dr. Lobato, which keeps getting canceled as she has respiratory difficulties from fluid overload. She had a COVID test on Monday in anticipation of having the EGD test completed. She saw Dr. Wilder in his office on Monday and her Lasix was increased at that time. She has a long-standing history of being on Lasix 160 mg p.o. b.i.d., the most recent dose prior to arrival was 160 mg every morning and 80 mg in the afternoon. She has a rather complex medical history, takes Entresto at home for congestive heart failure. Here she was admitted via the emergency department for dyspnea and initially placed on CPAP, eventually required intubation and mechanical ventilation secondary to the fluid overload. She was intubated in the emergency department. Her pCO2 was 71 on admission. She was placed on IV Zosyn by Pulmonology for probable pneumonia. Since then, she has been extubated and Dr. Wilder's group is adjusting her diuretic therapy. At home she states she has been on Lyrica 150 mg t.i.d., Percocet 10/325 mg every 6 hours and Soma 250 mg 2 to 3 times a day as needed for pain. Her title lawyer (Dr. Reynoso) prescribes her Lyrica and Soma and her stage setting painter apprentice, Dr. Ariza prescribes her Percocet. Dr. Amor with Oncology/Hematology is adept at caring for pain management issues and has been consulted for her pain management. The patient was asked earlier today if she had any gastrointestinal symptoms such as nausea, vomiting, diarrhea, constipation, or abdominal pain and she said she did not, thus Dr. Lobato was not consulted for EGD as this can be done on an outpatient basis. The patient is very adamant that she wants to go home tomorrow. She is currently relaxed in her breathing, breathing room air. PAST MEDICAL HISTORY: Hospital admissions recently with acute respiratory failure, likely due to fluid volume overload and previous intubations, diabetes mellitus, coronary artery disease, systolic congestive heart failure, COPD, hypertension, hypothyroidism, gastrointestinal bleed with gastric ulcers, chronic pain from rheumatoid arthritis, diabetic neuropathy, gastric ulcers, paroxysmal atrial fibrillation with long-term use of anticoagulant Xarelto, medical noncompliance. The patient states on 10/04/2017, she had a "massive MT" and then developed pneumonia. PAST SURGICAL HISTORY: Thyroidectomy, AICD implantation, PCI, coronary artery bypass graft, 2 C sections, hysterectomy, partial right nephrectomy, left femoral-popliteal bypass. The patient states she had 100% blockage at the femora and knee areas. In 2019 she had a right foot surgery. She has had a left knee replacement. SOCIAL HISTORY: The patient smoked a pack a day for about 35 years and has since quit. She denies any use of alcohol or illicit drugs. ALLERGIES: MORPHINE AND PENTAZOCINE. REVIEW OF SYSTEMS: A 14-point review of systems was completed. The patient does complain of cough with beige phlegm after neb treatments. She is a known diabetic. Her last bowel movement was 04/23/2020. She does bruise easily, otherwise review of systems negative. OBJECTIVE: VITAL SIGNS: Temperature 98.4, heart rate 59, blood pressure 92/50, respirations 18, and oxygen saturation 100%. Height 5 feet 6 inches, weight 186 pounds. BMI 30.01. GENERAL: The patient is lying supine on her right side in bed. LUNGS: Generally clear to auscultation. Respiratory pattern even and nonlabored. Breathing room air. No supplemental oxygen. HEENT: EOMI. NECK: Supple. No JVD. CARDIOVASCULAR: Regular rate and rhythm. No murmur. ABDOMEN: Bowel sounds positive. Soft, nontender, obese. EXTREMITIES: Without pitting edema. No clubbing, cyanosis, or marked swelling or signs of DVT. NEUROLOGIC: GCS 15. Nonfocal. LABORATORY DATA: On admission on 04/23, WBCs 15.16, this has improved to 6.87 today, hemoglobin 11.3 and today 9.3, platelets within normal limits today 149,000, pCO2 on 04/23 was 71. Glucose on admission 464 with anion gap 15.2. B-type natriuretic peptide 540. Lactic acid was 4.3 followed by result of 1.6. Hemoglobin A1c 7.9%. Triglycerides, cholesterol and LDL within normal limits. TSH 136.549 today. Free T4 less than 0.4. Lactic acid today 1.1. Today her potassium was low at 3.2, BUN 15, creatinine 1.06, estimated GFR 54. Fingerstick blood glucose level 205. Iron 24, percent saturation 6. Urinalysis negative for nitrites and leukocyte esterase. Coronavirus collected 04/23 was not detected. Apparently, she also had a dixon virus test on 04/20, which was also negative. Blood cultures x2 and urine culture have all been negative. Initial chest x-ray on 04/23 showed bilateral upper lung haziness suggestive of airspace disease, could be pneumonia and/or edema, moderate cardiomegaly. CT of the chest on 04/23 showed moderate cardiomegaly, consolidations in the lower lungs and airspace fluid/inflammation in the upper lungs can be due to a pulmonary edema and/or pneumonia, small bilateral pleural effusions favor pulmonary edema. She had a modified barium swallow yesterday, which she passed. Chest x-ray today showed persistent bilateral hazy opacities, which could be due to edema or multifocal pneumonia. Persistent bibasilar opacities likely due to a combination of atelectasis and effusion. A 12-lead ECG done on 04/23 showed electronic ventricular pacemaker, ventricular rate 92. ASSESSMENT AND PLAN: 1. Acute on chronic hypercapnic respiratory failure, status post extubation, with recidivism, diuresis management per Cardiology team. Appreciate recommendations. Currently, the patient has good oxygen saturation on room air. 2. Acute on chronic systolic congestive heart failure, status post fluid volume overload. The patient has been put on Lasix and metolazone per Cardiology. Echocardiogram was deemed unnecessary at this visit. Continue Coreg. 3. Chronic pain syndrome due to rheumatoid arthritis, diabetic neuropathy, and gastric ulcers, currently on pregabalin, Percocet every 4 hours p.r.n., appreciate recommendations from Oncology for pain management. The patient will likely have EGD done on an outpatient basis after discharge. 4. Chronic obstructive pulmonary disease without acute exacerbation. Continue DuoNebs. 5. Uncontrolled type 2 diabetes mellitus with complications. Endocrinology is following. Fingerstick blood glucose level 162, 193 and 205 today. Hemoglobin A1c 7.9%. Monitor fingerstick blood glucose levels and continue sliding scale insulin. 6. Uncontrolled hypothyroidism with TSH 136.549 and history of thyroidectomy. Endocrinology following, levothyroxine 100 mcg IV once today. The patient admits to not taking her Synthroid at home. 7. Hypotension with history of hypertension. Monitor blood pressure closely. 8. Medical noncompliance. 9. Coronary artery disease, history of coronary artery bypass graft, currently denies chest pain. Continue as well as antihyperlipidemic such as atorvastatin and fenofibrate. 10. Chronic paroxysmal atrial fibrillation. Continue Xarelto 20 mg daily. 11. Gastric ulcers with normocytic anemia and history of gastrointestinal bleed. Pain control EGD on an outpatient basis. 12. AICD in situ. The patient follows up with Cardiology for checkups regarding her defibrillator and pacemaker. 13. Prophylaxis. Protonix and Xarelto. Time spent 80 minutes. Dictated by Chepe Ellis NP Alan Nelson MD [facility]/MODL /[id number]
--- NOTE | 2020-04-26 14:04 | Progress Note ---
DATE: Cardiology Progress Note SUBJECTIVE: The patient complains of scattered pain especially in her bilateral lower extremities and some shortness of breath. She reports that she is quite frustrated with the care she has received and reports that she continues to have a lot of pain. Denies any chest pain. Does endorse some shortness of breath. OBJECTIVE: VITAL SIGNS: Temperature 98.4, pulse 59, respiratory rate 18, blood pressure 92/50, and oxygen saturation 100% on room air. GENERAL: Alert and oriented x3. Resting comfortably in bed, does not appear to be in any acute distress. NECK: Supple. No JVD noted. CARDIOVASCULAR: Regular rate and rhythm. LUNGS: Diminished breath sounds posterior lower lobes, otherwise clear to auscultation. ABDOMEN: Soft and nontender. EXTREMITIES: Lower extremity trace edema bilaterally. Absent pedal pulses. CARDIOVASCULAR MEDICATIONS: Xarelto 20 mg p.o. daily, Lyrica 150 mg p.o. daily, Plavix 75 p.o. daily, Lasix 80 p.o. b.i.d., aspirin 81 p.o. daily, and carvedilol 3.125 p.o. b.i.d. LABORATORY DATA: WBC 5.8, hemoglobin 8.5, hematocrit 28.6, and platelets 145. Sodium 144, potassium 3.1, BUN 13, creatinine 1.10. TSH 136.5. IMAGING: Chest x-ray with persistent bilateral hazy opacity which could be edema or multifocal pneumonia, persistent bibasilar opacity likely due to atelectasis. TELEMETRY: Sinus rhythm. IMPRESSION: 1. Coronary artery disease, status post bypass. 2. Congestive heart failure, status post ICD. 3. Chronic pain syndrome. 4. PAD. 5. Pulmonary edema and pneumonia. RECOMMENDATION: Pain management per pain team. Continue to address pain issues. Continue the above-listed cardiac medications. Monitor blood pressure closely. We will continue to follow this patient very closely. Dictated by Romana Chow NP MD [facility]HAL /[id number]
--- NOTE | 2020-04-26 18:55 | Discharge Summary ---
CONSULTING PHYSICIANS: 1. Dr. Gonzalez Hayden with Pulmonology. 2. Garcia Bar with Pulmonology. 3. Dr. Dar Tolbert MD with Endocrinology. 4. Dr. Maki Amor with Hematology/Oncology. 5. Pain Management. CHIEF COMPLAINT: Shortness of breath. HISTORY OF PRESENT ILLNESS: The patient was seen last week at [facility] [place] for acute respiratory failure, was put on BiPAP and states she had 3 L of fluid that was diuresed and she was sent home the next day. She had a COVID test on Monday, which was negative. She saw Dr. Wilder Lanny in his office, whom she is a long-term patient of and her Lasix was increased. She has a history of being on Lasix for a long time at 160 mg b.i.d. Her most recent dose prior to arrival was 160 mg in the morning and 80 mg in the afternoon. She also takes her Entresto at home for congestive heart failure. PAST MEDICAL HISTORY: Includes several hospital admissions with acute respiratory failure and intubation, diabetes mellitus, coronary artery disease, systolic congestive heart failure, COPD, hypertension, hypothyroidism, GI bleed with gastric ulcers, chronic pain from rheumatoid arthritis and diabetic neuropathy, paroxysmal atrial fibrillation with long-term use of anticoagulant, Xarelto, medical noncompliance per patient on 10/04/2017. She had massive CO and had pneumonia. PAST SURGICAL HISTORY: Thyroidectomy, AICD implantation, PCI, coronary artery bypass graft. Two C sections, hysterectomy, partial right nephrectomy, left femoral-popliteal bypass, 100% blockage of the femoral and knee arteries per the patient. In 2019, she had a right foot surgery. She has also had a left knee replacement. FAMILY HISTORY: Noncontributory. SOCIAL HISTORY: Smoked one pack per day for 35 years. No history of alcohol or illicit drug use. ALLERGIES: ALLERGIC TO MORPHINE AND PENTAZOCINE. ADMITTING DIAGNOSES: 1. Acute on chronic hypercapnic respiratory failure, status post extubation, with recidivism. 2. Recidivism. 3. Acute on chronic systolic congestive heart failure, status post fluid volume overload. 4. Chronic pain syndrome due to rheumatoid arthritis and diabetic neuropathy as well as gastric ulcers. 5. Chronic obstructive pulmonary disease without acute exacerbation. 6. Uncontrolled type 2 diabetes mellitus with complications. 7. Uncontrolled hypothyroidism with TSH 136.549 and history of thyroidectomy. 8. Hypotension with history of hypertension. 9. Medical noncompliance. 10. Coronary artery disease, history of CABG. 11. Chronic paroxysmal atrial fibrillation. 12. Gastric ulcers with normocytic anemia and history of gastrointestinal bleed. 13. AICD in C2. DISCHARGE DIAGNOSES: 1. Acute on chronic hypercapnic respiratory failure, status post extubation, with recidivism. 2. Recidivism. 3. Acute on chronic systolic congestive heart failure, status post fluid volume overload. 4. Chronic pain syndrome due to rheumatoid arthritis and diabetic neuropathy as well as gastric ulcers. 5. Chronic obstructive pulmonary disease without acute exacerbation. 6. Uncontrolled type 2 diabetes mellitus with complications. 7. Uncontrolled hypothyroidism with TSH 136.549 and history of thyroidectomy. 8. Hypotension with history of hypertension. 9. Medical noncompliance. 10. Coronary artery disease, history of CABG. 11. Chronic paroxysmal atrial fibrillation. 12. Gastric ulcers with normocytic anemia and history of gastrointestinal bleed. 13. AICD in C2. LABORATORY DATA: WBCs 15.16 and on 04/25, 6.87; hemoglobin 11.3, then 9.3 on 04/25; platelet count went down from 328 to 149. Initial ABG on admission pH 7.23, pCO2 71, PO2 104, HC03 30, oxygen saturation 96%, base excess of 2, and FiO2 of 60%. On admission, potassium 3.2, BUN 15, creatinine 1.35, estimated GFR 41, glucose 464, AST 59, alkaline phosphatase 172. B-type natriuretic peptide 540.6. Lactic acid 4.3, improved to 1.6. Hemoglobin A1c 7.9%, triglycerides 125, cholesterol 149, LDL 90, HDL 34, TSH 136.549, free T4 less than 0.4. Lactic acid on 04/25 was 1.1. Today on day of discharge, glucose 157 and 195, 04/25. Sodium 142, potassium 3.2, chloride 97, CO2 33, anion gap 15.2, BUN 15, creatinine 1.06, estimated GFR 54. Iron 24, TIBC 433, percent saturation 6, transferrin 309, ferritin 99.85, vitamin B12 330. Thyroid peroxidase antibody collected this morning remains pending, 04/23 and 04/20. Coronavirus PCR not detected. Blood cultures x2 showed no growth after 72 hours. Final urine culture negative. CT of the chest on 04/23, showed moderate cardiomegaly, consolidations in the lower lungs and airspace fluid/inflammation in the upper lungs can be due to pulmonary edema and/or pneumonia. Small bilateral pleural effusions favor pulmonary edema. The patient passed a modified barium swallow on 04/24. Final chest x-ray on 04/25, showed persistent bilateral hazy opacities, which could be due to edema or multifocal pneumonia. Persistent bibasilar opacities likely due to combination of atelectasis and effusion. Case was discussed with Dr. Nelson and Dr. Garay as well as Dr. Tolbert. The patient can be discharged home today. She still has a productive cough and is wanting to have home oxygen. The patient states she did not want to wait for home oxygen evaluation that she would go and pay for the oxygen herself. Prescription written for oxygen at 2 L/minute via nasal cannula with diagnosis of COPD. Additional prescriptions provided include DuoNeb every 6 hours with a quantity of 120, furosemide 80 mg p.o. b.i.d., Synthroid 150 mcg p.o. daily, which is her current dose. Metolazone 5 mg p.o. daily. K-Dur 40 mEq p.o. daily. Mucinex DM 1 tab p.o. b.i.d. for 14 days. DIET: Continue ADA diet. ACTIVITY LEVEL: As tolerated. FOLLOWUP: The patient to follow up with consulting MDs as directed such as Dr. Wilder in his office. Dr. Vivek Hayden and/or Dr. Bar pulmonology and Dr. Dar Tolbert with Endocrinology. The patient had stopped her Synthroid at home and is informed to restart her Synthroid. She received levothyroxine 100 mcg IV yesterday. Dictated by Chepe Ellis NP Alan Nelson MD [facility]/MODL /[id number]
--- NOTE | 2020-04-28 16:36 | Diagnostic Imaging Report ---
PROCEDURE: X-RAY MODIFIED BARIUM SWALLOW COMPARISON: None. INDICATION: Aspiration Radiation Details: Fluoroscopy time: 1.2 minutes Cumulative dose: 10.1 mGy DISCUSSION: Fluoroscopic examination was performed in conjunction with speech pathology during swallowing a variety of thin and thick liquid consistencies. Provided images demonstrate laryngeal penetration and no aspiration. CONCLUSION: Modified barium swallow demonstrating laryngeal penetration and no aspiration. Please refer to the speech pathology report for further details. Signed by: Shubham Arguello MD on 04/28/2020 4:33 PM
== END 2020-04-26 14:00 | disposition home or self-care (01) | DRG 208 ==
LOC: ER 04:00 → ERHOLD 04-24 11:27 → MED/SURG2 04-24 13:41 → OBSVTOIN 04-25 11:35
PROVIDERS: ADMIT Internal Medicine; ATTEND Internal Medicine
PROC: 0BH17EZ Insertion of Endotracheal Airway into Trachea, Via Natural or Artificial Opening (ICD-10-PCS; principal; 2020-04-23)
PROC: 5A1945Z Respiratory Ventilation, 24-96 Consecutive Hours (ICD-10-PCS; 2020-04-23)
PROC: 02HV33Z Insertion of Infusion Device into Superior Vena Cava, Percutaneous Approach (ICD-10-PCS; 2020-04-23)
DX: J96.22 Acute and chronic respiratory failure with hypercapnia (principal); I50.23 Acute on chronic systolic (congestive) heart failure; I11.0 Hypertensive heart disease with heart failure; G89.4 Chronic pain syndrome; M06.9 Rheumatoid arthritis, unspecified; E03.9 Hypothyroidism, unspecified; Z91.19 Patient's noncompliance with other medical treatment and regimen; I48.0 Paroxysmal atrial fibrillation; Z79.01 Long term (current) use of anticoagulants; Z95.810 Presence of automatic (implantable) cardiac defibrillator; I25.10 Atherosclerotic heart disease of native coronary artery without angina pectoris; Z95.1 Presence of aortocoronary bypass graft; I95.9 Hypotension, unspecified; E11.69 Type 2 diabetes mellitus with other specified complication; J44.9 Chronic obstructive pulmonary disease, unspecified; R63.4 Abnormal weight loss; D64.9 Anemia, unspecified; E11.51 Type 2 diabetes mellitus with diabetic peripheral angiopathy without gangrene; Z11.59 Encounter for screening for other viral diseases
CPT/HCPCS: 36415; 36600; 51700; 71045; 71250; 74230; 80053; 80061; 81001; 82550; 82553; 82607; 82728; 82746; 82805; 82948; 83036; 83540; 83605; 83735; 83880; 84100; 84439; 84443; 84466; 84484; 85025; 85045; 85610; 85730; 86376; 87040; 87086; 93005; 94002; 94760; 99285; G0378; J0330; J0696; J1644; J1817; J1940; J2250; J2543; J7030; J7040; U0002

== ENCOUNTER → 2020-06-01 | Day surgery (SDC) | payer OTHER ==
[2020-05-27 14:48] LABS: BASOPHILS % 0.5 % (0.0-1.0); EOSINOPHILS # (AUTO) 0.9 (0.0-0.4); EOSINOPHILS % 13.7 % (0.0-6.0); HEMATOCRIT 28.8 % (34.2-44.1); HEMOGLOBIN 8.8 g/dL (12.0-16.0); LYMPHOCYTES # (AUTO) 1.4 (1.0-3.2); LYMPHOCYTES % 22.7 % (18.0-39.1); MEAN CORPUSCULAR HEMOGLOBIN 28.2 pg (28-32); MEAN CORPUSCULAR HGB CONC 30.6 g/dL (31-35); MEAN CORPUSCULAR VOLUME 92.3 fL (81-99); MONOCYTES # (AUTO) 0.4 (0.2-0.8); MONOCYTES % 6.3 % (4.4-11.3); NEUTROPHILS # (AUTO) 3.5 (2.1-6.9); NEUTROPHILS % 56.5 % (38.7-80.0); PLATELET COUNT 166 x10e3/uL (140-360); RED BLOOD COUNT 3.12 x10e6/uL (3.6-5.1); RED CELL DISTRIBUTION WIDTH 19.9 % (11.7-14.4)
[~2020-06-01] MED LIST changes: +Albuterol/Ipratropium Nebulize NEB; +EPHEDRINE SULFATE INJ 50 MG/ML VIAL ONE; +K DUR10 MEQ PO; +LIDOCAINE HCL 2% LOCAL INJ 5 ML SDV VIAL INJ ONE; +METOCLOPRAMIDE HCL 10 MG/2ML VIAL ONE; +METOLAZONE5 MG PO; +MIDAZOLAM HCL 2 MG/2 ML VIAL ONE; +MUCINEX DM ER1 EACH PO; +PANTOPRAZOLE 40 MG 10ML VIAL ONE; +PROPOFOL IV EMULSION 10 MG/ML 20 ML VIAL ONE; +SYNTHROID75 MCG PO
[2020-06-01 08:40] VITALS: BP 115/70
--- NOTE | 2020-06-01 09:07 | Operative Report ---
DATE OF PROCEDURE: 06/01/2020 SURGEON: Luis Daniel Lobato MD PROCEDURE: EGD with biopsies and esophageal dilatation. INDICATION FOR PROCEDURE: Dysphagia, upper abdominal pain, and acid reflux. MEDICATIONS: The patient was done under MAC, please see anesthesiologist's note. PROCEDURE IN DETAIL: With the patient in left lateral decubitus position, a flexible fiberoptic Olympus gastroscope was introduced into the esophagus under direct visualization without any difficulty. There was some patchy erythema noted in distal esophagus. A mild stricture was noted at the GE junction that was dilated to size 52-Turkish Flores. The scope was then advanced with ease into the stomach. Mucosa overlying the antrum and the body revealed some patchy erythema and [id number] edema. Biopsies were obtained and sent to stain for H pylori. Moderate amount of retained undigested food stuff was noted in the stomach, precluding partial visualization of the fundus and the upper body, reflective of gastroparesis. The pylorus was somewhat stenotic but it opened up nicely with the repetitive intubation by the scope, which was advanced to the second portion of the duodenum. There was some nodularity noted in the duodenal bulb and biopsies were obtained from the second portion as well as the duodenal bulb to rule out sprue. The scope was then withdrawn back into the stomach and retroflexed and there retained food stuff precluded, total visualization of the fundus, the cardia appeared to be within normal limits. The scope was then straightened out and it was subsequently withdrawn and patient tolerated the procedure well. IMPRESSION: 1. Distal esophagitis, mild. 2. Esophageal stricture at GE junction, dilated to size 52-Turkish Flores. 3. Gastritis, biopsied, biopsies sent to stain for H pylori. 4. Moderate amount of retained undigested food stuff in stomach, reflective of gastroparesis. 5. Pyloric channel somewhat stenotic, but it opened up nicely with repetitive intubation by the scope. 6. Rule out sprue. PLAN: Follow up histology. Increase Protonix to 40 mg one p.o. a.c. b.i.d. Luis Daniel Lobato [place] [facility] [place] [facility] [place][id number]
== END | disposition home or self-care (01) ==
LOC: ENDO 06:13
PROVIDERS: ATTEND Internal Medicine Gastroenterology
DX: K21.0 Gastro-esophageal reflux disease with esophagitis (principal); K20.9 Esophagitis, unspecified; K22.2 Esophageal obstruction; K31.84 Gastroparesis; I10 Essential (primary) hypertension; R14.2 Eructation; Z68.27 Body mass index [BMI] 27.0-27.9, adult; E66.9 Obesity, unspecified; Z88.5 Allergy status to narcotic agent; Z88.8 Allergy status to other drugs, medicaments and biological substances; Z01.812 Encounter for preprocedural laboratory examination; Z95.810 Presence of automatic (implantable) cardiac defibrillator; Z95.1 Presence of aortocoronary bypass graft; E11.9 Type 2 diabetes mellitus without complications; E03.9 Hypothyroidism, unspecified; G47.33 Obstructive sleep apnea (adult) (pediatric); J44.9 Chronic obstructive pulmonary disease, unspecified; I25.10 Atherosclerotic heart disease of native coronary artery without angina pectoris; Z87.442 Personal history of urinary calculi; E78.00 Pure hypercholesterolemia, unspecified; Z87.11 Personal history of peptic ulcer disease; Z79.82 Long term (current) use of aspirin; Z79.4 Long term (current) use of insulin; Z11.59 Encounter for screening for other viral diseases
CPT/HCPCS: 36415 ×2; 43239; 43450; 82948; 85025; C9113; J2001; J2704; J2765; U0002 ×2; J2250

== ENCOUNTER 2020-08-07 20:10 | Inpatient (IN) | payer OTHER ==
[~2020-08-07] VITALS: Ht 167.6 cm; Wt 110.9 kg
[~2020-08-07 20:10] MED LIST changes: -EPHEDRINE SULFATE INJ 50 MG/ML VIAL ONE; +ETOMIDATE 2 MG/ML 10 ML INJ IV ONE; -LIDOCAINE HCL 2% LOCAL INJ 5 ML SDV VIAL INJ ONE; -METOCLOPRAMIDE HCL 10 MG/2ML VIAL ONE; -MIDAZOLAM HCL 2 MG/2 ML VIAL ONE; -PANTOPRAZOLE 40 MG 10ML VIAL ONE; -PROPOFOL IV EMULSION 10 MG/ML 20 ML VIAL ONE; +SUCCINYLCHOLINE CHLORIDE 20 MG/ML 10ML VIAL ONE
[2020-08-07] MEDS ORDERED: FUROSEMIDE INJ 10 MG/ML 4 ML VIAL IV STA (20:37)
[2020-08-07] MEDS ORDERED: CEFEPIME 1GM/NS 0.9% 50 ML 50 ML IV STA (20:54)
[2020-08-07] MEDS: PROPOFOL IV EMULSION 10MG/ML 100 ML IV SCH (21:00)
[2020-08-07] MEDS ORDERED: NITROGLYCERIN 2% OINT 1 GM PKT TOP ONE (21:00)
[2020-08-07] MEDS ORDERED: PROPOFOL IV EMULSION 10 MG/ML 20 ML VIAL IV ONE (21:00)
[2020-08-07] MEDS ORDERED: PROPOFOL IV EMULSION 10MG/ML 100 ML ONE (21:06)
[2020-08-07 21:10] LABS: BASOPHILS # (AUTO) 0.1 (0.0-0.1); BASOPHILS % 0.8 % (0.0-1.0); EOSINOPHILS # (AUTO) 0.3 (0.0-0.4); EOSINOPHILS % 2.7 % (0.0-6.0); HEMATOCRIT 36.9 % (34.2-44.1); HEMOGLOBIN 10.4 g/dL (12.0-16.0); LYMPHOCYTES % 30.3 % (18.0-39.1); MEAN CORPUSCULAR HGB CONC 28.2 g/dL (31-35); MEAN CORPUSCULAR VOLUME 99.2 fL (81-99); MONOCYTES # (AUTO) 0.7 (0.2-0.8); MONOCYTES % 7.4 % (4.4-11.3); NEUTROPHILS # (AUTO) 5.7 (2.1-6.9); NEUTROPHILS % 57.4 % (38.7-80.0); PLATELET COUNT 250 x10e3/uL (140-360); RED BLOOD COUNT 3.72 x10e6/uL (3.6-5.1); RED CELL DISTRIBUTION WIDTH 21.3 % (11.7-14.4)
--- NOTE | 2020-08-07 21:19 | Emergency Department Note ---
History of Present Illnes History of Present Illness Chief Complaint: COVID PUI History of Present Illness This is a 55 year old female Chief Complaint Comment [facility] for [facility] distress. Patient lethargic and apneic upon arrival and unable to arouse. Patient on nonrebreather by EMS with o2 saturation in high 80%. Hx of CHF per EMS. 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 Arrival Mode: [facility] Blow Down Operator Required: No Onset (how long ago): unknown Location: None Quality: SoB Radiation: Reports non-radiation Severity: unable to specify Onset quality: unable to specify Duration (how long): day(s) Timing of current episode: unable to specify Progression: worsening Chronicity: chronic Context: Reports recent illness; Denies recent surgery Relieving factors: none Exacerbating factors: none Associated symptoms: Reports denies other symptoms Treatments prior to arrival: none Past Medical/Family History Physician Review I have reviewed the patient's past medical and family history. Any updates have been documented here. Past Medical History Recent Fever: No Clinical Suspicion of Infectio: No New/Unexplained Change in Ment: No Past Medical History: Hypertension, Diabetes, GERD, Hyperlipedemia Other Medical History: hiatal hernia Past Surgical History: Cholecysctectomy, Hysterectomy, Pacer/AICD Other Surgery: thyroidectomy Review of Systems ROS Narrative Unable to obtain ROS: Unable to obtain due to, altered mental status, critical patient Physical Exam Related Data Allergies: Coded Allergies: morphine (Verified Allergy, Unknown, 03/25/20) pentazocine (Verified Allergy, Unknown, 01/01/08) Triage Vital Signs Vital Signs Date Time Temp Pulse Resp B/P (MAP) Pulse Ox O2 Delivery O2 Flow Rate FiO2 08/07/20 20:10 111 2 172/122 97 Room Air Vital signs reviewed: Yes Physical Exam CONSTITUTIONAL Constitutional: Present morbidly obese, Present ill appearing HENT HENT: Present normocephalic, Present atraumatic, Present oropharynx clear/moist, Present nose normal HENT L/R: Present left ext ear normal, Present right ext ear normal EYES Eyes: Reports PERRL, Reports conjunctivae normal NECK Neck: Present ROM normal PULMONARY Pulmonary: Present respiratory distress, Present rales CARDIOVASCULAR Cardiovascular: Present regular rhythm, Present heart sounds normal, Present ca pillary refill normal, Present tachycardia GASTROINTESTINAL Abdominal: Present soft, Present nontender, Present bowel sounds normal GENITOURINARY Genitourinary: Present exam deferred SKIN Skin: Present warm, Present dry MUSCULOSKELETAL Musculoskeletal: Present edema; Absent deformity NEUROLOGICAL Neurological: Present other (Unresponsive) PSYCHOLOGICAL Psychological: Present other (Unresponsive) Results Laboratory Laboratory Laboratory Tests Test 08/07/20 20:15 Procedures 12 Lead ECG Interpretation ECG Interpretation : Blow Down Operator: Interpreted by ED physician Date: Aug 07, 2020 Rhythm: paced Rate: tachycardia BPM: 106 QRS axis: left Conduction: left bundle branch block ST segments normal: Yes T waves normal: Yes Clinical Impression: abnormal ECG Intubation Time out performed: No Sedative: Etomidate Paralytic: Succinylcholine Laryngoscope: Lida (5- Video) Endotracheal tube size: 7.5 ET tube uncuffed: Yes Tube secured location: lips (25) Tube placement confirmation: visualize tube passing cords Complications: difficult intubation, hypoxia Additional comments Very difficult intubation Critical Care Time Critical care time exclusive o: separately billable procedures Critcal care necessary due to: respiratory failure Critcal care time spent by me: blood dram for specimens, develop tx plan w patient/surrogate, discussion w consultants, interpret cardiac output measures, evaluation patient response to tx, examination of patient, obtaining hx from patient/surrogate, order/perform tx or interventions, order/review laboratory studies, order/review radiographic studies, pulse oximetry, re-evaluation of patient condition, review of old charts, ventilator management Assessment & Plan Medical Decision Making MDM 55 y.o F presents obtunded in resp failure. Intubated and sedated. Dx favors CHF exacerbation. 40mg IV lasix given, Nitro paste placed. Dicussed with Catracho Gray and admit to ICU. Simi Garay consulted for CHF per Dr. Lo request. Do not suspect sepsis at this time. Patient refused fluids. Any lab abnormalities secondary to CHF exacerbation and respiratory failure. Reassessment Reassessment time: 21:42 Reassessment Intubated and VSS Assessment & Plan Final Impression: (1) CHF (congestive heart failure) (2) Respiratory failure Depart Disposition: ADMITTED Last Vital Signs Date Time Temp Pulse Resp B/P (MAP) Pulse Ox O2 Delivery O2 Flow Rate FiO2 08/07/20 20:10 111 2 172/122 97 Room Air Home Meds Active Scripts Guaifenesin/Dextromethorphan (MUCINEX DM ER 600-30 MG TABLET) 1 Each Tab.er.12h, 1 EACH PO Q12H for 14 Days, #28 TAB 0 Refills Prov:ERIC VALDES BICYCLE SERVICE TECHNICIAN 04/26/20 Potassium Chloride* (K DUR*) 10 Meq Tabcr, 40 MEQ PO DAILY for 30 Days, #30 TAB 0 Refills Prov:ERIC VALDES BICYCLE SERVICE TECHNICIAN 04/26/20 Metolazone (METOLAZONE) 5 Mg Tablet, 5 MG PO DAILY for 30 Days, #30 TAB 0 Refills Prov:ERIC VALDES BICYCLE SERVICE TECHNICIAN 04/26/20 Levothyroxine Sodium (SYNTHROID) 75 Mcg Tab, 150 MCG PO DAILY@06 for 30 Days, #30 TAB 0 Refills Prov:ERIC VALDES BICYCLE SERVICE TECHNICIAN 04/26/20 Furosemide (FUROSEMIDE) 40 Mg Tablet, 80 MG PO BID for 30 Days, #60 TAB 0 Refills Prov:ERIC VALDES LIBRA 04/26/20 [Albuterol/Ipratropium Nebulize] 3 ML INHA No Conflict Check, 3 ML NEB RQ6H for 30 Days, #120 DOSE 0 Refills Prov:ERIC VALDES LIBRA 04/26/20 Albuterol Sulfate (ALBUTEROL SULFATE) 1.25 Mg/3 Ml Vial.neb, 1.25 MG IH Q4HR PRN for SHORTNESS OF BREATH, #70 VIAL 1 Refill Prov:ABELINO JANG MD, ABI 11/06/17 Ipratropium [place] (IPRATROPIUM BROMIDE) 0.2 Mg/1 Ml Solution, 2.5 ML NEB Q4HR PRN for SHORTNESS OF BREATH, #70 VIAL 1 Refill Prov:ABELINO JANG MD, ABI 11/06/17 Clonazepam (CLONAZEPAM) 0.5 Mg Tablet, 0.5 MG PO DAILY PRN for ANXIETY, #14 TAB Prov:DANNY BACA MD 05/02/17 Reported Medications Rivaroxaban (XARELTO) 10 Mg Tablet, PO DAILY 04/20/20 Semaglutide (Ozempic) 0.25 Mg/0.2 Ml Pen.injctr, 0.5 MG SC WEEKLY, UNIT 03/25/20 Insulin Degludec (Tresiba) 100 Unit/1 Ml Vial, SQ DAILY 03/25/20 [Lispro] No Conflict Check, 10 UNITS SQ TID 03/25/20 [Insulin] No Conflict Check 03/25/20 Oxycodone Hcl/Acetaminophen (PERCOCET 10-325 MG TABLET) 1 Each Tablet, 1 TAB PO Q6H PRN for MODERATE PAIN (4-6), TAB 03/25/20 [Phenergan] No Conflict Check, PO PRN 03/25/20 Docusate Sodium (COLACE) 100 Mg Cap, 100 MG PO DAILY, #30 CAP 03/25/20 Naloxegol Oxalate (Movantik) 25 Mg Tablet, 25 MG PO DAILY 03/25/20 Pantoprazole Sodium (PROTONIX) 20 Mg Tablet.dr, 40 MG PO DAILY, #30 TAB 03/25/20 Cevimeline Hcl (EVOXAC) 30 Mg Capsule, 30 MG PO TID 03/25/20 Ezetimibe (ZETIA) 10 Mg Tablet, 10 MG PO DAILY, #30 TAB 03/25/20 Sacubitril/Valsartan (Entresto 97 mg-103 mg Tablet) 1 Each Tablet, 1 TAB PO DAILY 03/25/20 Atorvastatin Calcium (ATORVASTATIN CALCIUM) 20 Mg Tablet, 40 MG PO DAILY, #30 TAB 11/06/17 Fenofibrate Nanocrystallized (FENOFIBRATE) 145 Mg Tablet, 145 MG PO HS 11/06/17 Aspirin (ASPIRIN) 81 Mg Tab.chew, 81 MG PO DAILY 10/17/17 Furosemide (LASIX) 40 Mg Tablet, 80 MG PO DAILY, #30 TAB 10/17/17 Carvedilol (COREG) 3.125 Mg Tab, 3.125 PO BID 10/17/17 Pregabalin (LYRICA) 75 Mg Cap, 150 MG PO DAILY, #30 CAP 04/29/17 Carisoprodol (SOMA) 350 Mg Tablet, 350 MG PO TID, TAB 04/29/17 Zolpidem Tartrate (AMBIEN CR) 12.5 Mg Tabcr, 12.5 MG PO HS 04/29/17 Clopidogrel Bisulfate* (PLAVIX) 75 Mg Tablet, 75 MG PO DAILY, #30 TAB 04/29/17 Medications in the ED Furosemide 40 mg ONCE STAT IV ; Start 08/07/20 at 20:37; Stop 08/07/20 at 20:43; Status DC Nitroglycerin 1 gm ONCE ONCE TOP ; Start 08/07/20 at 21:00; Stop 08/07/20 at 21:01; Status DC Cefepime HCl 50 ml @ 100 mls/hr Q24H STAT IV ; Start 08/07/20 at 20:54; Stop 08/07/20 at 21:23 Propofol 100 ml @ 0 mls/hr TITRATE IV ; Start 08/07/20 at 21:00; Stop 09/06/20 at 20:59 Propofol 50 mg ONCE ONCE IV ; Start 08/07/20 at 21:00; Stop 08/07/20 at 21:01; Status DC Propofol 100 ml @ STK-MED ONCE .ROUTE ; Start 08/07/20 at 21:06; Stop 08/07/20 at 21:01; Status DC MARYELLEN PHILPIPE MD Aug 07, 2020 21:19
[2020-08-07 21:22] LABS: CLARITY,URINE SL CLOUDY (CLEAR); COLOR,URINE YELLOW (YELLOW); LEUKOCYTE ESTERASE ,URINE NEGATIVE (NEGATIVE); NITRITE,URINE POSITIVE (NEGATIVE); PROTEIN,URINE DIPSTICK >=300 (NEGATIVE)
[2020-08-07 21:23] LABS: BILIRUBIN,URINE NEGATIVE (NEGATIVE); KETONES,URINE NEGATIVE (NEGATIVE); URINE UROBILINOGEN 0.2 mg/dL (0.2 - 1)
[2020-08-07 21:35] LABS: ALBUMIN 3.9 g/dL (3.5-5.0); ALBUMIN/GLOBULIN RATIO 0.9 (0.8-2.0); ANION GAP 19.6 mmol/L (8-16); CALCIUM 8.9 mg/dL (8.4-10.2); CREATININE, SERUM 1.12 mg/dL (0.57-1.11); POTASSIUM 3.6 mmol/L (3.5-5.1)
[2020-08-07 21:37] LABS: BACTERIA,URINE MANY /HPF; EPITHELIAL CELLS,URINE FEW /LPF; TRANSITIONAL EPI CELLS,URINE FEW
--- NOTE | 2020-08-07 22:28 | Diagnostic Imaging Report ---
EXAMINATION: CHEST SINGLE (PORTABLE) INDICATION: Y ^SEPSIS ^[id number] ^2100 ^Y COMPARISON: Chest x-ray 04/25/2020 FINDINGS: TUBES and LINES: Left chest wall cardiac device with leads in the right atrium right ventricle and coronary sinus. ET tube 3.3 cm above kisha. Enteric tube courses below abdomen, tip out of field of view. LUNGS/PLEURA: Normal lung volumes. Prominent interstitial lung markings and bilateral central hazy opacities.. Blunted costophrenic sulci. Perceptible minor fissure. HEART AND MEDIASTINUM: Moderate cardiomegaly. BONES AND SOFT TISSUES: Partially visualized fixation hardware in the proximal left humerus. Sternotomy wires, some are fractured. No acute osseous lesion. Soft tissues are unremarkable. UPPER ABDOMEN: No free air under the diaphragm. IMPRESSION: Moderate cardiomegaly, and findings of pulmonary edema, possibly with superimposed pneumonia. Small bilateral pleural effusions. Signed by: Fernandez Peralta DO on 08/07/2020 10:25 PM
[2020-08-07] MEDS ORDERED: VANCOMYCIN 1GM/NS 250 ML 250 ML IV ONE (22:30)
[2020-08-07] MEDS ORDERED: THIAMINE HCL INJ 100 MG/ML 2ML VIAL IV ONE (22:30)
[2020-08-07] MEDS ORDERED: FENTANYL CITRATE/PF 100MCG/2 ML INJ IV PRN (22:30)
--- NOTE | 2020-08-07 22:35 | NUR ---
pulmonary critical care [id number] 55 yo female with acute respiratory failure. Fluid overload (systolic CHF) vs pneumonia COPD exacerbation r/o other Thank you Dr Lo
[2020-08-07 22:41] VITALS: BP 104/68
[2020-08-07] MEDS ORDERED: DEXTROSE 50% SYRINGE 50 ML IV PRN (22:45)
[2020-08-07] MEDS ORDERED: HYDRALAZINE HCL 20 MG/ML VIAL IV PRN (22:45)
[2020-08-07] MEDS ORDERED: ACETAMINOPHEN 325 MG TAB PO PRN (22:45)
[2020-08-07] MEDS ORDERED: ACETAMINOPHEN 650 MG SUPP PR PRN (22:45)
[2020-08-07 23:00] VITALS: BP 104/68
[2020-08-08] VITALS (24 sets, daily range): BP systolic 94–132; BP diastolic 56–89
[2020-08-08] MEDS: DOXYCYCLINE 100MG/NS 100ML 100 ML IV SCH ×3 (00:36→21:12)
[2020-08-08 00:43] LABS: ABG HCO3 29 mmol/L (22-26); ABG PCO2 44 mmHg (35-45); ABG PH 7.43 (7.35-7.45); ABG PO2 113 mmHg (80-105); ABG TCO2 30
[2020-08-08] MEDS ORDERED: NITROGLYCERIN 2% OINT 1 GM PKT ONE (00:43)
[2020-08-08] MEDS: INSULIN REGULAR, HUMAN 100 UNIT/1 ML 3ML VIAL SQ SCH ×4 (01:45→17:42)
[2020-08-08 05:10] LABS: BASOPHILS % 0.4 % (0.0-1.0); EOSINOPHILS # (AUTO) 0.1 (0.0-0.4); EOSINOPHILS % 1.4 % (0.0-6.0); HEMATOCRIT 26.9 % (34.2-44.1); LYMPHOCYTES # (AUTO) 1.2 (1.0-3.2); LYMPHOCYTES % 15.5 % (18.0-39.1); MEAN CORPUSCULAR HEMOGLOBIN 28.2 pg (28-32); MEAN CORPUSCULAR HGB CONC 29.7 g/dL (31-35); MEAN CORPUSCULAR VOLUME 94.7 fL (81-99); MONOCYTES # (AUTO) 0.7 (0.2-0.8); MONOCYTES % 8.8 % (4.4-11.3); NEUTROPHILS # (AUTO) 5.8 (2.1-6.9); NEUTROPHILS % 73.3 % (38.7-80.0); PLATELET COUNT 143 x10e3/uL (140-360); RED BLOOD COUNT 2.84 x10e6/uL (3.6-5.1)
[2020-08-08 05:18] LABS: INR 1.1; PROTHROMBIN TIME 14.8 seconds (11.9-14.5)
[2020-08-08 05:19] LABS: PARTIAL THROMBOPLASTIN TIME 28.9 seconds (23.8-35.5)
[2020-08-08 05:26] LABS: ALANINE AMINOTRANSFERASE 65 IU/L (0-55); ALBUMIN 2.9 g/dL (3.5-5.0); ALBUMIN/GLOBULIN RATIO 0.9 (0.8-2.0); ALKALINE PHOSPHATASE 181 IU/L (40-150); ANION GAP 12.2 mmol/L (8-16); BLOOD UREA NITROGEN 16 mg/dL (7-26); BUN/CREATININE RATIO 20 (6-25); CALCIUM 8.3 mg/dL (8.4-10.2); CARBON DIOXIDE 29 mmol/L (22-29); CHLORIDE 102 mmol/L (98-107); CREATININE, SERUM 0.79 mg/dL (0.57-1.11); EST GLOMERULAR FILTRATION RATE > 60 ML/MIN (60-); GLUCOSE 213 mg/dL (74-118); LIPASE 14 U/L (8-78); PHOSPHORUS 2.6 MG/DL (2.3-4.7); POTASSIUM 3.2 mmol/L (3.5-5.1); SODIUM 140 mmol/L (136-145)
[2020-08-08 05:48] LABS: FREE THYROXINE INDEX 1.3737 (1.4-3.8); THYROID STIMULATING HORMONE 11.663 uIU/mL (0.350-4.940)
[2020-08-08] MEDS ORDERED: LEVOTHYROXINE SODIUM 75 MCG TAB PO SCH (06:00)
[2020-08-08] MEDS: METHYLPREDNISOLONE SOD SUCC 125 MG/2ML VIAL IV SCH ×3 (06:03→21:12)
[2020-08-08] MEDS: CEFEPIME 1GM/NS 0.9% 50 ML 50 ML IV SCH ×4 (06:03→21:12)
[2020-08-08] MEDS: PROPOFOL IV EMULSION 10MG/ML 100 ML IV SCH ×2 (06:19→15:47)
[2020-08-08] MEDS ORDERED: PANTOPRAZOLE SOD 40 MG TABEC PO SCH (07:30)
[2020-08-08] MEDS ORDERED: LORAZEPAM INJ 2 MG/ML VIAL IV STA (07:35)
[2020-08-08] MEDS ORDERED: LORAZEPAM INJ 2 MG/ML VIAL ONE (07:46)
--- NOTE | 2020-08-08 08:00 | Progress Note ---
DATE: Pulmonary Progress Note SUBJECTIVE: The patient came in last night with difficulty breathing and a known history of COPD and systolic cardiomyopathy. Apparently, she was not responding well in the ER and had labored breathing. She was subsequently intubated and transferred to the intensive care unit. The patient is now on assist-control mode of ventilation. PHYSICAL EXAMINATION: VITAL SIGNS: Blood pressure is 98/61, saturation is 100%. T-max is 100.3. She is on a PRVC at a rate of 18 with a tidal volume of 450, PEEP of 5, and a FiO2 of 80%. HEENT: Shows no facial swelling or erythema. There is an oral endotracheal tube. LYMPHATIC: Shows no submandibular, cervical or supraclavicular adenopathy. CARDIAC: Reveals regular rate and rhythm with normal S1 and S2. LUNGS: Auscultation of lungs shows decreased breath sounds at the bases. There is no wheezing. ABDOMEN: Soft, nontender. There is no rebound or guarding. EXTREMITIES: Shows no leg edema or calf tenderness. There is no cyanosis or clubbing. SKIN: Shows no rashes. NEUROLOGICAL: Shows no focal abnormalities. LABORATORY DATA: BUN to creatinine ratio is 16 to 0.79. Potassium is 3.2. Sodium is 140 and the carbon dioxide is 29. The AST is 64 and ALT is 65. Alkaline phosphatase is 181. Her troponin I is 0.551 and the albumin is 2.9. The TSH is 11.663 and the T4 is 4.42. Free T4 is 1.3737. RADIOGRAPHIC DATA: Chest x-ray shows cardiomegaly with some findings of pulmonary edema. IMPRESSION: 1. Acute on chronic respiratory failure. 2. Acute on chronic systolic congestive heart failure. 3. Chronic obstructive pulmonary disease with acute exacerbation. 4. Chronic pain syndrome. 5. Peripheral arterial disease. 6. Hypokalemia. 7. Hypothyroidism. PLAN: 1. Continue diuretics and current cardiac regimen. 2. Continue Solu-Medrol. 3. Continue Xarelto. 4. Wean ventilator as tolerated. 5. Antibiotics. 6. Review code status with the patient and family. 7. Greater than 35 minutes in direct critical care time apart from any procedures performed. Rc Garay MD [facility]/MODWanda /[id number]
[2020-08-08] MEDS: CARVEDILOL 3.125 MG TAB PO SCH ×2 (08:08→16:24)
[2020-08-08] MEDS: RIVAROXABAN 10 MG TABLET PO SCH (08:09)
[2020-08-08] MEDS: CLOPIDOGREL BISULFATE 75 MG TAB PO SCH (08:09)
[2020-08-08] MEDS: SACUBITRIL/VALSARTAN 1 EACH TABLET PO SCH (08:09)
[2020-08-08] MEDS: PREGABALIN 75 MG CAP PO SCH (08:24)
[2020-08-08] MEDS: EZETIMIBE 10 MG TAB PO SCH (08:24)
[2020-08-08] MEDS: ATORVASTATIN 20 MG TAB PO SCH (08:24)
[2020-08-08] MEDS: ASPIRIN 81 MG CHEW TAB PO SCH (08:24)
[2020-08-08] MEDS ORDERED: DOCUSATE SODIUM 100 MG CAP PO SCH (09:00)
--- NOTE | 2020-08-08 11:31 | History and Physical ---
PRIMARY CARE PHYSICIAN: Dr. Sesar Guo. CONSULTANTS: 1. Dr. Gonzalez Hayden. 2. Dr. Rc Garay. 3. Dr. Dong Wilder. CHIEF COMPLAINT: Respiratory failure on mechanical ventilator support due to acute on chronic systolic dysfunction, congestive heart failure exacerbation. HISTORY OF PRESENT ILLNESS: This is a 55-year-old female chronically ill, multiple hospitalization both here in [place]. The patient last admitted to the hospital here was on May 2020, but prior to that the patient also had multiple admission as well. On April,, patient was here. The patient had multiple workup done due to short of breath. At baseline, the patient has COPD, systolic dysfunction, congestive heart failure. She had AICD implantation, had coronary disease with previous bypass graft surgery and PCI. She also had partial right nephrectomy and multiple other issue and very chronically ill. Apparently, she was not doing well at home for two days and she refused to go to the hospital at which time the patient family was unable to do much until she basically went into respiratory failure and with passing out. Therefore, they called EMS and subsequently brought the patient to the hospital here. The patient was very lethargic, hypoxic and subsequently intubated in the emergency room. At baseline, the patient was already very ill and she told family that she did not want any more aggressive measure, but the is her medical power of county historian. PAST MEDICAL HISTORY: Systolic dysfunction, congestive heart failure due to vascular disease with cardiomyopathy. COPD, hypertension. Hypothyroidism. Atrial fibrillation. Rheumatoid arthritis. Diabetes type 2 on insulin with diabetic neuropathy, chronic kidney disease, anticoagulation with Xarelto. Multiple previous massive VT particularly in 2016. Recurrent pneumonia due to congestive heart failure with vascular congestion. Chronic anemia. Chronic pain. PAST SURGICAL HISTORY: Thyroidectomy. AICD. Coronary artery bypass graft surgery. , hysterectomy, partial right nephrectomy, left femoral-popliteal bypass. Foot surgery. Left knee replacement. Multiple EGD done. SOCIAL HISTORY: The patient was a smoker. She quit. She lives with her family, very well family support. ALLERGIES: MORPHINE AND PENTAZOCINE. HOME MEDICATIONS: The patient on: 1. Albuterol. 2. Aspirin. 3. Lipitor. 4. Soma. 5. Coreg. 6. . 7. Clonazepam. 8. Plavix. 9. Colace. 10. Zetia. 11. Fenofibrate. 12. Furosemide. 13. Cough medication. 14. Tresiba. 15. Levothyroxine. 16. Metolazone. 17. Movantik. 18. Percocet. 19. Protonix. 20. Potassium. 21. Lyrica. 22. Xarelto. 23. Entresto. 24. Ozempic. 25. Ambien. 26. Lispro insulin. 27. Phenergan. PHYSICAL EXAMINATION: VITAL SIGNS: Temperature is 101, blood pressure 105/65, pulse rate 60 pacing, respirations 20. GENERAL: The patient on assist-control ventilator support on sedation for comfort. HEENT: Normocephalic, atraumatic, anicteric. NECK: Supple grossly. PULMONARY: Diminished breath sounds bilaterally with courses and rhonchi. Rales at the base, AICD in the chest. ABDOMEN: Soft, obese. EXTREMITIES: Positive for edema. No cyanosis. NEUROLOGIC: Sedation for comfort on mechanical ventilator support. LABORATORY DATA: WBC 7.9, hemoglobin 8, hematocrit 27, and platelets is 143. Chemistry; sodium 140, potassium 3.2, chloride 102, bicarb 29, BUN 16, creatinine 0.8, and glucose is 213. Troponin I is 0.551. Chest x-ray, cardiomegaly. Pulmonary edema. Superimposed pneumonia. Small bilateral pleural effusion. IMPRESSION: 1. Respiratory failure, on mechanical ventilator support. 2. Acute on chronic systolic dysfunction, congestive heart failure with pulmonary edema. 3. Superimposed pneumonia. 4. Morbid obesity. 5. Cardiomyopathy with AICD, atherosclerotic heart disease with coronary artery disease with previous stent masses, VT. 6. Paroxysmal atrial fibrillation, on Xarelto. 7. Multiple chronic baseline problems including diabetes type 2, on insulin treatment. PLAN: Mechanical ventilator support. Sedation for comfort. Critical care consultation with Dr. Rc Garay. Cardiology consultation with Dr. Dong Wilder. Insulin sliding scale coverage. Broad-spectrum antibiotics. Aggressive diuresis. Supportive care. We will repeat lab work. Critical Care ICU care protocol. We will follow up with recommendation from specialists. MD MINDY Ponce/MODL /[id number]
[2020-08-08] MEDS ORDERED: SODIUM CHLORIDE 0.9% 250ML 250 ML ONE (11:56)
[2020-08-08] MEDS: INSULIN GLARGINE 100 UNITS/ML VIAL SQ SCH ×2 (12:02→17:41)
--- NOTE | 2020-08-08 14:27 | Diagnostic Imaging Report ---
EXAMINATION: CHEST XRAY LINE PLACEMENT INDICATION: PICC line placement COMPARISON: Multiple prior chest x-rays including most recent on 08/07/2020. FINDINGS: TUBES and LINES: No PICC line is identified. Multiple leads extending from the left axilla likely from cardiac pacemaker. Endotracheal tube and subdiaphragmatic enteric tube are unchanged. LUNGS/pleura: No interval change in appearance of the lungs characterized by prominent interstitial and airspace opacities. Probable trace bilateral pleural effusion. HEART AND MEDIASTINUM: The cardiomediastinal silhouette is enlarged. BONES AND SOFT TISSUES: The osseous and soft tissue structures are unchanged. UPPER ABDOMEN: No free air under the diaphragm. IMPRESSION: 1. No PICC is identified. Multiple leads extending from the left axilla are likely from the cardiac pacer device. Recommend repeat imaging to include the left axilla/arm. 2. No interval change in radiographic appearance of the lungs. Signed by: Aliza Villalta MD on 08/08/2020 2:24 PM
--- NOTE | 2020-08-08 16:14 | Diagnostic Imaging Report ---
EXAMINATION: CHEST XRAY LINE PLACEMENT INDICATION: Left PICC line placement COMPARISON: Same day chest radiographs. FINDINGS/IMPRESSION IMPRESSION: Left PICC is now more clearly delineated and terminates at the cavoatrial junction. No interval change in radiographic appearance of the lungs/thorax. Signed by: Aliza Villalta MD on 08/08/2020 4:10 PM
[2020-08-08] MEDS: OXYCODONE/ACETAMINOPHEN 5-325 1 EACH TABLET PO PRN (18:49)
[2020-08-08] MEDS: FENOFIBRATE 145 MG TAB PO SCH (21:12)
--- NOTE | 2020-08-08 21:20 | NUR ---
Cardiology Consult Dictation# [id number]
[2020-08-08] MEDS: FUROSEMIDE INJ 10 MG/ML 4 ML VIAL IV SCH (22:21)
--- NOTE | 2020-08-08 22:28 | Consultation ---
DATE OF CONSULTATION: 08/08/2020 Cardiology Consultation REQUESTING PHYSICIAN: Dr. Bhupinder Lo. REASON FOR CONSULTATION: Congestive heart failure. PRESENT ILLNESS: This is a 55-year-old woman with history of chronic systolic heart failure, status post ICD, coronary artery disease status post bypass and PCI, paroxysmal atrial fibrillation, peripheral arterial disease, status post left femoral anterior tibial bypass, hypertension, anemia, and history of GI bleeding, who presented with shortness of breath. All history is obtained from the EMR as the patient is currently intubated and sedated. The patient was recently discharged from [facility] after an admission for acute anemia. She was transfused 2 units PRBC and underwent EGD by GI, which was reportedly largely unremarkable. Per hospital documentation the patient had apparently been short of breath for the last two days, but refused to come to the hospital. The patient eventually became more short of breath and unresponsive, so EMS was called and the patient was brought to the ER for further evaluation. In the ER, the patient was lethargic and hypoxic and ultimately intubated. She was admitted to the ICU for further care. REVIEW OF SYSTEMS: Unable to obtain secondary to intubation and sedation. PAST MEDICAL HISTORY: 1. Chronic systolic heart failure, status post BiV ICD. 2. Coronary artery disease, status post CABG and PCI. 3. Peripheral arterial disease, status post left femoral anterior tibial bypass. 4. Paroxysmal atrial fibrillation. 5. Hypertension. 6. Diabetes mellitus. 7. Chronic kidney disease. 8. COPD. 9. Rheumatoid arthritis. 10. Anemia. 11. History of GI bleeding. PAST SURGICAL HISTORY: 1. Coronary artery bypass. 2. . 3. Hysterectomy. 4. Partial right nephrectomy. 5. Left femoral anterior tibial bypass. 6. Left knee replacement. 7. Thyroidectomy. ALLERGIES: PLEASE SEE EMR. MEDICATIONS: Please see medication list. SOCIAL HISTORY: Prior tobacco, no alcohol. FAMILY HISTORY: Noncontributory to current illness. PHYSICAL EXAMINATION: VITAL SIGNS: Temperature 99.8 degrees, pulse 60, respiratory rate 18, blood pressure 101/59, and oxygen saturation 96% on mechanical ventilation. GENERAL: Obese woman, intubated and sedated, in no acute distress. HEENT: Normocephalic, atraumatic. ET tube in place. No carotid bruits. LUNGS: Clear to auscultation anterior lung sparks. Decreased breath sounds at the bases. CARDIOVASCULAR: Normal rate, regular rhythm. Normal S1 and S2, 2/6 systolic murmur. ABDOMEN: Soft, nontender, and nondistended. EXTREMITIES: 1+ pitting edema bilaterally. NEUROLOGIC: Unable to assess secondary to intubation and sedation. LABORATORY DATA: WBC 7.93, hemoglobin 8, hematocrit 26.9, platelets 143,000. Sodium 140, potassium 3.2, chloride 102, CO2 29, BUN 16, and creatinine 0.79, AST 64, ALT 65. Troponin 0.551, BNP 727. TSH 11.663, free T4 1.37, thyroxine 12.42. Chest x- ray moderate cardiomegaly and findings of pulmonary edema possibly with superimposed pneumonia, small bilateral pleural effusions. EKG, electronic ventricular pacemaker. IMPRESSION: 1. Acute on chronic systolic heart failure. 2. Coronary artery disease. 3. Status post bypass with TYPE PROOF REPRODUCER of the left main and SVG to OM and patent SERRANO to LAD. 4. Status post BiV ICD. 5. Paroxysmal atrial fibrillation. 6. Peripheral arterial disease, status post left femoral anterior tibial bypass. 7. Anemia. 8. Hypertension. 9. Diabetes mellitus. RECOMMENDATIONS: Continue supportive care. IV diuresis as blood pressure and renal function tolerates, replete electrolytes. Monitor hemoglobin and hematocrit closely. The patient had recent admission for acute symptomatic anemia. Antibiotics per primary service. Management of mechanical ventilation per Pulmonary. Continue home cardiac medication. Thank you for this consult. We will continue to follow. Paola Boyer MD [facility]/MODL /[id number]
[2020-08-09] VITALS (26 sets, daily range): BP systolic 100–154; BP diastolic 59–104
[2020-08-09] MEDS: OXYCODONE/ACETAMINOPHEN 5-325 1 EACH TABLET PO PRN ×4 (00:57→18:36)
[2020-08-09] MEDS: INSULIN REGULAR, HUMAN 100 UNIT/1 ML 3ML VIAL SQ SCH ×4 (00:57→18:09)
[2020-08-09] MEDS: PROPOFOL IV EMULSION 10MG/ML 100 ML IV SCH ×3 (01:30→18:36)
[2020-08-09 05:31] LABS: BASOPHILS % 0.1 % (0.0-1.0); HEMATOCRIT 26.3 % (34.2-44.1); HEMOGLOBIN 7.7 g/dL (12.0-16.0); LYMPHOCYTES # (AUTO) 0.7 (1.0-3.2); LYMPHOCYTES % 9.7 % (18.0-39.1); MEAN CORPUSCULAR HEMOGLOBIN 27.6 pg (28-32); MEAN CORPUSCULAR HGB CONC 29.3 g/dL (31-35); MEAN CORPUSCULAR VOLUME 94.3 fL (81-99); MONOCYTES # (AUTO) 0.4 (0.2-0.8); MONOCYTES % 5.4 % (4.4-11.3); NEUTROPHILS # (AUTO) 5.7 (2.1-6.9); NEUTROPHILS % 84.2 % (38.7-80.0); PLATELET COUNT 155 x10e3/uL (140-360); RED BLOOD COUNT 2.79 x10e6/uL (3.6-5.1); RED CELL DISTRIBUTION WIDTH 21.1 % (11.7-14.4)
[2020-08-09] MEDS: LEVOTHYROXINE SODIUM 100 MCG TAB NG SCH (05:47)
[2020-08-09] MEDS: CEFEPIME 1GM/NS 0.9% 50 ML 50 ML IV SCH ×3 (05:47→22:16)
[2020-08-09] MEDS: METHYLPREDNISOLONE SOD SUCC 125 MG/2ML VIAL IV SCH ×3 (05:47→22:16)
--- NOTE | 2020-08-09 07:56 | Diagnostic Imaging Report ---
EXAMINATION: CHEST SINGLE (PORTABLE) INDICATION: Respiratory failure COMPARISON: Multiple priors including most sent on 08/08/2020. FINDINGS: TUBES and LINES: Endotracheal tube terminates approximately 4 cm above the kisha, cardiac pacing device and subdiaphragmatic enteric tube and left PICC are unchanged. LUNGS/PLEURA: No interval change in appearance of the lungs characterized by interstitial and airspace opacities. Probable trace bilateral pleural effusion. HEART AND MEDIASTINUM: The cardiomediastinal silhouette remains enlarged. BONES AND SOFT TISSUES: The osseous and soft tissue structures are unchanged. UPPER ABDOMEN: No free air under the diaphragm. IMPRESSION: 1. No interval change in diffuse interstitial and airspace opacities throughout both lungs. 2. Stable support devices as above. Signed by: Aliza Villalta MD on 08/09/2020 7:52 AM
[2020-08-09 08:16] LABS: ALANINE AMINOTRANSFERASE 44 IU/L (0-55); ALBUMIN/GLOBULIN RATIO 0.9 (0.8-2.0); ALKALINE PHOSPHATASE 153 IU/L (40-150); ANION GAP 14.1 mmol/L (8-16); BLOOD UREA NITROGEN 21 mg/dL (7-26); BUN/CREATININE RATIO 26 (6-25); CALCIUM 8.7 mg/dL (8.4-10.2); CARBON DIOXIDE 27 mmol/L (22-29); CHLORIDE 103 mmol/L (98-107); CREATININE, SERUM 0.82 mg/dL (0.57-1.11); EST GLOMERULAR FILTRATION RATE > 60 ML/MIN (60-); GLUCOSE 186 mg/dL (74-118); POTASSIUM 3.1 mmol/L (3.5-5.1); SODIUM 141 mmol/L (136-145)
[2020-08-09] MEDS: ASPIRIN 81 MG CHEW TAB PO SCH (08:49)
[2020-08-09] MEDS: PANTOPRAZOLE 40 MG 10ML VIAL IV SCH (08:49)
[2020-08-09] MEDS: FUROSEMIDE INJ 10 MG/ML 4 ML VIAL IV SCH ×2 (08:49→21:05)
[2020-08-09] MEDS: EZETIMIBE 10 MG TAB PO SCH (08:49)
[2020-08-09] MEDS: ATORVASTATIN 20 MG TAB PO SCH (08:49)
[2020-08-09] MEDS: CARVEDILOL 3.125 MG TAB PO SCH ×2 (08:49→17:45)
[2020-08-09] MEDS: RIVAROXABAN 10 MG TABLET PO SCH (08:49)
[2020-08-09] MEDS: DOCUSATE SODIUM LIQD 100 MG/10 ML UDC NG SCH (08:49)
[2020-08-09] MEDS: PREGABALIN 75 MG CAP PO SCH (08:49)
[2020-08-09] MEDS: CLOPIDOGREL BISULFATE 75 MG TAB PO SCH (08:49)
[2020-08-09] MEDS: SACUBITRIL/VALSARTAN 1 EACH TABLET PO SCH (08:55)
[2020-08-09] MEDS: INSULIN GLARGINE 100 UNITS/ML VIAL SQ SCH ×2 (09:04→18:09)
[2020-08-09] MEDS ORDERED: LORAZEPAM INJ 2 MG/ML VIAL IV ONE (10:15)
[2020-08-09] MEDS ORDERED: POTASSIUM CHLORIDE 20MEQ/100ML 200 ML IV ONE (10:15)
[2020-08-09] MEDS ORDERED: SODIUM CHLORIDE 0.9% 250ML 250 ML IV ONE (10:15)
[2020-08-09] MEDS: DOXYCYCLINE 100MG/NS 100ML 100 ML IV SCH ×2 (10:18→22:16)
--- NOTE | 2020-08-09 10:24 | Progress Note ---
DATE: Pulmonary Critical Care Progress Note SUBJECTIVE: The patient is still on a mechanical ventilator. She is currently on a PRVC mode of ventilation at a rate of 16 with a tidal volume of 500 and PEEP of 5 and FiO2 of 65%. She is breathing in the low 20s. She is currently on a PRVC at a rate of 16 with tidal volume of 500 and a PEEP of 5 and FiO2 of 65%. PHYSICAL EXAMINATION: VITAL SIGNS: The blood pressure is 117/74, saturation is 98% on the above-mentioned ventilator settings and the pulse is 62. HEENT: Shows no facial swelling or erythema. LYMPHATIC: Shows no submandibular, cervical, or supraclavicular adenopathy. CARDIAC: Reveals regular rate and rhythm with normal S1 and S2. LUNGS: Auscultation of lungs reveals rhonchorous breath sounds bilaterally. There is no wheezing. ABDOMEN: Soft and nontender. There is no rebound or guarding. EXTREMITIES: Shows no leg edema or calf tenderness. There is no cyanosis or clubbing. SKIN: Shows no rashes. NEUROLOGICAL: Shows no focal abnormalities. LABORATORY DATA: BUN to creatinine ratio is 21 to 0.82 and the potassium is 3.1. Other electrolytes are within normal limits and the albumin is 3.0. The white blood cell count is 6.8 and the hemoglobin is 7.7. The platelet count is 155. RADIOGRAPHIC DATA: Chest x-ray shows bilateral airspace opacities. IMPRESSION: 1. Continue current antibiotics. 2. Continue diuretics. 3. Follow Cardiology's recommendations. 4. Wean ventilator as tolerated. 5. Begin enteral feedings. 6. Deep venous thrombosis prophylaxis. Greater than 35 minutes in direct critical care time. MD MOLLY Garza/[facility]NEHAL /[id number]
[2020-08-09] MEDS ORDERED: LORAZEPAM INJ 2 MG/ML VIAL IV PRN (11:15)
--- NOTE | 2020-08-09 11:39 | Consultation ---
DATE OF CONSULTATION: 08/07/2020 Pulmonary Critical Care Medicine Consult REASON FOR REFERRAL: Respiratory failure. HISTORY OF PRESENT ILLNESS: Ms. Mckeon is a pleasant 55-year-old female with acute respiratory failure. The patient was brought into the hospital with altered sensorium. The patient had called to the field and EMS showed up the patient was lethargic. Eventually, she progressed to deeper obtundation and apnea. She was emergently rushed to the hospital. Non-rebreather oxygen saturation with high 80s percentile range. The patient was brought to emergency room. The patient was given rapid sequence intubation and the patient seemed to have a crowded airway, but also the patient had anterior airway and was classified difficult per the ER doctor. The patient was intubated. Chest x-ray demonstrates overload versus pneumonitis pattern, cardiomegaly. BNP level 727. LFTs were noted to be elevated, creatinine 1.1, which is at her baseline. Her thyroid level was off and TSH was greater than 100 in April 25, 2020. At that time, T4 was less than 0.4. The patient with double IV access classified in ED. PAST MEDICAL HISTORY: Coronary artery disease, history of CABG, CHF. In October 2017, echo with LVEF 25% to 30%, moderate MR, [facility], in September 2019, apnea-hypopnea index 91.8 events per hour, lowest oxygen saturation 80%. Thyroid abnormality, dyslipidemia, history of ND, atrial fibrillation, obstructive sleep apnea on October 02, 2019, polysomnogram with AHI 91.8 events per hour, 80% lowest saturation. MEDICATIONS: Medication list reviewed per the chart record. ALLERGIES: THE PATIENT WITH MORPHINE, PENTAZOCINE. SOCIAL HISTORY: No alcohol. No drugs recently known. The patient was well-known to be a smoker, although she was trying to quit, but she is unable to update history. FAMILY HISTORY: Noncontributory. REVIEW OF SYSTEMS: Cannot get reliably as she is altered. OBJECTIVE: VITAL SIGNS: Afebrile, vital signs noted, reviewed per the chart record. GENERAL: In no distress, sedated on propofol of 10 mcg/hour. HEENT: Normocephalic and atraumatic. NECK: Supple. Throat midline. LUNGS: Bilateral air entry, limited, but mostly clear. CARDIOVASCULAR: S1, S2. No murmurs, rubs, or gallops. ABDOMEN: Soft and nontender. EXTREMITIES: No clubbing. No cyanosis. There is 1+ edema to legs. INTEGUMENT: No rash. No purpura. LABORATORY DATA: 9.9 white count, 37 hematocrit, 250 platelets. 3.6 potassium, 14 BUN and 1.1 creatinine. 428 glucose. 132 AST, ALT 88, alkaline phosphatase 227. BNP 727. Total protein 8.4, globulin 4.5, albumin 3.9. IMPRESSION AND PLAN: 1. Acute respiratory failure, intubated. 2. Abnormal chest radiography, mild pulmonary edema . BNP level 727. 3. Abnormal chest radiography, possible pneumonia. 4. Hypertension, treat as emergency hypertension, 172/122 on admit. 5. Chronic obstructive pulmonary disease with exacerbation. 6. Severe obstructive sleep apnea. 7. Difficult airway rated by ER doctor. 8. Coronary artery disease status post myocardial infarction, status post coronary artery bypass grafting. 9. Acute on chronic systolic congestive heart failure. 10. Thyroid abnormality with most recent labs . 11. Hyperlipidemia. 12. History of atrial fibrillation. 13. Chronic kidney disease stage 3, GFR 50 rated possibly. 14. History of smoking, unknown recent status. 15. Diabetes with uncontrolled hyperglycemia. 16. Encephalopathy, likely toxic metabolic. 17. Maintain intubated. Continue ventilator support. Get ABG to ensure stabilization. Update TFTs. Continue sedation, which is working very well. Empiric antibiotics. Blood cultures. Urinalysis with no significant pyuria, although many wbc's. Follow up cultures to assess for urinary tract infection. Repeat chest x-ray in the morning. Once the patient is stabilized, we plan to try to diurese. We will follow along closely. The patient in critical condition. Greater than 30 minutes in direct care time, coordinating, and reviewing data. Thank you very much for this consult, Dr. Lo. MD ARNOL Squires/[facility]L /[id number]
[2020-08-09 12:20] LABS: ABG HCO3 29 mmol/L (22-26); ABG PCO2 36 mmHg (35-45); ABG PH 7.51 (7.35-7.45); ABG PO2 59 mmHg (80-105); ABG TCO2 30
[2020-08-09] MEDS ORDERED: SODIUM CHLORIDE 0.9% 250ML 250 ML ONE (14:20)
--- NOTE | 2020-08-09 15:16 | Progress Note ---
DATE: 08/09/2020 Cardiology Progress Note SUBJECTIVE: The patient remains intubated and sedated. However, she denies chest pain or shortness of breath. OBJECTIVE: VITAL SIGNS: Temperature 99.3 degrees, pulse 61, respiratory rate 18, blood pressure 103/62, and oxygen saturation 98% on mechanical ventilation. GENERAL: Obese woman, in no acute distress. Intubated and sedated. LUNGS: Clear to auscultation anterior lung sparks. Decreased breath sounds at the bases. CARDIOVASCULAR: Normal rate, regular rhythm. Normal S1, S2. 2/6 systolic murmur. ABDOMEN: Soft, nontender, nondistended. EXTREMITIES: 1+ pitting edema bilaterally. CARDIAC MEDICATIONS: Furosemide 40 mg IV q.12 hours, Xarelto 10 mg p.o. daily, Zetia 10 mg p.o. daily, Plavix 75 mg p.o. daily, carvedilol 3.125 mg p.o. b.i.d., atorvastatin 40 mg p.o. at bedtime, aspirin 81 mg p.o. daily. LABORATORY DATA: CBC 6.79, hemoglobin 7.7, hematocrit 26.3, and platelets 155. Sodium 141, potassium 3.1, chloride 103, CO2 of 27, BUN 21, and creatinine 0.82. Telemetry; personally reviewed and interpreted revealing AV paced rhythm. IMPRESSION: 1. Ryaca-cl-kfifhew systolic heart failure. 2. Coronary artery disease, status post bypass with CT of the left main and SVG to OM and patent SERRANO to LAD. 3. Status post BiV ICD. 4. Paroxysmal atrial fibrillation. 5. Peripheral artery disease, status post left femoral anterior tibial bypass. 6. Anemia. 7. Hypertension. 8. Diabetes mellitus. RECOMMENDATIONS: Continue supportive care. Continue IV diuretics as blood pressure and renal function tolerate. She has been negative. We will continue at current dose. Monitor hemoglobin and hematocrit closely as she is currently sinus rhythm. We will stop Xarelto due to her recent admission for acute symptomatic anemia. Antibiotics per primary service. Management of mechanical ventilation per Pulmonary. Continue current cardiac medications. Thank you for this consult. We will continue to follow. Paola Boyer MD [facility] /[id number]
--- NOTE | 2020-08-09 16:15 | NUR ---
Attempted to reach Dr Lo x 2 regarding temperature increase during blood administration. Will attempt again. Patient tolerating blood transfusion well, no s/s distress nor pain noted at this time.
--- NOTE | 2020-08-09 17:00 | NUR ---
Dr Garay notified of increased temperature during blood administration. Okay to continue blood transfusion per MD. Okay to only give one unit per MD. Patient tolerating unit of blood well, no s/s pain noted, no s/s distress.
[2020-08-09] MEDS ORDERED: DEXMEDETOMIDINE HCL 200 MCG in SODIUM CHLORIDE 0.9% 50ML 48 ML IV PRN (19:15)
[2020-08-09] MEDS: FENOFIBRATE 145 MG TAB PO SCH (21:05)
[2020-08-09] MEDS ORDERED: DEXMEDETOMIDINE 200MCG/NS 50ML 50 ML IV ONE (23:50)
[2020-08-10] VITALS (26 sets, daily range): BP systolic 106–140; BP diastolic 67–112
[2020-08-10] MEDS: OXYCODONE/ACETAMINOPHEN 5-325 1 EACH TABLET PO PRN ×3 (00:09→17:55)
[2020-08-10] MEDS ORDERED: DEXMEDETOMIDINE HCL 200 MCG in SODIUM CHLORIDE 0.9% 50ML 48 ML IV PRN (00:15)
[2020-08-10] MEDS: PROPOFOL IV EMULSION 10MG/ML 100 ML IV SCH (03:30)
[2020-08-10] MEDS: LEVOTHYROXINE SODIUM 100 MCG TAB NG SCH (06:21)
[2020-08-10] MEDS: INSULIN REGULAR, HUMAN 100 UNIT/1 ML 3ML VIAL SQ SCH ×4 (06:21→17:25)
[2020-08-10] MEDS: CEFEPIME 1GM/NS 0.9% 50 ML 50 ML IV SCH ×3 (06:21→22:10)
[2020-08-10] MEDS: METHYLPREDNISOLONE SOD SUCC 125 MG/2ML VIAL IV SCH ×2 (06:21→20:11)
[2020-08-10 06:26] LABS: BASOPHILS % 0.1 % (0.0-1.0); HEMATOCRIT 31.6 % (34.2-44.1); HEMOGLOBIN 9.5 g/dL (12.0-16.0); LYMPHOCYTES # (AUTO) 0.6 (1.0-3.2); LYMPHOCYTES % 8.3 % (18.0-39.1); MEAN CORPUSCULAR HEMOGLOBIN 29.1 pg (28-32); MEAN CORPUSCULAR HGB CONC 30.1 g/dL (31-35); MEAN CORPUSCULAR VOLUME 96.9 fL (81-99); MONOCYTES # (AUTO) 0.5 (0.2-0.8); NEUTROPHILS # (AUTO) 6.2 (2.1-6.9); NEUTROPHILS % 83.8 % (38.7-80.0); PLATELET COUNT 164 x10e3/uL (140-360); RED BLOOD COUNT 3.26 x10e6/uL (3.6-5.1); RED CELL DISTRIBUTION WIDTH 20.2 % (11.7-14.4)
[2020-08-10 06:48] LABS: ALBUMIN/GLOBULIN RATIO 0.9 (0.8-2.0); CALCIUM 9.1 mg/dL (8.4-10.2); CREATININE, SERUM 1.02 mg/dL (0.57-1.11)
[2020-08-10] MEDS: FUROSEMIDE INJ 10 MG/ML 4 ML VIAL IV SCH ×3 (08:11→20:10)
[2020-08-10] MEDS: DOCUSATE SODIUM LIQD 100 MG/10 ML UDC NG SCH (08:13)
[2020-08-10] MEDS: PANTOPRAZOLE 40 MG 10ML VIAL IV SCH (08:13)
[2020-08-10] MEDS: CARVEDILOL 3.125 MG TAB PO SCH ×2 (08:14→16:10)
[2020-08-10] MEDS: ASPIRIN 81 MG CHEW TAB PO SCH (08:14)
[2020-08-10] MEDS: EZETIMIBE 10 MG TAB PO SCH (08:15)
[2020-08-10] MEDS: PREGABALIN 75 MG CAP PO SCH ×2 (08:15→21:29)
[2020-08-10] MEDS: CLOPIDOGREL BISULFATE 75 MG TAB PO SCH (08:15)
[2020-08-10] MEDS: ATORVASTATIN 20 MG TAB PO SCH (08:15)
[2020-08-10] MEDS: SACUBITRIL/VALSARTAN 1 EACH TABLET PO SCH (08:15)
[2020-08-10] MEDS: INSULIN GLARGINE 100 UNITS/ML VIAL SQ SCH ×2 (08:22→21:00)
--- NOTE | 2020-08-10 08:23 | Diagnostic Imaging Report ---
TECHNIQUE: Frontal view of the chest. INDICATION: ^resp failure ^[id number] ^[id number] COMPARISON: Prior day. DISCUSSION: Limited evaluation due to portable technique. Lines and hardware: Stable. Heart and mediastinum: Stable. Lungs and pleura: Stable bilateral interstitial and alveolar airspace opacities. Stable small pleural effusions. Negative for large pneumothorax. Soft tissues and bones: No acute abnormality. IMPRESSION: Stable exam. Signed by: Leonardo Franklin MD on 08/10/2020 8:20 AM
--- NOTE | 2020-08-10 09:29 | Progress Note ---
DATE: SUBJECTIVE: The patient is afebrile. She is currently receiving Lasix and has been diuresing. She is negative 1400 mL over the past 2 days. PHYSICAL EXAMINATION: VITAL SIGNS: The blood pressure is 135/92 and saturation is 96%. She is currently on assist-control with a 50% FiO2 and 5 of PEEP. HEENT: Shows no facial swelling or erythema. There is an oral endotracheal tube. CARDIAC: Reveals regular rate and rhythm with normal S1 and S2. LUNGS: Auscultation of lungs reveals crackles and rhonchi bilaterally. There is no wheezing. ABDOMEN: Soft and nontender. There is no rebound or guarding. EXTREMITIES: Show no leg edema or calf tenderness. There is no cyanosis or clubbing. SKIN: Shows no rashes. NEUROLOGICAL: Shows no focal abnormalities. LABORATORY DATA: Potassium is 3.1, sodium is 141, chloride is 103, and the carbon dioxide is 27. The BUN to creatinine ratio is 21 to 0.82 and the glucose is 202. The albumin is 3. The white blood cell count is 7.39, hemoglobin is 9.5, and the platelet count is 164. PLAN: 1. Continue current antibiotics. 2. Continue Lasix. 3. Place the patient on spontaneous breathing trial and hold Diprivan. 4. Replace potassium. 5. DVT prophylaxis. 6. Case discussed with nursing, Respiratory, and Cardiology. Greater than 35 minutes in direct critical care time. Rc Garay MD [facility] /[id number]
[2020-08-10] MEDS: DOXYCYCLINE 100MG/NS 100ML 100 ML IV SCH ×2 (09:57→22:45)
[2020-08-10] MEDS: POTASSIUM CHLORIDE 20MEQ/100ML 100 ML IV SCH ×2 (11:04→15:17)
[2020-08-10] MEDS: ONDANSETRON HCL INJ 2MG/ML 2ML 2 MG/ML VIAL IV PRN ×2 (13:26→20:11)
--- NOTE | 2020-08-10 14:40 | Progress Note ---
DATE: 08/10/2020 Cardiology Progress Note SUBJECTIVE: The patient remains intubated and sedated. OBJECTIVE: VITAL SIGNS: Temperature 99 degrees, pulse 60, respiratory rate 16, blood pressure 135/92, and oxygen saturation 98% on mechanical ventilation. GENERAL: Obese woman, in no acute distress. Intubated and sedated. LUNGS: Clear to auscultation anterior lung sparks with decreased breath sounds at the bases. CARDIOVASCULAR: Normal rate. Regular rhythm. Normal S1 and S2. A 2/6 systolic murmur. ABDOMEN: Soft and nontender. EXTREMITIES: 1+ pitting edema. CARDIAC MEDICATIONS: Furosemide 40 mg IV q.12 hours, Zetia 10 mg p.o. daily, Plavix 75 mg p.o. daily, atorvastatin 40 mg p.o. at bedtime, carvedilol 3.125 mg p.o. b.i.d., aspirin 81 mg p.o. daily, levothyroxine 200 mcg p.o. daily, and fenofibrate 145 mg p.o. daily. LABORATORY DATA: WBC 7.38, hemoglobin 9.5, hematocrit 31.6, and platelets 164. Sodium 140, potassium 4, chloride 103, CO2 26, BUN 33, and creatinine 1.02. Chest x-ray stable. Telemetry was personally reviewed and interpreted revealing paced rhythm. IMPRESSION: 1. Ssogp-cj-sgmljrz systolic heart failure. 2. Acute hypoxic respiratory failure. 3. Coronary artery disease, status post bypass with NUCLEAR PHYSICIAN of the left main and SVG to OM and patent SERRANO to LAD. 4. Status post BiV ICD. 5. Paroxysmal atrial fibrillation. 6. Peripheral arterial disease, status post left femoral anterior tibial bypass. 7. Anemia. 8. Hypertension. 9. Diabetes mellitus. RECOMMENDATIONS: Continue supportive care. We will increase Lasix to keep the patient negative. Monitor hemoglobin and hematocrit closely. Xarelto was stopped given her recent admission for acute symptomatic anemia and need for blood transfusion. Continue aspirin and Plavix at this time. Antibiotics per primary service. Management of mechanical ventilation per Pulmonary. Continue current cardiac medications. Thank you for this consult. We will continue to follow. Paola Boyer MD [facility] /[id number]
[2020-08-10 16:58] LABS: ABG HCO3 26 mmol/L (22-26); ABG PCO2 33 mmHg (35-45); ABG PO2 64 mmHg (80-105); ABG TCO2 27
[2020-08-10] MEDS: FENOFIBRATE 145 MG TAB PO SCH ×2 (20:10→21:00)
[2020-08-11] VITALS (15 sets, daily range): BP systolic 110–151; BP diastolic 74–104
[2020-08-11] MEDS: OXYCODONE/ACETAMINOPHEN 5-325 1 EACH TABLET PO PRN ×4 (00:50→19:34)
[2020-08-11] MEDS: IPRATROPIUM BROMIDE 0.02% 2.5 ML NEB NEB PRN ×2 (01:10→07:00)
[2020-08-11] MEDS: ALBUTEROL SULF 0.083% NEB SOLN 3 ML NEB NEB PRN ×2 (01:10→07:00)
[2020-08-11] MEDS: FUROSEMIDE INJ 10 MG/ML 4 ML VIAL IV SCH ×3 (04:52→21:00)
[2020-08-11 06:00] LABS: HEMATOCRIT 31.9 % (34.2-44.1); HEMOGLOBIN 9.4 g/dL (12.0-16.0); LYMPHOCYTES # (AUTO) 0.8 (1.0-3.2); LYMPHOCYTES % 10.4 % (18.0-39.1); MEAN CORPUSCULAR HEMOGLOBIN 28.4 pg (28-32); MEAN CORPUSCULAR HGB CONC 29.5 g/dL (31-35); MEAN CORPUSCULAR VOLUME 96.4 fL (81-99); MONOCYTES # (AUTO) 0.5 (0.2-0.8); MONOCYTES % 6.1 % (4.4-11.3); NEUTROPHILS # (AUTO) 6.6 (2.1-6.9); NEUTROPHILS % 83.1 % (38.7-80.0); PLATELET COUNT 170 x10e3/uL (140-360); RED BLOOD COUNT 3.31 x10e6/uL (3.6-5.1); RED CELL DISTRIBUTION WIDTH 20.3 % (11.7-14.4)
[2020-08-11] MEDS: INSULIN REGULAR, HUMAN 100 UNIT/1 ML 3ML VIAL SQ SCH ×5 (06:00→23:44)
[2020-08-11 06:03] LABS: ALBUMIN 3.3 g/dL (3.5-5.0); ALBUMIN/GLOBULIN RATIO 0.9 (0.8-2.0); ANION GAP 15.1 mmol/L (8-16); CALCIUM 9.6 mg/dL (8.4-10.2); CREATININE, SERUM 0.97 mg/dL (0.57-1.11); POTASSIUM 4.1 mmol/L (3.5-5.1)
[2020-08-11] MEDS: LEVOTHYROXINE SODIUM 100 MCG TAB NG SCH (06:09)
[2020-08-11] MEDS: CEFEPIME 1GM/NS 0.9% 50 ML 50 ML IV SCH ×3 (06:09→22:06)
[2020-08-11] MEDS: METHYLPREDNISOLONE SOD SUCC 125 MG/2ML VIAL IV SCH (08:21)
[2020-08-11] MEDS: CARVEDILOL 3.125 MG TAB PO SCH ×2 (08:21→17:39)
[2020-08-11] MEDS: ASPIRIN 81 MG CHEW TAB PO SCH (08:21)
[2020-08-11] MEDS: DOCUSATE SODIUM LIQD 100 MG/10 ML UDC NG SCH (08:21)
[2020-08-11] MEDS: PANTOPRAZOLE 40 MG 10ML VIAL IV SCH (08:21)
[2020-08-11] MEDS: SACUBITRIL/VALSARTAN 1 EACH TABLET PO SCH (08:22)
[2020-08-11] MEDS: EZETIMIBE 10 MG TAB PO SCH (08:23)
[2020-08-11] MEDS: PREGABALIN 75 MG CAP PO SCH ×3 (08:23→21:00)
[2020-08-11] MEDS: ATORVASTATIN 20 MG TAB PO SCH (08:23)
[2020-08-11] MEDS: CLOPIDOGREL BISULFATE 75 MG TAB PO SCH (08:23)
[2020-08-11] MEDS: INSULIN GLARGINE 100 UNITS/ML VIAL SQ SCH ×2 (08:25→21:00)
--- NOTE | 2020-08-11 08:44 | Diagnostic Imaging Report ---
EXAMINATION: CHEST SINGLE (PORTABLE) INDICATION: Respiratory failure COMPARISON: Chest radiograph of 08/10/2020 FINDINGS: LINES/TUBES:Interval removal of endotracheal tube and enteric tube. Remaining support lines unchanged. LUNGS:The lungs are moderately inflated. There is perihilar fullness and indistinctness of the pulmonary vasculature. Unchanged bibasilar hazy opacities. PLEURA:Unchanged small pleural effusions. No pneumothorax. MEDIASTINUM:Cardiomediastinal silhouette is stably enlarged. BONES/SOFT TISSUES:No acute osseous injury. Sternotomy wires unchanged. ABDOMEN:No free air under the diaphragm. IMPRESSION: Interval extubation and removal of enteric tube. Unchanged cardiomegaly and central pulmonary vascular congestion. Unchanged basilar hazy opacities and small effusions. Signed by: Shubham Arguello MD on 08/11/2020 8:40 AM
[2020-08-11] MEDS: DOXYCYCLINE 100MG/NS 100ML 100 ML IV SCH ×2 (10:59→22:18)
--- NOTE | 2020-08-11 11:40 | Progress Note ---
DATE: SUBJECTIVE: The patient was extubated yesterday. She is on diuretics and had significant diuresis. PHYSICAL EXAMINATION: VITAL SIGNS: Blood pressure is 125/79, saturation is 100% on 3 L, and the pulse is 60. Respiratory rate is 16. HEENT: Shows no facial swelling or erythema. LYMPHATIC: Shows no submandibular, cervical, or supraclavicular adenopathy. CARDIAC: Reveals regular rate and rhythm with normal S1 and S2. LUNGS: Auscultation of lungs shows decreased breath sounds at the bases. There is no wheezing. ABDOMEN: Soft and nontender. There is no rebound or guarding. EXTREMITIES: Show no leg edema or calf tenderness. There is no cyanosis or clubbing. LABORATORY DATA: BUN to creatinine ratio is 40 to 0.97. Albumin is 3.3 and the other electrolytes are within normal limits. White blood cell count is 7.98, hemoglobin is 9.4, and the platelet count is 170. RADIOGRAPHIC DATA: Chest x-ray shows cardiomegaly and central pulmonary congestion. IMPRESSION: 1. Acute on chronic systolic congestive heart failure. 2. Acute respiratory failure. 3. Paroxysmal atrial fibrillation. 4. Diabetes. PLAN: 1. Continue current cardiac regimen. 2. Continue to monitor electrolytes. 3. Monitor BUN and creatinine. 4. Stop steroids. 5. Transfer to medical lobo. Rc Garay MD [facility]/MOD[facility] /[id number]
--- NOTE | 2020-08-11 13:15 | NUR ---
Nutrition Screen Note RD Recommendation for Physician: Initiate Po diet when medically feasible Plan of Care: RD following, monitoring for tolerance and adequacy Nutrition reason for involvement: Change of status with need for nutrition support/new EN Primary Diagnose(s): Acute respiratory failure/CHF Ht:66 in Wt:244.5lbs BMI:39.5 kg/m2 IBW:130lbs RD Assessment:(08/11/2020) Initial encounter with patient. Visited Pt. Pt had been extubated ans is sitting up in chair on nasal cannula. Pt stating she needs to eat because her blood glucose levels were low. Pt with transfer orders to [facility] surge floor. Pt no longer will require nutrition support. Pt denies any nausea or vomiting. Pt has missing teeth, no known food allergies, No difficulty chewing or swallowing. Pt sipping on Sprite at time of visit, however, no diet order. No significant Wt changes. Pt requesting to eat AMY, but told Pt that MD would have to order diet. Current Diet: NPO/Vital AF 1.2 at 20ml/hr. No EN access/No EN infusing Malnutrition Evaluation (08/11/2020) The patient does not meet criteria for a specified degree of malnutrition at this time. Will re-evaluate at follow-up as appropriate. Diet Education Needs Assessment: Diet education not indicated. Diet Adequacy: Not meeting calorie needs, Not meeting protein needs Tolerance: NPO Nutrition Care Level: Candelario Cooney RD,LD,CNSC
--- NOTE | 2020-08-11 13:56 | Progress Note ---
DATE: 08/11/2020 Cardiology Progress Note SUBJECTIVE: The patient has been extubated. She was seen working with physical therapy. She notes that she had an episode of chest pain earlier today, but was unable to provide any further details. She is still short of breath. OBJECTIVE: VITAL SIGNS: Temperature 98.5 degrees, pulse 60, respiratory rate 14, blood pressure 127/89, and oxygen saturation 100% on 3 L nasal cannula. GENERAL: Obese woman, in no acute distress. Awake and alert. LUNGS: Crackles in bilateral bases, otherwise clear to auscultation. CARDIOVASCULAR: Normal rate. Regular rhythm. Normal S1 and S2. A 2/6 systolic murmur. ABDOMEN: Soft and nontender. EXTREMITIES: 1+ pitting edema. CARDIAC MEDICATIONS: Lasix 40 mg IV q.8 hours, Zetia 10 mg p.o. daily, Plavix 75 mg p.o. daily, atorvastatin 40 mg p.o. daily, carvedilol 3.125 mg p.o. b.i.d., aspirin 81 mg p.o. daily, levothyroxine 200 mcg p.o. daily, and fenofibrate 145 mg p.o. at bedtime. LABORATORY DATA: WBC 7.98, hemoglobin 9.4, hematocrit 31.9, and platelets 170. Sodium 146, potassium 4.1, chloride 107, CO2 28, BUN 40, and creatinine 0.97. Telemetry was personally reviewed and interpreted revealing paced rhythm. IMPRESSION: 1. Fogwg-vi-cpvohmg systolic heart failure. 2. Acute hypoxic respiratory failure. 3. Coronary artery disease, status post bypass with DELI/BAKERY ASSOCIATE of the left main and SVG to OM and patent SERRANO to LAD. 4. Status post BiV ICD. 5. Paroxysmal atrial fibrillation. 6. Peripheral arterial disease, status post left femoral anterior tibial bypass. 7. Anemia. 8. Hypertension. 9. Diabetes mellitus. RECOMMENDATIONS: Continue supportive care. Continue Lasix at current frequency. Monitor creatinine and replete electrolytes. Monitor hemoglobin and hematocrit closely. Xarelto will be stopped given recent admission for acute symptomatic anemia and need for blood transfusion. Continue aspirin and Plavix at this time. Antibiotics per primary service. Continue current cardiac medications. PT as tolerated. Thank you for this consult. We will continue to follow. Paola B Shiue, MD [facility]/MODL /[id number]
--- NOTE | 2020-08-11 16:22 | NUR ---
Assumed care of patient from Sophia RN at 1315. Report given to Kristina SNIDER. Patient transferred to room 205 with telemetry, no s/s of distress noted.
--- NOTE | 2020-08-11 18:35 | NUR ---
pt arrived to the room 205 @ 1610. transfer from ICU Oates and picc line present , patent . PT A&O.
[2020-08-11] MEDS: FENOFIBRATE 145 MG TAB PO SCH (21:00)
[2020-08-11] MEDS ORDERED: SODIUM CHLORIDE 0.9% 250ML 250 ML ONE (21:35)
[2020-08-12] VITALS (9 sets, daily range): BP systolic 102–131; BP diastolic 62–79
[2020-08-12] MEDS: OXYCODONE/ACETAMINOPHEN 5-325 1 EACH TABLET PO PRN ×4 (01:35→20:12)
--- NOTE | 2020-08-12 02:20 | NUR ---
SIZE WRIGHT NOTIFIED SÁNCHEZ AND ARRANGED FOR BED [employer]PENTER #[id number]. PATIENT WAS ON EQUIPMENT FROM 08/08/20 THRU 08/11/20 PER ICU CHARGE NURSE.
[2020-08-12] MEDS: FUROSEMIDE INJ 10 MG/ML 4 ML VIAL IV SCH ×3 (04:30→20:12)
[2020-08-12] MEDS: LEVOTHYROXINE SODIUM 100 MCG TAB NG SCH (05:07)
[2020-08-12] MEDS: CEFEPIME 1GM/NS 0.9% 50 ML 50 ML IV SCH ×3 (05:07→21:12)
[2020-08-12] MEDS: ONDANSETRON HCL INJ 2MG/ML 2ML 2 MG/ML VIAL IV PRN (05:50)
[2020-08-12] MEDS: INSULIN REGULAR, HUMAN 100 UNIT/1 ML 3ML VIAL SQ SCH (06:00)
--- NOTE | 2020-08-12 06:16 | NUR ---
CHECKED PATIENT BLOOD GLUCOSE, BAD BLOOD SAMPLE BG 14, RECHECKED BG-BG 116.
[2020-08-12] MEDS: PANTOPRAZOLE 40 MG 10ML VIAL IV SCH (08:21)
[2020-08-12] MEDS: CLOPIDOGREL BISULFATE 75 MG TAB PO SCH (08:21)
[2020-08-12] MEDS: CARVEDILOL 3.125 MG TAB PO SCH ×2 (08:21→17:19)
[2020-08-12] MEDS: ASPIRIN 81 MG CHEW TAB PO SCH (08:21)
[2020-08-12] MEDS: EZETIMIBE 10 MG TAB PO SCH (08:21)
[2020-08-12] MEDS: PREGABALIN 75 MG CAP PO SCH ×3 (08:21→20:17)
[2020-08-12] MEDS: ATORVASTATIN 20 MG TAB PO SCH (08:21)
[2020-08-12] MEDS: SACUBITRIL/VALSARTAN 1 EACH TABLET PO SCH (08:24)
[2020-08-12] MEDS ORDERED: DEXTROSE 50% SYRINGE 50 ML IV PRN (08:45)
[2020-08-12] MEDS: DOCUSATE SODIUM LIQD 100 MG/10 ML UDC NG SCH (09:00)
[2020-08-12] MEDS: DOXYCYCLINE 100MG/NS 100ML 100 ML IV SCH ×2 (10:08→22:47)
[2020-08-12] MEDS: INSULIN LISPRO 100 UNIT/1 ML 3ML VIAL SQ SCH ×3 (12:00→20:17)
--- NOTE | 2020-08-12 12:00 | NUR ---
Patient is back in bed. Oates was removed per MD order. Patient educated on calling if she has to void. She verbalized understanding.
[2020-08-12] MEDS: OMEPRAZOLE 20 MG CAP PO SCH (12:18)
--- NOTE | 2020-08-12 13:30 | NUR ---
MULTIMEDIA COORDINATOR assisted patient to the bedside toilet and back to bed, patient stated she voided without any issues. Will continue to monitor.
--- NOTE | 2020-08-12 13:32 | Progress Note ---
DATE: SUBJECTIVE: The patient is transferred out of the ICU. She is still receiving diuretics. Overall, she feels better. PHYSICAL EXAMINATION: VITAL SIGNS: The blood pressure is 122/73 and the pulse is 62. Saturation is 98% on 3 L. HEENT: Shows no facial swelling or erythema. LYMPHATIC: Shows no submandibular, cervical, or supraclavicular adenopathy. CARDIAC: Reveals regular rate and rhythm with normal S1 and S2. LUNGS: Auscultation of lungs reveals crackles and rhonchi bilaterally. There is no wheezing. ABDOMEN: Soft and nontender. There is no rebound or guarding. EXTREMITIES: Show no leg edema or calf tenderness. There is no cyanosis or clubbing. SKIN: Shows no rashes. NEUROLOGICAL: Shows no focal abnormalities. IMPRESSION: 1. Jpxvm-ig-cqsxetn systolic congestive heart failure. 2. Acute respiratory failure. 3. Paroxysmal atrial fibrillation. 4. Diabetes. PLAN: 1. Continue current cardiac regimen. 2. Out of bed as tolerated. 3. Repeat electrolytes, BUN, creatinine, and CBC tomorrow. Rc Garay MD [facility] /[id number]
--- NOTE | 2020-08-12 17:28 | Progress Note ---
DATE: 08/12/2020 Cardiology Progress Note SUBJECTIVE: The patient reports she has chest pain in her chest on palpation. She continues to have dyspnea on exertion. OBJECTIVE: VITAL SIGNS: Temperature 98.8 degrees, pulse 62, respiratory rate 19, blood pressure 122/73, and oxygen saturation 98% on 3 L nasal cannula. GENERAL: Obese woman, in no acute distress, awake and alert. LUNGS: Crackles in bilateral bases, otherwise clear to auscultation. CARDIOVASCULAR: Normal rate. Regular rhythm. Normal S1 and S2. A 2/6 systolic murmur. ABDOMEN: Soft and nontender. EXTREMITIES: 1+ pitting edema. CARDIAC MEDICATIONS: Furosemide 40 mg IV q.8 hours, Zetia 10 mg p.o. daily, Plavix 75 mg p.o. daily, carvedilol 3.125 mg p.o. b.i.d., atorvastatin 40 mg p.o. daily, aspirin 81 mg p.o. daily, levothyroxine 200 mcg p.o. daily, and fenofibrate 145 mg p.o. at bedtime. LABORATORY DATA: None today. Telemetry was personally reviewed and interpreted, revealing ventricular paced rhythm. IMPRESSION: 1. Rarlb-dm-ucldbce systolic heart failure. 2. Acute hypoxic respiratory failure. 3. Coronary artery disease, status post bypass with PAPER PATTERN INSPECTOR of the left main and SVG to OM and patent SERRANO to LAD. 4. Status post BiV ICD. 5. Paroxysmal atrial fibrillation. 6. Peripheral arterial disease, status post left femoral anterior tibial artery bypass. 7. Anemia. 8. Hypertension. 9. Diabetes mellitus. RECOMMENDATIONS: Continue supportive care. Continue Lasix at current dose. Monitor creatinine and replete electrolytes. Xarelto was stopped due to recent admission for acute symptomatic anemia and need for blood transfusion. Monitor hemoglobin and hematocrit closely. Continue aspirin and Plavix for now. Antibiotics per primary service. Blood pressure is well controlled. Continue current cardiac medications. PT as tolerated. Thank you for this consult. We will continue to follow. Paola Boyer MD [facility]/MODL /[id number]
[2020-08-12] MEDS: FENOFIBRATE 145 MG TAB PO SCH (20:17)
[2020-08-13] VITALS (8 sets, daily range): BP systolic 94–126; BP diastolic 54–75
[2020-08-13] MEDS: FUROSEMIDE INJ 10 MG/ML 4 ML VIAL IV SCH ×3 (02:57→20:37)
[2020-08-13] MEDS: OXYCODONE/ACETAMINOPHEN 5-325 1 EACH TABLET PO PRN ×4 (02:58→21:33)
[2020-08-13] MEDS: CEFEPIME 1GM/NS 0.9% 50 ML 50 ML IV SCH ×3 (05:54→21:32)
[2020-08-13] MEDS: LEVOTHYROXINE SODIUM 100 MCG TAB NG SCH (05:54)
[2020-08-13 06:19] LABS: BASOPHILS % 0.4 % (0.0-1.0); EOSINOPHILS # (AUTO) 0.1 (0.0-0.4); EOSINOPHILS % 2.1 % (0.0-6.0); HEMATOCRIT 28.5 % (34.2-44.1); HEMOGLOBIN 8.4 g/dL (12.0-16.0); LYMPHOCYTES # (AUTO) 0.6 (1.0-3.2); LYMPHOCYTES % 12.3 % (18.0-39.1); MEAN CORPUSCULAR HEMOGLOBIN 28.4 pg (28-32); MEAN CORPUSCULAR HGB CONC 29.5 g/dL (31-35); MEAN CORPUSCULAR VOLUME 96.3 fL (81-99); MONOCYTES # (AUTO) 0.4 (0.2-0.8); MONOCYTES % 7.9 % (4.4-11.3); NEUTROPHILS % 76.9 % (38.7-80.0); PLATELET COUNT 147 x10e3/uL (140-360); RED BLOOD COUNT 2.96 x10e6/uL (3.6-5.1); RED CELL DISTRIBUTION WIDTH 19.6 % (11.7-14.4)
[2020-08-13 06:38] LABS: ALANINE AMINOTRANSFERASE 19 IU/L (0-55); ALBUMIN 2.6 g/dL (3.5-5.0); ALBUMIN/GLOBULIN RATIO 0.8 (0.8-2.0); ALKALINE PHOSPHATASE 85 IU/L (40-150); BLOOD UREA NITROGEN 37 mg/dL (7-26); BUN/CREATININE RATIO 43 (6-25); CALCIUM 7.3 mg/dL (8.4-10.2); CARBON DIOXIDE 29 mmol/L (22-29); CHLORIDE 117 mmol/L (98-107); CREATININE, SERUM 0.87 mg/dL (0.57-1.11); EST GLOMERULAR FILTRATION RATE > 60 ML/MIN (60-); GLUCOSE 112 mg/dL (74-118); SODIUM 144 mmol/L (136-145)
[2020-08-13] MEDS: INSULIN LISPRO 100 UNIT/1 ML 3ML VIAL SQ SCH ×4 (08:00→20:31)
[2020-08-13] MEDS: DOCUSATE SODIUM LIQD 100 MG/10 ML UDC NG SCH (09:00)
[2020-08-13] MEDS: SACUBITRIL/VALSARTAN 1 EACH TABLET PO SCH (09:00)
[2020-08-13] MEDS: ASPIRIN 81 MG CHEW TAB PO SCH (09:22)
[2020-08-13] MEDS: PREGABALIN 75 MG CAP PO SCH ×3 (09:23→21:32)
[2020-08-13] MEDS: EZETIMIBE 10 MG TAB PO SCH (09:23)
[2020-08-13] MEDS: CARVEDILOL 3.125 MG TAB PO SCH ×2 (09:23→16:54)
[2020-08-13] MEDS: ATORVASTATIN 20 MG TAB PO SCH (09:23)
[2020-08-13] MEDS: CLOPIDOGREL BISULFATE 75 MG TAB PO SCH (09:23)
[2020-08-13] MEDS: OMEPRAZOLE 20 MG CAP PO SCH (09:23)
[2020-08-13] MEDS: DOXYCYCLINE 100MG/NS 100ML 100 ML IV SCH (09:32)
--- NOTE | 2020-08-13 15:04 | Progress Note ---
DATE: 08/13/2020 Cardiology Progress Note. SUBJECTIVE: The patient denies chest pain or shortness of breath. She would like to go home. OBJECTIVE: VITAL SIGNS: Temperature 99 degrees, pulse 68, respiratory rate 23, blood pressure 110/62, oxygen saturation 100% on 2.5L nasal cannula. GENERAL: Obese woman, no acute distress. Awake and alert. LUNGS: Clear to auscultation anterior lung sparks. No wheezes or crackles. CARDIOVASCULAR: Normal rate and regular rhythm. A 2/6 systolic murmur. Normal S1, S2. ABDOMEN: Soft, nontender. EXTREMITIES: 1+ pitting edema. CARDIAC MEDICATIONS: 1. Lasix 40 mg IV q.8 hours. 2. Zetia 10 mg p.o. daily. 3. Plavix 75 mg p.o. daily. 4. Carvedilol 3.125 mg p.o. b.i.d. 5. Atorvastatin 40 mg p.o. daily. 6. Aspirin 81 mg p.o. daily. 7. Levothyroxine 200 mcg p.o. daily. 8. Fenofibrate 145 mg p.o. at bedtime. LABORATORY DATA: WBC 5.2, hemoglobin 8.4, hematocrit 28.5, platelets 147. Sodium 144, potassium 3, chloride 117, CO2 of 29, BUN 37, and creatinine 0.87. TELEMETRY: Telemetry was personally reviewed and interpreted, ventricular paced rhythm. IMPRESSION: 1. Acute on chronic systolic heart failure. 2. Acute hypoxic respiratory failure. 3. Coronary artery disease status post bypass with [employer] of the left main, SVG to OM and patent SERRANO to LAD. 4. Status post BiV ICD. 5. Paroxysmal atrial fibrillation. 6. Peripheral artery disease, status post left femoral anterior tibial artery bypass. 7. Anemia. 8. Hypertension. 9. Diabetes mellitus. RECOMMENDATIONS: Continue supportive care. Continue Lasix at current dose. Monitor creatinine and replete electrolytes. Xarelto was stopped due to recent admission for acute symptomatic anemia and need for blood transfusion. Monitor hemoglobin and hematocrit closely. Continue aspirin and Plavix for now. Antibiotics per primary service. Blood pressure is well controlled. Continue current cardiac medications. PT as tolerated. Thank you for this consult. We will continue to follow. Paola Boyer MD ABS/MODL /[id number]
[2020-08-13] MEDS ORDERED: ONDANSETRON HCL 4 MG ORAL DISINTEGRATING TAB PO PRN (16:00)
[2020-08-13] MEDS ORDERED: POTASSIUM CHLORIDE 10MEQ EA PO ONE (18:00)
--- NOTE | 2020-08-13 18:25 | Progress Note ---
DATE: SUBJECTIVE: The patient feels better. She has less dyspnea. She still has some cough and phlegm production. PHYSICAL EXAMINATION: VITAL SIGNS: The blood pressure is 108/75 and the saturation is 95% on 2 L. HEENT: Shows no facial swelling or erythema. LYMPHATIC: Shows no submandibular, cervical, or supraclavicular adenopathy. CARDIAC: Reveals regular rate and rhythm with normal S1 and S2. LUNGS: Auscultation of lungs reveals clear breath sounds bilaterally. There is no wheezing. ABDOMEN: Soft and nontender. There is no rebound or guarding. EXTREMITIES: Show no leg edema or calf tenderness. There is no cyanosis or clubbing. SKIN: Shows no rashes. LABORATORY DATA: Hemoglobin is 8.4, white blood cell count is 5.2, and the platelet count is 147. The BUN to creatinine ratio is 37 to 0.87. Potassium is 3.0 and the other electrolytes within normal limits. IMPRESSION: 1. [id number] systolic congestive heart failure. 2. Acute respiratory failure. 3. Paroxysmal atrial fibrillation. 4. Diabetes. PLAN: 1. Continue current cardiac regimen. 2. Continue oxygen. 3. Possible discharge home. Rc Garay MD LM/SNEHAL /[id number]
[2020-08-13] MEDS: DOXYCYCLINE HYCLATE TABLET 100 MG TAB PO SCH (21:32)
[2020-08-13] MEDS: FENOFIBRATE 145 MG TAB PO SCH (21:32)
[2020-08-14] MEDS: OXYCODONE/ACETAMINOPHEN 5-325 1 EACH TABLET PO PRN ×2 (02:32→08:55)
[2020-08-14] MEDS: FUROSEMIDE INJ 10 MG/ML 4 ML VIAL IV SCH (03:49)
[2020-08-14 04:51] VITALS: BP 139/69
[2020-08-14] MEDS: CEFEPIME 1GM/NS 0.9% 50 ML 50 ML IV SCH (05:43)
[2020-08-14] MEDS: LEVOTHYROXINE SODIUM 100 MCG TAB NG SCH (05:43)
[2020-08-14] MEDS: INSULIN LISPRO 100 UNIT/1 ML 3ML VIAL SQ SCH (08:53)
[2020-08-14] MEDS: DOCUSATE SODIUM LIQD 100 MG/10 ML UDC NG SCH (08:54)
[2020-08-14] MEDS: ASPIRIN 81 MG CHEW TAB PO SCH (08:54)
[2020-08-14] MEDS: SACUBITRIL/VALSARTAN 1 EACH TABLET PO SCH (08:55)
[2020-08-14] MEDS: OMEPRAZOLE 20 MG CAP PO SCH (08:55)
[2020-08-14] MEDS: ATORVASTATIN 20 MG TAB PO SCH (08:55)
[2020-08-14] MEDS: DOXYCYCLINE HYCLATE TABLET 100 MG TAB PO SCH (08:55)
[2020-08-14] MEDS: CARVEDILOL 3.125 MG TAB PO SCH (08:55)
[2020-08-14] MEDS: CLOPIDOGREL BISULFATE 75 MG TAB PO SCH (08:55)
[2020-08-14] MEDS: PREGABALIN 75 MG CAP PO SCH (08:55)
[2020-08-14] MEDS: EZETIMIBE 10 MG TAB PO SCH (08:55)
[2020-08-14 10:26] VITALS: BP 129/71
[2020-08-14 10:27] VITALS: BP 129/71
[2020-08-14] MEDS ORDERED: POTASSIUM CHLORIDE 10MEQ EA PO ONE (10:45)
--- NOTE | 2020-08-14 11:24 | NUR ---
Potassium replacement given as ordered and the pt. is in process of discharging home.
--- NOTE | 2020-08-14 12:16 | NUR ---
The pt. has competed the o2 eval and does not need home o2.
--- NOTE | 2020-08-14 13:01 | NUR ---
CM spoke to pt at bedside regarding home health. Pt states that she had home health previously. Was set up thru [facility]. Pt gave CM updated address of [address], [place] [address]. Choice letter signed for [facility]. Copy to pt. Signed copy in chart. CM called [facility] [phone] and spoke to Lulú. Gave her information on pt and informed her that pt will discharge today. States she has an auth date for 08/16. Intake #[id number]. They will staff with a provider and call pt with HH information. [facility] information and intake number given to pt. Addendum: 08/14/20 at 1306 by Urmila Delgadillo CM Pt also let CM know that she has a CPAP being delivered today at 2pm
--- NOTE | 2020-08-14 13:11 | NUR ---
The pt's iv was removed (PICC) and small pressure dressing applied. The pt. was given follow up and home care instructions.
--- NOTE | 2020-08-14 14:41 | Progress Note ---
DATE: 08/14/2020 Cardiology Progress Note SUBJECTIVE: The patient denies chest pain or shortness of breath. She is complaining of cough. OBJECTIVE: VITAL SIGNS: Temperature 97.4 degrees, pulse 69, respiratory rate 18, blood pressure 129/71, oxygen saturation 95% on room air. GENERAL: Chronically ill-appearing woman, obese, no acute distress. Awake and alert. LUNGS: Clear to auscultation bilaterally. No wheezes or crackles. CARDIOVASCULAR: Normal rate. Regular rhythm, 2/6 systolic murmur. Normal S1, S2. ABDOMEN: Soft, nontender. EXTREMITIES: Trace edema. CARDIAC MEDICATIONS: Zetia 10 mg p.o. daily, Plavix 75 mg p.o. daily, carvedilol 3.25 mg p.o. b.i.d., atorvastatin 40 mg p.o. daily, aspirin 81 mg p.o. daily, levothyroxine 200 mcg p.o. daily, Lasix 40 mg IV q.8 hours., p.o. daily. LABORATORY DATA: None today. TELEMETRY: Telemetry was reviewed and interpreted revealing atrioventricular paced rhythm. IMPRESSION: 1. Acute on chronic systolic heart failure. 2. Acute hypoxic respiratory failure. 3. Coronary artery disease, status post bypass with CT of the left main, saphenous vein graft to obtuse marginal and patent left internal mammary artery to left anterior descending artery. 4. Status post biventricular implantable cardioverter-defibrillator. 5. Paroxysmal atrial fibrillation. 6. Peripheral arterial disease, status post left femoral anterior tibial artery bypass. 7. Anemia. 8. Hypertension. 9. Diabetes mellitus. RECOMMENDATIONS: Continue supportive care. Continue Lasix at current dose. Monitor creatinine. Replete electrolytes. Xarelto was stopped due to recent admission for acute symptomatic anemia and need for blood transfusion. We have not seen recurrent episodes of atrial fibrillation at this time. Monitor hemoglobin and hematocrit closely. Continue aspirin and Plavix for now. Antibiotics per primary service. Blood pressure is well controlled. Continue current cardiac medications. The patient wishes to be discharged home. We are awaiting delivery of home O2. Recommend the patient to be discharged on 80 mg Lasix b.i.d. PT as tolerated. The patient reports her right leg had discoloration overnight, but this has since resolved. Bilateral arterial Doppler was reviewed. She does have diminished velocities in her anterior tibial and dorsalis pedis artery suggest infrapopliteal disease. No hemodynamically significant stenosis was seen. We will monitor. Thank you for this consult. We will continue to follow. Paola Boyer MD ABS/MODL /[id number]
== END 2020-08-14 13:11 | disposition home or self-care (01) | DRG 291 ==
LOC: ER 20:38 → ERHOLD 21:32 → ICU 23:15 → MED/SURG2 08-11 17:03
PROVIDERS: ADMIT Internal Medicine; ATTEND Internal Medicine
PROC: 5A09459 Assistance with Respiratory Ventilation, 24-96 Consecutive Hours, Continuous Negative Airway Pressure (ICD-10-PCS; principal; 2020-08-07)
PROC: 05H633Z Insertion of Infusion Device into Left Subclavian Vein, Percutaneous Approach (ICD-10-PCS; 2020-08-08)
PROC: 30243N1 Transfusion of Nonautologous Red Blood Cells into Central Vein, Percutaneous Approach (ICD-10-PCS; 2020-08-09)
PROC: 0BH17EZ Insertion of Endotracheal Airway into Trachea, Via Natural or Artificial Opening (ICD-10-PCS; 2020-08-09)
DX: I13.0 Hypertensive heart and chronic kidney disease with heart failure and stage 1 through stage 4 chronic kidney disease, or unspecified chronic kidney disease (principal); J15.9 Unspecified bacterial pneumonia; G93.41 Metabolic encephalopathy; J96.21 Acute and chronic respiratory failure with hypoxia; I50.23 Acute on chronic systolic (congestive) heart failure; J44.1 Chronic obstructive pulmonary disease with (acute) exacerbation; I42.9 Cardiomyopathy, unspecified; I48.0 Paroxysmal atrial fibrillation; Z68.39 Body mass index [BMI] 39.0-39.9, adult; I25.10 Atherosclerotic heart disease of native coronary artery without angina pectoris; Z95.1 Presence of aortocoronary bypass graft; Z95.810 Presence of automatic (implantable) cardiac defibrillator; M06.9 Rheumatoid arthritis, unspecified; E11.40 Type 2 diabetes mellitus with diabetic neuropathy, unspecified; I25.2 Old myocardial infarction; Z87.01 Personal history of pneumonia (recurrent); Z90.5 Acquired absence of kidney; G47.33 Obstructive sleep apnea (adult) (pediatric); Z87.891 Personal history of nicotine dependence; E11.65 Type 2 diabetes mellitus with hyperglycemia; G89.4 Chronic pain syndrome; E66.9 Obesity, unspecified; Z11.59 Encounter for screening for other viral diseases; E11.22 Type 2 diabetes mellitus with diabetic chronic kidney disease; N18.30 Chronic kidney disease, stage 3 unspecified
CPT/HCPCS: 36415; 36569; 36600; 71045; 80053; 81001; 82140; 82805; 82948; 83605; 83690; 83735; 83880; 84100; 84436; 84443; 84479; 84484; 85025; 85610; 85730; 86850; 86900; 86920; 87040; 87070; 87086; 87186; 87205; 93005; 93925; 94002; 94003; 94640; 96365; 96372; 96374; 97139; 99251; 99285; J0330; J0692; J1817; J1940; J2060; J2405; J2930; J3370; J3411; J3480; J7050; P9016